=== PATIENT | male | born 1960 | race Caucasian/White ===

== ENCOUNTER 2016-09-22 17:18 | Inpatient (IN) | payer MEDICARE, OTHER ==
[2016-09-22] MEDS ORDERED: cloZAPine 100 MG TAB PO SCH (21:45)
[2016-09-22] MEDS: SODIUM CHLORIDE 0.9% 1,000 ML IV SCH (22:36)
[2016-09-22] MEDS: METOPROLOL TARTRATE 25 MG TAB PO SCH (22:37)
[2016-09-22] MEDS: LITHIUM CARBONATE 300 MG CAP PO SCH (22:37)
[2016-09-22 23:11] LABS: Basophils # (A) 0.1 k/uL (0-0.2); Basophils % (A) 0 %; CH 28.8; CHCM 33.4; Eosinophils % (A) 0 %; HCT 37.5 % (39.0-53.0); HDW 2.98; HGB 12.3 gm/dL (13.0-17.5); Luc # (Auto) 0.11; Luc % (Auto) 1; Lymphocytes # (A) 1.8 k/uL (1.0-4.8); Lymphocytes % (A) 15 %; MCH 28.6 pg (25.0-35.0); MCHC 32.9 g/dL (31.0-37.0); MCV 86.8 fL (80.0-100.0); Monocytes # (A) 0.5 k/uL (0-1.0); Monocytes % (A) 4 %; Neutrophils # (A) 9.5 k/uL (1.3-7.7); Neutrophils % (A) 80 %; RBC 4.32 m/uL (4.30-5.90); RDW 14.1 % (11.5-15.5); WBC 11.9 k/uL (3.8-10.6); WBC (Perox) 11.42
[2016-09-22 23:25] LABS: ALT 25 U/L (21-72); AST 15 U/L (17-59); Alkaline Phosphatase 54 U/L (38-126); Anion Gap 7 mmol/L; Blood Urea Nitrogen 15 mg/dL (9-20); Calcium 9.1 mg/dL (8.4-10.2); Carbon Dioxide 26 mmol/L (22-30); Chloride 108 mmol/L (98-107); Glucose 104 mg/dL (74-99); Magnesium 1.9 mg/dL (1.6-2.3); Non-African American GFR(MDRD) >60 (>60 ml/min/1.73 sqM); Sodium 141 mmol/L (137-145); Total Bilirubin 0.9 mg/dL (0.2-1.3); Total Protein 5.6 g/dL (6.3-8.2)
[2016-09-22] MEDS ORDERED: ACETAMINOPHEN TAB 500 MG TAB PO PRN (23:25)
[2016-09-22] MEDS ORDERED: ALPRAZolam 0.25 MG TAB PO PRN (23:25)
[2016-09-23] MEDS: HEPARIN SODIUM,PORCINE 5,000 UNIT/ML 1 ML VIAL SQ SCH ×3 (01:16→20:06)
[2016-09-23 02:26] LABS: Appearance,Urine Clear (Clear); Bilirubin,Urine Negative (Negative); Glucose,Urine (UA) Negative (Negative); Ketones,Urine Trace (Negative); Leukocyte Esterase,Urine Negative (Negative); Mucus,Urine Rare /hpf; Nitrite,Urine Negative (Negative); PH, Urine 6.5 (5.0-8.0); Particle Count 3129; Protein,Urine 1+ (Negative); RBC,Urine 5 /hpf (0-5); Specific Gravity,Urine 1.019 (1.001-1.035); Sperm,Urine Moderate /hpf; Squamous Epithelial Cell,Urine 1 /hpf (0-4); UA Billing (MACRO vs. MICRO) MICRO; WBC,Urine 3 /hpf (0-5)
[2016-09-23 05:17] VITALS: BMI 22.8
[2016-09-23] MEDS: CHOLECALCIFEROL 1,000 UNIT TAB PO SCH (08:13)
[2016-09-23] MEDS: PANTOPRAZOLE 40 MG TABLET PO SCH (08:13)
[2016-09-23] MEDS: METOPROLOL TARTRATE 25 MG TAB PO SCH ×2 (08:13→20:06)
[2016-09-23] MEDS: DOCUSATE 100 MG CAP PO SCH ×2 (08:13→20:06)
[2016-09-23] MEDS: FERROUS SULFATE 325 MG TAB PO SCH (08:14)
[2016-09-23 08:51] LABS: Basophils % (A) 0 %; CH 29.1; CHCM 33.2; Eosinophils % (A) 0 %; HCT 37.1 % (39.0-53.0); HDW 2.93; HGB 12.3 gm/dL (13.0-17.5); Luc # (Auto) 0.09; Luc % (Auto) 1; Lymphocytes # (A) 1.3 k/uL (1.0-4.8); Lymphocytes % (A) 11 %; MCH 29.1 pg (25.0-35.0); MCHC 33.1 g/dL (31.0-37.0); Mean Platelet Volume 6.7; Monocytes # (A) 0.5 k/uL (0-1.0); Monocytes % (A) 4 %; Neutrophils # (A) 9.9 k/uL (1.3-7.7); Neutrophils % (A) 84 %; RBC 4.21 m/uL (4.30-5.90); RDW 14.2 % (11.5-15.5); WBC 11.8 k/uL (3.8-10.6); WBC (Perox) 11.67
[2016-09-23 09:50] LABS: Anion Gap 10 mmol/L; Blood Urea Nitrogen 16 mg/dL (9-20); Carbon Dioxide 24 mmol/L (22-30); Chloride 108 mmol/L (98-107); Glucose 107 mg/dL (74-99); Lithium <0.2 mmol/L; Non-African American GFR(MDRD) >60 (>60 ml/min/1.73 sqM); Potassium 4.1 mmol/L (3.5-5.1); Sodium 142 mmol/L (137-145)
--- NOTE | 2016-09-23 10:23 | XR ---
EXAMINATION TYPE: XR chest 1V portable DATE OF EXAM: 09/23/2016 8:31 AM Comparison: 01/02/2016 Clinical History: 56 year-old male shortness of breath, CHF Findings: The cardiomediastinal silhouette, aorta, and pulmonary vasculature are within normal limits. Mild i nterstitial prominence is unchanged. Lungs and pleural spaces otherwise are clear. Impression: No acute cardiopulmonary process.
[2016-09-23] MEDS: SODIUM CHLORIDE 0.9% 1,000 ML IV SCH (12:44)
--- NOTE | 2016-09-23 14:16 | P.CN ---
Psychiatric Consult - . Consult date: 09/23/16 Consult:: IDENTIFYING DATA: Mr. Tadeo is a 56-year-old single male who has a history of a schizophrenia. HISTORY OF PRESENT ILLNESS: [facility] transferred him with diagnoses of a small bowel obstruction. Psychiatry was consulted because he has a history of mental illness, history of clozapine treatment and multiple past psychiatric hospitalizations. I reviewed the medical record and attempted to interview Mr. Pagan. He was unable to provide a coherent past or present history. According to the information from the medical record the [place] police called EMS to his home. EMS personnel met with him and his guardian. The guardian stated he had surgery for a abdominal hernia on , 09/19/2016. His guardian and his father told the ED provider that over the past 3-4 days he' s had a decline in mental status. His father noted that his dose of clozapine was reduced from 500 300 mg due to a low blood platelets cell count. He has not been drinking adequately or eating normally. He appears less aware of her surroundings and interacting less with others. According to record his clozapine was decreased from 500 mg to 300 mg due to a low white blood cell count. His WBC on admission to medicine unit was 11.9 and absolute neutrophil count was 9.5 He is currently NPO for evaluation of a suspected small bowel obstruction. According to his unit nurse he has been pleasant and has posed no management problem. PAST PSYCHIATRIC HISTORY: According to medical record he has a history of schizophrenia and multiple psychiatric hospitalizations including admissions to the [facility] and the [facility]. He has been prescribed clozapine for the last 19 years. His last admission to [facility] was in December 2015. SUBSTANCE USE HISTORY: According to the record, he has no history of substance use problems. SOCIAL HISTORY: He is single and has no children. He has not employed and receives Social Security disability he graduated from high school. MENTAL STATUS EXAM: He presented as a thin casually groomed 56-year-old male who is laying comfortably in bed. He made eye contact but continued difficulty attending to the interview. He had no distinguishing features or prominent physical abnormalities. He had a distressed facial expression. He was oriented to person and place. He recognized that he was in [facility]. He thought the year was 2017. He showed psychomotor retardation no abnormal involuntary movements. Her speech was not spontaneous. He had difficulty articulating his thoughts and had long delays in response to questions. His affect was blunted but stable and appropriate. He did not express suicidal ideation or wishes. He did not expressed depressive cognitions. He perseverated about his medical illness and repeatedly requested to have the valorie removed. He did not express ideas reference or paranoid ideation. His thinking was concrete and associations were not coherent or logical. He denied hallucinations and did not appear to be responding to internal stimuli. IMPRESSIONS: He has a chronic schizophrenia and is severely mentally ill. According to the information in the medical record his mental status change prior to admission. The change followed surgery for abdominal hernia repair and apparent decrease in the dose of clozapine. His current WBC and absolute neutrophil count are elevated. PLAN: Increase clozapine to 400 mg at bedtime and titrate gradually to 500 mg at bedtime. Continue WBC and absolute neutrophil count weekly. Continue current dose of lithium but discontinue alprazolam 0.25 mg 3 times a day when necessary. Obtain medical records from [facility]. Will follow. 09/23/16 13:54
--- NOTE | 2016-09-23 14:41 | HP ---
DATE OF ADMISSION: CHIEF COMPLAINT: Change in mental status. HISTORY OF PRESENT ILLNESS: This is a 56-year-old gentleman with a past medical history of multiple medical problems including CHF, diabetes mellitus, hypertension, small bowel obstruction, history of chronic kidney disease stage IIIB, being followed in the outpatient setting presented [facility] ER and was admitted for further evaluation and treatment. The patient apparently had in change in mental status and also had dilated small bowel obstruction. The patient was on Clozaril. The dose was decreased recently. The exact details are not available at this time. Patient is unable to give a coherent history. Patient is confused. Most of the history is taken from my discussion with staff and review of the chart at this time. Apparently, the legal guardian is also not available and could not be contacted per staff. The EMS took the patient to [facility] ER and subsequently because of lack of psychiatric consultation availability, the patient was transferred to [facility] as a direct admission. PAST MEDICAL HISTORY: History of schizophrenia, history of diabetes, hypertension, history of generalized abdominal pain, chronic kidney disease stage III, history of renal failure, history of dyslipidemia, history of hypertension. Medications prior to admission include: 1. Tylenol 325 mg p.o. daily. 2. Lipitor 10 mg p.o. daily. 3. Vitamin D 1,000 units daily. 4. Clozaril 100 mg p.o. daily. 5. ( ) 300 mg p.o. q.h.s. 6. Colace 100 mg p.o. daily. 7. Iron sulfate p.o. daily. 8. [place] 300 mg CR. 9. Metoprolol Lopressor 25 mg p.o. daily. 10. Protonix 40 mg daily. 11. Vitamin B12 1000 mg p.o. b.i.d. ALLERGIES: CODEINE AND PENICILLIN. Family history, social history and review of systems could not be taken at length. Per chart there is no history of any smoking. PHYSICAL EXAMINATION: Patient is conscious, confused. Pulse is 68, blood pressure 116/71, respirations 16, temperature 96.8, pulse ox 98% on room air. HEENT: Conjunctivae normal. Oral mucosa moist. NECK: No jugular venous distention. No carotid bruit. No lymph node enlargement. CARDIOVASCULAR: S1 and S2, muffled. RESPIRATORY: Breath sounds diminished at the bases. A few scattered rhonchi. No crackles. ABDOMEN: Soft, mild diffuse distention. Nontender. No mass palpable. LEGS: No edema, no swelling. NERVOUS SYSTEM: Higher function as mentioned earlier. Moves all four limbs. Full neurological exam could not be carried out. Otherwise no focal deficits. Labs are pending at this time. X-ray abdomen shows dilated small bowels done in [facility]. Other labs are sodium 141, potassium 4.3, creatinine is 1.23, WBC 13.7. UA is not available. ASSESSMENT: 1. Change in mental status, metabolic encephalopathy, multifactorial, exact etiology unknown. 2. Possible partial small bowel obstruction. 3. History of schizophrenia. 4. Diabetes, type 2. 5. Hypertension, essential. 6. Abdominal pain. 7. Thrombocytopenia. 8. History of chronic kidney disease. 9. History of dyslipidemia. 10. History of appendectomy. 11. History of right colectomy. 12. History of right inguinal hernia repair. RECOMMENDATIONS AND DISCUSSION: In this 56-year-old gentleman who presented with multiple complex medical issues, we will monitor the patient closely. Continue the current medications, symptomatic treatment. Otherwise at this time, I would recommend basic labs, IV fluids. I would also recommend psychiatry as well as resume the home medications and psychiatry and as well as surgical evaluation. Guarded prognosis because of multiple complex medical issues. I would also recommend social service worker to sort out the home situation as well, which is not very clear at this time. DVT prophylaxis. See orders for further details. Prognosis guarded.
--- NOTE | 2016-09-23 16:31 | XR ---
EXAMINATION TYPE: XR abdomen complete w decub DATE OF EXAM: 09/23/2016 4:01 PM CLINICAL HISTORY: Small bowel obstruction per order. TECHNIQUE: Supine, upright, and left side down lateral decubitus views of the abdomen are obtained. COMPARISON: CT abdomen and pelvis January 06, 2016 FINDINGS: There is some paucity of small bowel gas. Gas is seen in slightly prominent small bowel loo ps with air-fluid levels. Gas is seen in prominent colonic loops. Overlying coils from ventral wall h ernia repair surgery are identified. Scattered air-fluid levels are seen. No pneumoperitoneum is present. Lung bases are clear. Visualized osseous structures are intact. IMPRESSION: Overall nonspecific bowel gas pattern.
[2016-09-23] MEDS: ATORVASTATIN 10 MG TAB PO SCH (20:06)
[2016-09-23] MEDS: LITHIUM CARBONATE 300 MG CAP PO SCH (20:06)
[2016-09-23] MEDS: cloZAPine 100 MG TAB PO SCH (20:06)
[2016-09-23 21:50] VITALS: RESP 16
--- NOTE | 2016-09-23 22:56 | CONS ---
DATE OF CONSULTATION: Patient is seen on rounds. He had undergone a right inguinal herniorrhaphy by me on 09/11 for a right inguinal herniorrhaphy that was causing partial small bowel obstruction. He was discharged to rehab. He evidently came in because he was not doing well. Some of his medications have been adjusted. The patient denies any pain, nausea or vomiting. PAST MEDICAL HISTORY: Includes some psychiatric issues, renal insufficiency, hyperlipidemia, hypertension, thrombocytopenia. PAST SURGICAL HISTORY: Includes some sort of laparotomy and right inguinal herniorrhaphy. Medications are reviewed. ALLERGIES: Reviewed. Social, family were reviewed. PHYSICAL EXAM: Pleasant 56-year-old man. He is alert and oriented x3 in no acute distress. HEART: Regular rate and rhythm. LUNGS: Clear to auscultation. ABDOMEN: Soft. Positive bowel sounds. Mild tympany to percussion and abdominal distention is actually significantly better than when he was discharged from the hospital. Incision in the right groin is healing without cellulitis or infection. No significant swelling in the cord. ASSESSMENT: Status post right inguinal herniorrhaphy which resulted in partial small bowel obstruction. PLAN: Will discontinue valorie. Start him on a diet. No surgical intervention is planned at this point.
[2016-09-24] MEDS: SODIUM CHLORIDE 0.9% 1,000 ML IV SCH ×2 (02:20→15:17)
--- NOTE | 2016-09-24 06:55 | PN ---
DATE OF SERVICE: 09/23/2016 This 56-year-old gentleman admitted with change in mental status also had abdominal distention and possible ileus also. Psychiatry seen the patient recommending increase the Clozaril to 400 mg q.h.s. and titrate gradually to 500 mg q.h.s. WBC and absolute neutrophil count should be monitored weekly. The current dose of lithium may be continued, but Xanax dose will be monitored. Chest x-ray showed no cardiopulmonary issues. Surgery is following the patient closely. The patient is still confused. PAST MEDICAL HISTORY: Reviewed. REVIEW OF SYSTEMS: Could not be taken because of the patient's confusion. Current medications are reviewed and include: 1. Tylenol 500 mg q.6 p.r.n. 2. Xanax 0.25 t.i.d. 3. Lipitor 10 mg. 4. Vitamin D3, 5000 units daily. 5. Clozaril 400 mg q.h.s. 6. Colace 100 mg p.o. b.i.d. 7. Iron sulfate 325 mg daily. 8. Heparin 5000 units subcu b.i.d. 9. [place] carbonate 600 mg q.h.s. 10. Lopressor. 11. Protonix 40 mg p.o. daily. 12. IV fluids. PHYSICAL EXAMINATION: The patient is alert and oriented x2. Pulse 821, blood pressure 106/71, respirations 20, temperature 97.1, pulse ox 96% on room air. HEENT: Conjunctivae normal. Oral mucosa moist. NECK: No jugular venous distention. No carotid bruit. No lymph node enlargement. No thyroid enlargement. CARDIOVASCULAR: S1 and S2, muffled. RESPIRATORY: Breath sounds diminished at the bases. A few scattered rhonchi and crackles. ABDOMEN: Soft, nontender. No mass palpable. LEGS: No edema, no swelling. NERVOUS SYSTEM: No focal deficits. Diffusely weak. LABS: WBC 11.8, hemoglobin is 12.3. UA noted. ASSESSMENT: 1. Change in mental status, metabolic encephalopathy, multifactorial, exact etiology unknown, possibly medication induced. 2. Possible partial small bowel obstruction. 3. History of schizophrenia. 4. Diabetes mellitus type 2. 5. Hypertension, essential. 6. Abdominal pain, improving. 7. Thrombocytopenia. 8. History of chronic kidney disease. 9. History of dyslipidemia. 10. History of appendectomy. 11. History of right colectomy. 12. History of right inguinal hernia repair. 13. FULL CODE. RECOMMENDATIONS AND DISCUSSION: In this 56-year-old gentleman who presented with multiple complex medical issues, we will monitor the patient closely, continue the current medications. Continue symptomatic treatment. Otherwise, at this time I would recommend continue the current medications, psych medications as mentioned earlier. DVT prophylaxis. Otherwise PT, OT evaluation. Increase ambulation. Continue the beta blockers. [place] level noted. Repeat labs are recommended. Otherwise, await surgical evaluation. Guarded prognosis. Further recommendations to follow. Would also order abdominal flat plate also. Further recommendations to follow.
[2016-09-24] MEDS: HEPARIN SODIUM,PORCINE 5,000 UNIT/ML 1 ML VIAL SQ SCH ×2 (08:15→21:58)
[2016-09-24] MEDS: METOPROLOL TARTRATE 25 MG TAB PO SCH ×2 (08:15→21:59)
[2016-09-24] MEDS: FERROUS SULFATE 325 MG TAB PO SCH (08:16)
[2016-09-24] MEDS: PANTOPRAZOLE 40 MG TABLET PO SCH (08:16)
[2016-09-24] MEDS: CHOLECALCIFEROL 1,000 UNIT TAB PO SCH (08:16)
[2016-09-24] MEDS: DOCUSATE 100 MG CAP PO SCH ×2 (08:16→21:58)
[2016-09-24 09:27] LABS: Basophils % (A) 0 %; CH 29.1; Eosinophils % (A) 0 %; HCT 41.3 % (39.0-53.0); HDW 2.92; HGB 13.2 gm/dL (13.0-17.5); Luc # (Auto) 0.09; Luc % (Auto) 1; Lymphocytes # (A) 1.5 k/uL (1.0-4.8); Lymphocytes % (A) 17 %; MCH 28.3 pg (25.0-35.0); MCV 88.4 fL (80.0-100.0); Mean Platelet Volume 6.6; Monocytes # (A) 0.5 k/uL (0-1.0); Monocytes % (A) 5 %; Neutrophils % (A) 77 %; RBC 4.67 m/uL (4.30-5.90); RDW 14.4 % (11.5-15.5); WBC 9.1 k/uL (3.8-10.6); WBC (Perox) 8.96
[2016-09-24 09:35] LABS: Anion Gap 9 mmol/L; Blood Urea Nitrogen 11 mg/dL (9-20); Calcium 8.9 mg/dL (8.4-10.2); Carbon Dioxide 24 mmol/L (22-30); Chloride 108 mmol/L (98-107); Glucose 135 mg/dL (74-99); Non-African American GFR(MDRD) >60 (>60 ml/min/1.73 sqM); Potassium 3.9 mmol/L (3.5-5.1); Sodium 141 mmol/L (137-145)
--- NOTE | 2016-09-24 14:59 | P.PN ---
Progress Note - Text The patient is tolerating his diet well. His acute abdominal series is unremarkable. Assessment: Status post inguinal herniorrhaphy Recommendation: Low Residue diet for 2 weeks. See me in the office in a month. Notify me if anything changes and you have like him reevaluated.
--- NOTE | 2016-09-24 20:27 | PN ---
DATE OF SERVICE: 09/24/2016 This 56-year-old gentleman who was admitted with change in mental status and metabolic encephalopathy is improving significantly. The partial small-bowel obstruction also seems to be improving. The patient is taking a regular diet. Dr. Encinas is following the patient closely. Plain x-ray of the abdomen is however, the patient patient is living in an apartment by himself. color worker and case monitor are working on discharge planning. No chest. No palpitation. On examination, alert and oriented x2. Pulse 89, blood pressure 125/69, respiratory rate 16, temperature 96.9, pulse ox 100% on room air. HEENT: Conjunctivae normal. NECK: No jugular venous distention. CARDIOVASCULAR SYSTEM: S1, S2 muffled. RESPIRATORY SYSTEM: Breath sounds diminished at the bases. No rhonchi. No crackles. ABDOMEN: Soft, nontender. No mass palpable. LEGS: No edema. No swelling. NERVOUS SYSTEM: No focal deficit. LABS: WBC 9.1, hemoglobin 13.2. UA noted. [place] level less than 0.2. ASSESSMENT: 1. Change in mental status, metabolic encephalopathy, possibly medication-induced. 2. Possible partial small bowel obstruction. 3. History of schizophrenia. 4. Gait dysfunction. 5. Diabetes mellitus, type 2. 6. Hypertension, essential. 7. Abdominal pain, improving. 8. Thrombocytopenia. 9. History of chronic kidney disease, stage unknown. 10. History of dyslipidemia. 11. History of appendectomy. 12. History of right colectomy. 13. History of right inguinal hernia repair. 14. FULL CODE. RECOMMENDATIONS AND DISCUSSION: I recommend to continue current medications, continue with the monitoring, symptomatic treatment. I would also recommend PT and OT evaluation and social work consultation. Guarded prognosis. Further recommendations to follow. A snf is also being recommended. MTDD
[2016-09-24] MEDS: cloZAPine 100 MG TAB PO SCH (21:59)
[2016-09-24] MEDS: LITHIUM CARBONATE 300 MG CAP PO SCH (21:59)
[2016-09-24] MEDS: ATORVASTATIN 10 MG TAB PO SCH (21:59)
[2016-09-25] MEDS: SODIUM CHLORIDE 0.9% 1,000 ML IV SCH ×2 (04:21→05:31)
[2016-09-25 08:12] VITALS: BP 169/64; PULSE 84; TEMP 96.9
[2016-09-25 09:34] LABS: Basophils % (A) 0 %; CH 28.8; CHCM 32.1; Eosinophils % (A) 0 %; HCT 37.7 % (39.0-53.0); HDW 2.72; HGB 11.9 gm/dL (13.0-17.5); Luc # (Auto) 0.06; Luc % (Auto) 1; Lymphocytes # (A) 1.3 k/uL (1.0-4.8); Lymphocytes % (A) 19 %; MCH 28.5 pg (25.0-35.0); MCHC 31.5 g/dL (31.0-37.0); MCV 90.3 fL (80.0-100.0); Mean Platelet Volume 7.1; Monocytes # (A) 0.3 k/uL (0-1.0); Monocytes % (A) 4 %; Neutrophils # (A) 5.2 k/uL (1.3-7.7); Neutrophils % (A) 76 %; RBC 4.17 m/uL (4.30-5.90); RDW 14.7 % (11.5-15.5); WBC 6.8 k/uL (3.8-10.6); WBC (Perox) 7.43
[2016-09-25] MEDS: PANTOPRAZOLE 40 MG TABLET PO SCH (09:42)
[2016-09-25] MEDS: METOPROLOL TARTRATE 25 MG TAB PO SCH (09:42)
[2016-09-25] MEDS: HEPARIN SODIUM,PORCINE 5,000 UNIT/ML 1 ML VIAL SQ SCH (09:42)
[2016-09-25] MEDS: DOCUSATE 100 MG CAP PO SCH (09:42)
[2016-09-25] MEDS: CHOLECALCIFEROL 1,000 UNIT TAB PO SCH (09:42)
[2016-09-25] MEDS: FERROUS SULFATE 325 MG TAB PO SCH (09:42)
[2016-09-25 10:04] LABS: Anion Gap 8 mmol/L; Blood Urea Nitrogen 11 mg/dL (9-20); Calcium 8.5 mg/dL (8.4-10.2); Carbon Dioxide 24 mmol/L (22-30); Chloride 110 mmol/L (98-107); Glucose 91 mg/dL (74-99); Non-African American GFR(MDRD) >60 (>60 ml/min/1.73 sqM); Potassium 4.1 mmol/L (3.5-5.1); Sodium 142 mmol/L (137-145)
--- NOTE | 2016-09-25 13:49 | P.PN ---
Progress Note - Text SUBJECTIVE: I reviewed the medical record and interviewed Mr. Pagan. Today , he was without complaint of concern. He denied abdominal pain or problems with appetite. He denied feeling frightened or scared. He denied experiencing auditory or visual hallucinations, ideas reference, thought insertion, thought broadcasting or thought control. OBJECTIVE: He presented as a thin casually groomed adult male who is laying comfortably in bed. He recognized me from our initial encounter but he did not remember my name. He made eye contact and attended to the interview. He had no distinguishing features or prominent physical abnormalities. He had a blunted but bright facial expression. He was alert and able to concentrate and attend on the examination. Unlike our initial encounter, he was able to complete the [facility] Orientation Memory and Concentration test. His total weighted error score was 0 indicating no major impairments in attention, concentration or short-term memory. He knew the month and year. He is able to estimate the time correctly within 1 hour actual time. He is able to retain the memory phrase "[place], [address] [place] [id number]." He was able to count backwards from 20 and name the months of the year in reverse order beginning with April. He was able to remember the memory phrase after the distraction exercises. He denied suicidal ideation or wishes. He did not express depressive cognitions such as hopelessness, helplessness or worthlessness. He did not express phobias, ideas reference, paranoid ideation or delusional thoughts. His thinking was concrete but his associations were coherent and logical. He did not demonstrate perseveration, neologisms or blocking. He denied hallucinations and did not appear to be responding to internal stimuli. ASSESSMENT: There is no evidence of acute psychosis or major mood disorder. I suspect his mental status changes were related to a medical illness. PLAN: There is no indication for inpatient psychiatric hospitalization at the time. Continue outpatient mental health treatment after discharge.
--- NOTE | 2016-09-26 05:16 | DS ---
DATE OF ADMISSION: 09/22/2016 DATE OF DISCHARGE: 09/25/2016 The patient is a 66-year-old admitted for metabolic encephalopathy, probably related to his psychiatric disorder and not taking Clozaril and that improved. Patient is being discharged today. Patient had a recent hernia repair. Patient is otherwise clinically doing well and patient is being discharged home with 24/7 monitoring. Patient is being restarted back on Clozaril. Patient was seen and examined on the day of discharge. Vitals are stable. PHYSICAL EXAMINATION: GENERAL: The patient is alert and oriented x3, not in any acute distress. Well developed, well nourished. HEENT: Pupils are round and equally reacting to light. EOMI. No scleral icterus. No conjunctival pallor. Normocephalic, atraumatic. No pharyngeal erythema. No thyromegaly. CARDIOVASCULAR: S1 and S2 present. No murmurs, rubs, or gallops. PULMONARY: Chest is clear to auscultation, no wheezing or crackles. ABDOMEN: Soft, nontender, nondistended, normoactive bowel sounds. No palpable organomegaly. MUSCULOSKELETAL: No joint swelling or deformity. EXTREMITIES: No cyanosis, clubbing, or pedal edema. NEUROLOGICAL: No new focal neurological ( ). SKIN: No rashes. FINAL DIAGNOSES: 1. Altered mental status, possibility of toxic metabolic encephalopathy, possibly medication induced. 2. Partial small bowel obstruction, which resolved. 3. Schizophrenia. 4. Gait dysfunction. 5. Type 2 diabetes mellitus. 6. Hypertension. 7. 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 8. Dyslipidemia. 9. Recent right inguinal hernia repair. Patient is tolerating diet very well, low residual diet very well. The patient is being discharged home with 24/7 care. Patient's Clozaril was restarted back and patient's CBC needs to be monitored as an outpatient. Patient will follow with [facility] and patient will also following in [facility] in one week. [facility] will follow the patient. Patient will follow with Dr. Charo Encinas on the october at 9:15. Activity as tolerated. Low residual diet. Spent greater than 35 minutes in total discharge process. Please refer to my depart summary for further details of discharge medications.
== END 2016-09-25 15:00 | disposition home or self-care (01) | DRG 388 ==
LOC: 5ONC 19:38 → 5MS5E 22:55
PROVIDERS: ADMIT Internal Medicine; ATTEND Internal Medicine
DX: K56.60 Unspecified intestinal obstruction (principal); G92 Toxic encephalopathy; I13.0 Hypertensive heart and chronic kidney disease with heart failure and stage 1 through stage 4 chronic kidney disease, or unspecified chronic kidney disease; E11.22 Type 2 diabetes mellitus with diabetic chronic kidney disease; D69.6 Thrombocytopenia, unspecified; F20.9 Schizophrenia, unspecified; I50.9 Heart failure, unspecified; T50.905A Adverse effect of unspecified drugs, medicaments and biological substances, initial encounter; E78.5 Hyperlipidemia, unspecified; R26.9 Unspecified abnormalities of gait and mobility; N18.2 Chronic kidney disease, stage 2 (mild); R10.9 Unspecified abdominal pain; Z79.899 Other long term (current) drug therapy; Z88.5 Allergy status to narcotic agent; Z88.0 Allergy status to penicillin; Y92.009 Unspecified place in unspecified non-institutional (private) residence as the place of occurrence of the external cause
CPT/HCPCS: 71010; 74020; 80048; 80053; 80178; 80306; 81001; 83735; 85025; 87040; 87086

== ENCOUNTER 2020-08-09 10:45 | Inpatient (IN) | payer MEDICARE, OTHER ==
[2020-08-09 11:29] LABS: Appearance,Urine Clear (Clear); Bilirubin,Urine Negative (Negative); Blood,Urine Negative (Negative); Color,Urine Yellow; Glucose,Urine (UA) Negative (Negative); Ketones,Urine Negative (Negative); Leukocyte Esterase,Urine Negative (Negative); Mucus,Urine Occasional /hpf; Nitrite,Urine Negative (Negative); Protein,Urine 1+ (Negative); RBC,Urine 1 /hpf (0-5); Squamous Epithelial Cell,Urine <1 /hpf (0-4); WBC,Urine 1 /hpf (0-5)
--- NOTE | 2020-08-09 11:57 | ED ---
General Adult HPI - General Chief complaint: Urogenital Stated complaint: Poss UTI/Mental health Time Seen by Provider: 08/09/20 10:55 Source: patient, RN notes reviewed, old records reviewed Mode of arrival: ambulatory Limitations: no limitations - History of Present Illness Initial comments: This is a 59-year-old male who presents to the emergency department with the procurement representative from [facility]. Patient has a history of schizophrenia and lately he's been distancing himself from others more than normal and also has been more fatigued acting. Patient has no complaints. Patient denies any fever chills. Patient denies any nausea vomiting diarrhea. Patient has had no recent injury or trauma. [facility] nurse thought maybe he had a ur inary tract infection want him to come in and be checked out for medical reasons he is not suicidal or homicidal and they do not want the patient evaluated by EPS - Related Data Home Medications Medication Instructions Recorded Confirmed [place] Carbonate 600 mg PO HS 02/06/16 08/09/20 Cholecalciferol (Vitamin D3) 125 mcg PO MOWEFR 08/09/20 08/09/20 [Vitamin D3 (5000 Iu)] Docusate [Colace] 100 mg PO BID PRN 08/09/20 08/09/20 Levothyroxine Sodium [Synthroid] 50 mcg PO DAILY 08/09/20 08/09/20 Triamcinolone 0.1% Ointment 1 applic TOPICAL DAILY 08/09/20 08/09/20 [Kenalog] calcitrioL [Rocaltrol] 0.25 mcg PO Q7D 08/09/20 08/09/20 Previous Rx's Medication Instructions Recorded Atorvastatin [Lipitor] 10 mg PO HS #30 tab 12/14/15 Pantoprazole [Protonix] 40 mg PO [id number] tablet. 01/08/16 cloZAPine [Clozaril] 400 mg PO HS #20 09/25/16 Allergies Allergy/AdvReac Type Severity Reaction Status Date / Time codeine Allergy Rash/Hives Verified 08/09/20 13:07 Penicillins Allergy Rash/Hives Verified 08/09/20 13:07 Review of Systems ROS Statement: Those systems with pertinent positive or pertinent negative responses have been documented in the HPI. ROS Other: All systems not noted in ROS Statement are negative. Past Medical History Past Medical History: Diabetes Mellitus Additional Past Medical History / Comment(s): ITP, bowel obstructions, ulcerative colitis History of Any Multi-Drug Resistant Organisms: None Reported Past Surgical History: Appendectomy Additional Past Surgical History / Comment(s): abd surgery r/t adhesions, bowel obstruction, hemicolectomy Past Anesthesia/Blood Transfusion Reactions: No Reported Reaction Past Psychological History: Anxiety, Bipolar, Depression, Schizophrenia Smoking Status: Never smoker Past Alcohol Use History: None Reported Past Drug Use History: None Reported - Past Family History Mother History Unknown: Yes Father Family Medical History: Hypertension General Exam - General Exam Comments Initial Comments: GENERAL: Patient is well-developed and well-nourished. Patient is nontoxic and well- hydrated and is in no acute distress. ENT: Neck is soft and supple. No significant lymphadenopathy is noted. Oropharynx is clear. Moist mucous membranes. Neck has full range of motion without eliciting any pain. EYES: The sclera were anicteric and conjunctiva were pink and moist. Extraocular movements were intact and pupils were equal round and reactive to light. Eyelids were unremarkable. PULMONARY: Unlabored respirations. Good breath sounds bilaterally. No audible rales rhonchi or wheezing was noted. CARDIOVASCULAR: There is a regular rate and rhythm without any murmurs gallops or rubs. ABDOMEN: Soft and nontender with normal bowel sounds. SKIN: Skin is clear with no lesions or rashes and otherwise unremarkable. NEUROLOGIC: Patient is alert and oriented x3. Cranial nerves II through XII are grossly in tact. Motor and sensory are also intact. Normal speech, volume and content. Symmetrical smile. MUSCULOSKELETAL: Normal extremities with adequate strength and full range of motion. LYMPHATICS: No significant lymphadenopathy is noted PSYCHIATRIC: Patient answers all questions appropriately heard patient denies suicidal or homicidal ideations. Patient is not tearful doesn't talk about depression and doesn't appear anxious Limitations: no limitations Course Vital Signs 08/09/20 08/09/20 08/09/20 10:55 11:43 13:37 Temperature 98.0 F 98.4 F 100.1 F H Pulse Rate 116 H 100 Respiratory 16 18 Rate Blood Pressure 106/68 123/73 O2 Sat by Pulse 100 98 Oximetry Medical Decision Making - Medical Decision Making Chest x-ray shows a right upper lobe empyema versus TB. I spoke with because he agreed to admit the patient admitted the patient I wrote admitting orders. I consult the pulmonary as well as ID. - Lab Data Result diagrams: 08/09/20 12:04 08/09/20 12:04 Lab Results 08/09/20 08/09/20 08/09/20 Range/Units 11:15 12:04 12:04 WBC 18.1 H (3.8-10.6) k/uL RBC 4.54 (4.30-5.90) m/uL Hgb 12.7 L (13.0-17.5) gm/dL Hct 39.8 (39.0-53.0) % MCV 87.6 (80.0-100.0) fL MCH 28.0 (25.0-35.0) pg MCHC 31.9 (31.0-37.0) g/dL RDW 13.1 (11.5-15.5) % Plt Count 343 (150-450) k/uL MPV 7.1 Neutrophils % 91 % Lymphocytes % 6 % Monocytes % 3 % Eosinophils % 0 % Basophils % 0 % Neutrophils # 16.4 H (1.3-7.7) k/uL Lymphocytes # 1.0 (1.0-4.8) k/uL Monocytes # 0.5 (0-1.0) k/uL Eosinophils # 0.0 (0-0.7) k/uL Basophils # 0.0 (0-0.2) k/uL Manual Slide Review Performed Toxic Granulation Present Toxic Vacuolation Present Hypochromasia Slight Poikilocytosis (manual Present Anisocytosis (manual) Present Sodium 139 (137-145) mmol/L Potassium 4.0 (3.5-5.1) mmol/L Chloride 101 (98-107) mmol/L Carbon Dioxide 30 (22-30) mmol/L Anion Gap 8 mmol/L BUN 16 (9-20) mg/dL Creatinine 1.25 (0.66-1.25) mg/dL Est GFR (CKD-EPI)AfAm 72 (>60 ml/min/1.73 sqM) Est GFR (CKD-EPI)NonAf 63 (>60 ml/min/1.73 sqM) Glucose 185 H (74-99) mg/dL Calcium 9.4 (8.4-10.2) mg/dL Total Bilirubin 0.6 (0.2-1.3) mg/dL AST 59 (17-59) U/L ALT 67 H (4-49) U/L Alkaline Phosphatase 129 H (38-126) U/L Total Protein 5.9 L (6.3-8.2) g/dL Albumin 3.5 (3.5-5.0) g/dL Urine Color Yellow Urine Appearance Clear (Clear) Urine pH 6.0 (5.0-8.0) Ur Specific [place] 1.020 (1.001-1.035) Urine Protein 1+ H (Negative) Urine Glucose (UA) Negative (Negative) Urine Ketones Negative (Negative) Urine Blood Negative (Negative) Urine Nitrite Negative (Negative) Urine Bilirubin Negative (Negative) Urine Urobilinogen 3.0 (<2.0) mg/dL Ur Leukocyte Esterase Negative (Negative) Urine RBC 1 (0-5) /hpf Urine WBC 1 (0-5) /hpf Ur Squamous Epith Cells <1 (0-4) /hpf Urine Mucus Occasional H (None) /hpf Esto 0.5 mmol/L Coronavirus (PCR) (Not Detectd) 08/09/20 Range/Units 12:04 WBC (3.8-10.6) k/uL RBC (4.30-5.90) m/uL Hgb (13.0-17.5) gm/dL Hct (39.0-53.0) % MCV (80.0-100.0) fL MCH (25.0-35.0) pg MCHC (31.0-37.0) g/dL RDW (11.5-15.5) % Plt Count (150-450) k/uL MPV Neutrophils % % Lymphocytes % % Monocytes % % Eosinophils % % Basophils % % Neutrophils # (1.3-7.7) k/uL Lymphocytes # (1.0-4.8) k/uL Monocytes # (0-1.0) k/uL Eosinophils # (0-0.7) k/uL Basophils # (0-0.2) k/uL Manual Slide Review Toxic Granulation Toxic Vacuolation Hypochromasia Poikilocytosis (manual Anisocytosis (manual) Sodium (137-145) mmol/L Potassium (3.5-5.1) mmol/L Chloride (98-107) mmol/L Carbon Dioxide (22-30) mmol/L Anion Gap mmol/L BUN (9-20) mg/dL Creatinine (0.66-1.25) mg/dL Est GFR (CKD-EPI)AfAm (>60 ml/min/1.73 sqM) Est GFR (CKD-EPI)NonAf (>60 ml/min/1.73 sqM) Glucose (74-99) mg/dL Calcium (8.4-10.2) mg/dL Total Bilirubin (0.2-1.3) mg/dL AST (17-59) U/L ALT (4-49) U/L Alkaline Phosphatase (38-126) U/L Total Protein (6.3-8.2) g/dL Albumin (3.5-5.0) g/dL Urine Color Urine Appearance (Clear) Urine pH (5.0-8.0) Ur Specific [place] (1.001-1.035) Urine Protein (Negative) Urine Glucose (UA) (Negative) Urine Ketones (Negative) Urine Blood (Negative) Urine Nitrite (Negative) Urine Bilirubin (Negative) Urine Urobilinogen (<2.0) mg/dL Ur Leukocyte Esterase (Negative) Urine RBC (0-5) /hpf Urine WBC (0-5) /hpf Ur Squamous Epith Cells (0-4) /hpf Urine Mucus (None) /hpf Esto mmol/L Coronavirus (PCR) Not Detected (Not Detectd) Disposition Clinical Impression: Empyema lung Disposition: ADMITTED IP TO THIS [facility] Referrals: [facility] [Primary Care Provider] - 1-2 days Time of Disposition: 13:55
[2020-08-09 12:22] LABS: Basophils % (A) 0 %; Eosinophils % (A) 0 %; HCT 39.8 % (39.0-53.0); HGB 12.7 gm/dL (13.0-17.5); Hypochromasia Slight; Lymphocytes % (A) 6 %; MCHC 31.9 g/dL (31.0-37.0); MCV 87.6 fL (80.0-100.0); Mean Platelet Volume 7.1; Monocytes # (A) 0.5 k/uL (0-1.0); Monocytes % (A) 3 %; Neutrophils # (A) 16.4 k/uL (1.3-7.7); Neutrophils % (A) 91 %; Platelet Count 343 k/uL (150-450); RBC 4.54 m/uL (4.30-5.90); RDW 13.1 % (11.5-15.5); WBC 18.1 k/uL (3.8-10.6)
[2020-08-09 12:28] LABS: Albumin 3.5 g/dL (3.5-5.0); Calcium 9.4 mg/dL (8.4-10.2); Lithium 0.5 mmol/L; Total Bilirubin 0.6 mg/dL (0.2-1.3); Total Protein 5.9 g/dL (6.3-8.2)
[2020-08-09] MEDS ORDERED: PIPERACILLIN-TAZOBACTAM 3.375 GM in SODIUM CHLORIDE 0.9% 100 ML IVPB STA (12:44)
[2020-08-09 12:45] LABS: Anisocytosis (M) Present; Poikilocytosis (M) Present; Toxic Granulation Present; Toxic Vacuolation Present
--- NOTE | 2020-08-09 13:01 | XR ---
EXAMINATION TYPE: XR chest 2V DATE OF EXAM: 08/09/2020 COMPARISON: 09/23/2016 INDICATION: Difficulty breathing and shortness of breath weakness TECHNIQUE: Frontal and lateral views of the chest are obtained. FINDINGS: The heart size is normal. The pulmonary vasculature is normal. There is a larger mass or consolidation in the right upper lobe measuring 11.9 x 8.7 cm. There is an air-fluid level present. Empyema and cavitary lesion should be considered.. IMPRESSION: 1. 12.9 x 8.7 cm empyema or cavitary lesion right upper lobe.
[2020-08-09] MEDS ORDERED: PNEUMONIA PROTOCOL UTILIZED 1 EACH MISC PO PRN (13:56)
[2020-08-09] MEDS ORDERED: RX INFO: IV CONTRAST WAS GIVEN 1 EACH MISC MISCELLANE PRN (14:04)
[2020-08-09] MEDS ORDERED: DOCUSATE 100 MG CAP PO PRN (14:21)
[2020-08-09] MEDS ORDERED: VANCOMYCIN IV PER PHARMACY 1 EACH MISC MISCELLANE PRN (14:34)
--- NOTE | 2020-08-09 14:34 | P.HPIM ---
History of Present Illness Patient was brought in by [facility] as the patient is not behaving like usually appear to have been bit fatigued and may be confused. Patient is presently alert oriented 2-3 which is his baseline. Patient denied any c omplaints at this time although he is coughing he doesn't know the exact duration of cough denied any nausea vomiting diarrhea dysuria. Patient underwent workup urine analysis is within normal limits patient did chest x-ray which showed an abscess in the right upper chest with a cavitary lesion. CT of the chest is being obtained. Patient will be started on IV Unasyn and vancomycin empirically. His tachycardic as well. Review of Systems REVIEW OF SYSTEMS: CONSTITUTIONAL: No fever, no malaise, no fatigue. HEENT: No recent visual problems or hearing problems. Denied any sore throat. CARDIOVASCULAR: No chest pain, orthopnea, PND, no palpitations, no syncope. PULMONARY: As mentioned in HPI GASTROINTESTINAL: No diarrhea, no nausea, no vomiting, no abdominal pain. NEUROLOGICAL: No headaches, no weakness, no numbness. HEMATOLOGICAL: Denies any bleeding or petechiae. GENITOURINARY: Denies any burning micturition, frequency, or urgency. MUSCULOSKELETAL/RHEUMATOLOGICAL: Denies any joint pain, swelling, or any muscle pain. ENDOCRINE: Denies any polyuria or polydipsia. The rest of the 14-point review of systems is negative. Past Medical History Past Medical History: Diabetes Mellitus Additional Past Medical History / Comment(s): ITP, bowel obstructions, ulcerative colitis History of Any Multi-Drug Resistant Organisms: None Reported Past Surgical History: Appendectomy Additional Past Surgical History / Comment(s): abd surgery r/t adhesions, bowel obstruction, hemicolectomy Past Anesthesia/Blood Transfusion Reactions: No Reported Reaction Past Psychological History: Anxiety, Bipolar, Depression, Schizophrenia Smoking Status: Never smoker Past Alcohol Use History: None Reported Past Drug Use History: None Reported - Past Family History Mother History Unknown: Yes Father Family Medical History: Hypertension Medications and Allergies Home Medications Medication Instructions Recorded Confirmed Type Atorvastatin [Lipitor] 10 mg PO HS #30 tab 12/14/15 08/09/20 Rx [place] Carbonate 600 mg PO HS 02/06/16 08/09/20 History cloZAPine [Clozaril] 400 mg PO HS #20 09/25/16 08/09/20 Rx Cholecalciferol (Vitamin D3) 125 mcg PO MOWEFR 08/09/20 08/09/20 History [Vitamin D3 (5000 Iu)] Docusate [Colace] 100 mg PO BID PRN 08/09/20 08/09/20 History Levothyroxine Sodium [Synthroid] 50 mcg PO DAILY 08/09/20 08/09/20 History Pantoprazole [Protonix] 40 mg PO Q48H 08/09/20 08/09/20 History Triamcinolone 0.1% Ointment 1 applic TOPICAL DAILY 08/09/20 08/09/20 History [Kenalog] calcitrioL [Rocaltrol] 0.25 mcg PO Q7D 08/09/20 08/09/20 History Allergies Allergy/AdvReac Type Severity Reaction Status Date / Time codeine Allergy Rash/Hives Verified 08/09/20 13:07 Penicillins Allergy Rash/Hives Verified 08/09/20 13:07 Physical Exam Vitals: Vital Signs Temp Pulse Resp BP Pulse Ox 08/09/20 13:55 18 08/09/20 13:37 100.1 F H 100 18 123/73 98 08/09/20 11:43 98.4 F 08/09/20 10:55 98.0 F 116 H 16 106/68 100 Intake and Output 08/08/20 08/09/20 08/09/20 22:59 06:59 14:59 Other: Weight 97.522 kg PHYSICAL EXAMINATION: GENERAL: The patient is alert and oriented x3, not in any acute distress. Well developed, well nourished. HEENT: Pupils are round and equally reacting to light. EOMI. No scleral icterus. No conjunctival pallor. Normocephalic, atraumatic. No pharyngeal erythema. No thyromegaly. CARDIOVASCULAR: S1 and S2 present. No murmurs, rubs, or gallops. PULMONARY: Chest is clear to auscultation, no wheezing or crackles. ABDOMEN: Soft, nontender, nondistended, normoactive bowel sounds. No palpable organomegaly. MUSCULOSKELETAL: No joint swelling or deformity. EXTREMITIES: No cyanosis, clubbing, or pedal edema. NEUROLOGICAL: Gross neurological examination did not reveal any focal deficits. SKIN: No rashes. Results CBC & Chem 7: 08/09/20 12:04 08/09/20 12:04 Labs: Abnormal Lab Results - Last 24 Hours (Table) 08/09/20 08/09/20 08/09/20 Range/Units 11:15 12:04 12:04 WBC 18.1 H (3.8-10.6) k/uL Hgb 12.7 L (13.0-17.5) gm/dL Neutrophils # 16.4 H (1.3-7.7) k/uL Glucose 185 H (74-99) mg/dL ALT 67 H (4-49) U/L Alkaline Phosphatase 129 H (38-126) U/L Total Protein 5.9 L (6.3-8.2) g/dL Urine Protein 1+ H (Negative) Urine Mucus Occasional H (None) /hpf Assessment and Plan Plan: -Lung abscesses right upper lobe with a cavitary lesion: CT of the chest is being obtained patient will be started on Unasyn and vancomycin as mentioned above IV fluids. denied any history of exposure to tuberculosis -Leukocytosis due to assessment #1 -Mild acute renal failure: Possibly prerenal azotemia from infection and dehydration Patient was started on IV fluids for this -Type 2 diabetes mellitus -Schizophrenia and bipolar disorder -DVT prophylaxis: Subcutaneous heparin
[2020-08-09] MEDS ORDERED: VANCOMYCIN 1,500 MG in SODIUM CHLORIDE 0.9% 250 ML IVPB ONE (15:00)
--- NOTE | 2020-08-09 15:14 | CT ---
EXAMINATION TYPE: CT chest w con DATE OF EXAM: 08/09/2020 COMPARISON: Chest x-ray same date HISTORY: Cavitating lesion CT DLP: 359.8 mGycm Automated exposure control for dose reduction was used. CONTRAST: CT scan of the chest is performed with IV Contrast, patient injected with 100 ml mL of Isovue 300. FINDINGS: LUNGS: The cavitary mass in the right upper lobe is noted, there is internal septation, air-fluid lev el present, associated local inflammatory change, atelectasis. The mass measures approximately 9.4 cm in AP dimension by 6.9 cm in transverse dimension by 9.8 cm in cephalad to caudal dimension, there a re additional areas in the right upper lobe of probable airspace disease or possibly nodularity. Ther e is no pleural or pericardial effusion. MEDIASTINUM: There are no greater than 1 cm hilar or mediastinal lymph nodes. No pericardial effusi on is seen. AORTA: No additional significant abnormality is seen. OTHER: There is splenomegaly. Some cystic foci are associated with the kidneys. IMPRESSION: Findings may represent necrotic right upper lobe bronchogenic carcinoma, infection and l maximino abscess not excluded. Splenomegaly.
[2020-08-09] MEDS ORDERED: SODIUM CHLORIDE 0.9% 1,000 ML IV ONE (15:18)
[2020-08-09] MEDS: ATORVASTATIN 10 MG TAB PO SCH ×2 (15:45→21:44)
[2020-08-09] MEDS: SODIUM CHLORIDE 0.9% 1,000 ML IV SCH (15:45)
--- NOTE | 2020-08-09 15:50 | P.CNPUL ---
History of Present Illness Consult date: 08/09/20 Requesting physician: Modesto Blum Reason for consult: other (Lung mass) Chief complaint: Fatigued and confused History of present illness: This is a 59-year-old white male with history of diabetes, schizophrenia, hypothyroidism, patient is a nonsmoker, brought into the emergency room with a payable representative from [facility], and the concern was that he was noted to be more fatigued and confused, and they were mostly concerned about the possibility of urinary tract infection. The patient himself had no symptoms whatsoever however the patient is a poor historian. His [facility] nurse felt that he may have urinary tract infection and she brought him to the ER. Workup in the ER included a chest x-ray which showed a large cavitary mass lesion in the right upper lobe. The lesion measures more than 9.5 cm in size. It had an air-fluid level and the differential diagnoses includes lung abscess, cavitary malignancy, fungal pneumonia, or bacterial pneumonia/abscess. Considering the abnormal CT of the chest and chest x-ray, I was asked to see him on consultation. Again the patient had no pulmonary symptoms whatsoever. Review of Systems Patient is not a great historian, and he was basically asymptomatic. He felt he was fine. His [facility] nurses felt he may have UTI because of his weakness fatigue and confusion. Past Medical History Past Medical History: Diabetes Mellitus Additional Past Medical History / Comment(s): ITP, bowel obstructions, ulcerative colitis History of Any Multi-Drug Resistant Organisms: None Reported Past Surgical History: Appendectomy Additional Past Surgical History / Comment(s): abd surgery r/t adhesions, bowel obstruction, hemicolectomy Past Anesthesia/Blood Transfusion Reactions: No Reported Reaction Past Psychological History: Anxiety, Bipolar, Depression, Schizophrenia Smoking Status: Never smoker Past Alcohol Use History: None Reported Past Drug Use History: None Reported - Past Family History Mother History Unknown: Yes Father Family Medical History: Hypertension Medications and Allergies Home Medications Medication Instructions Recorded Confirmed Type Atorvastatin [Lipitor] 10 mg PO HS #30 tab 12/14/15 08/09/20 Rx [place] Carbonate 600 mg PO HS 02/06/16 08/09/20 History cloZAPine [Clozaril] 400 mg PO HS #20 09/25/16 08/09/20 Rx Cholecalciferol (Vitamin D3) 125 mcg PO MOWEFR 08/09/20 08/09/20 History [Vitamin D3 (5000 Iu)] Docusate [Colace] 100 mg PO BID PRN 08/09/20 08/09/20 History Levothyroxine Sodium [Synthroid] 50 mcg PO DAILY 08/09/20 08/09/20 History Pantoprazole [Protonix] 40 mg PO Q48H 08/09/20 08/09/20 History Triamcinolone 0.1% Ointment 1 applic TOPICAL DAILY 08/09/20 08/09/20 History [Kenalog] calcitrioL [Rocaltrol] 0.25 mcg PO Q7D 08/09/20 08/09/20 History Allergies Allergy/AdvReac Type Severity Reaction Status Date / Time codeine Allergy Rash/Hives Verified 08/09/20 13:07 Penicillins Allergy Rash/Hives Verified 08/09/20 13:07 Physical Exam Vitals: Vital Signs Temp Pulse Resp BP Pulse Ox 08/09/20 13:55 18 08/09/20 13:37 100.1 F H 100 18 123/73 98 08/09/20 11:43 98.4 F 08/09/20 10:55 98.0 F 116 H 16 106/68 100 Intake and Output 08/09/20 08/09/20 08/09/20 06:59 14:59 22:59 Other: Weight 97.522 kg Physical Exam: Revealed 59-year-old white male in no distress, a bit confused, not a great historian. Head: Atraumatic, normocephalic. HEENT:[Neck is supple.] [No neck masses.] [No thyromegaly.] [No JVD.] Chest: [Clear throughout, no crackles, no rhonchi, no wheezes.] Cardiac Exam: [Normal S1 and S2, no S3 gallop, no murmur.] Abdomen: [Soft, nontender, no megaly, no rebound, no guarding, normal bowel sounds.] Extremities: [No clubbing, no edema, no cyanosis.] Neurological Exam: [No focal neurologic deficit.] However the patient is confused and could not give adequate history Psychiatric: Anxious mood, blunt affect, confused. Skin: No rashes. Results - Laboratory Findings CBC and BMP: 08/09/20 12:04 08/09/20 12:04 Abnormal lab findings: Abnormal Labs 08/09/20 08/09/20 08/09/20 11:15 12:04 12:04 WBC 18.1 H Hgb 12.7 L Neutrophils # 16.4 H Glucose 185 H Plasma Lactic Acid Renato ALT 67 H Alkaline Phosphatase 129 H Total Protein 5.9 L Urine Protein 1+ H Urine Mucus Occasional H 08/09/20 13:53 WBC Hgb Neutrophils # Glucose Plasma Lactic Acid Renato 3.7 H* ALT Alkaline Phosphatase Total Protein Urine Protein Urine Mucus - Diagnostic Findings Chest x-ray: image reviewed CT scan - chest: image reviewed (As noted in HPI.) Assessment and Plan Assessment: Impression: Large right upper lobe cavitary mass lesion, differential diagnoses includes lung abscess, bacterial or fungal pneumonia, or most likely bronchogenic carcinoma history of schizophrenia. leukocytosis secondary to his cavitary lung lesion. Recommendation: Patient will be placed on broad-spectrum antibiotics, discussed the antibiotics with the admitting physician, and suggested vancomycin and Unasyn for now. We will arrange for CT-guided needle biopsy since the lesion seems to be peripheral, and we'll consult interventional radiology. If CT-guided needle biopsy is not diagnostic, would consider bronchoscopy and transbronchial biopsy of the right upper lobe. In the meantime continue antibiotics. Time with Patient: Greater than 30
[2020-08-09] MEDS: ACETAMINOPHEN TAB 500 MG TAB PO PRN (18:41)
[2020-08-09] MEDS ORDERED: AMPICILLIN-SULBACTAM 3 GM in SODIUM CHLORIDE 0.9% 100 ML IVPB SCH (20:00)
[2020-08-09] MEDS ORDERED: PIPERACILLIN-TAZOBACTAM 3.375 GM in SODIUM CHLORIDE 0.9% 100 ML IVPB SCH (21:00)
[2020-08-09] MEDS: LITHIUM CARBONATE 300 MG CAP PO SCH (21:44)
[2020-08-09] MEDS: cloZAPine 100 MG TAB PO SCH (21:45)
[2020-08-10] MEDS: AMPICILLIN-SULBACTAM 3 GM in SODIUM CHLORIDE 0.9% 100 ML IVPB SCH ×4 (01:22→20:14)
[2020-08-10] MEDS: ACETAMINOPHEN TAB 500 MG TAB PO PRN (03:35)
[2020-08-10] MEDS: SODIUM CHLORIDE 0.9% 1,000 ML IV SCH ×3 (03:37→22:44)
[2020-08-10] MEDS ORDERED: VANCOMYCIN 1,500 MG in SODIUM CHLORIDE 0.9% 250 ML IVPB SCH (04:00)
[2020-08-10] MEDS: LEVOTHYROXINE 50 MCG TAB PO SCH (06:42)
--- NOTE | 2020-08-10 08:25 | XR ---
EXAMINATION TYPE: XR chest 2V DATE OF EXAM: 08/10/2020 COMPARISON: 08/09/2020 INDICATION: Pneumonia TECHNIQUE: Frontal and lateral views of the chest are obtained. FINDINGS: The heart size is normal. The pulmonary vasculature is normal. Large consolidation has increased peripheral infiltrate in the right upper lobe. Air-fluid level is f aintly visualized. Findings could be compatible with cavitation. IMPRESSION: 1. Right upper lobe consolidation. Infectious etiology and neoplasm are within the differential. Cavi tation is present. Some increasing peripheral infiltrate in the upper right lobe may be adjacent.
[2020-08-10 08:35] LABS: African American GFR (CKD) >90 (>60 ml/min/1.73 sqM); Anion Gap 3 mmol/L; Blood Urea Nitrogen 11 mg/dL (9-20); Calcium 8.2 mg/dL (8.4-10.2); Carbon Dioxide 26 mmol/L (22-30); Chloride 110 mmol/L (98-107); Glucose 156 mg/dL (74-99); Magnesium 2.1 mg/dL (1.6-2.3); Non-African American GFR(CKD) 81 (>60 ml/min/1.73 sqM); Potassium 3.8 mmol/L (3.5-5.1); Sodium 139 mmol/L (137-145)
[2020-08-10 08:41] LABS: INR 1.1 (<1.2)
[2020-08-10 08:42] LABS: Prothrombin Time 11.6 sec (9.0-12.0)
--- NOTE | 2020-08-10 08:46 | CONS ---
CONSULTATION DATE OF SERVICE: 08/09/2020 REASON FOR CONSULTATION: Cavitating pneumonia. HISTORY OF PRESENT ILLNESS: The patient is a 59-year-old male with past medical history significant for schizophrenia, diabetes mellitus. Patient has been brought into the ER with therapist who treated him from [facility] with concern for possible urinary tract infection as the patient noticed to have more fatigue and confused over the last few days. The patient denies having any headache. No chest pain. No shortness of breath. He did have some cough, not bringing up any sputum. Denies any nausea, no vomiting, no abdominal pain or any diarrhea. With these symptoms, the patient has been evaluated by the ER physician. On arrival to the ER, the patient initially was afebrile. Subsequently, this evening he did spike a fever of 102.9 degrees Fahrenheit. The patient is saturating at 98% on room air. He did have elevated white count of 18.1 with left shift. Creatinine was 1.25. Lactic acid 3.7 and repeat is 1.1. Liver enzymes mildly elevated. Shrestha test came back negative. The patient did have a chest x-ray which did show cavitary lesion right upper lobe. This has been confirmed on the CT of the chest. Patient has received 2 doses of Zosyn. Subsequently admitted to hospital on vancomycin and Unasyn. Infectious Disease was consulted for further management of antibiotic therapy. REVIEW OF SYSTEMS: Positive points have been mentioned in HPI. Rest of systems are negative. PAST MEDICAL HISTORY: Diabetes mellitus, ulcerative colitis, ITP, bowel obstruction, anxiety, bipolar, depression and schizophrenia. PAST SURGICAL HISTORY: Abdominal secondary to adhesions and hemicolectomy. SOCIAL HISTORY: No history of smoking, drinking or drug use. FAMILY HISTORY: No pertinent findings noticed. ALLERGIES: Allergies to CODEINE and PENICILLIN. MEDICATIONS: Medications currently include the patient is on Tylenol, Unasyn 3 grams q.8 hours. He is on Lipitor, Rocaltrol, clozapine, Colace, Synthroid, lithium, Protonix, Kenalog and vancomycin pharmacy to dose. PHYSICAL EXAMINATION: Blood pressure is 113/67, pulse of 85, temperature 99, T-max 102.9. He is 98% on room air. General description is a middle-aged male lying in bed in no distress. No tachypnea or accessory muscles of respiration use. HEENT: Examination shows no pallor or scleral icterus. Oral mucous membrane is dry. NECK: Trachea central. No thyromegaly. LUNGS: Unlabored breathing. Coarse breath sounds bilaterally. No wheeze. HEART: S1, S2. Regular rate and rhythm. ABDOMEN: Soft, no tenderness. No guarding or rigidity. EXTREMITIES: No edema of feet. SKIN EXAMINATION: No rash or mass palpable. NEUROLOGICAL: The patient is awake, alert, oriented x3. Mood and affect normal. LABS: Hemoglobin is 12.7, white count 18.1. BUN of 16, creatinine 1.25. Lactic acid was elevated. Chest x-ray report mentioned above. DIAGNOSTIC IMPRESSION AND PLAN: Patient admitted to the hospital with weakness, mental status changes, concern for possible urinary tract infection in this patient who did have evidence of right upper lobe cavitary pneumonia, question of possible aspiration etiology and concern for possible underlying malignancy. PLAN: 1. We will try to obtain sputum for Gram stain and culture. 2. Patient to continue vancomycin pharmacy to dose, Unasyn dose grams every 6 hours. 3. We will follow on clinical condition and culture to further adjust medication if needed. Thank you for this consultation. Will follow this patient along with you. MMODL / IJN: [id number] /
[2020-08-10] MEDS: PANTOPRAZOLE 40 MG TABLET PO SCH (08:49)
[2020-08-10 11:12] LABS: HCT 32.5 % (39.6-50.0); HGB 9.8 g/dL (13.0-17.0); MCH 27.6 pg (27.0-32.0); MCHC 30.2 g/dL (32.0-37.0); MCV 91.5 fL (80.0-97.0); Mean Platelet Volume 10.2 fL (9.5-12.2); Platelet Count 300 X 10*3/uL (140-440); RBC 3.55 X 10*6/uL (4.40-5.60); RDW 12.9 % (11.5-14.5); WBC 17.87 X 10*3/uL (4.50-10.00)
--- NOTE | 2020-08-10 12:01 | P.PN ---
Subjective Progress Note Date: 08/10/20 Principal diagnosis: Shortness of breath. This is a 59-year-old white male with history of diabetes, schizophrenia, hypothyroidism, patient is a nonsmoker, brought into the emergency room with a mill representative from [facility], and the concern was that he was noted to be more fatigued and confused, and they were mostly concerned about the possibility of urinary tract infection. The patient himself had no symptoms whatsoever however the patient is a poor historian. His [facility] nurse felt that he may have urinary tract infection and she brought him to the ER. Workup in the ER included a chest x-ray which showed a large cavitary mass lesion in the right upper lobe. The lesion measures more than 9.5 cm in size. It had an air-fluid level and the differential diagnoses includes lung abscess, cavitary malignancy, fungal pneumonia, or bacterial pneumonia/abscess. Considering the abnormal CT of the chest and chest x-ray, I was asked to see him on consultation. Again the patient had no pulmonary symptoms whatsoever. Progress note dated 08/10/2020. 59-year-old male, with history of diabetes, schizophrenia, hypothyroidism, who was evaluated in the emergency room for confusion, fatigue, and possible urinary tract infection. The workup in the emergency room included a chest x-ray which revealed a large cavitary mass lesion in the right upper lobe currently, the patient does admit to some mild cough, but denies fever, chills, and shortness of breath. Computed tomography scan was done yesterday and revealed a cavitary mass in the right upper lobe. There are internal septations and an air-fluid level. This lesion could be malignant, or inflammatory/infectious. There was no significant adenopathy noted. White count was 17.87, hemoglobin 9.8, he matocrit 32.5, and platelet count 300,000. Sodium 139, potassium 3.8, chlorides 110, CO2 26, anion gap 3, E1 11, creatinine 1.01. Initial lactic acid was 3.7, repeat was 1.1. The patient tested negative for coronavirus. Objective - Vital Signs Vital signs: Vital Signs Temp 98.5 F 08/10/20 06:46 Pulse 81 08/10/20 06:46 Resp 18 08/10/20 06:46 BP 112/70 08/10/20 06:46 Pulse Ox 95 08/10/20 06:46 Intake & Output 08/09/20 08/10/20 08/10/20 18:59 06:59 18:59 Weight 97.522 kg - Exam No acute distress, oriented 3. Not on any supplemental oxygen. The patient appears chronically ill and quite cachectic. HEENT examination is grossly unremarkable. Mucous membranes are moist. No oral lesions. Neck supple. Full range of motion. No adenopathy thyromegaly or neck vein distention. Cardiovascular examination reveals regular rhythm rate. S1-S2 normal. No S3 or S4. No discernible murmur noted. Heart rate 81 bpm. Lungs reveal clear breath sounds. Her sounds are equal bilaterally. No adventitious lung sounds including wheezes rhonchi or crackles. Abdomen soft bowel sounds are heard. No masses or tenderness. Extremities are intact. No cyanosis clubbing or edema. Skin is without rash or lesion. Neurologic examination is brief but nonfocal. - Labs CBC & Chem 7: 08/10/20 08:02 08/10/20 08:02 Labs: Abnormal Lab Results - Last 24 Hours (Table) 08/09/20 08/09/20 08/09/20 Range/Units 12:04 12:04 13:53 WBC 18.1 H (3.8-10.6) k/uL RBC (4.40-5.60) X 10*6/uL Hgb 12.7 L (13.0-17.5) gm/dL Hct (39.6-50.0) % MCHC (32.0-37.0) g/dL Neutrophils # 16.4 H (1.3-7.7) k/uL Chloride (98-107) mmol/L Glucose 185 H (74-99) mg/dL Plasma Lactic Acid Renato 3.7 H* (0.7-2.0) mmol/L Calcium (8.4-10.2) mg/dL ALT 67 H (4-49) U/L Alkaline Phosphatase 129 H (38-126) U/L Total Protein 5.9 L (6.3-8.2) g/dL 08/10/20 08/10/20 Range/Units 08:02 08:02 WBC 17.87 H (3.8-10.6) k/uL RBC 3.55 L (4.40-5.60) X 10*6/uL Hgb 9.8 L (13.0-17.5) gm/dL Hct 32.5 L (39.6-50.0) % MCHC 30.2 L (32.0-37.0) g/dL Neutrophils # (1.3-7.7) k/uL Chloride 110 H (98-107) mmol/L Glucose 156 H (74-99) mg/dL Plasma Lactic Acid Renato (0.7-2.0) mmol/L Calcium 8.2 L (8.4-10.2) mg/dL ALT (4-49) U/L Alkaline Phosphatase (38-126) U/L Total Protein (6.3-8.2) g/dL Assessment and Plan Assessment: Cavitary lesion, right upper lobe, which may be inflammatory/infectious, or malignant. History of schizophrenia. History of hypothyroidism. History of ulcerative colitis. History of bowel obstruction. History of ITP. History of diabetes mellitus. History of hyperlipidemia. Plan: Plan dated 08/10/2020. The patient was placed on broad-spectrum antibiotics. Interventional radiology was consulted for fine-needle aspiration. If that is nondiagnostic, bronchoscopy would be considered. Additional recommendations and suggestions are forthcoming. He is currently on Unasyn and vancomycin. The patient really denies any major respiratory complaints other than for mild cough. Patient denies being short of breath. He is currently not on any supplemental oxygen. Time with Patient: Less than 30
[2020-08-10] MEDS: TRIAMCINOLONE ACET 0.1% OINTMENT 80 GM TUBE TOPICAL SCH (12:55)
--- NOTE | 2020-08-10 13:08 | P.PCN ---
Date of Procedure: 08/10/20 Preoperative Diagnosis: lung mass Procedure(s) Performed: ct guide fna and core biopsy, 18 ga x 3 through 17 ga guide Anesthesia: local Estimated Blood Loss (ml): 0 Condition: stable Operative Findings: cores in formalin, specimen for culture and cytology
--- NOTE | 2020-08-10 13:41 | CT ---
EXAMINATION TYPE: CT biopsy lung RT DATE OF EXAM: 08/10/2020 HISTORY: Lung mass COMPARISON: CT 08/09/2020 Maximal barrier technique was utilized, hand hygiene obtained with soap and water. The skin overlyin g a suitable path to the lesion was localized using CT and the overlying skin was prepped and draped. Lidocaine used for local anesthesia. A skin roberto made with a scalpel. Using CT guidance, access w as gained to the lesion with a 18-gauge core needle through a 17-gauge guide. Core specimen submitte d to cytology. 3 pass(es) performed in all. Aspirate was also performed with turbid brown fluid obta ined. Following the procedure no immediate complications. The patient is discharged in stable condi tion to observation. Hemostasis achieved. IMPRESSION: SUCCESSFUL CT GUIDED CORE AND ASPIRATION BIOPSY. PATHOLOGY PENDING. THIS PROCEDURE WAS PERFORMED BY THE UNDERSIGNED.
--- NOTE | 2020-08-10 13:56 | XR ---
EXAMINATION TYPE: XR chest 1V portable DATE OF EXAM: 08/10/2020 COMPARISON: Chest x-ray 08/10/2020 at earlier time HISTORY: Status post right lung biopsy TECHNIQUE: Single frontal view of the chest is obtained. FINDINGS: There is no interval change. IMPRESSION: No evident complication status post right lung biopsy
[2020-08-10] MEDS: VANCOMYCIN 1,750 MG in SODIUM CHLORIDE 0.9% 500 ML 500 ML IVPB SCH (16:47)
--- NOTE | 2020-08-10 17:19 | P.PN ---
Subjective Patient was brought in by [facility] as the patient is not behaving like usually appear to have been bit fatigued and may be confused. Patient is presently alert oriented 2-3 which is his baseline. Patient denied any complaints at this time although he is coughing he doesn't know the exact duration of cough denied any nausea vomiting diarrhea dysuria. Patient underwent workup urine analysis is within normal limits patient did chest x-ray which showed an abscess in the right upper chest with a cavitary lesion. CT of the chest is being obtained. Patient will be started on IV Unasyn and vancomycin empirically. His tachycardic as well. 08/10/[address]-guided biopsy of the cavitary mass and patient is being continued on antibiotics it can be infectious inflammatory or malignant. Patient is feeling better. Constitutional: Denied any fatigue denied any fever. Cardio vascular: denied any chest pain, palpitations Gastrointestinal denied any nausea vomiting Pulmonary: Denied any shortness of breath cough Neurologic denied any new focal deficits All inpatient medications were reviewed and appropriate changes in these medications as dictated in the interval history and assessment and plan. Objective - Vital Signs Vital signs: Vital Signs Temp 98.5 F 08/10/20 13:25 Pulse 99 08/10/20 15:51 Resp 18 08/10/20 13:25 BP 128/72 08/10/20 15:51 Pulse Ox 100 08/10/20 13:25 Intake & Output 08/09/20 08/10/20 08/10/20 18:59 06:59 18:59 Output Total 400 Balance -400 Weight 97.522 kg 97.522 kg Output: Urine 400 Other: # Voids 1 - Exam PHYSICAL EXAMINATION: GENERAL: The patient is alert and oriented x3, not in any acute distress. Well developed, well nourished. HEENT: Pupils are round and equally reacting to light. EOMI. No scleral icterus. No conjunctival pallor. Normocephalic, atraumatic. No pharyngeal erythema. No thyromegaly. CARDIOVASCULAR: S1 and S2 present. No murmurs, rubs, or gallops. PULMONARY: Chest is clear to auscultation, no wheezing or crackles. ABDOMEN: Soft, nontender, nondistended, normoactive bowel sounds. No palpable organomegaly. MUSCULOSKELETAL: No joint swelling or deformity. EXTREMITIES: No cyanosis, clubbing, or pedal edema. NEUROLOGICAL: Gross neurological examination did not reveal any focal deficits. SKIN: No rashes. - Labs CBC & Chem 7: 08/10/20 08:02 08/10/20 08:02 Labs: Abnormal Lab Results - Last 24 Hours (Table) 08/10/20 08/10/20 Range/Units 08:02 08:02 WBC 17.87 H (4.50-10.00) X 10*3/uL RBC 3.55 L (4.40-5.60) X 10*6/uL Hgb 9.8 L (13.0-17.0) g/dL Hct 32.5 L (39.6-50.0) % MCHC 30.2 L (32.0-37.0) g/dL Chloride 110 H (98-107) mmol/L Glucose 156 H (74-99) mg/dL Calcium 8.2 L (8.4-10.2) mg/dL Microbiology - Last 24 Hours (Table) 08/09/20 13:56 Blood Culture - Preliminary Blood No Growth after 24 hours Assessment and Plan Plan: -Lung abscesses right upper lobe with a cavitary lesion: Patient had biopsy of this cavitary lesion and patient is being continued on antibiotics that is vancomycin and Unasyn to cover Staphylococcus and anaerobic bacteria -Leukocytosis due to assessment #1 -Mild acute renal failure: Possibly prerenal azotemia from infection and dehydration Patient was started on IV fluids for this -Type 2 diabetes mellitus -Schizophrenia and bipolar disorder -DVT prophylaxis: Subcutaneous heparin
[2020-08-10] MEDS: ATORVASTATIN 10 MG TAB PO SCH (20:14)
[2020-08-10] MEDS: LITHIUM CARBONATE 300 MG CAP PO SCH (20:14)
[2020-08-10] MEDS: cloZAPine 100 MG TAB PO SCH (20:30)
--- NOTE | 2020-08-10 23:21 | PN ---
PROGRESS NOTE DATE OF SERVICE: 08/10/2020. REASON FOR FOLLOWUP: Pneumonia. INTERVAL HISTORY: The patient has been running a fever 99.7. Patient is slightly more awake and alert. He is breathing comfortably. He continues to complain of cough. Occasional sputum. No hemoptysis. No nausea, no vomiting. No abdominal pain. No diarrhea. PHYSICAL EXAMINATION: Blood pressure 132/69 with pulse of 104, temperature 99.3. He is 93% on room air. General description is a middle-aged male lying in bed in no distress. Respiratory system: Unlabored breathing, decreased intensity of breath sounds. No wheeze. HEART: S1, S2. Regular rate and rhythm. ABDOMEN: Soft. No tenderness. LABS: Hemoglobin is 9.1, white count 17.7, BUN of 11, creatinine 1.01. DIAGNOSTIC IMPRESSION AND PLAN: Patient with cavitary pneumonia in this patient who is status post CT-guided biopsy. Cultures currently pending. Patient is currently on Unasyn and vancomycin to continue and monitor clinical course closely. Continue supportive care. MMODL / IJN: [id number] /
[2020-08-11] MEDS: AMPICILLIN-SULBACTAM 3 GM in SODIUM CHLORIDE 0.9% 100 ML IVPB SCH ×4 (04:00→20:59)
[2020-08-11] MEDS: VANCOMYCIN 1,750 MG in SODIUM CHLORIDE 0.9% 500 ML 500 ML IVPB SCH ×2 (04:44→15:53)
[2020-08-11] MEDS: LEVOTHYROXINE 50 MCG TAB PO SCH (04:46)
[2020-08-11] MEDS: SODIUM CHLORIDE 0.9% 1,000 ML IV SCH ×2 (08:36→15:54)
[2020-08-11 08:39] LABS: African American GFR (CKD) >90 (>60 ml/min/1.73 sqM); Non-African American GFR(CKD) 85 (>60 ml/min/1.73 sqM)
[2020-08-11] MEDS: TRIAMCINOLONE ACET 0.1% OINTMENT 80 GM TUBE TOPICAL SCH (10:04)
[2020-08-11 13:56] VITALS: BMI 26.2
--- NOTE | 2020-08-11 13:57 | P.PN ---
Subjective Patient was brought in by [facility] as the patient is not behaving like usually appear to have been bit fatigued and may be confused. Patient is presently alert oriented 2-3 which is his baseline. Patient denied any complaints at this time although he is coughing he doesn't know the exact duration of cough denied any nausea vomiting diarrhea dysuria. Patient underwent workup urine analysis is within normal limits patient did chest x-ray which showed an abscess in the right upper chest with a cavitary lesion. CT of the chest is being obtained. Patient will be started on IV Unasyn and vancomycin empirically. His tachycardic as well. 08/10/[address]-guided biopsy of the cavitary mass and patient is being continued on antibiotics it can be infectious inflammatory or malignant. Patient is feeling better. 08/11/2020 Cultures from abscess site is still pending. Patient is presently in negative pressure isolation and sputum maybe is being obtained and culture for TB was be done as well. Constitutional: Denied any fatigue denied any fever. Cardio vascular: denied any chest pain, palpitations Gastrointestinal denied any nausea vomiting Pulmonary: Denied any shortness of breath cough Neurologic denied any new focal deficits All inpatient medications were reviewed and appropriate changes in these medica tions as dictated in the interval history and assessment and plan. Objective - Vital Signs Vital signs: Vital Signs Temp 98.8 F 08/11/20 07:00 Pulse 103 H 08/11/20 07:00 Resp 18 08/11/20 07:00 BP 117/65 08/11/20 07:00 Pulse Ox 95 08/11/20 08:36 Intake & Output 08/10/20 08/11/20 08/11/20 18:59 06:59 18:59 Output Total 1250 Balance -1250 Weight 97.522 kg Output: Urine 1250 Other: Voiding Method Toilet Incontinent # Voids 3 3 - Exam PHYSICAL EXAMINATION: GENERAL: The patient is alert and oriented x3, not in any acute distress. Well developed, well nourished. HEENT: Pupils are round and equally reacting to light. EOMI. No scleral icterus. No conjunctival pallor. Normocephalic, atraumatic. No pharyngeal erythema. No thyromegaly. CARDIOVASCULAR: S1 and S2 present. No murmurs, rubs, or gallops. PULMONARY: Chest is clear to auscultation, no wheezing or crackles. ABDOMEN: Soft, nontender, nondistended, normoactive bowel sounds. No palpable organomegaly. MUSCULOSKELETAL: No joint swelling or deformity. EXTREMITIES: No cyanosis, clubbing, or pedal edema. NEUROLOGICAL: Gross neurological examination did not reveal any focal deficits. SKIN: No rashes. - Labs CBC & Chem 7: 08/10/20 08:02 08/11/20 07:57 Labs: Microbiology - Last 24 Hours (Table) 08/10/20 13:00 Gram Stain - Preliminary Lung - Right Wound Culture - Preliminary 08/10/20 13:00 Anaerobic Culture - Preliminary Lung - Right 08/10/20 13:00 Fungal Culture - Preliminary Lung - Right 08/09/20 13:56 Blood Culture - Preliminary Blood No Growth after 24 hours Assessment and Plan Plan: -Lung abscesses right upper lobe with a cavitary lesion: Patient had biopsy of this cavitary lesion and patient is being continued on antibiotics that is vancomycin and Unasyn to cover Staphylococcus and anaerobic bacteria, being tested for tuberculosis as well with acid-fast bacilli smear and culture. Patient is presently negative pressure isolation room biopsy and cultures and studies from the lesion is still pending -Leukocytosis due to assessment #1 -Mild acute renal failure: Possibly prerenal azotemia from infection and dehydration Patient was started on IV fluids for this -Type 2 diabetes mellitus -Schizophrenia and bipolar disorder -DVT prophylaxis: Subcutaneous heparin
[2020-08-11] MEDS: ACETAMINOPHEN TAB 500 MG TAB PO PRN (14:21)
--- NOTE | 2020-08-11 15:58 | P.PN ---
Subjective Progress Note Date: 08/11/20 This is a 59-year-old white male with history of diabetes, schizophrenia, hypothyroidism, patient is a nonsmoker, brought into the emergency room with a premium representative from [facility], and the concern was that he was noted to be more fatigued and confused, and they were mostly concerned about the possibility of urinary tract infection. The patient himself had no symptoms whatsoever however the patient is a poor historian. His [facility] nurse felt that he may have urinary tract infection and she brought him to the ER. Workup in the ER included a chest x-ray which showed a large cavitary mass lesion in the right upper lobe. The lesion measures more than 9.5 cm in size. It had an air-fluid level and the differential diagnoses includes lung abscess, cavitary malignancy, fungal pneumonia, or bacterial pneumonia/abscess. Considering the abnormal CT of the chest and chest x-ray, I was asked to see him on consultation. Again the patient had no pulmonary symptoms whatsoever. Progress note dated 08/10/2020. 59-year-old male, with history of diabetes, schizophrenia, hypothyroidism, who was evaluated in the emergency room for confusion, fatigue, and possible urinary tract infection. The workup in the emergency room included a chest x-ray which revealed a large cavitary mass lesion in the right upper lobe currently, the patient does admit to some mild cough, but denies fever, chills, and shortness of breath. Computed tomography scan was done yesterday and revealed a cavitary mass in the right upper lobe. There are internal septations and an air-fluid level. This lesion could be malignant, or inflammatory/infectious. There was no significant adenopathy noted. White count was 17.87, hemoglobin 9.8, hematocrit 32.5, and platelet count 300,000. Sodium 139, potassium 3.8, chlorides 110, CO2 26, anion gap 3, E1 11, creatinine 1.01. Initial lactic acid was 3.7, repeat was 1.1. The patient tested negative for coronavirus. The patient is seen today 08/11/2020 in follow-up on the regular medical floor. He is currently sitting up in bed. Awake and alert in no acute distress. Maintaining good O2 saturations in the mid 90s on room air. He's been afebrile. Hemodynamically stable. He did undergo a CT-guided biopsy of the right upper lobe mass yesterday. Pathology pending. Cultures pending. Follow-up chest x- ray did not reveal any evidence of pneumothorax. Creatinine 0.97. He is continued on Unasyn, vancomycin Objective - Vital Signs Vital signs: Vital Signs Temp 99.7 F H 08/11/20 14:00 Pulse 105 H 08/11/20 14:00 Resp 23 08/11/20 14:00 BP 124/65 08/11/20 14:00 Pulse Ox 98 08/11/20 14:00 Intake & Output 08/10/20 08/11/20 08/11/20 18:59 06:59 18:59 Output Total 1250 Balance -1250 Weight 97.522 kg 97.522 kg Output: Urine 1250 Other: Voiding Method Toilet Incontinent # Voids 3 3 - Exam GENERAL EXAM: Alert, pleasant 59-year-old gentleman, on room air, comfortable in no apparent distress. HEAD: Normocephalic. EYES: Normal reaction of pupils, equal size. NOSE: Clear with pink turbinates. THROAT: No erythema or exudates. NECK: No masses, no JVD. CHEST: No chest wall deformity. LUNGS: Equal air entry with scattered rhonchi of the right lung. CVS: S1 and S2 normal with no audible murmur, regular rhythm. ABDOMEN: No hepatosplenomegaly, normal bowel sounds, no guarding or rigidity. SPINE: No scoliosis or deformity SKIN: No rashes CENTRAL NERVOUS SYSTEM: No focal deficits, tone is normal in all 4 extremities. EXTREMITIES: There is no peripheral edema. No clubbing, no cyanosis. Peripheral pulses are intact. - Labs CBC & Chem 7: 08/10/20 08:02 08/11/20 07:57 Labs: Microbiology - Last 24 Hours (Table) 08/10/20 13:00 Gram Stain - Preliminary Lung - Right Wound Culture - Preliminary 08/10/20 13:00 Anaerobic Culture - Preliminary Lung - Right 08/10/20 13:00 Fungal Culture - Preliminary Lung - Right 08/09/20 13:56 Blood Culture - Preliminary Blood No Growth after 24 hours Assessment and Plan Assessment: 1 Right upper lobe cavitary lesion, status post biopsy, pathology and cultures pending 2 History of schizophrenia 3 Hypothyroidism 4 Ulcerative colitis 5 History of ITP 6 Diabetes mellitus 7 Hyperlipidemia Plan: The patient was seen and evaluated by Dr. Fontanez. He is currently stable from the pulmonary standpoint. On room air. Awaiting biopsy and culture results. Continued on vancomycin and Unasyn. We will continue to follow I, the cosigning physician, performed a history & physical examination of the patient. Lungs sounds with few scattered rhonchi of the right lung. Maintaining good O2 saturations in the 90s on room air. I discussed the assessment and plan of care with my nurse practitioner, Wendy Napoles. I attest to the above note as dictated by her.
--- NOTE | 2020-08-11 18:12 | PN ---
PROGRESS NOTE DATE OF SERVICE: 08/11/2020 REASON FOR FOLLOWUP: Cavitating pneumonia. INTERVAL HISTORY: The patient is currently afebrile. The patient is more awake and alert. He is currently breathing comfortably on room air. Denies having any chest pain or shortness of breath. Occasional cough. No abdominal pain or diarrhea. PHYSICAL EXAMINATION: Blood pressure 124/65, pulse of 105, temperature 99.7. He is 98% on room air. General description is a middle-aged male lying in bed in no distress. RESPIRATORY SYSTEM: Unlabored breathing with decreased intensity of breath sounds. No wheeze. HEART: S1, S2. Regular rate and rhythm. ABDOMEN: Soft. No tenderness. LABS: Creatinine 0.97. Blood culture negative. DIAGNOSTIC IMPRESSION AND PLAN: Patient with cavitating pneumonia, status post CT-guided biopsies. Cultures are currently pending. The patient is covered with Unasyn and vancomycin; to continue and monitor clinical course closely. Continue with supportive care. MMODL / IJN: [id number] /
[2020-08-11] MEDS: cloZAPine 100 MG TAB PO SCH (21:00)
[2020-08-11] MEDS: ATORVASTATIN 10 MG TAB PO SCH (21:00)
[2020-08-11] MEDS: LITHIUM CARBONATE 300 MG CAP PO SCH (21:00)
[2020-08-12] MEDS: AMPICILLIN-SULBACTAM 3 GM in SODIUM CHLORIDE 0.9% 100 ML IVPB SCH ×4 (01:25→20:25)
[2020-08-12] MEDS ORDERED: VANCOMYCIN TROUGH DUE 1 EACH MISC MISCELLANE ONE (03:00)
[2020-08-12] MEDS: VANCOMYCIN 1,750 MG in SODIUM CHLORIDE 0.9% 500 ML 500 ML IVPB SCH ×2 (04:38→17:41)
[2020-08-12] MEDS: SODIUM CHLORIDE 0.9% 1,000 ML IV SCH (04:39)
[2020-08-12 05:08] LABS: African American GFR (CKD) >90 (>60 ml/min/1.73 sqM); Non-African American GFR(CKD) 89 (>60 ml/min/1.73 sqM)
[2020-08-12] MEDS: LEVOTHYROXINE 50 MCG TAB PO SCH (05:36)
[2020-08-12] MEDS: TRIAMCINOLONE ACET 0.1% OINTMENT 80 GM TUBE TOPICAL SCH (10:22)
[2020-08-12] MEDS: PANTOPRAZOLE 40 MG TABLET PO SCH (10:22)
--- NOTE | 2020-08-12 15:22 | P.PN ---
Subjective Patient was brought in by [facility] as the patient is not behaving like usually appear to have been bit fatigued and may be confused. Patient is presently alert oriented 2-3 which is his baseline. Patient denied any complaints at this time although he is coughing he doesn't know the exact duration of cough denied any nausea vomiting diarrhea dysuria. Patient underwent workup urine analysis is within normal limits patient did chest x-ray which showed an abscess in the right upper chest with a cavitary lesion. CT of the chest is being obtained. Patient will be started on IV Unasyn and vancomycin empirically. His tachycardic as well. 08/10/[address]-guided biopsy of the cavitary mass and patient is being continued on antibiotics it can be infectious inflammatory or malignant. Patient is feeling better. 08/11/2020 Cultures from abscess site is still pending. Patient is presently in negative pressure isolation and sputum maybe is being obtained and culture for TB was be done as well. 08/12/[address]-guided biopsy is positive for gram-positive cocci in chains. Patient will be continued on antibodies of Unasyn on Vanco mycin for now and will await the finalization of the cultures. Discussed with infectious disease patient probably will not need TB isolation. clinically looks very well. Constitutional: Denied any fatigue denied any fever. Cardio vascular: denied any chest pain, palpitations Gastrointestinal denied any nausea vomiting Pulmonary: Denied any shortness of breath cough Neurologic denied any new focal deficits All inpatient medications were reviewed and appropriate changes in these medications as dictated in the interval history and assessment and plan. Objective - Vital Signs Vital signs: Vital Signs Temp 99.7 F H 08/12/20 14:14 Pulse 97 08/12/20 14:14 Resp 15 08/12/20 14:14 BP 150/82 08/12/20 14:14 Pulse Ox 97 08/12/20 14:14 Intake & Output 08/11/20 08/12/20 08/12/20 18:59 06:59 18:59 Output Total 1000 Balance -1000 Weight 97.522 kg Output: Urine 1000 Other: Voiding Method Toilet Toilet Toilet Incontinent # Voids 3 2 2 - Exam PHYSICAL EXAMINATION: GENERAL: The patient is alert and oriented x3, not in any acute distress. Well developed, well nourished. HEENT: Pupils are round and equally reacting to light. EOMI. No scleral icterus. No conjunctival pallor. Normocephalic, atraumatic. No pharyngeal erythema. No thyromegaly. CARDIOVASCULAR: S1 and S2 present. No murmurs, rubs, or gallops. PULMONARY: Chest is clear to auscultation, no wheezing or crackles. ABDOMEN: Soft, nontender, nondistended, normoactive bowel sounds. No palpable organomegaly. MUSCULOSKELETAL: No joint swelling or deformity. EXTREMITIES: No cyanosis, clubbing, or pedal edema. NEUROLOGICAL: Gross neurological examination did not reveal any focal deficits. SKIN: No rashes. - Labs CBC & Chem 7: 08/10/20 08:02 08/12/20 03:44 Labs: Microbiology - Last 24 Hours (Table) 08/10/20 13:00 Gram Stain - Preliminary Lung - Right Wound Culture - Preliminary 08/09/20 13:56 Blood Culture - Preliminary Blood No Growth after 48 hours Assessment and Plan Plan: -Lung abscesses right upper lobe with a cavitary lesion: Patient had biopsy of this cavitary lesion and patient is being continued on antibiotics that is vancomycin and Unasyn to cover Staphylococcus and anaerobic bacteria, being tested for tuberculosis as well with acid-fast bacilli smear and culture, possibility of for tuberculosis extremely low possibly will not need isolation Patient is presently negative pressure isolation room biopsy and cultures and studies from the lesion is still pending -Leukocytosis due to assessment #1 -Mild acute renal failure: Possibly prerenal azotemia from infection and de hydration Patient was started on IV fluids for this -Type 2 diabetes mellitus -Schizophrenia and bipolar disorder -DVT prophylaxis: Subcutaneous heparin
--- NOTE | 2020-08-12 16:40 | P.PN ---
Subjective Progress Note Date: 08/12/20 This is a 59-year-old white male with history of diabetes, schizophrenia, hypothyroidism, patient is a nonsmoker, brought into the emergency room with a sales representative womens health from [facility], and the concern was that he was noted to be more fatigued and confused, and they were mostly concerned about the possibility of urinary tract infection. The patient himself had no symptoms whatsoever however the patient is a poor historian. His [facility] nurse felt that he may have urinary tract infection and she brought him to the ER. Workup in the ER included a chest x-ray which showed a large cavitary mass lesion in the right upper lobe. The lesion measures more than 9.5 cm in size. It had an air-fluid level and the differential diagnoses includes lung abscess, cavitary malignancy, fungal pneumonia, or bacterial pneumonia/abscess. Considering the abnormal CT of the chest and chest x-ray, I was asked to see him on consultation. Again the patient had no pulmonary symptoms whatsoever. Progress note dated 08/10/2020. 59-year-old male, with history of diabetes, schizophrenia, hypothyroidism, who was evaluated in the emergency room for confusion, fatigue, and possible urinary tract infection. The workup in the emergency room included a chest x-ray which revealed a large cavitary mass lesion in the right upper lobe currently, the patient does admit to some mild cough, but denies fever, chills, and shortness of breath. Computed tomography scan was done yesterday and revealed a cavitary mass in the right upper lobe. There are internal septations and an air-fluid level. This lesion could be malignant, or inflammatory/infectious. There was no significant adenopathy noted. White count was 17.87, hemoglobin 9.8, hematocrit 32.5, and platelet count 300,000. Sodium 139, potassium 3.8, chlorides 110, CO2 26, anion gap 3, E1 11, creatinine 1.01. Initial lactic acid was 3.7, repeat was 1.1. The patient tested negative for coronavirus. The patient is seen today 08/11/2020 in follow-up on the regular medical floor. He is currently sitting up in bed. Awake and alert in no acute distress. Maintaining good O2 saturations in the mid 90s on room air. He's been afebrile. Hemodynamically stable. He did undergo a CT-guided biopsy of the right upper lobe mass yesterday. Pathology pending. Cultures pending. Follow-up chest x- ray did not reveal any evidence of pneumothorax. Creatinine 0.97. He is continued on Unasyn, vancomycin The patient is seen today 08/12/2020 in follow-up on the regular medical floor. He is currently sitting up in bed. Awake and alert in no acute distress. Currently maintaining O2 saturation in the 90s on room air. He is continued on vancomycin and Unasyn. Temperature 99.7. Blood cultures revealing no growth. Right lung fluid cultures pending. Creatinine 0.93. Vancomycin trough 16.4. Objective - Vital Signs Vital signs: Vital Signs Temp 99.7 F H 08/12/20 14:14 Pulse 97 08/12/20 14:14 Resp 15 08/12/20 14:14 BP 150/82 08/12/20 14:14 Pulse Ox 97 08/12/20 14:14 Intake & Output 08/11/20 08/12/20 08/12/20 18:59 06:59 18:59 Output Total 1000 Balance -1000 Weight 97.522 kg Output: Urine 1000 Other: Voiding Method Toilet Toilet Toilet Incontinent # Voids 3 2 2 - Exam GENERAL EXAM: Alert, pleasant 59-year-old gentleman, on room air, comfortable in no apparent distress. HEAD: Normocephalic. EYES: Normal reaction of pupils, equal size. NOSE: Clear with pink turbinates. THROAT: No erythema or exudates. NECK: No masses, no JVD. CHEST: No chest wall deformity. LUNGS: Equal air entry with scattered rhonchi of the right lung. CVS: S1 and S2 normal with no audible murmur, regular rhythm. ABDOMEN: No hepatosplenomegaly, normal bowel sounds, no guarding or rigidity. SPINE: No scoliosis or deformity SKIN: No rashes CENTRAL NERVOUS SYSTEM: No focal deficits, tone is normal in all 4 extremities. EXTREMITIES: There is no peripheral edema. No clubbing, no cyanosis. Peripheral pulses are intact. - Labs CBC & Chem 7: 08/10/20 08:02 08/12/20 03:44 Labs: Microbiology - Last 24 Hours (Table) 08/09/20 13:56 Blood Culture - Preliminary Blood No Growth after 72 hours 08/10/20 13:00 Gram Stain - Preliminary Lung - Right Wound Culture - Preliminary Assessment and Plan Assessment: 1 Right upper lobe cavitary lesion, status post biopsy, pathology and cultures pending 2 History of schizophrenia 3 Hypothyroidism 4 Ulcerative colitis 5 History of ITP 6 Diabetes mellitus 7 Hyperlipidemia Plan: The patient was seen and evaluated by Dr. Fontanez. On room air. Awaiting biopsy and culture results. Continued on vancomycin and Unasyn. We will continue to follow I, the cosigning physician, performed a history & physical examination of the patient. Lungs sounds with few scattered rhonchi of the right lung. Maintaining good O2 saturations in the 90s on room air. I discussed the assessment and plan of care with my nurse practitioner, Wendy Napoles. I attest to the above note as dictated by her.
--- NOTE | 2020-08-12 20:23 | PN ---
PROGRESS NOTE DATE OF SERVICE: 08/12/2020 REASON FOR FOLLOWUP: COVID-19 pneumonia. INTERVAL HISTORY: Patient is currently running a low-grade fever of 99.7. The patient is more awake and alert. He is breathing comfortably on room air. Denies having any chest pain or shortness of breath. Did have a cough, not bringing up any sputum. No abdominal pain, no diarrhea. PHYSICAL EXAMINATION: Blood pressure 150/82 with a pulse of 97, temperature 99.7. He is 97% on room air. General description is a middle-aged male lying in bed in no distress. Respiratory system: Unlabored breathing, decreased breath sounds in the base, with no wheeze. HEART: S1, S2. Regular rate and rhythm. ABDOMEN: Soft, no tenderness. LABS: Creatinine 0.90. Vanco level is 16.4. Cultures currently pending. DIAGNOSTIC IMPRESSION AND PLAN: Patient with cavitary pneumonia in this patient status post CT-guided aspirate. Cultures are currently pending. Patient is covered with Unasyn and vancomycin to continue while waiting for the culture to finalize. Will repeat labs tomorrow. Continue supportive care. MMODL / IJN: [id number] /
[2020-08-12] MEDS: ATORVASTATIN 10 MG TAB PO SCH (20:25)
[2020-08-12] MEDS: cloZAPine 100 MG TAB PO SCH (20:25)
[2020-08-12] MEDS: LITHIUM CARBONATE 300 MG CAP PO SCH (20:25)
[2020-08-13] MEDS: ACETAMINOPHEN TAB 500 MG TAB PO PRN (01:02)
[2020-08-13] MEDS: AMPICILLIN-SULBACTAM 3 GM in SODIUM CHLORIDE 0.9% 100 ML IVPB SCH ×4 (01:02→20:13)
[2020-08-13] MEDS: VANCOMYCIN 1,750 MG in SODIUM CHLORIDE 0.9% 500 ML 500 ML IVPB SCH ×2 (03:07→17:18)
[2020-08-13] MEDS: LEVOTHYROXINE 50 MCG TAB PO SCH (05:30)
[2020-08-13] MEDS: TRIAMCINOLONE ACET 0.1% OINTMENT 80 GM TUBE TOPICAL SCH (08:47)
[2020-08-13 09:10] LABS: Basophils # (A) 0.04 X 10*3/uL (0.00-0.10); Basophils % (A) 0.3 %; Eosinophils # (A) 0 X 10*3/uL (0.04-0.35); Eosinophils % (A) 0 %; HCT 33.7 % (39.6-50.0); HGB 9.9 g/dL (13.0-17.0); Lymphocytes % (A) 9.7 %; MCH 27.6 pg (27.0-32.0); MCHC 29.4 g/dL (32.0-37.0); MCV 93.9 fL (80.0-97.0); Mean Platelet Volume 10.4 fL (9.5-12.2); Monocytes # (A) 0.66 X 10*3/uL (0.20-1.00); Monocytes % (A) 4.6 %; Neutrophils # (A) 12.12 X 10*3/uL (1.80-7.70); Neutrophils % (A) 84.1 %; Platelet Count 278 X 10*3/uL (140-440); RBC 3.59 X 10*6/uL (4.40-5.60); RDW 13.2 % (11.5-14.5)
[2020-08-13 10:24] LABS: African American GFR (CKD) 94.4 (60.0-200.0); Calcium 8.3 mg/dL (8.7-10.3); Non-African American GFR(CKD) 81.4 (60.0-200.0); Potassium 3.9 mmol/L (3.5-5.5)
[2020-08-13 12:16] LABS: Anion Gap 9.1 mmol/L (4.00-12.00); C Reactive Protein 8.4 mg/dL (0.0-0.8); Carbon Dioxide 23.9 mmol/L (21.6-31.8)
--- NOTE | 2020-08-13 16:30 | P.PN ---
Subjective Progress Note Date: 08/13/20 This is a 59-year-old white male with history of diabetes, schizophrenia, hypothyroidism, patient is a nonsmoker, brought into the emergency room with a field representative from [facility], and the concern was that he was noted to be more fatigued and confused, and they were mostly concerned about the possibility of urinary tract infection. The patient himself had no symptoms whatsoever however the patient is a poor historian. His [facility] nurse felt that he may have urinary tract infection and she brought him to the ER. Workup in the ER included a chest x-ray which showed a large cavitary mass lesion in the right upper lobe. The lesion measures more than 9.5 cm in size. It had an air-fluid level and the differential diagnoses includes lung abscess, cavitary malignancy, fungal pneumonia, or bacterial pneumonia/abscess. Considering the abnormal CT of the chest and chest x-ray, I was asked to see him on consultation. Again the patient had no pulmonary symptoms whatsoever. Progress note dated 08/10/2020. 59-year-old male, with history of diabetes, schizophrenia, hypothyroidism, who was evaluated in the emergency room for confusion, fatigue, and possible urinary tract infection. The workup in the emergency room included a chest x-ray which revealed a large cavitary mass lesion in the right upper lobe currently, the patient does admit to some mild cough, but denies fever, chills, and shortness of breath. Computed tomography scan was done yesterday and revealed a cavitary mass in the right upper lobe. There are internal septations and an air-fluid level. This lesion could be malignant, or inflammatory/infectious. There was no significant adenopathy noted. White count was 17.87, hemoglobin 9.8, hematocrit 32.5, and platelet count 300,000. Sodium 139, potassium 3.8, chlorides 110, CO2 26, anion gap 3, E1 11, creatinine 1.01. Initial lactic acid was 3.7, repeat was 1.1. The patient tested negative for coronavirus. The patient is seen today 08/11/2020 in follow-up on the regular medical floor. He is currently sitting up in bed. Awake and alert in no acute distress. Maintaining good O2 saturations in the mid 90s on room air. He's been afebrile. Hemodynamically stable. He did undergo a CT-guided biopsy of the right upper lobe mass yesterday. Pathology pending. Cultures pending. Follow-up chest x- ray did not reveal any evidence of pneumothorax. Creatinine 0.97. He is continued on Unasyn, vancomycin The patient is seen today 08/12/2020 in follow-up on the regular medical floor. He is currently sitting up in bed. Awake and alert in no acute distress. Currently maintaining O2 saturation in the 90s on room air. He is continued on vancomycin and Unasyn. Temperature 99.7. Blood cultures revealing no growth. Right lung fluid cultures pending. Creatinine 0.93. Vancomycin trough 16.4. The patient is seen today 08/13/2020 in follow-up on the regular medical floor. He is resting quite comfortably in bed. Awake and alert in no acute distress. Maintaining O2 saturations in the 90s on room air. White count 14.4. Hemoglobin 9.9. Sodium 147. Potassium 3.9. Creatinine 1.0. Calcitonin 0.15. Remains on vancomycin and Unasyn. Cultures and biopsy results pending Objective - Vital Signs Vital signs: Vital Signs Temp 98.4 F 08/13/20 13:52 Pulse 95 08/13/20 13:52 Resp 14 08/13/20 13:52 BP 121/63 08/13/20 13:52 Pulse Ox 95 08/13/20 13:52 Intake & Output 08/12/20 08/13/20 08/13/20 18:59 06:59 18:59 Output Total 700 1250 1150 Balance -700 -1250 -1150 Output: Urine 700 1250 1150 Other: Voiding Method Toilet Toilet Toilet Urinal Urinal # Voids 2 2 - Exam GENERAL EXAM: Alert, pleasant 59-year-old gentleman, on room air, comfortable in no apparent distress. HEAD: Normocephalic. EYES: Normal reaction of pupils, equal size. NOSE: Clear with pink turbinates. THROAT: No erythema or exudates. NECK: No masses, no JVD. CHEST: No chest wall deformity. LUNGS: Equal air entry with scattered rhonchi of the right lung. CVS: S1 and S2 normal with no audible murmur, regular rhythm. ABDOMEN: No hepatosplenomegaly, normal bowel sounds, no guarding or rigidity. SPINE: No scoliosis or deformity SKIN: No rashes CENTRAL NERVOUS SYSTEM: No focal deficits, tone is normal in all 4 extremities. EXTREMITIES: There is no peripheral edema. No clubbing, no cyanosis. Peripheral pulses are intact. - Labs CBC & Chem 7: 08/13/20 06:47 08/13/20 06:47 Labs: Abnormal Lab Results - Last 24 Hours (Table) 08/13/20 08/13/20 08/13/20 Range/Units 06:47 06:47 06:47 WBC 14.40 H (4.50-10.00) X 10*3/uL RBC 3.59 L (4.40-5.60) X 10*6/uL Hgb 9.9 L (13.0-17.0) g/dL Hct 33.7 L (39.6-50.0) % MCHC 29.4 L (32.0-37.0) g/dL Immature Gran # 0.18 H (0.00-0.04) X 10*3/uL Neutrophils # 12.12 H (1.80-7.70) X 10*3/uL Eosinophils # 0 L (0.04-0.35) X 10*3/uL Sodium 147 H (135-145) mmol/L Chloride 114 H (96-109) mmol/L BUN/Creatinine Ratio 11.00 L (12.00-20.00) Ratio Glucose 125 H (70-110) mg/dL Calcium 8.3 L (8.7-10.3) mg/dL C-Reactive Protein 8.4 H (0.0-0.8) mg/dL Procalcitonin 0.15 H (0.02-0.09) ng/mL Microbiology - Last 24 Hours (Table) 08/09/20 13:56 Blood Culture - Preliminary Blood No Growth after 96 hours Assessment and Plan Assessment: 1 Right upper lobe cavitary lesion, status post biopsy, pathology and cultures pending 2 History of schizophrenia 3 Hypothyroidism 4 Ulcerative colitis 5 History of ITP 6 Diabetes mellitus 7 Hyperlipidemia Plan: The patient was seen and evaluated by Dr. Fontanez. Stable from the pulmonary standpoint Awaiting biopsy and culture results. Continued on vancomycin and Unasyn. We will continue to follow I, the cosigning physician, performed a history & physical examination of the patient. Lungs sounds with few scattered rhonchi of the right lung. Maintaining good O2 saturations in the 90s on room air. I discussed the assessment and plan of care with my nurse practitioner, Wendy Napoles. I attest to the above note as dictated by her.
--- NOTE | 2020-08-13 16:38 | P.PN ---
Subjective Patient was brought in by [facility] as the patient is not behaving like usually appear to have been bit fatigued and may be confused. Patient is presently alert oriented 2-3 which is his baseline. Patient denied any complaints at this time although he is coughing he doesn't know the exact duration of cough denied any nausea vomiting diarrhea dysuria. Patient underwent workup urine analysis is within normal limits patient did chest x-ray which showed an abscess in the right upper chest with a cavitary lesion. CT of the chest is being obtained. Patient will be started on IV Unasyn and vancomycin empirically. His tachycardic as well. 08/10/[address]-guided biopsy of the cavitary mass and patient is being continued on antibiotics it can be infectious inflammatory or malignant. Patient is feeling better. 08/11/2020 Cultures from abscess site is still pending. Patient is presently in negative pressure isolation and sputum maybe is being obtained and culture for TB was be done as well. 08/12/[address]-guided biopsy is positive for gram-positive cocci in chains. Patient will be continued on antibodies of Unasyn on Vanco mycin for now and will await the finalization of the cultures. Discussed with infectious disease patient probably will not need TB isolation. clinically looks very well. 08/13/2020 Cultures from biopsy is still pending patient continues to be on vancomycin and Unasyn Constitutional: Denied any fatigue denied any fever. Cardio vascular: denied any chest pain, palpitations Gastrointestinal denied any nausea vomiting Pulmonary: Denied any shortness of breath cough Neurologic denied any new focal deficits All inpatient medications were reviewed and appropriate changes in these medications as dictated in the interval history and assessment and plan. Objective - Vital Signs Vital signs: Vital Signs Temp 98.4 F 08/13/20 13:52 Pulse 95 08/13/20 13:52 Resp 14 08/13/20 13:52 BP 121/63 08/13/20 13:52 Pulse Ox 95 08/13/20 13:52 Intake & Output 08/12/20 08/13/20 08/13/20 18:59 06:59 18:59 Output Total 700 1250 1150 Balance -700 -1250 -1150 Output: Urine 700 1250 1150 Other: Voiding Method Toilet Toilet Toilet Urinal Urinal # Voids 2 2 - Exam PHYSICAL EXAMINATION: GENERAL: The patient is alert and oriented x3, not in any acute distress. Well developed, well nourished. HEENT: Pupils are round and equally reacting to light. EOMI. No scleral icterus. No conjunctival pallor. Normocephalic, atraumatic. No pharyngeal erythema. No thyromegaly. CARDIOVASCULAR: S1 and S2 present. No murmurs, rubs, or gallops. PULMONARY: Chest is clear to auscultation, no wheezing or crackles. ABDOMEN: Soft, nontender, nondistended, normoactive bowel sounds. No palpable organomegaly. MUSCULOSKELETAL: No joint swelling or deformity. EXTREMITIES: No cyanosis, clubbing, or pedal edema. NEUROLOGICAL: Gross neurological examination did not reveal any focal deficits. SKIN: No rashes. - Labs CBC & Chem 7: 08/13/20 06:47 08/13/20 06:47 Labs: Abnormal Lab Results - Last 24 Hours (Table) 08/13/20 08/13/20 08/13/20 Range/Units 06:47 06:47 06:47 WBC 14.40 H (4.50-10.00) X 10*3/uL RBC 3.59 L (4.40-5.60) X 10*6/uL Hgb 9.9 L (13.0-17.0) g/dL Hct 33.7 L (39.6-50.0) % MCHC 29.4 L (32.0-37.0) g/dL Immature Gran # 0.18 H (0.00-0.04) X 10*3/uL Neutrophils # 12.12 H (1.80-7.70) X 10*3/uL Eosinophils # 0 L (0.04-0.35) X 10*3/uL Sodium 147 H (135-145) mmol/L Chloride 114 H (96-109) mmol/L BUN/Creatinine Ratio 11.00 L (12.00-20.00) Ratio Glucose 125 H (70-110) mg/dL Calcium 8.3 L (8.7-10.3) mg/dL C-Reactive Protein 8.4 H (0.0-0.8) mg/dL Procalcitonin 0.15 H (0.02-0.09) ng/mL Microbiology - Last 24 Hours (Table) 08/09/20 13:56 Blood Culture - Preliminary Blood No Growth after 96 hours Assessment and Plan Plan: -Lung abscesses right upper lobe with a cavitary lesion: Patient had biopsy of this cavitary lesion and patient is being continued on antibiotics that is vancomycin and Unasyn to cover Staphylococcus and anaerobic bacteria, being tested for tuberculosis as well with acid-fast bacilli smear and culture, possibility of for tuberculosis extremely low possibly will not need isolation Patient is presently negative pressure isolation room biopsy and cultures and studies from the lesion is still pending -Leukocytosis due to assessment #1 -Mild acute renal failure: Possibly prerenal azotemia from infection and dehydration Patient was started on IV fluids for this -Type 2 diabetes mellitus -Schizophrenia and bipolar disorder -DVT prophylaxis: Subcutaneous heparin
--- NOTE | 2020-08-13 19:30 | PN ---
PROGRESS NOTE DATE OF SERVICE: 08/13/2020 REASON FOR FOLLOWUP: Pneumonia. INTERVAL HISTORY: The patient was noted to have a fever of ( ). The patient has been afebrile since then. The patient is currently feeling better. He is breathing comfortably. The patient denies having any chest pain or shortness of breath. Occasional cough. No abdominal pain, no diarrhea. PHYSICAL EXAMINATION: Blood pressure 121/63, pulse 95, temperature 98.4. He is 95% ( ). General description is a middle-aged male lying in bed in no distress. Respiratory system: Unlabored breathing, coarse breath sounds bilaterally, no wheeze. Heart S1, S2. Regular rate and rhythm. Abdomen soft, no tenderness. LABS: Hemoglobin 9.9, white count ( ), BUN of 11, creatinine 1.0. Culture showing alpha hemolytic Streptococcus. DIAGNOSTIC IMPRESSION AND PLAN: Patient with cavitary pneumonia, culture showing alpha hemolytic Streptococcus. Patient is covered with Unasyn, has tolerated so far. ( ) allergy. Will wait for the final culture. He will likely need a PICC line and outpatient IV antibiotics. Continue supportive care. MMODL / IJN: [id number] /
[2020-08-13] MEDS: cloZAPine 100 MG TAB PO SCH (20:14)
[2020-08-13] MEDS: LITHIUM CARBONATE 300 MG CAP PO SCH (20:14)
[2020-08-13] MEDS: ATORVASTATIN 10 MG TAB PO SCH (20:14)
[2020-08-14] MEDS: AMPICILLIN-SULBACTAM 3 GM in SODIUM CHLORIDE 0.9% 100 ML IVPB SCH ×4 (01:35→20:25)
[2020-08-14] MEDS: VANCOMYCIN 1,750 MG in SODIUM CHLORIDE 0.9% 500 ML 500 ML IVPB SCH ×2 (03:00→15:58)
[2020-08-14] MEDS: LEVOTHYROXINE 50 MCG TAB PO SCH (05:35)
[2020-08-14 06:41] LABS: African American GFR (CKD) >90 (>60 ml/min/1.73 sqM); Non-African American GFR(CKD) 84 (>60 ml/min/1.73 sqM)
[2020-08-14] MEDS: PANTOPRAZOLE 40 MG TABLET PO SCH (08:11)
[2020-08-14] MEDS: TRIAMCINOLONE ACET 0.1% OINTMENT 80 GM TUBE TOPICAL SCH (08:13)
--- NOTE | 2020-08-14 08:27 | XR ---
EXAMINATION TYPE: XR chest 1V portable DATE OF EXAM: 08/14/2020 Comparison: 08/10/2020 Clinical History: 59-year-old male Right lung mass Findings: Heart upper limits of normal in size. As compared to prior exam, there is new patchy peripheral right lower lung opacity located along the inferior margin of the patient's known right upper lobe mass. N odularity at the left base suspected nipple shadow. Pulmonary vasculature within normal limits. Promi nent left first rib end. No pleural effusion. Impression: 1. Known right upper lobe masslike opacity. 2. New patchy opacity along the inferior margin of the mass that could represent a developing pneumon ia.
--- NOTE | 2020-08-14 17:14 | P.PN ---
Subjective Progress Note Date: 08/14/20 Principal diagnosis: Right upper lobe cavitary lesion, status post biopsy This is a 59-year-old white male with history of diabetes, schizophrenia, hypothyroidism, patient is a nonsmoker, brought into the emergency room with a pharmaceutical sales representative from [facility], and the concern was that he was noted to be more fatigued and confused, and they were mostly concerned about the possibility of urinary tract infection. The patient himself had no symptoms whatsoever however the patient is a poor historian. His [facility] nurse felt that he may have urinary tract infection and she brought him to the ER. Workup in the ER included a chest x-ray which showed a large cavitary mass lesion in the right upper lobe. The lesion measures more than 9.5 cm in size. It had an air-fluid level and the differential diagnoses includes lung abscess, cavitary malignancy, fungal pneumonia, or bacterial pneumonia/abscess. Considering the abnormal CT of the chest and chest x-ray, I was asked to see him on consultation. Again the patient had no pulmonary symptoms whatsoever. Progress note dated 08/10/2020. 59-year-old male, with history of diabetes, schizophrenia, hypothyroidism, who was evaluated in the emergency room for confusion, fatigue, and possible urinary tract infection. The workup in the emergency room included a chest x-ray which revealed a large cavitary mass lesion in the right upper lobe currently, the patient does admit to some mild cough, but denies fever, chills, and shortness of breath. Computed tomography scan was done yesterday and revealed a cavitary mass in the right upper lobe. There are internal septations and an air-fluid level. This lesion could be malignant, or inflammatory/infectious. There was no significant adenopathy noted. White count was 17.87, hemoglobin 9.8, hematocrit 32.5, and platelet count 300,000. Sodium 139, potassium 3.8, chlorides 110, CO2 26, anion gap 3, E1 11, creatinine 1.01. Initial lactic acid was 3.7, repeat was 1.1. The patient tested negative for coronavirus. The patient is seen today 08/11/2020 in follow-up on the regular medical floor. He is currently sitting up in bed. Awake and alert in no acute distress. Maintaining good O2 saturations in the mid 90s on room air. He's been afebrile. Hemodynamically stable. He did undergo a CT-guided biopsy of the right upper lobe mass yesterday. Pathology pending. Cultures pending. Follow-up chest x- ray did not reveal any evidence of pneumothorax. Creatinine 0.97. He is continued on Unasyn, vancomycin The patient is seen today 08/12/2020 in follow-up on the regular medical floor. He is currently sitting up in bed. Awake and alert in no acute distress. Currently maintaining O2 saturation in the 90s on room air. He is continued on vancomycin and Unasyn. Temperature 99.7. Blood cultures revealing no growth. Right lung fluid cultures pending. Creatinine 0.93. Vancomycin trough 16.4. The patient is seen today 08/13/2020 in follow-up on the regular medical floor. He is resting quite comfortably in bed. Awake and alert in no acute distress. Maintaining O2 saturations in the 90s on room air. White count 14.4. Hemoglobin 9.9. Sodium 147. Potassium 3.9. Creatinine 1.0. Calcitonin 0.15. Remains on vancomycin and Unasyn. Cultures and biopsy results pending On 08/14/2020 patient seen in follow-up on medical surgical floor, he is resting comfortably in bed, appears to be in no acute distress, denies any chest pain, no hemoptysis, no fever or chills, he is on Unasyn and vancomycin. His right upper lobe needle aspirate culture was positive for alpha hemolytic streptococcus. Patient is covered with antibiotics. Clinically stable, no worsening dyspnea. Yesterday pro-calcitonin is 0.15, leukocytosis is improving, serum sodium was up to 147 on yesterday's labs. Today's chest x-ray shows right upper lobe masslike opacity. In the new patchy opacity of the inferior margin of the mass that could represent a developing pneumonia. Cytology of the right upper lobe core biopsy showed acute on chronic inflammatory cells with necrosis, GMS stain was appropriate controls was negative for fungal organisms, AFB stain was negative for acid-fast bacilli. Objective - Vital Signs Vital signs: Vital Signs Temp 98.2 F 08/14/20 15:48 Pulse 102 H 08/14/20 15:48 Resp 16 08/14/20 15:48 BP 126/72 08/14/20 15:48 Pulse Ox 98 08/14/20 15:48 Intake & Output 08/13/20 08/14/20 08/14/20 18:59 06:59 18:59 Output Total 1650 700 Balance -1650 -700 Output: Urine 1650 700 Other: Voiding Method Toilet Toilet Toilet Urinal Urinal Urinal # Voids 1 - Exam GENERAL EXAM: Alert, pleasant, 59-year-old white male, on room air, with a pulse ox of 98% comfortable in no apparent distress. HEAD: Normocephalic/atraumatic. EYES: Normal reaction of pupils, equal size. Conjunctiva pink, sclera white. NOSE: Clear with pink turbinates. THROAT: No erythema or exudates. NECK: No masses, no JVD, no thyroid enlargement, no adenopathy. CHEST: No chest wall deformity. Symmetrical expansion. LUNGS: Equal air entry with diminished breath sounds and crackles in the right upper lobe CVS: Regular rate and rhythm, normal S1 and S2, no gallops, no murmurs, no rubs ABDOMEN: Soft, nontender. No hepatosplenomegaly, normal bowel sounds, no guarding or rigidity. EXTREMITIES: No clubbing, no edema, no cyanosis, 2+ pulses and upper and lower extremities. MUSCULOSKELETAL: Muscle strength and tone normal. SPINE: No scoliosis or deformity SKIN: No rashes CENTRAL NERVOUS SYSTEM: Alert and oriented -3. No focal deficits, tone is normal in all 4 extremities. PSYCHIATRIC: Alert and oriented -3. Appropriate affect. Intact judgment and insight. - Labs CBC & Chem 7: 08/13/20 06:47 08/14/20 05:44 Labs: Microbiology - Last 24 Hours (Table) 08/09/20 13:56 Blood Culture - Preliminary Blood No Growth after 120 hours 08/10/20 13:00 Anaerobic Culture - Preliminary Lung - Right 08/10/20 13:00 Gram Stain - Preliminary Lung - Right Wound Culture - Preliminary Alpha Hemolytic Streptococcus Assessment and Plan Plan: Assessment: #1. Right upper lobe cavitary lesion, status post CT-guided core needle biopsy, cytology showing inflammatory cells of acute and chronic inflammation with necrosis, negative for fungal organisms or acid-fast bacilli, nondiagnostic for malignancy. Cultures was positive for alpha hemolytic streptococcus. Currently on Unasyn and vancomycin #2. History of schizophrenia #3. Hypothyroidism #4. Ulcerative colitis #5. History of ITP #6. Diabetes mellitus type 2 #7. Hyperlipidemia Plan: Continue current antibiotics, clinically patient remains stable, culture data is positive for alphahemolytic streptococcus the possibility of lung abscess, we'll proceed with the bronchoscopy and biopsies and BAL of the right upper lobe mass/empyema/consolidation on 08/16/2020 with fluoroscopy. Follow-up labs tomorrow, we'll continue to follow I performed a history & physical examination of the patient and discussed their management with my nurse practitioner, Milagro Kaye. I reviewed the nurse practitioner's note and agree with the documented findings and plan of care. Lung sounds are positive for diminished with crackles The findings and the impression was discussed with the patient. I attest to the documentation by the nurse practitioner. Time with Patient: Less than 30
[2020-08-14] MEDS: ATORVASTATIN 10 MG TAB PO SCH (20:25)
[2020-08-14] MEDS: LITHIUM CARBONATE 300 MG CAP PO SCH (20:25)
[2020-08-14] MEDS: cloZAPine 100 MG TAB PO SCH (20:25)
--- NOTE | 2020-08-15 00:12 | PN ---
PROGRESS NOTE DATE OF SERVICE: 08/14/2020 REASON FOR FOLLOWUP: Pneumonia. INTERVAL HISTORY: The patient is currently afebrile. The patient is feeling better. Breathing comfortably. The patient denies having any chest pain or shortness of breath. Occasional cough. No abdominal pain or diarrhea. PHYSICAL EXAMINATION: Blood pressure 120/70 with a pulse of 109. Temperature 98.2. He is 96% on room air. General description is a middle-aged male lying in bed in no distress. Respiratory system: Unlabored breathing with decreased intensity of breath sounds. No wheeze. HEART: S1, S2. Regular rate and rhythm. ABDOMEN: Soft, no tenderness. LABS: Cultures currently showing alpha hemolytic Streptococcus. The pathology pathology came back negative for malignancy. DIAGNOSTIC IMPRESSION AND PLAN: Patient with cavitary pneumonia with positive alpha Streptococcus. The patient will need a PICC line for outpatient IV antibiotic in the form of Unasyn at least 3 weeks. He will discontinue vancomycin and close outpatient followup. May benefit from CT surgery evaluation as per discussion with the admitting team. Continue supportive care. MMODL / IJN: [id number] /
[2020-08-15] MEDS: AMPICILLIN-SULBACTAM 3 GM in SODIUM CHLORIDE 0.9% 100 ML IVPB SCH ×4 (01:00→21:38)
[2020-08-15] MEDS: LEVOTHYROXINE 50 MCG TAB PO SCH (05:33)
[2020-08-15 10:00] LABS: Basophils # (A) 0.04 X 10*3/uL (0.00-0.10); Basophils % (A) 0.3 %; Eosinophils # (A) 0 X 10*3/uL (0.04-0.35); Eosinophils % (A) 0 %; HCT 35.6 % (39.6-50.0); HGB 10.8 g/dL (13.0-17.0); Lymphocytes # (A) 1.36 X 10*3/uL (0.90-5.00); Lymphocytes % (A) 10.9 %; MCH 27.9 pg (27.0-32.0); MCHC 30.3 g/dL (32.0-37.0); Mean Platelet Volume 10.4 fL (9.5-12.2); Monocytes # (A) 0.64 X 10*3/uL (0.20-1.00); Monocytes % (A) 5.1 %; Neutrophils # (A) 10.25 X 10*3/uL (1.80-7.70); Neutrophils % (A) 82.2 %; Platelet Count 274 X 10*3/uL (140-440); RBC 3.87 X 10*6/uL (4.40-5.60); RDW 13.4 % (11.5-14.5); WBC 12.48 X 10*3/uL (4.50-10.00)
[2020-08-15] MEDS ORDERED: LIDOCAINE 1% INJ 10MG/ML (20 ML MDV) SQ ONE (10:04)
--- NOTE | 2020-08-15 10:29 | IR ---
PICC LINE PLACEMENT: HISTORY: Infection requiring long-term antibiotic therapy PROCEDURE: Ultrasound and fluoroscopic guidance of PICC line placement. COMPLICATIONS: None ANESTHESIA: 1. 1% Lidocaine locally. FINDINGS/TECHNIQUE: The procedure was explained to the patient. The risks, complications, benefits and alternatives were discussed and any questions were answered. Informed consent was obtained. The patient was placed supine on the fluoroscopic table and prepped and draped in the usual sterile fash ion. Utilizing a 21 gauge needle and sonographic and fluoroscopic guidance, access in the left basi lic vein was achieved and there is placement of a 0.018 guidewire. The vein is patent. A 4-F sheath was placed over the guidewire. The guidewire and dilator were removed and a 4-F. PICC line was plac ed through the sheath with the tip at the level of the SVC. The sheath was removed, the catheter was flushed and sutured into position. The patient was stable throughout the procedure and remained sta ble upon discharge from the Department of Radiology. The vein puncture was patent under ultrasound. A ring scale image was obtained to document patency of the vein punctured. All elements of the maximal barrier technique were utilized. FLUOROSCOPY TIME: 0.1 minutes and one images submitted IMPRESSION: Successful PICC line placement under ultrasound and fluoroscopic guidance.
[2020-08-15 10:42] LABS: African American GFR (CKD) 84.1 (60.0-200.0); Albumin 3.1 g/dL (3.80-4.90); Albumin/Globulin Ratio 2.38 (1.60-3.17); Anion Gap 6.5 mmol/L (4.00-12.00); BUN/Creat Ratio 10.91 Ratio (12.00-20.00); Calcium 8.6 mg/dL (8.7-10.3); Carbon Dioxide 28.5 mmol/L (21.6-31.8); Globulin 1.3 g/dL (1.6-3.3); Non-African American GFR(CKD) 72.6 (60.0-200.0); Total Bilirubin 0.3 mg/dL (0.2-1.2); Total Protein 4.4 g/dL (6.2-8.2)
[2020-08-15] MEDS: TRIAMCINOLONE ACET 0.1% OINTMENT 80 GM TUBE TOPICAL SCH (11:11)
--- NOTE | 2020-08-15 13:41 | CDI ---
Documentation Clarification Form Date: 08/15/2020 01:27:46 PM From: Zoila Hudson CCS, CCDS Admit Date: 08/09/2020 01:57:00 PM Patient Name: Carlos A Tadeo Visit Number: [id number] Discharge Date: ATTENTION: The Clinical Documentation Specialists (CDI) and [facility] Coding Staff appreciate your assistance in clarifying documentation. Please respond to the clarification below the line at the bottom and electronically sign. The CDI & [facility] Coding staff will review the response and follow-up if needed. Please note: Queries are made part of the Legal Health Record. If you have any questions, please contact the author of this message via ITS. Dr. Modesto Blum: The patient presented with the following clinical indicators. Additional clarification regarding the etiology/cause of the clinical indicators is requested. History/Risk Factors per the 08/09 ED Note Past Medical History: DM, TIP, Bowel Obstructions, Ulcerative Colitis. Anxiety, Bipolar, Depression, Schizophrenia. Clinical Indicators: Presented to the ED 08/09 from [facility]. Has been more fatigued & distancing himself. [facility] nurse thought the patient might have a UTI, sent to the ED. Admit with Empyema Lung. 08/09 VS: T 98.0-100.1, P 116, R 16, BP 106/68, PO 100 RA 08/09 LAB: WBC 18.1, Hgb 12.7, Neut 16.4, glucose 185, Lactic Acid 3.7, ALT 67, Alk Phos 129, total protein 5.9 08/09 UA: 1+ protein. 08/09 COVID: negative 08/09 Blood Cx: Preliminary: neg @ 120 hrs. 08/10 Fluid aspirate from Right lung: Alpha hemolytic Streptococcus. 08/10 Anaerobic Cx final (negative), 08/10 Fungal culture preliminary (negative) 08/09 RAD: 12.9x8.7 cm empyema or cavitary lesion RUL. 08/09 CT Chest: May represent necrotic RUL bronchogenic carcinoma, infection and lung abscess not excluded. Splenomegaly. Procedure 08/10: CT guided core & aspiration biopsy. Pathology pending. Treatment: IV Zosyn 100 mls @ 200 mls/hr x1, IV Vancomycin 250 mls @ 125 mls/hr x1, IV fluid 1,000 mls @ 999 mls/hr q1H x1, IV fluid 1,000 mls @ 100 mls/hr q10hr, IV Ampicillin 100 mls @ 200 mls/hr q8hr. Pulmonary Consult 08/09: Large right upper lobe cavitary mass lesion, differential diagnoses includes lung abscess, bacterial or fungal pneumonia, or most likely bronchogenic carcinoma. Leukocytosis secondary to his cavitary lung lesion. Infectious Disease Consult 08/09: Patient admitted to the hospital with weakness, mental status changes, concern for possible urinary tract infection in this patient who did have evidence of right upper lobe cavitary pneumonia, question of possible aspiration etiology and concern for possible underlying malignancy. In your professional opinion, please clarify if these findings signify one of the following conditions: [ ] Sepsis POA [ ] Sepsis, Not POA [ ] Other, please specify [ ] Unable to determine (Template Last Reviewed: June 2020) Sepsis POA MTDD
--- NOTE | 2020-08-15 14:03 | PN ---
PROGRESS NOTE DATE OF SERVICE: 08/15/2020. REASON FOR FOLLOWUP: Cavitating pneumonia. INTERVAL HISTORY: The patient is currently afebrile. The patient is feeling better, breathing comfortably. The patient did get a PICC line. Denies having any chest pain. Occasional cough. No abdominal pain. No diarrhea. PHYSICAL EXAMINATION: Blood pressure 124/76 with pulse of 96, temperature 97.9. He is 100% on room air. General description is a middle-aged male up in the chair in no distress. RESPIRATORY SYSTEM: Unlabored breathing, decreased intensity of breath sounds. No wheeze. HEART: S1, S2. Regular rate and rhythm. ABDOMEN: Soft, no tenderness. LABS: Hemoglobin is 10.8, white count 12.48. Creatinine is 1.1. DIAGNOSTIC IMPRESSION AND PLAN: Patient with cavitary pneumonia, status post CT-guided aspirate did not show malignancy. Culture showing a . Patient is covered with Unasyn, to continue for at least 3 weeks with close outpatient followup. Continue supportive care. MMODL / IJN: [id number] /
--- NOTE | 2020-08-15 15:08 | P.PN ---
Subjective Progress Note Date: 08/14/20 Patient was brought in by [facility] as the patient is not behaving like usually appear to have been bit fatigued and may be confused. Patient is presently alert oriented 2-3 which is his baseline. Patient denied any complaints at this time although he is coughing he doesn't know the exact duration of cough denied any nausea vomiting diarrhea dysuria. Patient underwent workup urine analysis is within normal limits patient did chest x-ray which showed an abscess in the right upper chest with a cavitary lesion. CT of the chest is being obtained. Patient will be started on IV Unasyn and vancomycin empirically. His tachycardic as well. 08/10/[address]-guided biopsy of the cavitary mass and patient is being continued on antibiotics it can be infectious inflammatory or malignant. Patient is feeling better. 08/11/2020 Cultures from abscess site is still pending. Patient is presently in negative pressure isolation and sputum maybe is being obtained and culture for TB was be done as well. 08/12/[address]-guided biopsy is positive for gram-positive cocci in chains. Patient will be continued on antibodies of Unasyn on Vanco mycin for now and will await the finalization of the cultures. Discussed with infectious disease patient probably will not need TB isolation. clinically looks very well. 08/13/2020 Cultures from biopsy is still pending patient continues to be on vancomycin and Unasyn. 08/14/2020 Patient has a alpha hemolytic streptococci from the cultures, Unasyn is being continued vancomycin was discontinued.. Patient will undergo bronchoscopy tomorrow Constitutional: Denied any fatigue denied any fever. Cardio vascular: denied any chest pain, palpitations Gastrointestinal denied any nausea vomiting Pulmonary: Denied any shortness of breath cough Neurologic denied any new focal deficits All inpatient medications were reviewed and appropriate changes in these medications as dictated in the interval history and assessment and plan. Objective - Vital Signs Vital signs: Vital Signs Temp 97.9 F 08/15/20 08:00 Pulse 96 08/15/20 08:00 Resp 18 08/15/20 08:00 BP 124/76 08/15/20 08:00 Pulse Ox 100 08/15/20 08:00 Intake & Output 08/14/20 08/15/20 08/15/20 18:59 06:59 18:59 Output Total 1750 Balance -1750 Output: Urine 1750 Other: Voiding Method Toilet Toilet Urinal Urinal - Exam PHYSICAL EXAMINATION: GENERAL: The patient is alert and oriented x3, not in any acute distress. Well developed, well nourished. HEENT: Pupils are round and equally reacting to light. EOMI. No scleral icterus. No conjunctival pallor. Normocephalic, atraumatic. No pharyngeal erythema. No thyromegaly. CARDIOVASCULAR: S1 and S2 present. No murmurs, rubs, or gallops. PULMONARY: Chest is clear to auscultation, no wheezing or crackles. ABDOMEN: Soft, nontender, nondistended, normoactive bowel sounds. No palpable organomegaly. MUSCULOSKELETAL: No joint swelling or deformity. EXTREMITIES: No cyanosis, clubbing, or pedal edema. NEUROLOGICAL: Gross neurological examination did not reveal any focal deficits. SKIN: No rashes. - Labs CBC & Chem 7: 08/15/20 05:43 08/15/20 05:43 Labs: Abnormal Lab Results - Last 24 Hours (Table) 08/15/20 08/15/20 08/15/20 Range/Units 05:43 05:43 05:43 WBC 12.48 H (4.50-10.00) X 10*3/uL RBC 3.87 L (4.40-5.60) X 10*6/uL Hgb 10.8 L (13.0-17.0) g/dL Hct 35.6 L (39.6-50.0) % MCHC 30.3 L (32.0-37.0) g/dL Immature Gran # 0.19 H (0.00-0.04) X 10*3/uL Neutrophils # 10.25 H (1.80-7.70) X 10*3/uL Eosinophils # 0 L (0.04-0.35) X 10*3/uL Sodium 147 H (135-145) mmol/L Chloride 112 H (96-109) mmol/L BUN/Creatinine Ratio 10.91 L (12.00-20.00) Ratio Glucose 124 H (70-110) mg/dL Calcium 8.6 L (8.7-10.3) mg/dL Total Protein 4.4 L (6.2-8.2) g/dL Albumin 3.10 L (3.80-4.90) g/dL Globulin 1.3 L (1.6-3.3) g/dL Procalcitonin 0.13 H (0.02-0.09) ng/mL Microbiology - Last 24 Hours (Table) 08/10/20 13:00 Anaerobic Culture - Final Lung - Right 08/10/20 13:00 Gram Stain - Final Lung - Right Wound Culture - Final Alpha Hemolytic Streptococcus 08/09/20 13:56 Blood Culture - Preliminary Blood No Growth after 120 hours Assessment and Plan Plan: -Lung abscesses right upper lobe with a cavitary lesion: Patient had biopsy of this cavitary lesion , patient has alpha hemolytic streptococci. Patient is presently on Unasyn patient will undergo bronchoscopy tomorrow -Leukocytosis due to assessment #1 -Mild acute renal failure: Possibly prerenal azotemia from infection and dehydration Patient was started on IV fluids for this -Type 2 diabetes mellitus -Schizophrenia and bipolar disorder -DVT prophylaxis: Subcutaneous heparin
--- NOTE | 2020-08-15 15:09 | P.PN ---
Subjective Patient was brought in by [facility] as the patient is not behaving like usually appear to have been bit fatigued and may be confused. Patient is presently alert oriented 2-3 which is his baseline. Patient denied any complaints at this time although he is coughing he doesn't know the exact duration of cough denied any nausea vomiting diarrhea dysuria. Patient underwent workup urine analysis is within normal limits patient did chest x-ray which showed an abscess in the right upper chest with a cavitary lesion. CT of the chest is being obtained. Patient will be started on IV Unasyn and vancomycin empirically. His tachycardic as well. 08/10/[address]-guided biopsy of the cavitary mass and patient is being continued on antibiotics it can be infectious inflammatory or malignant. Patient is feeling better. 08/11/2020 Cultures from abscess site is still pending. Patient is presently in negative pressure isolation and sputum maybe is being obtained and culture for TB was be done as well. 08/12/[address]-guided biopsy is positive for gram-positive cocci in chains. Patient will be continued on antibodies of Unasyn on Vanco mycin for now and will await the finalization of the cultures. Discussed with infectious disease patient probably will not need TB isolation. clinically looks very well. 08/13/2020 Cultures from biopsy is still pending patient continues to be on vancomycin and Unasyn. 08/14/2020 Patient has a alpha hemolytic streptococci from the cultures, Unasyn is being co ntinued vancomycin was discontinued.. Patient will undergo bronchoscopy tomorrow 08/15/2020 Patient is a PICC line patient will undergo bronchoscopy today. Constitutional: Denied any fatigue denied any fever. Cardio vascular: denied any chest pain, palpitations Gastrointestinal denied any nausea vomiting Pulmonary: Denied any shortness of breath cough Neurologic denied any new focal deficits All inpatient medications were reviewed and appropriate changes in these medications as dictated in the interval history and assessment and plan. Objective - Vital Signs Vital signs: Vital Signs Temp 98.5 F 08/15/20 14:00 Pulse 101 H 08/15/20 14:00 Resp 18 08/15/20 08:00 BP 116/70 08/15/20 14:00 Pulse Ox 95 08/15/20 14:00 Intake & Output 08/14/20 08/15/20 08/15/20 18:59 06:59 18:59 Output Total 1750 Balance -1750 Output: Urine 1750 Other: Voiding Method Toilet Toilet Urinal Urinal - Exam PHYSICAL EXAMINATION: GENERAL: The patient is alert and oriented x3, not in any acute distress. Well developed, well nourished. HEENT: Pupils are round and equally reacting to light. EOMI. No scleral icterus. No conjunctival pallor. Normocephalic, atraumatic. No pharyngeal erythema. No thyromegaly. CARDIOVASCULAR: S1 and S2 present. No murmurs, rubs, or gallops. PULMONARY: Chest is clear to auscultation, no wheezing or crackles. ABDOMEN: Soft, nontender, nondistended, normoactive bowel sounds. No palpable organomegaly. MUSCULOSKELETAL: No joint swelling or deformity. EXTREMITIES: No cyanosis, clubbing, or pedal edema. NEUROLOGICAL: Gross neurological examination did not reveal any focal deficits. SKIN: No rashes. - Labs CBC & Chem 7: 08/15/20 05:43 08/15/20 05:43 Labs: Abnormal Lab Results - Last 24 Hours (Table) 08/15/20 08/15/20 08/15/20 Range/Units 05:43 05:43 05:43 WBC 12.48 H (4.50-10.00) X 10*3/uL RBC 3.87 L (4.40-5.60) X 10*6/uL Hgb 10.8 L (13.0-17.0) g/dL Hct 35.6 L (39.6-50.0) % MCHC 30.3 L (32.0-37.0) g/dL Immature Gran # 0.19 H (0.00-0.04) X 10*3/uL Neutrophils # 10.25 H (1.80-7.70) X 10*3/uL Eosinophils # 0 L (0.04-0.35) X 10*3/uL Sodium 147 H (135-145) mmol/L Chloride 112 H (96-109) mmol/L BUN/Creatinine Ratio 10.91 L (12.00-20.00) Ratio Glucose 124 H (70-110) mg/dL Calcium 8.6 L (8.7-10.3) mg/dL Total Protein 4.4 L (6.2-8.2) g/dL Albumin 3.10 L (3.80-4.90) g/dL Globulin 1.3 L (1.6-3.3) g/dL Procalcitonin 0.13 H (0.02-0.09) ng/mL Microbiology - Last 24 Hours (Table) 08/10/20 13:00 Anaerobic Culture - Final Lung - Right 08/10/20 13:00 Gram Stain - Final Lung - Right Wound Culture - Final Alpha Hemolytic Streptococcus 08/09/20 13:56 Blood Culture - Preliminary Blood No Growth after 120 hours Assessment and Plan Plan: -Lung abscesses right upper lobe with a cavitary lesion: Patient had biopsy of this cavitary lesion , patient has alpha hemolytic streptococci. Patient is presently on Unasyn patient will undergo bronchoscopy today -Leukocytosis due to assessment #1 -Mild acute renal failure: Possibly prerenal azotemia from infection and dehydration Patient was started on IV fluids for this -Type 2 diabetes mellitus -Schizophrenia and bipolar disorder -DVT prophylaxis: Subcutaneous heparin
--- NOTE | 2020-08-15 17:37 | P.PN ---
Subjective Progress Note Date: 08/15/20 Principal diagnosis: Right upper lobe cavitary lesion, status post biopsy This is a 59-year-old white male with history of diabetes, schizophrenia, hypothyroidism, patient is a nonsmoker, brought into the emergency room with a premium service representative from [facility], and the concern was that he was noted to be more fatigued and confused, and they were mostly concerned about the possibility of urinary tract infection. The patient himself had no symptoms whatsoever however the patient is a poor historian. His [facility] nurse felt that he may have urinary tract infection and she brought him to the ER. Workup in the ER included a chest x-ray which showed a large cavitary mass lesion in the right upper lobe. The lesion measures more than 9.5 cm in size. It had an air-fluid level and the differential diagnoses includes lung abscess, cavitary malignancy, fungal pneumonia, or bacterial pneumonia/abscess. Considering the abnormal CT of the chest and chest x-ray, I was asked to see him on consultation. Again the patient had no pulmonary symptoms whatsoever. Progress note dated 08/10/2020. 59-year-old male, with history of diabetes, schizophrenia, hypothyroidism, who was evaluated in the emergency room for confusion, fatigue, and possible urinary tract infection. The workup in the emergency room included a chest x-ray which revealed a large cavitary mass lesion in the right upper lobe currently, the patient does admit to some mild cough, but denies fever, chills, and shortness of breath. Computed tomography scan was done yesterday and revealed a cavitary mass in the right upper lobe. There are internal septations and an air-fluid level. This lesion could be malignant, or inflammatory/infectious. There was no significant adenopathy noted. White count was 17.87, hemoglobin 9.8, hematocrit 32.5, and platelet count 300,000. Sodium 139, potassium 3.8, chlorides 110, CO2 26, anion gap 3, E1 11, creatinine 1.01. Initial lactic acid was 3.7, repeat was 1.1. The patient tested negative for coronavirus. The patient is seen today 08/11/2020 in follow-up on the regular medical floor. He is currently sitting up in bed. Awake and alert in no acute distress. Maintaining good O2 saturations in the mid 90s on room air. He's been afebrile. Hemodynamically stable. He did undergo a CT-guided biopsy of the right upper lobe mass yesterday. Pathology pending. Cultures pending. Follow-up chest x- ray did not reveal any evidence of pneumothorax. Creatinine 0.97. He is continued on Unasyn, vancomycin The patient is seen today 08/12/2020 in follow-up on the regular medical floor. He is currently sitting up in bed. Awake and alert in no acute distress. Currently maintaining O2 saturation in the 90s on room air. He is continued on vancomycin and Unasyn. Temperature 99.7. Blood cultures revealing no growth. Right lung fluid cultures pending. Creatinine 0.93. Vancomycin trough 16.4. The patient is seen today 08/13/2020 in follow-up on the regular medical floor. He is resting quite comfortably in bed. Awake and alert in no acute distress. Maintaining O2 saturations in the 90s on room air. White count 14.4. Hemoglobin 9.9. Sodium 147. Potassium 3.9. Creatinine 1.0. Calcitonin 0.15. Remains on vancomycin and Unasyn. Cultures and biopsy results pending On 08/14/2020 patient seen in follow-up on medical surgical floor, he is resting comfortably in bed, appears to be in no acute distress, denies any chest pain, no hemoptysis, no fever or chills, he is on Unasyn and vancomycin. His right upper lobe needle aspirate culture was positive for alpha hemolytic streptococcus. Patient is covered with antibiotics. Clinically stable, no worsening dyspnea. Yesterday pro-calcitonin is 0.15, leukocytosis is improving, serum sodium was up to 147 on yesterday's labs. Today's chest x-ray shows right upper lobe masslike opacity. In the new patchy opacity of the inferior margin of the mass that could represent a developing pneumonia. Cytology of the right upper lobe core biopsy showed acute on chronic inflammatory cells with necrosis, GMS stain was appropriate controls was negative for fungal organisms, AFB stain was negative for acid-fast bacilli. On 08/15/2020 patient seen in follow-up on medical surgical floor, he is resting comfortably in bed, he states his breathing is comfortable, only occasional cough, no congestion, no chest pain, no hemoptysis, his cytology of the right upper lobe core needle aspirate showed inflammatory cells likely related to underlying lung abscess. The culture of the corneal aspirate was positive for alpha hemolytic streptococcus, fungal culture is still pending, AFB was negative, anaerobic culture showed no growth, blood cultures have been negative, patient remains on antibiotics, ID service is following, clinically has been stable. Today's labs have been reviewed, white blood cell count is 12.4, hemoglobin is 10.8, sodium is 147, potassium is 4.0, BUN is 12, creatinine is 1.1. Pro-calcitonin level slightly improved, and remains low at 0.13, current antibiotic coverage is with Unasyn. Patient was able to get up and take a shower today and ambulate in the room, without significant distress, he remains on room air, pulse ox is 95-100%. His nonlabored, lung sounds reveal inspiratory crackles in the right upper lobe. Objective - Vital Signs Vital signs: Vital Signs Temp 98.5 F 08/15/20 14:00 Pulse 101 H 08/15/20 14:00 Resp 20 08/15/20 16:58 BP 116/70 08/15/20 14:00 Pulse Ox 95 08/15/20 14:00 Intake & Output 08/14/20 08/15/20 08/15/20 18:59 06:59 18:59 Output Total 1750 500 Balance -1750 -500 Output: Urine 1750 500 Other: Voiding Method Toilet Toilet Toilet Urinal Urinal Urinal # Voids 1 - Exam GENERAL EXAM: Alert, pleasant, 59-year-old white male, on room air, with a pulse ox of 98% comfortable in no apparent distress. HEAD: Normocephalic/atraumatic. EYES: Normal reaction of pupils, equal size. Conjunctiva pink, sclera white. NOSE: Clear with pink turbinates. THROAT: No erythema or exudates. NECK: No masses, no JVD, no thyroid enlargement, no adenopathy. CHEST: No chest wall deformity. Symmetrical expansion. LUNGS: Equal air entry with diminished breath sounds and crackles in the right upper lobe CVS: Regular rate and rhythm, normal S1 and S2, no gallops, no murmurs, no rubs ABDOMEN: Soft, nontender. No hepatosplenomegaly, normal bowel sounds, no guarding or rigidity. EXTREMITIES: No clubbing, no edema, no cyanosis, 2+ pulses and upper and lower extremities. MUSCULOSKELETAL: Muscle strength and tone normal. SPINE: No scoliosis or deformity SKIN: No rashes CENTRAL NERVOUS SYSTEM: Alert and oriented -3. No focal deficits, tone is normal in all 4 extremities. PSYCHIATRIC: Alert and oriented -3. Appropriate affect. Intact judgment and insight. - Labs CBC & Chem 7: 08/15/20 05:43 08/15/20 05:43 Labs: Abnormal Lab Results - Last 24 Hours (Table) 08/15/20 08/15/20 08/15/20 Range/Units 05:43 05:43 05:43 WBC 12.48 H (4.50-10.00) X 10*3/uL RBC 3.87 L (4.40-5.60) X 10*6/uL Hgb 10.8 L (13.0-17.0) g/dL Hct 35.6 L (39.6-50.0) % MCHC 30.3 L (32.0-37.0) g/dL Immature Gran # 0.19 H (0.00-0.04) X 10*3/uL Neutrophils # 10.25 H (1.80-7.70) X 10*3/uL Eosinophils # 0 L (0.04-0.35) X 10*3/uL Sodium 147 H (135-145) mmol/L Chloride 112 H (96-109) mmol/L BUN/Creatinine Ratio 10.91 L (12.00-20.00) Ratio Glucose 124 H (70-110) mg/dL Calcium 8.6 L (8.7-10.3) mg/dL Total Protein 4.4 L (6.2-8.2) g/dL Albumin 3.10 L (3.80-4.90) g/dL Globulin 1.3 L (1.6-3.3) g/dL Procalcitonin 0.13 H (0.02-0.09) ng/mL Microbiology - Last 24 Hours (Table) 08/09/20 13:56 Blood Culture - Final Blood No Growth after 144 hours 08/10/20 13:00 Anaerobic Culture - Final Lung - Right 08/10/20 13:00 Gram Stain - Final Lung - Right Wound Culture - Final Alpha Hemolytic Streptococcus Assessment and Plan Plan: Assessment: #1. Right upper lobe cavitary lesion, status post CT-guided core needle biopsy, cytology showing inflammatory cells of acute and chronic inflammation with necrosis, negative for fungal organisms or acid-fast bacilli, nondiagnostic for malignancy. Cultures was positive for alpha hemolytic streptococcus. Currently on Unasyn and vancomycin #2. History of schizophrenia #3. Hypothyroidism #4. Ulcerative colitis #5. History of ITP #6. Diabetes mellitus type 2 #7. Hyperlipidemia Plan: Clinically remains stable, continue with antibiotics, discussed bronchoscopy with biopsies and BAL of the right upper lobe, the patient is agreeable to proceed. Nothing by mouth after midnight, obtain consent for the procedure with Dr. Mckay or possibly Dr. Mac for tomorrow, 08/16/2020. We'll continue to follow I performed a history & physical examination of the patient and discussed their management with my nurse practitioner, Milagro Kaye. I reviewed the nurse practitioner's note and agree with the documented findings and plan of care. Lung sounds are positive for diminished with crackles The findings and the impression was discussed with the patient. I attest to the documentation by the nurse practitioner. Time with Patient: Less than 30
[2020-08-15] MEDS: ATORVASTATIN 10 MG TAB PO SCH (21:38)
[2020-08-15] MEDS: LITHIUM CARBONATE 300 MG CAP PO SCH (21:50)
[2020-08-16] MEDS: AMPICILLIN-SULBACTAM 3 GM in SODIUM CHLORIDE 0.9% 100 ML IVPB SCH ×4 (02:16→19:25)
[2020-08-16] MEDS: LEVOTHYROXINE 50 MCG TAB PO SCH (05:04)
[2020-08-16] MEDS: TRIAMCINOLONE ACET 0.1% OINTMENT 80 GM TUBE TOPICAL SCH (09:17)
[2020-08-16] MEDS: PANTOPRAZOLE 40 MG TABLET PO SCH (09:17)
[2020-08-16] MEDS ORDERED: SUCCINYLCHOLINE CHLORIDE 100 MG/5 ML SYR IV ONE (12:00)
[2020-08-16] MEDS ORDERED: GLYCOPYRROLATE 0.2 MG/ML 2 ML VIAL ONE (12:00)
[2020-08-16] MEDS ORDERED: LIDOCAINE 1% INJ 10MG/ML (20 ML MDV) ONE (12:00)
[2020-08-16] MEDS ORDERED: fentaNYL (PF) 50 MCG/ML 2 ML AMP ONE (12:00)
[2020-08-16] MEDS ORDERED: PROPOFOL 10 MG/ML 20 ML VIAL IV ONE (12:00)
[2020-08-16] MEDS ORDERED: NEOSTIGMINE 1 MG/ML 10 ML VIAL ONE (12:00)
[2020-08-16] MEDS ORDERED: MIDAZOLAM 2 MG/2 ML VIAL ONE (12:00)
[2020-08-16] MEDS ORDERED: ROCURONIUM 10 MG/ML (5 ML VIAL) IV ONE (12:00)
[2020-08-16] MEDS ORDERED: IV FLUID CONTINUATION 1,000 ML IV ONE (12:09)
--- NOTE | 2020-08-16 13:25 | FL ---
EXAMINATION TYPE: FL bronchoscopy DATE OF EXAM: 08/16/2020 CLINICAL HISTORY: Bronchoscopy TECHNIQUE: Fluoroscopy. COMPARISON: None. FINDINGS: Bronchoscopy with Dr. Mckay. 1 min 40 sec fluoro time. 1 image scanned. IMPRESSION: As Above.
--- NOTE | 2020-08-16 13:48 | XR ---
EXAMINATION TYPE: XR chest 1V portable DATE OF EXAM: 08/16/2020 HISTORY: Status post bronchoscopy. COMPARISON: 08/14/2020 TECHNIQUE: Single view of the chest is submitted. FINDINGS: Demonstrated are scattered senescent parenchymal change. Right upper lobe mass is again noted. No definite pneumothorax identified at this time. Left lung genia ears clear. The heart is stable. Hilar and mediastinal structures are within normal limits. Degenerative changes are seen of the dorsal spine. IMPRESSION: 1. Right upper lobe mass is again noted. No definite pneumothorax identified at this time. Left lung appears clear.
--- NOTE | 2020-08-16 14:12 | P.CN ---
Psychiatric Consult - . Consult date: 08/16/20 Consult:: IDENTIFYING DATA: This patient is a single, unemployed, 59-year-old male with a significant history of schizophrenia was admitted for possible UTI. HISTORY OF PRESENT ILLNESS: The patient presented to the hospital on 08/09/20 w ith a chief complaint of fatigue and concerns for UTI. The patient has been evaluated and is undergoing treatment for an empyema. Psychiatry has been consulted for management of the patient's Clozaril as per request of the patient's outpatient psychiatrist Dr. Olson of [facility]. The patient is currently on home dose of Clozaril 400 mg at bedtime. He last received this medication on 08/14/20. As per discussion with Dr. Olson, the patient recently had a Clozaril level of >3200 indicating a dangerously high dose of the medication. Because of this, the clozaril has been held. The patient has a significant history of schizophrenia and when symptomatic is very psychotic and difficult to manage. 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 Currently, the patient is presenting well. He is currently not reporting any auditory or visual hallucinations. He is not reporting any paranoia or other delusions. He denies any thought insertion, thought projection, thought deletion, ideas of reference, persecutory, or delusions of surveillance. He has been adherent with his medications and is not reporting any significant side effects at this time. He denies any chest pain, palpitations, but reports some shortness of breath likely secondary to his infection. Review of the patient's labs reveal an elevated white count as well as absolute neutrophil count but is also elevated. Platelet count is within normal limits. Dr Olson is requesting Psychiatry monitor the reintroduction of clozaril for this patient. He recommended restarting clozaril at 100 mg after 3 days of being off clozaril and gradually titrating the medication. Clozapine level drawn on 08/16/2020 is pending. PAST PSYCHIATRIC HISTORY: Patient has a a history of schizophrenia. He has been on multiple psychiatric medications in the past including Prolixin, Prolixin decanoate, Cogentin, lithium and clozairl. He was last admitted on to this psychiatric unit in November 2015. He has had multiple inpatient psychiatric admissions including previous state hospitalization in [place]. He currently follows with Dr. Olson at [facility]. PAST MEDICAL HISTORY: Past Medical History: Diabetes Mellitus Additional Past Medical History / Comment(s): ITP, bowel obstructions, ulcerative colitis History of Any Multi-Drug Resistant Organisms: None Reported Past Surgical History: Appendectomy Additional Past Surgical History / Comment(s): abd surgery r/t adhesions, bowel obstruction, hemicolectomy Past Anesthesia/Blood Transfusion Reactions: No Reported Reaction Past Psychological History: Anxiety, Bipolar, Depression, Schizophrenia Smoking Status: Never smoker Past Alcohol Use History: None Reported Past Drug Use History: None Reported ALLERGIES: Codeine, penicillin CHEMICAL DEPENDENCY HISTORY: Denies FAMILY PSYCHIATRIC/SUBSTANCE USE HISTORY: Unable to obtain SOCIAL HISTORY: Patient has a guardian. MENTAL STATUS EXAM: General Appearance: Patient appears to be stated age is alert, pleasant, and cooperative. Patient appears to be slightly disheveled wearing a hospital gown with fair eye contact. Behavior: Patient is calmly lying in bed without any agitated behavior. Speech: Patient's speech is fluent and nonpressured. Mood/Affect: Patient reports their mood is "doing okay", affect is congruent and blunted. Suicidality/Homicidality: Patient denies having any suicidal or homicidal ideation intent or plan. Perceptions: Patient denies any visual hallucinations and denies any auditory hallucinations Though content/process: There is no evidence of any delusional thought content and thought process is linear and goal-directed. Memory and concentration: AOX3, grossly intact for the purposes of this session. Can spell "WORLD" backwards Judgment and insight: Poor at baseline IMPRESSIONS: Schizophrenia Right upper lobe cavitary lesion Hypothyroidism Ulcerative Colitis PLAN: -At this time patient DOES NOT meet criteria for inpatient psychiatric admission. -Delirium precautions recommended with patient including - avoiding use of narcotics and [employer] sedatives, limit anticholinergic medications when possible, frequent re-orientation, minimize use of restraints, open window shades during the day and close them at night -Would recommend the following medication changes/additions: Continue Ebro 600 mg at bedtime for mood stabilization As per discussion with Dr Olson, will restart Clozaril 100 mg at bedtime tomorrow night. EKG ordered. ANC elevated and Plt count is WNL. Patient is also not reporting any constipation, palpitations, excessive sedation or drooling. -Your medical management for empyema. -Psychiatry will continue to follow along 08/16/20 13:58
--- NOTE | 2020-08-16 15:11 | P.PN ---
Subjective Progress Note Date: 08/16/20 Principal diagnosis: Right upper lobe cavitary lesion, status post biopsy This is a 59-year-old white male with history of diabetes, schizophrenia, hypothyroidism, patient is a nonsmoker, brought into the emergency room with a new accounts banking representative from [facility], and the concern was that he was noted to be more fatigued and confused, and they were mostly concerned about the possibility of urinary tract infection. The patient himself had no symptoms whatsoever however the patient is a poor historian. His [facility] nurse felt that he may have urinary tract infection and she brought him to the ER. Workup in the ER included a chest x-ray which showed a large cavitary mass lesion in the right upper lobe. The lesion measures more than 9.5 cm in size. It had an air-fluid level and the differential diagnoses includes lung abscess, cavitary malignancy, fungal pneumonia, or bacterial pneumonia/abscess. Considering the abnormal CT of the chest and chest x-ray, I was asked to see him on consultation. Again the patient had no pulmonary symptoms whatsoever. Progress note dated 08/10/2020. 59-year-old male, with history of diabetes, schizophrenia, hypothyroidism, who was evaluated in the emergency room for confusion, fatigue, and possible urinary tract infection. The workup in the emergency room included a chest x-ray which revealed a large cavitary mass lesion in the right upper lobe currently, the patient does admit to some mild cough, but denies fever, chills, and shortness of breath. Computed tomography scan was done yesterday and revealed a cavitary mass in the right upper lobe. There are internal septations and an air-fluid level. This lesion could be malignant, or inflammatory/infectious. There was no significant adenopathy noted. White count was 17.87, hemoglobin 9.8, hematocrit 32.5, and platelet count 300,000. Sodium 139, potassium 3.8, chlorides 110, CO2 26, anion gap 3, E1 11, creatinine 1.01. Initial lactic acid was 3.7, repeat was 1.1. The patient tested negative for coronavirus. The patient is seen today 08/11/2020 in follow-up on the regular medical floor. He is currently sitting up in bed. Awake and alert in no acute distress. Maintaining good O2 saturations in the mid 90s on room air. He's been afebrile. Hemodynamically stable. He did undergo a CT-guided biopsy of the right upper lobe mass yesterday. Pathology pending. Cultures pending. Follow-up chest x- ray did not reveal any evidence of pneumothorax. Creatinine 0.97. He is continued on Unasyn, vancomycin The patient is seen today 08/12/2020 in follow-up on the regular medical floor. He is currently sitting up in bed. Awake and alert in no acute distress. Currently maintaining O2 saturation in the 90s on room air. He is continued on vancomycin and Unasyn. Temperature 99.7. Blood cultures revealing no growth. Right lung fluid cultures pending. Creatinine 0.93. Vancomycin trough 16.4. The patient is seen today 08/13/2020 in follow-up on the regular medical floor. He is resting quite comfortably in bed. Awake and alert in no acute distress. Maintaining O2 saturations in the 90s on room air. White count 14.4. Hemoglobin 9.9. Sodium 147. Potassium 3.9. Creatinine 1.0. Calcitonin 0.15. Remains on vancomycin and Unasyn. Cultures and biopsy results pending On 08/14/2020 patient seen in follow-up on medical surgical floor, he is resting comfortably in bed, appears to be in no acute distress, denies any chest pain, no hemoptysis, no fever or chills, he is on Unasyn and vancomycin. His right upper lobe needle aspirate culture was positive for alpha hemolytic streptococcus. Patient is covered with antibiotics. Clinically stable, no worsening dyspnea. Yesterday pro-calcitonin is 0.15, leukocytosis is improving, serum sodium was up to 147 on yesterday's labs. Today's chest x-ray shows right upper lobe masslike opacity. In the new patchy opacity of the inferior margin of the mass that could represent a developing pneumonia. Cytology of the right upper lobe core biopsy showed acute on chronic inflammatory cells with necrosis, GMS stain was appropriate controls was negative for fungal organisms, AFB stain was negative for acid-fast bacilli. On 08/15/2020 patient seen in follow-up on medical surgical floor, he is resting comfortably in bed, he states his breathing is comfortable, only occasional cough, no congestion, no chest pain, no hemoptysis, his cytology of the right upper lobe core needle aspirate showed inflammatory cells likely related to underlying lung abscess. The culture of the corneal aspirate was positive for alpha hemolytic streptococcus, fungal culture is still pending, AFB was negative, anaerobic culture showed no growth, blood cultures have been negative, patient remains on antibiotics, ID service is following, clinically has been stable. Today's labs have been reviewed, white blood cell count is 12.4, hemoglobin is 10.8, sodium is 147, potassium is 4.0, BUN is 12, creatinine is 1.1. Pro-calcitonin level slightly improved, and remains low at 0.13, current antibiotic coverage is with Unasyn. Patient was able to get up and take a shower today and ambulate in the room, without significant distress, he remains on room air, pulse ox is 95-100%. His nonlabored, lung sounds reveal inspiratory crackles in the right upper lobe. 08/16/2020 patient seen in follow-up on medical surgical floor, today he underwent bronchoscopy with fluoroscopy and biopsies of the right upper lobe mass/lung abscess. He tolerated procedure well, procedure chest x-ray showed no definite pneumothorax, and right upper lobe mass, and clear left lung, patient is seen in follow-up in his room, remains on room air, breathing comfortably, still a bit drowsy, no acute distress, he wakes up and answers questions appropriate, lung sounds reveal diminished breath sounds with no rhonchi no cr ackles, no complaints of chest pain or hemoptysis. Patient remains on Unasyn for what appears to be streptococcal pneumonia with a right upper lobe lung abscess. Today's labs reviewed, showing white blood cell count trending down, down to 12.48, hemoglobin is 10.8, sodium 147, potassium is 4.0, chloride is 112, BUN 12, creatinine is 1.1, acetone level is 0.13, ID service is following, clinically patient has remained stable, No specific complaints, he has been tolerating ambulation in the room Objective - Vital Signs Vital signs: Vital Signs Temp 97.2 F L 08/16/20 13:05 Pulse 102 H 08/16/20 13:30 Resp 16 08/16/20 13:30 BP 119/72 08/16/20 13:30 Pulse Ox 95 08/16/20 13:30 Intake & Output 08/15/20 08/16/20 08/16/20 18:59 06:59 18:59 Intake Total 450 Output Total 500 1050 1650 Balance -500 -1050 -1200 Intake: IV 450 Output: Urine 500 1050 1650 Other: Voiding Method Toilet Toilet Toilet Urinal Urinal Urinal # Voids 1 1 - Exam GENERAL EXAM: Alert, pleasant, 59-year-old white male, on room air, with a pulse ox of 98% comfortable in no apparent distress. HEAD: Normocephalic/atraumatic. EYES: Normal reaction of pupils, equal size. Conjunctiva pink, sclera white. NOSE: Clear with pink turbinates. THROAT: No erythema or exudates. NECK: No masses, no JVD, no thyroid enlargement, no adenopathy. CHEST: No chest wall deformity. Symmetrical expansion. LUNGS: Equal air entry with diminished breath sounds and crackles in the right upper lobe CVS: Regular rate and rhythm, normal S1 and S2, no gallops, no murmurs, no rubs ABDOMEN: Soft, nontender. No hepatosplenomegaly, normal bowel sounds, no guarding or rigidity. EXTREMITIES: No clubbing, no edema, no cyanosis, 2+ pulses and upper and lower extremities. MUSCULOSKELETAL: Muscle strength and tone normal. SPINE: No scoliosis or deformity SKIN: No rashes CENTRAL NERVOUS SYSTEM: Alert and oriented -3. No focal deficits, tone is normal in all 4 extremities. PSYCHIATRIC: Alert and oriented -3. Appropriate affect. Intact judgment and insight. - Labs CBC & Chem 7: 08/15/20 05:43 08/15/20 05:43 Labs: Microbiology - Last 24 Hours (Table) 08/09/20 13:56 Blood Culture - Final Blood No Growth after 144 hours Assessment and Plan Plan: Assessment: #1. Right upper lobe cavitary lesion, status post CT-guided core needle biopsy, cytology showing inflammatory cells of acute and chronic inflammation with necrosis, negative for fungal organisms or acid-fast bacilli, nondiagnostic for malignancy. Cultures was positive for alpha hemolytic streptococcus. Currently on Unasyn and vancomycin, bronchoscopy with biopsies and BAL of the right upper lobe mass/lung abscess on 08/16/2020 #2. History of schizophrenia #3. Hypothyroidism #4. Ulcerative colitis #5. History of ITP #6. Diabetes mellitus type 2 #7. Hyperlipidemia Plan: Continue antibiotics per ID service recommendations, clinically patient has remained stable, underwent bronchoscopy with biopsies of the right upper lobe mass/abscess, tolerated procedure well, will await results of the biopsies and cultures, remains on room air, no chest pain or hemoptysis, no fever or chills, follow-up chest x-ray in the morning, increase activity as tolerated, we'll con tinue to follow I performed a history & physical examination of the patient and discussed their management with my nurse practitioner, Milagro Kaye. I reviewed the nurse practitioner's note and agree with the documented findings and plan of care. Lung sounds are positive for diminished with crackles The findings and the impression was discussed with the patient. I attest to the documentation by the nurse practitioner. Time with Patient: Less than 30
--- NOTE | 2020-08-16 15:28 | P.PN ---
Subjective Patient was brought in by [facility] as the patient is not behaving like usually appear to have been bit fatigued and may be confused. Patient is presently alert oriented 2-3 which is his baseline. Patient denied any complaints at this time although he is coughing he doesn't know the exact duration of cough denied any nausea vomiting diarrhea dysuria. Patient underwent workup urine analysis is within normal limits patient did chest x-ray which showed an abscess in the right upper chest with a cavitary lesion. CT of the chest is being obtained. Patient will be started on IV Unasyn and vancomycin empirically. His tachycardic as well. 08/10/[address]-guided biopsy of the cavitary mass and patient is being continued on antibiotics it can be infectious inflammatory or malignant. Patient is feeling better. 08/11/2020 Cultures from abscess site is still pending. Patient is presently in negative pressure isolation and sputum maybe is being obtained and culture for TB was be done as well. 08/12/[address]-guided biopsy is positive for gram-positive cocci in chains. Patient will be continued on antibodies of Unasyn on Vanco mycin for now and will await the finalization of the cultures. Discussed with infectious disease patient probably will not need TB isolation. clinically looks very well. 08/13/2020 Cultures from biopsy is still pending patient continues to be on vancomycin and Unasyn. 08/14/2020 Patient has a alpha hemolytic streptococci from the cultures, Unasyn is being co ntinued vancomycin was discontinued.. Patient will undergo bronchoscopy tomorrow 08/15/2020 Patient is a PICC line patient will undergo bronchoscopy today. 08/16/2020 Patient had bronchoscopy yesterday and tolerated the procedure very well and patient had biopsy of the right upper lobe mass. Patient has streptococcal abscess for which patient is on Unasyn. Patient Mo a low level is toxic, Mo the dose was cut down to half psychiatry was consulted psychiatrist evaluated the patient here. Patient probably will be discharged to subacute rehabilitation tomorrow. Repeat chest x-ray still showing Constitutional: Denied any fatigue denied any fever. Cardio vascular: denied any chest pain, palpitations Gastrointestinal denied any nausea vomiting Pulmonary: Denied any shortness of breath cough Neurologic denied any new focal deficits All inpatient medications were reviewed and appropriate changes in these medications as dictated in the interval history and assessment and plan. Objective - Vital Signs Vital signs: Vital Signs Temp 97.2 F L 08/16/20 13:05 Pulse 102 H 08/16/20 13:30 Resp 16 08/16/20 13:30 BP 119/72 08/16/20 13:30 Pulse Ox 95 08/16/20 13:30 Intake & Output 08/15/20 08/16/20 08/16/20 18:59 06:59 18:59 Intake Total 450 Output Total 500 1050 1650 Balance -500 -1050 -1200 Intake: IV 450 Output: Urine 500 1050 1650 Other: Voiding Method Toilet Toilet Toilet Urinal Urinal Urinal # Voids 1 1 - Exam PHYSICAL EXAMINATION: GENERAL: The patient is alert and oriented x3, not in any acute distress. Well developed, well nourished. HEENT: Pupils are round and equally reacting to light. EOMI. No scleral icterus. No conjunctival pallor. Normocephalic, atraumatic. No pharyngeal erythema. No t hyromegaly. CARDIOVASCULAR: S1 and S2 present. No murmurs, rubs, or gallops. PULMONARY: Chest is clear to auscultation, no wheezing or crackles. ABDOMEN: Soft, nontender, nondistended, normoactive bowel sounds. No palpable organomegaly. MUSCULOSKELETAL: No joint swelling or deformity. EXTREMITIES: No cyanosis, clubbing, or pedal edema. NEUROLOGICAL: Gross neurological examination did not reveal any focal deficits. SKIN: No rashes. - Labs CBC & Chem 7: 08/15/20 05:43 08/15/20 05:43 Labs: Microbiology - Last 24 Hours (Table) 08/09/20 13:56 Blood Culture - Final Blood No Growth after 144 hours Assessment and Plan Plan: -Lung abscesses right upper lobe with a cavitary lesion: Patient had biopsy of this cavitary lesion , patient has alpha hemolytic streptococci. Patient is presently on Unasyn patient will biopsy of the mass. -Leukocytosis due to assessment #1 -Mild acute renal failure: Possibly prerenal azotemia from infection and dehydration Patient was started on IV fluids for this -Type 2 diabetes mellitus -Schizophrenia and bipolar disorder patient's clozoril is toxic dose of which was cut down repeat Clazoril level today which is pending -DVT prophylaxis: Subcutaneous heparin
[2020-08-16] MEDS: LITHIUM CARBONATE 300 MG CAP PO SCH (20:11)
[2020-08-16] MEDS: ATORVASTATIN 10 MG TAB PO SCH (20:11)
[2020-08-16 20:25] LABS: Color,BF Red
[2020-08-16 20:26] LABS: Appearance,BF Cloudy; Nucleated Cells, Body Fluid 500 /uL; RBC, Body Fluid 26050 /uL
[2020-08-16 20:28] LABS: Mononuclear WBC,Body Fluid 15 %; Polynuclear WBC,Body Fluid 85 %; Total Cells Counted,Body Fluid 100
[2020-08-16 20:49] LABS: Glucose,Whole Blood 187 mg/dL (75-99)
--- NOTE | 2020-08-16 22:07 | PCN ---
PROCEDURE NOTE PROCEDURE PERFORMED: Bronchoscopy, airway examination, therapeutic lavage, BAL right upper lobe, transbronchial biopsies, right upper lobe and brushes right upper lobe. PREOPERATIVE DIAGNOSIS: Lung cancer versus lung infection. POSTOP DIAGNOSIS: Lung cancer versus lung infection. OPERATORS: Dr. Mckay and Dr. Napoles. There was informed consent and universal timeout. ANESTHESIA: Anesthesia provided general anesthesia. DESCRIPTION OF PROCEDURE: After the patient was intubated and mechanically ventilated, the bronchoscope was inserted through the bronchoscope adapter and connected to the endotracheal tube. We went down into the lung. There were thick secretions noted throughout the trachea, right and left mainstem, and even into to the various lobes. The secretions were suctioned. The right upper lobe and its 3 segments, right middle lobe and its 2 segments right lower lobe and its 5 segments, left upper lobe proper and its 2 segments lingula and its 2 segments and left lower lobe and its 4 segments all had similar findings of diffuse mild erythema and hyperemia and mild bronchitis. There was some narrowing in some of the segments in the right upper lobe. The bronchoscope was positioned in the right upper lobe. We did brushes in the right upper lobe. Subsequent to that, under fluoroscopic guidance, we did multiple transbronchial biopsies in the anterior apical and posterior segments of the right upper lobe. The patient tolerated the procedure well. Minimal bleeding. Finally, we did a BAL in the right upper lobe, collected about 30 mL of fluid. The patient tolerated the procedure well. Any additional secretions were suctioned. We looked to see if there was any bleeding, there was not. We checked to see if there is a pneumothorax on fluoro. There was not. The bronchoscope was withdrawn and the patient will be recovered. There was no immediate complication. A chest x-ray will be ordered. MMODL / IJN: [id number] /
--- NOTE | 2020-08-16 22:47 | PN ---
PROGRESS NOTE DATE OF SERVICE: 08/16/2020 REASON FOR FOLLOWUP: Pneumonia. INTERVAL HISTORY: The patient is currently afebrile, has been breathing comfortably. Denies having any chest pain or shortness of breath. Occasional cough. No abdominal pain or diarrhea. PHYSICAL EXAMINATION: Blood pressure 126/74, pulse 98, temperature 98.7. He is 96% on room air. General description is a middle-aged male lying in bed in no distress. RESPIRATORY SYSTEM: Unlabored breathing with decreased intensity of breath sounds. No wheeze. HEART: S1, S2. Regular rate and rhythm. ABDOMEN: Soft. No tenderness. LABS: Hemoglobin is 10, white count 12.48. BUN of 12, creatinine 1.11. DIAGNOSTIC IMPRESSION AND PLAN: Patient with cavitating pneumonia. Sputum has been alpha hemolytic Streptococcus. Blood culture has been negative. The patient is status post bronchoscopy, lavage and transbronchial biopsies. Those will be followed. Patient to continue with Unasyn. Monitor his clinical course closely. MMODL / IJN: [id number] /
[2020-08-17] MEDS: AMPICILLIN-SULBACTAM 3 GM in SODIUM CHLORIDE 0.9% 100 ML IVPB SCH ×3 (01:10→13:30)
[2020-08-17] MEDS: LEVOTHYROXINE 50 MCG TAB PO SCH (05:44)
--- NOTE | 2020-08-17 07:10 | XR ---
EXAMINATION TYPE: XR chest 1V portable DATE OF EXAM: 08/17/2020 HISTORY: Shortness of breath. COMPARISON: 08/16/2020 TECHNIQUE: Single view of the chest is submitted. FINDINGS: Demonstrated are scattered senescent parenchymal change. Right upper lobe mass persists and is essentially unchanged. The heart is stable. Hilar and mediastinal structures are within normal limits. Degenerative changes are seen of the dorsal spine. IMPRESSION: 1. Right upper lobe mass persists and is essentially unchanged.
[2020-08-17 07:31] LABS: Glucose,Whole Blood 114 mg/dL (75-99)
[2020-08-17 07:47] VITALS: RESP 16
[2020-08-17] MEDS: TRIAMCINOLONE ACET 0.1% OINTMENT 80 GM TUBE TOPICAL SCH (08:18)
[2020-08-17 08:37] LABS: Clozapine (Clozaril) 405 ng/mL (200-700); Norclozapine 262 ng/mL (200-700)
[2020-08-17 11:34] LABS: Glucose,Whole Blood 120 mg/dL (75-99)
--- NOTE | 2020-08-17 12:07 | P.CON ---
Consult Note - . Consult date: 08/17/20 Assessment/Plan:: Clinical Problems: Schizophrenia, chronic in partial remission with delusions, disorganized speech, negative symptoms and impaired cognition. Rule out major neurocognitive disorder Interim history: I reviewed the medical record and interviewed the patient. He has a 59-year-old male who has a well-established diagnosis of chronic schizophrenia. He was admitted to medicine service for evaluation and treatment of a large cavitated mass in the right upper lobe but has since diagnosed as a streptococcal abscess. Medicine consulted psychiatry for assistance in the management of her chronic mental illness in particular his prescription of clozapine. Dr. Harmon completed the initial psychiatric consult and discussed the patient's outpatient treatment with his psychiatrist Dr. Olson. Dr. Harmon started clozapine 100 mg at bedtime. The patient had no specific concerns. He denied that he feels frightened or scared. He denies that he feels that staff at the hospital are trying to hurt or harm him. He made unusual statements during the interview. For example, he claimed that he had in 1960 and is somehow come back to life. He had of his difficulty organizing his thoughts and expressing his thoughts or concerns. Mental status exam: He presented as a thin casually groomed 5-year-old male who is laying In bed. He made eye contact and appeared to attend to interview. He had involuntary movements of the arms. His speech was spontaneous, dysarthric with long pauses in answering questions. He repeated himself frequently. His affect was blunted. He did not express suicidal idea tion, wishes or homicidal ideation. He did not express ideas reference or paranoid ideation but expresses a well formed delusional belief. His thinking was concrete and not fully coherent and organized. He denied auditory or visual hallucinations did not appear to be responding to internal stimuli. He had no understanding of the reason for his hospitalization. He appeared not to be aware that he was in hospital. He did not know the month, season or the year. Assessment: He is chronically and severely mentally ill with prominent cognitive impairment. He should continue with the current psychotropic medications including clozapine 100 mg daily. He is not competent to provide formed consent. Plan: Continue clozapine 100 mg at bedtime and lithium carbonate 600 mg at bedtime. Explained medical procedures and examinations in several terms with frequent repetition. Medical decision should be referred to his legal guardian. Psychiatry will follow.
[2020-08-17 13:40] VITALS: BP 112/66; PULSE 90; TEMP 98.7
--- NOTE | 2020-08-17 14:35 | P.DS ---
Providers Date of admission: 08/09/20 13:57 Attending physician: Modesto Blum Consults: 08/09/20 13:56 Consult Physician Routine Consulting Provider: Logan Fontanez Consult Reason/Comments: Empyema versus cavitary lesion Do you want consulting provider notified?: Yes 08/09/20 14:01 Consult Physician Routine Consulting Provider: Mic Olosn Consult Reason/Comments: Empyema Do you want consulting provider notified?: Yes 08/16/20 09:59 Consult Physician Routine Consulting Provider: Jay Jay Pitts Consult Reason/Comments: [facility] patient, please help with Clozaril levels/dosing per Dr. Hodgson at [facility] Do you want consulting provider notified?: Already Contacted Primary care physician: [facility] Course: Patient was brought in by [facility] as the patient is not behaving like usually appear to have been bit fatigued and may be confused. Patient is presently alert oriented 2-3 which is his baseline. Patient denied any complaints at this time although he is coughing he doesn't know the exact duration of cough denied any nausea vomiting diarrhea dysuria. Patient underwent workup urine analysis is within normal limits patient did chest x-ray which showed an abscess in the right upper chest with a cavitary lesion. CT of the chest is being obtained. Patient will be started on IV Unasyn and vancom ycin empirically. His tachycardic as well. 08/10/[address]-guided biopsy of the cavitary mass and patient is being continued on antibiotics it can be infectious inflammatory or malignant. Patient is feeling better. 08/11/2020 Cultures from abscess site is still pending. Patient is presently in negative pressure isolation and sputum maybe is being obtained and culture for TB was be done as well. 08/12/[address]-guided biopsy is positive for gram-positive cocci in chains. Patient will be continued on antibodies of Unasyn on Vanco mycin for now and will await the finalization of the cultures. Discussed with infectious disease patient probably will not need TB isolation. clinically looks very well. 08/13/2020 Cultures from biopsy is still pending patient continues to be on vancomycin and Unasyn. 08/14/2020 Patient has a alpha hemolytic streptococci from the cultures, Unasyn is being continued vancomycin was discontinued.. Patient will undergo bronchoscopy tomorrow 08/15/2020 Patient is a PICC line patient will undergo bronchoscopy today. 08/16/2020 Patient had bronchoscopy yesterday and tolerated the procedure very well and patient had biopsy of the right upper lobe mass. Patient has streptococcal abscess for which patient is on Unasyn. Patient Mo a low level is toxic, Mo the dose was cut down to half psychiatry was consulted psychiatrist evaluated the patient here. Patient probably will be discharged to subacute rehabilitation tomorrow. Repeat chest x-ray still showing 08/17/2020 Patient will be discharged today to group home for IV antibiotics patient will need 3 weeks of Unasyn. Patient related to follow with pulmonary as an outpatient to discuss results of biopsy. Patient will need to follow with the [facility] patient had toxic levels of clozipine, the dose of which was cut down to 100 mg. PHYSICAL EXAMINATION: GENERAL: The patient is alert and oriented x3, not in any acute distress. Well developed, well nourished. HEENT: Pupils are round and equally reacting to light. EOMI. No scleral icterus. No conjunctival pallor. Normocephalic, atraumatic. No pharyngeal erythema. No thyromegaly. CARDIOVASCULAR: S1 and S2 present. No murmurs, rubs, or gallops. PULMONARY: Chest is clear to auscultation, no wheezing or crackles. ABDOMEN: Soft, nontender, nondistended, normoactive bowel sounds. No palpable organomegaly. MUSCULOSKELETAL: No joint swelling or deformity. EXTREMITIES: No cyanosis, clubbing, or pedal edema. NEUROLOGICAL: Gross neurological examination did not reveal any focal deficits. SKIN: No rashes. Assessment and Plan Plan: -Lung abscesses right upper lobe with a cavitary lesion: Patient had biopsy of this cavitary lesion , patient has alpha hemolytic streptococci. Patient is presently on Unasyn patient will biopsy of the mass. Results of the biopsy will be discussed when he follows up with pulmonology -Leukocytosis due to assessment #1 -Mild acute renal failure: Possibly prerenal azotemia from infection and dehydration Patient was started on IV fluids for this -Type 2 diabetes mellitus -Schizophrenia and bipolar disorder Plan - Discharge Summary Discharge Rx Participant: No New Discharge Prescriptions: New cloZAPine [Clozaril] 100 mg PO HS tab Ampicillin-Sulbactam [Unasyn] 3 gm IVPB Q6H #84 vial Continue Atorvastatin [Lipitor] 10 mg PO HS #30 tab Deweese Carbonate 600 mg PO HS Cholecalciferol (Vitamin D3) [Vitamin D3 (5000 Iu)] 125 mcg PO MOWEFR Triamcinolone 0.1% Ointment [Kenalog] 1 applic TOPICAL DAILY calcitrioL [Rocaltrol] 0.25 mcg PO Q7D Levothyroxine Sodium [Synthroid] 50 mcg PO DAILY Docusate [Colace] 100 mg PO BID PRN PRN Reason: Constipation Pantoprazole [Protonix] 40 mg PO Q48H Discontinued cloZAPine [Clozaril] 400 mg PO HS #20 Discharge Medication List Atorvastatin [Lipitor] 10 mg PO HS #30 tab 12/14/15 [Rx] Deweese Carbonate 600 mg PO HS 02/06/16 [History] Cholecalciferol (Vitamin D3) [Vitamin D3 (5000 Iu)] 125 mcg PO MOWEFR 08/09/20 [History] Docusate [Colace] 100 mg PO BID PRN 08/09/20 [History] Levothyroxine Sodium [Synthroid] 50 mcg PO DAILY 08/09/20 [History] Pantoprazole [Protonix] 40 mg PO Q48H 08/09/20 [History] Triamcinolone 0.1% Ointment [Kenalog] 1 applic TOPICAL DAILY 08/09/20 [History] calcitrioL [Rocaltrol] 0.25 mcg PO Q7D 08/09/20 [History] Ampicillin-Sulbactam [Unasyn] 3 gm IVPB Q6H #84 vial 08/17/20 [Rx] cloZAPine [Clozaril] 100 mg PO HS tab 08/17/20 [Rx] Follow up Appointment(s)/Referral(s): Villa Castaneda MD [STAFF PHYSICIAN] - 1 Week
[2020-08-17 14:52] LABS: Basophils % (A) 0 %; Eosinophils % (A) 0 %; HCT 36.8 % (39.0-53.0); HGB 11.7 gm/dL (13.0-17.5); Hypochromasia Slight; Lymphocytes # (A) 1.3 k/uL (1.0-4.8); Lymphocytes % (A) 11 %; MCH 27.9 pg (25.0-35.0); MCHC 31.8 g/dL (31.0-37.0); MCV 87.7 fL (80.0-100.0); Mean Platelet Volume 7.4; Monocytes # (A) 0.3 k/uL (0-1.0); Monocytes % (A) 3 %; Neutrophils # (A) 9.9 k/uL (1.3-7.7); Neutrophils % (A) 85 %; Platelet Count 246 k/uL (150-450); WBC 11.6 k/uL (3.8-10.6)
[2020-08-17 14:59] LABS: ALT 17 U/L (4-49); AST 21 U/L (17-59); African American GFR (CKD) 81 (>60 ml/min/1.73 sqM); Albumin 2.8 g/dL (3.5-5.0); Albumin/Globulin Ratio 1.5; Alkaline Phosphatase 98 U/L (38-126); Anion Gap 6 mmol/L; Blood Urea Nitrogen 15 mg/dL (9-20); Calcium 8.6 mg/dL (8.4-10.2); Carbon Dioxide 30 mmol/L (22-30); Chloride 106 mmol/L (98-107); Globulin 1.9 g/dL; Glucose 143 mg/dL (74-99); Non-African American GFR(CKD) 70 (>60 ml/min/1.73 sqM); Potassium 4.4 mmol/L (3.5-5.1); Sodium 142 mmol/L (137-145); Total Bilirubin 0.3 mg/dL (0.2-1.3); Total Protein 4.7 g/dL (6.3-8.2)
--- NOTE | 2020-08-17 14:59 | XR ---
EXAMINATION TYPE: XR chest 1V portable DATE OF EXAM: 08/17/2020 HISTORY: Shortness of breath. COMPARISON: 08/17/2020 TECHNIQUE: Single view of the chest is submitted. FINDINGS: Demonstrated are scattered senescent parenchymal change. Persistent right upper lobe masslike opacity may reflect neoplasm versus pneumonia. Left-sided PICC l ine is appropriately placed. The heart is stable. Hilar and mediastinal structures are within normal limits. Degenerative changes are seen of the dorsal spine. IMPRESSION: 1. Stable chest.
--- NOTE | 2020-08-17 16:31 | P.PN ---
Subjective Progress Note Date: 08/17/20 Principal diagnosis: Right upper lobe cavitary lesion, status post biopsy This is a 59-year-old white male with history of diabetes, schizophrenia, hypothyroidism, patient is a nonsmoker, brought into the emergency room with a roofing sales representative from [facility], and the concern was that he was noted to be more fatigued and confused, and they were mostly concerned about the possibility of urinary tract infection. The patient himself had no symptoms whatsoever however the patient is a poor historian. His [facility] nurse felt that he may have urinary tract infection and she brought him to the ER. Workup in the ER included a chest x-ray which showed a large cavitary mass lesion in the right upper lobe. The lesion measures more than 9.5 cm in size. It had an air-fluid level and the differential diagnoses includes lung abscess, cavitary malignancy, fungal pneumonia, or bacterial pneumonia/abscess. Considering the abnormal CT of the chest and chest x-ray, I was asked to see him on consultation. Again the patient had no pulmonary symptoms whatsoever. Progress note dated 08/10/2020. 59-year-old male, with history of diabetes, schizophrenia, hypothyroidism, who was evaluated in the emergency room for confusion, fatigue, and possible urinary tract infection. The workup in the emergency room included a chest x-ray which revealed a large cavitary mass lesion in the right upper lobe currently, the patient does admit to some mild cough, but denies fever, chills, and shortness of breath. Computed tomography scan was done yesterday and revealed a cavitary mass in the right upper lobe. There are internal septations and an air-fluid level. This lesion could be malignant, or inflammatory/infectious. There was no significant adenopathy noted. White count was 17.87, hemoglobin 9.8, hematocrit 32.5, and platelet count 300,000. Sodium 139, potassium 3.8, chlorides 110, CO2 26, anion gap 3, E1 11, creatinine 1.01. Initial lactic acid was 3.7, repeat was 1.1. The patient tested negative for coronavirus. The patient is seen today 08/11/2020 in follow-up on the regular medical floor. He is currently sitting up in bed. Awake and alert in no acute distress. Maintaining good O2 saturations in the mid 90s on room air. He's been afebrile. Hemodynamically stable. He did undergo a CT-guided biopsy of the right upper lobe mass yesterday. Pathology pending. Cultures pending. Follow-up chest x- ray did not reveal any evidence of pneumothorax. Creatinine 0.97. He is continued on Unasyn, vancomycin The patient is seen today 08/12/2020 in follow-up on the regular medical floor. He is currently sitting up in bed. Awake and alert in no acute distress. Currently maintaining O2 saturation in the 90s on room air. He is continued on vancomycin and Unasyn. Temperature 99.7. Blood cultures revealing no growth. Right lung fluid cultures pending. Creatinine 0.93. Vancomycin trough 16.4. The patient is seen today 08/13/2020 in follow-up on the regular medical floor. He is resting quite comfortably in bed. Awake and alert in no acute distress. Maintaining O2 saturations in the 90s on room air. White count 14.4. Hemoglobin 9.9. Sodium 147. Potassium 3.9. Creatinine 1.0. Calcitonin 0.15. Remains on vancomycin and Unasyn. Cultures and biopsy results pending On 08/14/2020 patient seen in follow-up on medical surgical floor, he is resting comfortably in bed, appears to be in no acute distress, denies any chest pain, no hemoptysis, no fever or chills, he is on Unasyn and vancomycin. His right upper lobe needle aspirate culture was positive for alpha hemolytic streptococcus. Patient is covered with antibiotics. Clinically stable, no worsening dyspnea. Yesterday pro-calcitonin is 0.15, leukocytosis is improving, serum sodium was up to 147 on yesterday's labs. Today's chest x-ray shows right upper lobe masslike opacity. In the new patchy opacity of the inferior margin of the mass that could represent a developing pneumonia. Cytology of the right upper lobe core biopsy showed acute on chronic inflammatory cells with necrosis, GMS stain was appropriate controls was negative for fungal organisms, AFB stain was negative for acid-fast bacilli. On 08/15/2020 patient seen in follow-up on medical surgical floor, he is resting comfortably in bed, he states his breathing is comfortable, only occasional cough, no congestion, no chest pain, no hemoptysis, his cytology of the right upper lobe core needle aspirate showed inflammatory cells likely related to underlying lung abscess. The culture of the corneal aspirate was positive for alpha hemolytic streptococcus, fungal culture is still pending, AFB was negative, anaerobic culture showed no growth, blood cultures have been negative, patient remains on antibiotics, ID service is following, clinically has been stable. Today's labs have been reviewed, white blood cell count is 12.4, hemoglobin is 10.8, sodium is 147, potassium is 4.0, BUN is 12, creatinine is 1.1. Pro-calcitonin level slightly improved, and remains low at 0.13, current antibiotic coverage is with Unasyn. Patient was able to get up and take a shower today and ambulate in the room, without significant distress, he remains on room air, pulse ox is 95-100%. His nonlabored, lung sounds reveal inspiratory crackles in the right upper lobe. 08/16/2020 patient seen in follow-up on medical surgical floor, today he underwent bronchoscopy with fluoroscopy and biopsies of the right upper lobe mass/lung abscess. He tolerated procedure well, procedure chest x-ray showed no definite pneumothorax, and right upper lobe mass, and clear left lung, patient is seen in follow-up in his room, remains on room air, breathing comfortably, still a bit drowsy, no acute distress, he wakes up and answers questions appropriate, lung sounds reveal diminished breath sounds with no rhonchi no cr ackles, no complaints of chest pain or hemoptysis. Patient remains on Unasyn for what appears to be streptococcal pneumonia with a right upper lobe lung abscess. Today's labs reviewed, showing white blood cell count trending down, down to 12.48, hemoglobin is 10.8, sodium 147, potassium is 4.0, chloride is 112, BUN 12, creatinine is 1.1, acetone level is 0.13, ID service is following, clinically patient has remained stable, No specific complaints, he has been tolerating ambulation in the room On 08/17/2020 patient seen in follow-up on medical surgical floor, clinically he continues to do well, remained stable, room air pulse ox is 97%, hemodynamically stable, no fever or chills, awaiting results of his upper lobe biopsies from yesterday, cultures have been sent, and Gram stain shows rare PMNs, few gram- positive cocci in pairs. Patient remains on Unasyn. Lung sounds reveal coarse crackles over right upper lobe anteriorly and posteriorly, she had a PICC line placed for IV antibiotics. The plan is for the patient to go to the long term on 3 weeks of Unasyn. His follow-up pro-calcitonin was negative at 0.13. Patient has been tolerating ambulation in the room, he has remained on room air, no hemoptysis no chest pain, today's chest x-ray shows persistent right upper lobe masslike opacity. Objective - Vital Signs Vital signs: Vital Signs Temp 98.7 F 08/17/20 13:39 Pulse 90 08/17/20 13:39 Resp 16 08/17/20 13:39 BP 112/66 08/17/20 13:39 Pulse Ox 97 08/17/20 13:39 Intake & Output 08/16/20 08/17/20 08/17/20 18:59 06:59 18:59 Intake Total 450 Output Total 1650 940 800 Balance -1200 -940 -800 Intake: IV 450 Output: Urine 1650 940 800 Other: Voiding Method Toilet Toilet Toilet Urinal Urinal Urinal # Voids 6 1 - Exam GENERAL EXAM: Alert, pleasant, 59-year-old white male, on room air, with a pu lse ox of 98% comfortable in no apparent distress. HEAD: Normocephalic/atraumatic. EYES: Normal reaction of pupils, equal size. Conjunctiva pink, sclera white. NOSE: Clear with pink turbinates. THROAT: No erythema or exudates. NECK: No masses, no JVD, no thyroid enlargement, no adenopathy. CHEST: No chest wall deformity. Symmetrical expansion. LUNGS: Equal air entry with diminished breath sounds and crackles in the right upper lobe CVS: Regular rate and rhythm, normal S1 and S2, no gallops, no murmurs, no rubs ABDOMEN: Soft, nontender. No hepatosplenomegaly, normal bowel sounds, no guarding or rigidity. EXTREMITIES: No clubbing, no edema, no cyanosis, 2+ pulses and upper and lower extremities. MUSCULOSKELETAL: Muscle strength and tone normal. SPINE: No scoliosis or deformity SKIN: No rashes CENTRAL NERVOUS SYSTEM: Alert and oriented -3. No focal deficits, tone is normal in all 4 extremities. PSYCHIATRIC: Alert and oriented -3. Appropriate affect. Intact judgment and insight. - Labs CBC & Chem 7: 08/17/20 14:26 08/17/20 14:26 Labs: Abnormal Lab Results - Last 24 Hours (Table) 08/16/20 08/17/20 08/17/20 Range/Units 20:48 07:11 11:33 WBC (3.8-10.6) k/uL RBC (4.30-5.90) m/uL Hgb (13.0-17.5) gm/dL Hct (39.0-53.0) % Neutrophils # (1.3-7.7) k/uL Glucose (74-99) mg/dL POC Glucose (mg/dL) 187 H 114 H 120 H (75-99) mg/dL Total Protein (6.3-8.2) g/dL Albumin (3.5-5.0) g/dL 08/17/20 08/17/20 Range/Units 14:26 14:26 WBC 11.6 H (3.8-10.6) k/uL RBC 4.20 L (4.30-5.90) m/uL Hgb 11.7 L (13.0-17.5) gm/dL Hct 36.8 L (39.0-53.0) % Neutrophils # 9.9 H (1.3-7.7) k/uL Glucose 143 H (74-99) mg/dL POC Glucose (mg/dL) (75-99) mg/dL Total Protein 4.7 L (6.3-8.2) g/dL Albumin 2.8 L (3.5-5.0) g/dL Microbiology - Last 24 Hours (Table) 08/16/20 09:24 Gram Stain - Preliminary Sputum Sputum Culture - Preliminary Gram Neg Bacilli 08/16/20 12:45 Gram Stain - Preliminary Pleural Fluid Body Fluid Culture - Preliminary 08/16/20 12:45 Fungal Culture - Preliminary Pleural Fluid 08/16/20 12:45 Acid Fast Bacilli Culture - Preliminary Pleural Fluid Assessment and Plan Plan: Assessment: #1. Right upper lobe cavitary lesion, status post CT-guided core needle biopsy, cytology showing inflammatory cells of acute and chronic inflammation with necrosis, negative for fungal organisms or acid-fast bacilli, nondiagnostic for malignancy. Cultures was positive for alpha hemolytic streptococcus. Currently on Unasyn and vancomycin, bronchoscopy with biopsies and BAL of the right upper lobe mass/lung abscess on 08/16/2020 #2. History of schizophrenia #3. Hypothyroidism #4. Ulcerative colitis #5. History of ITP #6. Diabetes mellitus type 2 #7. Hyperlipidemia Plan: Patient is doing well, remained stable, no acute issues overnight, his chest x- ray shows stable findings with right upper lobe mass/consolidation, cytology and cultures are pending, no fever or chills, patient is being discharged to the long term on 3 weeks' worth of IV Unasyn, he will need outpatient follow-up in the office Dr. Mckay in one week. I performed a history & physical examination of the patient and discussed their management with my nurse practitioner, Milagro Kaye. I reviewed the nurse practitioner's note and agree with the documented findings and plan of care. Lung sounds are positive for diminished with crackles The findings and the impression was discussed with the patient. I attest to the documentation by the nurse practitioner. Time with Patient: Less than 30
[2020-08-17] MEDS ORDERED: cloZAPine 100 MG TAB PO SCH (21:00)
== END 2020-08-17 16:40 | DRG 871 ==
LOC: EC 10:45 → 4SSUR 13:57
PROVIDERS: ADMIT Internal Medicine; ATTEND Internal Medicine
PROC: 0BBK3ZX Excision of Right Lung, Percutaneous Approach, Diagnostic (ICD-10-PCS; 2020-08-10)
PROC: 02HV33Z Insertion of Infusion Device into Superior Vena Cava, Percutaneous Approach (ICD-10-PCS; 2020-08-15)
PROC: 0B9C8ZX Drainage of Right Upper Lung Lobe, Via Natural or Artificial Opening Endoscopic, Diagnostic (ICD-10-PCS; principal; 2020-08-16 12:00)
DX: A40.8 Other streptococcal sepsis (principal); J85.1 Abscess of lung with pneumonia; J15.4 Pneumonia due to other streptococci; N17.9 Acute kidney failure, unspecified; K51.90 Ulcerative colitis, unspecified, without complications; F20.9 Schizophrenia, unspecified; Z79.890 Hormone replacement therapy; F31.9 Bipolar disorder, unspecified; F41.9 Anxiety disorder, unspecified; Z20.822 Contact with and (suspected) exposure to COVID-19; Z82.49 Family history of ischemic heart disease and other diseases of the circulatory system; E11.9 Type 2 diabetes mellitus without complications; E03.9 Hypothyroidism, unspecified; E78.5 Hyperlipidemia, unspecified; Z79.2 Long term (current) use of antibiotics; Z86.2 Personal history of diseases of the blood and blood-forming organs and certain disorders involving the immune mechanism
CPT/HCPCS: 31623; 31624; 31625; 32408; 36573; 71045; 71046; 71260; 80048; 80053; 80159; 80178; 80202; 81001; 82565; 83605; 83735; 84145; 85025; 85027; 85610; 86140; 87040; 87070; 87075; 87077; 87102; 87116; 87186; 87205; 87206; 87252; 87635; 88108; 88305; 88312; 89050; 93005; 94760; 99285

== ENCOUNTER 2020-10-17 12:37 | Inpatient (IN) | payer MEDICARE, MEDICAID ==
--- NOTE | 2020-10-17 13:21 | ED ---
Psych HPI - General Chief Complaint: Psychiatric Symptoms Stated Complaint: EPS eval Time Seen by Provider: 10/17/20 12:53 Source: patient, RN notes reviewed, Caregiver Mode of arrival: ambulatory - History of Present Illness Initial Comments: Patient is a 60-year-old male that presents to the emergency department for EPS evaluation per his psychiatrist request. Psychiatrist works at [facility]. Patient had light bulb assembler that noted after his evaluation medication today at [place] stated that he wanted him to come the emergency room to get evaluated. Patient was a well-appearing 60-year-old male while standing up in the room during the exam and interview. Patient was expressing that he felt fine but did have tangential thought. He would go in and out of periods making sense and then flipping quickly to saying random things that did not pertain to the visit. Bioinformatics Software Engineer/light bulb assembler noted that this is been going on since she has been with him. She noted that recently these have some health complications such as pneumonia which she noted caused him to be have more psychosis type symptoms recently. He denied any chest pain shortness of breath headache nausea vomiting diarrhea constipation fever fatigue chills suicidal ideations homicidal ideations. - Related Data Home Medications Medication Instructions Recorded Confirmed [place] Carbonate 300 mg PO HS 02/06/16 10/17/20 Cholecalciferol (Vitamin D3) 125 mcg PO MOWEFR 08/09/20 10/17/20 [Vitamin D3 (5000 Iu)] Levothyroxine Sodium [Synthroid] 50 mcg PO DAILY 08/09/20 10/17/20 Pantoprazole [Protonix] 40 mg PO Q48H 08/09/20 10/17/20 Triamcinolone 0.1% Ointment 1 applic TOPICAL BID PRN 08/09/20 10/17/20 [Kenalog] calcitrioL [Rocaltrol] 0.25 mcg PO Q7D 08/09/20 10/17/20 Ammonium Lactate Lotion 1 applic TOPICAL BID 10/17/20 10/17/20 [Lac-Hydrin 12% Lotion] Benztropine Mesylate [Cogentin] 1 mg PO TID 10/17/20 10/17/20 Cetirizine HCl 10 mg PO DAILY PRN 10/17/20 10/17/20 Col-Rite 250mg 1 cap PO BID PRN 10/17/20 10/17/20 Hydrochlorothiazide 12.5 mg PO DAILY 10/17/20 10/17/20 [hydroCHLOROthiazide] cloZAPine [Clozaril] 200 mg PO HS 10/17/20 10/17/20 fluPHENAZine decanoate [Prolixin 50 mg IM TU 10/17/20 10/17/20 Decanoate] Previous Rx's Medication Instructions Recorded Atorvastatin [Lipitor] 10 mg PO HS #30 tab 12/14/15 Allergies Allergy/AdvReac Type Severity Reaction Status Date / Time codeine Allergy Rash/Hives/ Verified 10/17/20 14:03 Cough Penicillins Allergy Rash/Hives Verified 10/17/20 14:03 Review of Systems ROS Statement: Those systems with pertinent positive or pertinent negative responses have been documented in the HPI. ROS Other: All systems not noted in ROS Statement are negative. Past Medical History Past Medical History: Blood Disorder, Heart Failure, Diabetes Mellitus, Hyperlipidemia, Hypertension, Renal Disease, Thyroid Disorder Additional Past Medical History / Comment(s): "Borderline diabetes", ITP, constipation, small bowel obstructions, ulcerative colitis, CKD stage III, hypothyroid History of Any Multi-Drug Resistant Organisms: None Reported Past Surgical History: Appendectomy, Bowel Resection Additional Past Surgical History / Comment(s): 08/10/20 R lung bx, abd surgery r/t adhesions, R hemicolectomy, colonoscopies Past Anesthesia/Blood Transfusion Reactions: No Reported Reaction Past Psychological History: Anxiety, Bipolar, Depression, Schizophrenia Smoking Status: Former smoker Past Alcohol Use History: None Reported Past Drug Use History: None Reported - Past Family History Mother History Unknown: Yes Family Medical History: No Reported History Additional Family Medical History / Comment(s): Mother was healthy. Father Family Medical History: Hypertension General Exam Limitations: no limitations General appearance: alert, in no apparent distress Head exam: Present: atraumatic, normocephalic, normal inspection Eye exam: Present: normal appearance, PERRL, EOMI. Absent: scleral icterus, conjunctival injection, periorbital swelling Neck exam: Present: normal inspection Respiratory exam: Present: normal lung sounds bilaterally. Absent: respiratory distress, wheezes, rales, rhonchi, stridor Cardiovascular Exam: Present: regular rate, normal rhythm, normal heart sounds. Absent: systolic murmur, diastolic murmur, rubs, gallop, clicks GI/Abdominal exam: Present: soft, normal bowel sounds. Absent: distended, tenderness, guarding, rebound, rigid Extremities exam: Present: normal inspection, full ROM, normal capillary refill. Absent: tenderness, pedal edema, joint swelling, calf tenderness Neurological exam: Present: alert, oriented X3 Psychiatric exam: Present: normal mood, flat affect. Absent: homicidal ideation , suicidal ideation Expanded Focused psych exam: Present: flight of ideas, loose associations Skin exam: Present: warm, dry, intact, normal color. Absent: rash Course Vital Signs 10/17/20 12:39 Temperature 98.3 F Pulse Rate 85 Respiratory 16 Rate Blood Pressure 138/86 O2 Sat by Pulse 100 Oximetry Medical Decision Making - Medical Decision Making 60-year-old male presenting for EPS evaluation per his psychiatrist recommen dation. Labs and breath alcohol test ordered. Labs unremarkable. EPS notified the patient cannot be evaluated is medically cleared. Case discussed with Dr. Ronquillo, patient is being admitted to psych. - Lab Data Result diagrams: 10/17/20 13:25 10/17/20 13:25 Lab Results 10/17/20 10/17/20 10/17/20 Range/Units 13:25 13:25 13:25 WBC 10.1 (3.8-10.6) k/uL RBC 4.25 L (4.30-5.90) m/uL Hgb 12.5 L (13.0-17.5) gm/dL Hct 37.8 L (39.0-53.0) % MCV 88.8 (80.0-100.0) fL MCH 29.3 (25.0-35.0) pg MCHC 33.0 (31.0-37.0) g/dL RDW 14.8 (11.5-15.5) % Plt Count 208 (150-450) k/uL MPV 7.6 Neutrophils % 82 % Lymphocytes % 13 % Monocytes % 4 % Eosinophils % 0 % Basophils % 0 % Neutrophils # 8.2 H (1.3-7.7) k/uL Lymphocytes # 1.3 (1.0-4.8) k/uL Monocytes # 0.4 (0-1.0) k/uL Eosinophils # 0.0 (0-0.7) k/uL Basophils # 0.0 (0-0.2) k/uL Sodium 142 (137-145) mmol/L Potassium 4.6 (3.5-5.1) mmol/L Chloride 106 (98-107) mmol/L Carbon Dioxide 28 (22-30) mmol/L Anion Gap 8 mmol/L BUN 16 (9-20) mg/dL Creatinine 1.26 H (0.66-1.25) mg/dL Est GFR (CKD-EPI)AfAm 71 (>60 ml/min/1.73 sqM) Est GFR (CKD-EPI)NonAf 61 (>60 ml/min/1.73 sqM) Glucose 98 (74-99) mg/dL Calcium 9.5 (8.4-10.2) mg/dL Urine Color Yellow Urine Appearance Clear (Clear) Urine pH 6.0 (5.0-8.0) Ur Specific [place] 1.016 (1.001-1.035) Urine Protein Negative (Negative) Urine Glucose (UA) Negative (Negative) Urine Ketones Negative (Negative) Urine Blood Negative (Negative) Urine Nitrite Negative (Negative) Urine Bilirubin Negative (Negative) Urine Urobilinogen <2.0 (<2.0) mg/dL Ur Leukocyte Esterase Negative (Negative) Urine Opiates Screen Not Detected (NotDetected) Ur Oxycodone Screen Not Detected (NotDetected) Urine Methadone Screen Not Detected (NotDetected) Ur Propoxyphene Screen Not Detected (NotDetected) Ur Barbiturates Screen Not Detected (NotDetected) U Tricyclic Antidepress Not Detected (NotDetected) Ur Phencyclidine Scrn Not Detected (NotDetected) Ur Amphetamines Screen Not Detected (NotDetected) U Methamphetamines Scrn Not Detected (NotDetected) U Benzodiazepines Scrn Not Detected (NotDetected) Urine Cocaine Screen Not Detected (NotDetected) U Marijuana (THC) Screen Not Detected (NotDetected) Disposition Clinical Impression: Psychosis Disposition: ADMITTED IP TO THIS [facility] Condition: Stable Is patient prescribed a controlled substance at d/c from ED?: No Referrals: [facility] [Primary Care Provider] - 1-2 days Time of Disposition: 16:35
[2020-10-17 13:51] LABS: Basophils % (A) 0 %; Eosinophils % (A) 0 %; HCT 37.8 % (39.0-53.0); HGB 12.5 gm/dL (13.0-17.5); Lymphocytes # (A) 1.3 k/uL (1.0-4.8); Lymphocytes % (A) 13 %; MCH 29.3 pg (25.0-35.0); MCV 88.8 fL (80.0-100.0); Mean Platelet Volume 7.6; Monocytes # (A) 0.4 k/uL (0-1.0); Monocytes % (A) 4 %; Neutrophils # (A) 8.2 k/uL (1.3-7.7); Neutrophils % (A) 82 %; Platelet Count 208 k/uL (150-450); RBC 4.25 m/uL (4.30-5.90); RDW 14.8 % (11.5-15.5); WBC 10.1 k/uL (3.8-10.6)
[2020-10-17 13:54] LABS: Appearance,Urine Clear (Clear); Bilirubin,Urine Negative (Negative); Blood,Urine Negative (Negative); Color,Urine Yellow; Glucose,Urine (UA) Negative (Negative); Ketones,Urine Negative (Negative); Leukocyte Esterase,Urine Negative (Negative); Nitrite,Urine Negative (Negative); Protein,Urine Negative (Negative); Specific Gravity,Urine 1.016 (1.001-1.035); Urobilinogen,Urine <2.0 mg/dL (<2.0)
[2020-10-17 14:04] LABS: Amphetamine Screen,Urine Not Detected (NotDetected); Barbiturate Screen,Urine Not Detected (NotDetected); Benzodiazepines Screen,Urine Not Detected (NotDetected); Cocaine Screen,Urine Not Detected (NotDetected); Methadone Screen, Urine Not Detected (NotDetected); Opiate Screen,Urine Not Detected (NotDetected); Oxycodone Screen, Urine Not Detected (NotDetected); Phencyclidine Screen,Urine Not Detected (NotDetected); Tricyclic Antidepressant,Urine Not Detected (NotDetected); Urn Cannabinoid Scrn Not Detected (NotDetected)
[2020-10-17 14:11] LABS: Calcium 9.5 mg/dL (8.4-10.2); Potassium 4.6 mmol/L (3.5-5.1)
[2020-10-17] MEDS ORDERED: DOCUSATE 100 MG CAP PO PRN (20:53)
[2020-10-17] MEDS ORDERED: LORATADINE 10 MG TAB PO PRN (20:53)
[2020-10-17] MEDS ORDERED: TRIAMCINOLONE ACET 0.1% OINTMENT 80 GM TUBE TOPICAL PRN (20:53)
[2020-10-17] MEDS ORDERED: MAGNESIUM HYDROXIDE 2,400 MG/10 ML CUP PO PRN (20:54)
[2020-10-17] MEDS ORDERED: MAG HYDROX/AL HYDROX/SIMETH 30 ML CUP PO PRN (20:54)
[2020-10-17] MEDS ORDERED: ACETAMINOPHEN TAB 325 MG TAB PO PRN (20:54)
[2020-10-17] MEDS ORDERED: LORazepam 2 MG/ML INJ IM PRN (20:56)
[2020-10-17] MEDS ORDERED: HALOPERIDOL LACTATE 5 MG/ML 1 ML VIAL IM PRN (20:56)
[2020-10-17] MEDS ORDERED: BENZTROPINE MESYLATE 1 MG TAB PO PRN (20:56)
[2020-10-17] MEDS ORDERED: LITHIUM CARBONATE 300 MG CAP PO SCH (21:00)
[2020-10-17] MEDS: cloZAPine 100 MG TAB PO SCH (22:11)
[2020-10-17] MEDS: ATORVASTATIN 10 MG TAB PO SCH (22:11)
[2020-10-17] MEDS: AMMONIUM LACTATE 12% LOTION 225 GM BTL TOPICAL SCH (22:12)
[2020-10-18] MEDS: LEVOTHYROXINE 50 MCG TAB PO SCH (06:38)
[2020-10-18] MEDS: hydroCHLOROthiazide 12.5 MG CAP PO SCH (09:00)
[2020-10-18] MEDS: CHOLECALCIFEROL 25 MCG (1000 IU) TABLET PO SCH (09:00)
[2020-10-18] MEDS: AMMONIUM LACTATE 12% LOTION 225 GM BTL TOPICAL SCH ×2 (09:02→21:08)
[2020-10-18 10:31] LABS: Chol/HDL Ratio 2.48; LDL Cholesterol,Calculated 49.2 mg/dL (0.0-131.0); VLDL Calculation 12.8 mg/dL (5.00-40.00)
--- NOTE | 2020-10-18 12:10 | P.HP ---
Psychiatric H&P - . H&P Date: 10/18/20 History & Physical: Allergies Allergy/AdvReac Type Severity Reaction Status Date / Time codeine Allergy Rash/Hives/ Verified 10/17/20 14:03 Cough Penicillins Allergy Rash/Hives Verified 10/17/20 14:03 Vital Signs Temp 97.3 F L 10/18/20 06:38 Pulse 101 H 10/18/20 06:38 Resp 16 10/18/20 06:38 BP 123/77 10/18/20 06:38 Pulse Ox 92 L 10/17/20 22:29 Intake & Output 10/17/20 10/18/20 10/18/20 18:59 06:59 18:59 Weight 88.451 kg 85 kg Laboratory Last Values WBC 10.1 k/uL (3.8-10.6) 10/17/20 13:25 RBC 4.25 m/uL (4.30-5.90) L 10/17/20 13:25 Hgb 12.5 gm/dL (13.0-17.5) L 10/17/20 13:25 Hct 37.8 % (39.0-53.0) L 10/17/20 13:25 MCV 88.8 fL (80.0-100.0) 10/17/20 13:25 MCH 29.3 pg (25.0-35.0) 10/17/20 13:25 MCHC 33.0 g/dL (31.0-37.0) 10/17/20 13:25 RDW 14.8 % (11.5-15.5) 10/17/20 13:25 Plt Count 208 k/uL (150-450) 10/17/20 13:25 MPV 7.6 10/17/20 13:25 Neutrophils % 82 % 10/17/20 13:25 Lymphocytes % 13 % 10/17/20 13:25 Monocytes % 4 % 10/17/20 13:25 Eosinophils % 0 % 10/17/20 13:25 Basophils % 0 % 10/17/20 13:25 Neutrophils # 8.2 k/uL (1.3-7.7) H 10/17/20 13:25 Lymphocytes # 1.3 k/uL (1.0-4.8) 10/17/20 13:25 Monocytes # 0.4 k/uL (0-1.0) 10/17/20 13:25 Eosinophils # 0.0 k/uL (0-0.7) 10/17/20 13:25 Basophils # 0.0 k/uL (0-0.2) 10/17/20 13:25 Sodium 142 mmol/L (137-145) 10/17/20 13:25 Potassium 4.6 mmol/L (3.5-5.1) 10/17/20 13:25 Chloride 106 mmol/L (98-107) 10/17/20 13:25 Carbon Dioxide 28 mmol/L (22-30) 10/17/20 13:25 Anion Gap 8 mmol/L 10/17/20 13:25 BUN 16 mg/dL (9-20) 10/17/20 13:25 Creatinine 1.26 mg/dL (0.66-1.25) H 10/17/20 13:25 Est GFR (CKD-EPI)AfAm 71 (>60 ml/min/1.73 sqM) 10/17/20 13:25 Est GFR (CKD-EPI)NonAf 61 (>60 ml/min/1.73 sqM) 10/17/20 13:25 Glucose 98 mg/dL (74-99) 10/17/20 13:25 Calcium 9.5 mg/dL (8.4-10.2) 10/17/20 13:25 Triglycerides 64.0 mg/dL (0.0-149.0) 10/17/20 13:25 Cholesterol 104 mg/dL (0-200) 10/17/20 13:25 LDL Cholesterol, Calc 49.2 mg/dL (0.0-131.0) 10/17/20 13:25 VLDL Cholesterol, Calc 12.80 mg/dL (5.00-40.00) 10/17/20 13:25 HDL Cholesterol 42.0 mg/dL (40.0-60.0) 10/17/20 13:25 Cholesterol/HDL Ratio 2.48 10/17/20 13:25 TSH 1.350 mIU/L (0.465-4.680) 10/17/20 13:25 Urine Color Yellow 10/17/20 13:25 Urine Appearance Clear (Clear) 10/17/20 13:25 Urine pH 6.0 (5.0-8.0) 10/17/20 13:25 Ur Specific [place] 1.016 (1.001-1.035) 10/17/20 13:25 Urine Protein Negative (Negative) 10/17/20 13:25 Urine Glucose (UA) Negative (Negative) 10/17/20 13:25 Urine Ketones Negative (Negative) 10/17/20 13:25 Urine Blood Negative (Negative) 10/17/20 13:25 Urine Nitrite Negative (Negative) 10/17/20 13:25 Urine Bilirubin Negative (Negative) 10/17/20 13:25 Urine Urobilinogen <2.0 mg/dL (<2.0) 10/17/20 13:25 Ur Leukocyte Esterase Negative (Negative) 10/17/20 13:25 Urine Opiates Screen Not Detected (NotDetected) 10/17/20 13:25 Ur Oxycodone Screen Not Detected (NotDetected) 10/17/20 13:25 Urine Methadone Screen Not Detected (NotDetected) 10/17/20 13:25 Ur Propoxyphene Screen Not Detected (NotDetected) 10/17/20 13:25 Ur Barbiturates Screen Not Detected (NotDetected) 10/17/20 13:25 U Tricyclic Antidepress Not Detected (NotDetected) 10/17/20 13:25 Ur Phencyclidine Scrn Not Detected (NotDetected) 10/17/20 13:25 Ur Amphetamines Screen Not Detected (NotDetected) 10/17/20 13:25 U Methamphetamines Scrn Not Detected (NotDetected) 10/17/20 13:25 U Benzodiazepines Scrn Not Detected (NotDetected) 10/17/20 13:25 [place] 0.3 mmol/L 10/17/20 21:20 Urine Cocaine Screen Not Detected (NotDetected) 10/17/20 13:25 U Marijuana (THC) Screen Not Detected (NotDetected) 10/17/20 13:25 Coronavirus (PCR) Not Detected (Not Detectd) 10/17/20 16:37 10/18/20 12:09 IDENTIFYING DATA: Patient is a single, unemployed, 60-year-old male with a significant history of treatment-resistant schizophrenia who is admitted for psychosis HPI: Patient presented to the hospital on 10/17/2020 presenting with significant symptoms of psychosis that have been gradually worsening over the past 6 weeks. The patient wa sick 6 weeks ago with a pleural effusion and and was found to have significant issues regarding his medications including a clozaril level being in the 3000s prompting his clozaril to be decreased. Furthermore, the patient more recently has had his lithium decreased due to worsening kidney function. The patient has also had a recent bowel obstruction. The patient also received prolixin decanoate 50 mg IM prior to admission onto this mental health unit. The patient is currently very disorganized and is a poor historian. He is nonsensical in his speach and tells this provider, "I am glad to meet you! How do you like this time zone? You should try the rhubarb here." PAST PSYCHIATRIC HISTORY: Patient has a very significant history of treatment- resistant schizophrenia. He has been on multiple psychiatric medications in the past including Prolixin, Prolixin decanoate, Cogentin, lithium and clozairl. He was last admitted on to this psychiatric unit in November 2015. He has had multiple inpatient psychiatric admissions including previous state hospitalization in [place]. He currently follows with Dr. Olson at [facility]. PMH: Past Medical History: Blood Disorder, Heart Failure, Diabetes Mellitus, Hyperlipidemia, Hypertension, Renal Disease, Thyroid Disorder Additional Past Medical History / Comment(s): "Borderline diabetes", ITP, constipation, small bowel obstructions, ulcerative colitis, CKD stage III, hypothyroid History of Any Multi-Drug Resistant Organisms: None Reported Past Surgical History: Appendectomy, Bowel Resection Additional Past Surgical History / Comment(s): 08/10/20 R lung bx, abd surgery r/t adhesions, R hemicolectomy, colonoscopies Past Anesthesia/Blood Transfusion Reactions: No Reported Reaction Past Psychological History: Anxiety, Bipolar, Depression, Schizophrenia Smoking Status: Former smoker Past Alcohol Use History: None Reported Past Drug Use History: None Reported ALLERGIES: codeine, penicillins CHEMICAL DEPENDENCY HISTORY: Unable to obtain FAMILY PSYCHIATRIC/SUBSTANCE USE HISTORY: Unable to obtain SOCIAL HISTORY: Patient has a guardian and has his own home. MENTAL STATUS EXAM: General Appearance: Patient appears to be stated age is alert, directable, and attempts to cooperate. Patient appears to have fair hygiene and grooming. Slightly disheveled. Tall and thin build. Behavior: Patient is seated without any agitated behavior. Psychomotor activity is elevated. Friendly and polite on approach. Speech: Patient's speech is fluent and nonpressured. Spontaneous, nonsensical, random. Mood/Affect: Patient reports their mood is "feeling pretty good!" Affect is bright. Suicidality/Homicidality: Unable to assess Perceptions: Unable to assess Though content/process: Bizarre delusional thought content. Disorganized, flight of ideas. Memory and concentration: Unable to assess. Poor. Judgment and insight: Poor STRENGTHS/WEAKNESSES: Strength is that the patient is enrolled in comprehensive services. Weakness is that the patient has treatment-resistant schizophrenia and has multiple medical issues. INTELLECT: average to below average. IMPRESSIONS: Schizophrenia PLAN: -Patient is admitted under voluntary status to MHU for stabilization of psychiatric symptoms and safety. Patient's guardian signed adult voluntary form . -Medications : Patient received prolixin dec 50 mg IM yesterday. Continue Clozapine 200 mg at bedtime for schizophrenia Discontinue lithium due to worsening kidney function. [place] was 0.3 on admission. Start Depakote ER 500 mg at bedtime for mood stabilization Continue cogentin 1 mg tid prn for EPS side effects. -Ativan and Haldol PRN for agitation/aggression -Patient was informed of the risks, benefits and side effects of the medication. -Internal Medicine consult to perform medical evaluation and physical. -NRT - nicotine patch -SW on board for discharge planning. Encourage patient to participate in groups to work on coping skills.
[2020-10-18 16:25] LABS: Hemoglobin A1C 4.9 % (4.0-6.0)
--- NOTE | 2020-10-18 17:33 | P.CONS ---
History of Present Illness - Reason for Consult Consult date: 10/18/20 Medical management - History of Present Illness This is a 59-year-old white male who was admitted to the inpatient psychiatry unit for worsening schizophrenia. The time of examination patient is up and standing. He has been recently admitted at an outside facility for bowel obstruction but did not need any surgical intervention. He reports no abdominal distention. He is not a very good historian. He denies nausea or vomiting. There was no reported fever. No chest pain no shortness of breath. Review of Systems 10 systems reviewed, pertinent positive and negative findings as in HPI. No chest pain. Positive for abdominal distention Past Medical History Past Medical History: Blood Disorder, Heart Failure, Diabetes Mellitus, Hyperlipidemia, Hypertension, Renal Disease, Thyroid Disorder Additional Past Medical History / Comment(s): "Borderline diabetes", ITP, constipation, small bowel obstructions, ulcerative colitis, CKD stage III, hypothyroid History of Any Multi-Drug Resistant Organisms: None Reported Past Surgical History: Appendectomy, Bowel Resection Additional Past Surgical History / Comment(s): 08/10/20 R lung bx, abd surgery r/t adhesions, R hemicolectomy, colonoscopies Past Anesthesia/Blood Transfusion Reactions: No Reported Reaction Past Psychological History: Anxiety, Bipolar, Depression, Schizophrenia Additional Psychological History / Comment(s): Pt resides in an apartment. He goes to [facility] and has a employment evaluator/case manager, a nurse and an aide who takes him shopping once a week. Normally, pt takes his own meds, cooks and performs his own ADLs. Pt uses public transportation Smoking Status: Never smoker Past Alcohol Use History: None Reported Past Drug Use History: None Reported - Past Family History Mother History Unknown: Yes Family Medical History: No Reported History Additional Family Medical History / Comment(s): Mother was healthy. Father Family Medical History: Hypertension Medications and Allergies Home Medications Medication Instructions Recorded Confirmed Type Atorvastatin [Lipitor] 10 mg PO HS #30 tab 12/14/15 10/17/20 Rx [place] Carbonate 300 mg PO HS 02/06/16 10/17/20 History Cholecalciferol (Vitamin D3) 125 mcg PO MOWEFR 08/09/20 10/17/20 History [Vitamin D3 (5000 Iu)] Levothyroxine Sodium [Synthroid] 50 mcg PO DAILY 08/09/20 10/17/20 History Pantoprazole [Protonix] 40 mg PO Q48H 08/09/20 10/17/20 History Triamcinolone 0.1% Ointment 1 applic TOPICAL BID PRN 08/09/20 10/17/20 History [Kenalog] calcitrioL [Rocaltrol] 0.25 mcg PO Q7D 08/09/20 10/17/20 History Ammonium Lactate Lotion 1 applic TOPICAL BID 10/17/20 10/17/20 History [Lac-Hydrin 12% Lotion] Benztropine Mesylate [Cogentin] 1 mg PO TID 10/17/20 10/17/20 History Cetirizine HCl 10 mg PO DAILY PRN 10/17/20 10/17/20 History Col-Rite 250mg 1 cap PO BID PRN 10/17/20 10/17/20 History Hydrochlorothiazide 12.5 mg PO DAILY 10/17/20 10/17/20 History [hydroCHLOROthiazide] cloZAPine [Clozaril] 200 mg PO HS 10/17/20 10/17/20 History fluPHENAZine decanoate [Prolixin 50 mg IM TU 10/17/20 10/17/20 History Decanoate] Allergies Allergy/AdvReac Type Severity Reaction Status Date / Time codeine Allergy Rash/Hives/ Verified 10/17/20 14:03 Cough Penicillins Allergy Rash/Hives Verified 10/17/20 14:03 Physical Exam Vitals: Vital Signs Temp Pulse Resp BP Pulse Ox 10/18/20 06:38 97.3 F L 101 H 16 123/77 10/17/20 22:29 98.4 F 73 18 132/87 92 L Constitutional: No acute distress, conversant, pleasant Eyes: Anicteric sclerae, moist conjunctiva, no lid-lag, PERRLA ENMT: NC/AT,Oropharynx clear, no erythema, exudates Neck:Supple, FROM, no masses, or JVD, No carotid bruits; No thyromegaly Lungs: Clear to auscultation, Clear to percussion, Normal respiratory effort, no accessory muscle use Cardiovascular: Heart regular in rate and rhythm, No murmurs, gallops, or rubs no peripheral edema Abdominal: Soft Nontender, slightly distended Skin: Normal temperature, tone, texture, turgor, No induration No subcutaneous nodules, No rash, lesions, No ulcers Extremities:No digital cyanosis No clubbing, Pedal pulses intact and symmetrical Radial pulses intact and symmetrical Normal gait and station, No calf tenderness Neuro: Muscles Strength 5/5 in all 4 extremities, Sensation to light touch grossly present throughout, Cranial nerves II-XII grossly intact. No focal sensory deficits Results CBC & Chem 7: 10/17/20 13:25 10/17/20 13:25 Assessment and Plan Plan: 1. Abdominal distention with history of small bowel obstruction: Obtain KUB and monitor, if needed we will consult surgery. 2. Bilateral lower extremity cellulitis likely associated with diabetes: Start oral Bactrim and monitor. 3. Diabetes type 2 with chronic kidney disease stage III area: Monitor resume outpatient medications 4. Hyperlipidemia: Continue statin 5. Anxiety: Management per psychiatry 6. Depression: Management per psychiatry 7. Schizophrenia: Worsening symptoms, management per psychiatry 8. History of congestive heart failure chronic unspecified if systolic or diastolic midline 9. GERD without esophagitis: Continue PPI
--- NOTE | 2020-10-18 18:31 | XR ---
EXAMINATION TYPE: XR KUB DATE OF EXAM: 10/18/2020 COMPARISON: 09/23/2016 HISTORY: Small bowel obstruction TECHNIQUE: 2 views supine FINDINGS: There is no sign of intestinal obstruction or pneumoperitoneum. Fecal pattern is normal. Th ere is previous abdominal surgery. There is no evidence of a mass. There are no pathologic calcificat ions over the kidneys. Lung bases are clear. IMPRESSION: Nonacute abdomen. No evidence of a small bowel obstruction.
[2020-10-18] MEDS ORDERED: DIVALPROEX ER 500 MG TAB.ER.24H PO SCH (21:00)
[2020-10-18] MEDS: ATORVASTATIN 10 MG TAB PO SCH (21:07)
[2020-10-18] MEDS: SULFAMETHOX-TMP 800-160MG 1 EACH TAB PO SCH (21:07)
[2020-10-18] MEDS: cloZAPine 100 MG TAB PO SCH (21:07)
[2020-10-19] MEDS: LEVOTHYROXINE 50 MCG TAB PO SCH (06:27)
[2020-10-19] MEDS: AMMONIUM LACTATE 12% LOTION 225 GM BTL TOPICAL SCH ×2 (08:27→20:04)
[2020-10-19] MEDS: PANTOPRAZOLE 40 MG TABLET PO SCH (08:28)
[2020-10-19] MEDS: hydroCHLOROthiazide 12.5 MG CAP PO SCH (08:28)
[2020-10-19] MEDS: SULFAMETHOX-TMP 800-160MG 1 EACH TAB PO SCH ×2 (08:29→20:00)
--- NOTE | 2020-10-19 10:20 | P.PN ---
Progress Note - Text Progress Note Date: 10/19/20 Interval History: Patient was seen in his room and was directable and agreeable to speak with automobile service writer in his room. The patient continues to be a poor historian. He is difficult to follow, nonlinear, and quite tangential. Today though he is able to answer direct questioning. He is not reporting any suicidal or homicidal ideation, intention, and/or plan. He is not reporting any auditory or visual hallucinations. He is denying any paranoia or other delusions. He has been adherent with his medications side effects at this time. He continues to speak nonsensically about random subjects, and this time is talked about feet and walking. He is denying any issues with sleep or appetite. The patient is being evaluated for a possible bowel obstruction due to his previous medical history and seemingly distended abdomen. X-ray of the abdomen revealed no signs of bowel obstruction. The patient reports that he is able to pass gas but cannot recall when he last passed stool. Mental Status Exam: General Appearance: Patient appears to be stated age is alert, directable, and cooperative. Patient is wearing glasses and is a tall and thin male Behavior: Patient is calmly seated without any agitated behavior. Eye contact is appropriate. Speech: Patient's speech is fluent and nonpressured. Mood/Affect: Mood is "doing great!" Affect is bright and expansive. Suicidality/Homicidality: Patient denies having any suicidal or homicidal ideation intent or plan. Perceptions: Patient denies any visual hallucinations and denies any auditory hallucinations Though content/process: Although not endorsing any overt delusional thought content, the patient does appear to be quite disorganized. Memory and concentration: Patient is alert and oriented to self only. Concentration is grossly poor. Judgment and insight: Very poor Vital Signs Temp 97.7 F 10/19/20 06:00 Pulse 118 H 10/19/20 08:30 Resp 16 10/19/20 08:30 BP 108/66 10/19/20 08:30 Pulse Ox 92 L 10/17/20 22:29 Laboratory Results - Last 24 Hours 10/17/20 10/17/20 13:25 13:[address] Glu mg/dL 94 Hemoglobin A1c 4.9 Triglycerides 64.0 Cholesterol 104 LDL Cholesterol, Calc 49.2 VLDL Cholesterol, Calc 12.80 HDL Cholesterol 42.0 Cholesterol/HDL Ratio 2.48 Assessment Schizophrenia Plan: -Patient continues to meet criteria for inpatient psychiatric admission for symptom stabilization and safety. Patient has signed adult voluntary form and medication consent and was placed in patient's chart. Patient has a guardian. -Medications: Patient received prolixin dec 50 mg IM on 10/17/2020. Continue Clozapine 200 mg at bedtime for schizophrenia Increase Depakote to 700 mg by mouth at bedtime for mood stabilization -When necessary Ativan and Haldol for agitation/aggression. -SW on board for discharge planning. Encouraged the patient to participate in milieu.
[2020-10-19 13:04] LABS: Clozapine (Clozaril) 159 ng/mL (200-700); Norclozapine 149 ng/mL (200-700)
[2020-10-19] MEDS: DIVALPROEX ER 250 MG TAB.ER.24H PO SCH (20:00)
[2020-10-19] MEDS: ATORVASTATIN 10 MG TAB PO SCH (20:00)
[2020-10-19] MEDS: cloZAPine 100 MG TAB PO SCH (20:00)
[2020-10-20] MEDS: LEVOTHYROXINE 50 MCG TAB PO SCH (05:48)
[2020-10-20] MEDS: CHOLECALCIFEROL 25 MCG (1000 IU) TABLET PO SCH (08:15)
[2020-10-20] MEDS: hydroCHLOROthiazide 12.5 MG CAP PO SCH (08:15)
[2020-10-20] MEDS: SULFAMETHOX-TMP 800-160MG 1 EACH TAB PO SCH ×2 (08:15→21:04)
[2020-10-20] MEDS: AMMONIUM LACTATE 12% LOTION 225 GM BTL TOPICAL SCH ×2 (10:07→21:05)
[2020-10-20] MEDS: LORazepam 1 MG TAB PO PRN (17:27)
[2020-10-20] MEDS: haloperidoL 5 MG TAB PO PRN (17:27)
--- NOTE | 2020-10-20 17:55 | PN ---
PROGRESS NOTE DATE OF SERVICE: 10/20/2020 CHIEF COMPLAINT: The patient had significant symptoms of psychosis that had been worsening over the past 6 weeks. INTERVAL HISTORY: The patient has been doing fair. He had a quiet day yesterday. He comes out on the unit. He typically wonders about. He will make random comments though it is not always clear what things he may be referring to. He did attend some groups yesterday. He generally needs staff support to stay on track and engage in a little more appropriate manner. He maintains an even mood. He slept well last night. He slept about 6 hours. Today he has been up. He continues to do about the same. He attended some groups today. When I talked to him he made a plethora of random comments which typically were phrases rather than complete sentences. It was hard to follow his train of thought. In the midst of this kind of discussion he could answer a few questions appropriately. His affect was a little rigid. His mood reserved though not clearly down or depressed. He did not appear to be significantly distressed. It was difficult to assess for thought disorder. He was oriented to circumstances and surroundings. ASSESSMENT: I will continue the current diagnosis and treatment plan. I will continue psychotropic medications the same including Clozaril 200 mg at bedtime and Depakote 750 mg at bedtime. He is also on Cogentin 1 mg 3 times a day p.r.n. It is note noted that his Clozaril dose is high enough that he likely gets adequate anticholinergic benefits from that. He will be due for Prolixin Decanoate 50 mg IM on Friday. I asked the patient specific questions about basic medication compliance issues. He did not seem to have any complaints or concerns. We will focus on stabilization and discharge planning. MMODL / IJN: [id number] /
[2020-10-20] MEDS: ATORVASTATIN 10 MG TAB PO SCH (21:03)
[2020-10-20] MEDS: cloZAPine 100 MG TAB PO SCH (21:04)
[2020-10-20] MEDS: DIVALPROEX ER 250 MG TAB.ER.24H PO SCH (21:04)
[2020-10-21] MEDS: LEVOTHYROXINE 50 MCG TAB PO SCH (06:40)
[2020-10-21] MEDS: PANTOPRAZOLE 40 MG TABLET PO SCH (07:46)
[2020-10-21] MEDS: hydroCHLOROthiazide 12.5 MG CAP PO SCH (07:47)
[2020-10-21] MEDS: SULFAMETHOX-TMP 800-160MG 1 EACH TAB PO SCH ×2 (07:47→19:58)
[2020-10-21] MEDS: AMMONIUM LACTATE 12% LOTION 225 GM BTL TOPICAL SCH ×3 (07:50→21:46)
--- NOTE | 2020-10-21 15:52 | P.PN ---
Progress Note - Text Progress Note Date: 10/21/20 Subjective: Patient was seen today as a cross coverage for Dr. Pitts. The patient was evaluated, chart reviewed, case discussed with the treatment team. Patient reports interrupted sleep last night, and appetite was reported as " good". Patient has been going to groups and other unit activities. The patient is compliant with his medications and denies any adverse reactions. Patient reports feeling better and he denies active symptoms of depression, anxiety, agitation, hallucinations, or paranoid ideation. He presented guarded and to some degree paranoid with disorganized speech and some degree loose association. He was telling me about his laundry and how he folds his clothes. Objective: Vitals has been reviewed. Mental status examination; Appearance: The patient appears stated age, adequately groomed and dressed, no specific features. Gait/posture: Normal gait, Normal arm swinging: No abnormal movements. Attitude and behavior: engaged, not fully cooperative, guarded, intermittent eye contact. Motor activity: Normal psychomotor activity Speech: Normal rate, tone. Mood: "Anxious" Affect: Constricted Thought form: Poverty of thoughts, loose association Thought content: Non-delusional, denies suicidal thoughts, denies homicidal thoughts, denies intentions or plans. Perception: Denies any auditory or visual hallucinations Attention: No impairment. Orientation: Patient patient was fully oriented to time place person and situation. Insight: Patient has fair insight about his psychiatric disorder. Judgment: Patient has fair judgment about his psychiatric treatment. Assessment: Schizophrenia Rule out schizoaffective disorder. Plan: Continue inpatient level of care due to need for further monitoring and stabilization Precautions: Continue 15 minutes check for safety. Consider medical consultation if any acute medical issues arise. Provide the patient individual, group therapy, substance use disorder counseling to give better insight and learn coping skills. Medications: Continue clozapine 200 mg at bedtime for mood stabilization and psychotic symptoms, and Depakote 750 mg at bedtime for mood stabilization. Continue as needed medications for psychiatric emergencies including psychosis, agitation and anxiety. Continue non-psychiatric medications for medical conditions as recommended by the medical team. Discharge patient to OUTPATIENT services upon a stabilization
[2020-10-21] MEDS: DIVALPROEX ER 250 MG TAB.ER.24H PO SCH (19:58)
[2020-10-21] MEDS: cloZAPine 100 MG TAB PO SCH (19:58)
[2020-10-21] MEDS: ATORVASTATIN 10 MG TAB PO SCH (19:58)
[2020-10-22] MEDS: LEVOTHYROXINE 50 MCG TAB PO SCH (05:39)
[2020-10-22] MEDS: SULFAMETHOX-TMP 800-160MG 1 EACH TAB PO SCH ×2 (08:03→20:55)
[2020-10-22] MEDS: hydroCHLOROthiazide 12.5 MG CAP PO SCH (08:03)
[2020-10-22] MEDS: AMMONIUM LACTATE 12% LOTION 225 GM BTL TOPICAL SCH ×2 (08:03→21:39)
[2020-10-22] MEDS ORDERED: hydroCHLOROthiazide 12.5 MG CAP PO ONE (16:30)
--- NOTE | 2020-10-22 19:01 | P.PN ---
Progress Note - Text Progress Note Date: 10/22/20 Patient is 60 yo M with a hx of diabetes, CHF, and CKD III. Called to evaluate the patient for lower extremity edema. Patient seen and examned at bedside. He has a flight of idea and story is inconsistent. He is unable to tell me how long his legs have been like this, when it happendeding. He thins that his legs are red due to sun poisioning. General: non toxic, no distress, appears at stated age Cardiovascular: S1S2 reg, no murmur, positive posterior tibial pulse bilateral, no JVD Lungs: CTA bilateral, no rhonchi, no rales , no accessory muscle use Abdominal: soft, nontender to palpation, no guarding, no appreciable organomegaly Ext:3+ edema bilateral lower extremities, Lower extremities with bilateral hemosiderin deposits, morales appearance, thick scaling, both have bright redness as well as purple discoloration. Dopplerable pulses dorsalis pedis and posterior tibial on the right, palpable pulses dorsalis pedis and posterior tibial on the left. Skin thickening with scale and crust right medial malleolus Neuro: CN II-XI grossly intact, no focal neuro deficits Psych: Alert, flight of ideas, pressured speech 1. Venous insufficiency the venous statsis- recommend outpatient evaluation by vascular surgery, add Riki wraps, discontinue Bactrim and this does not appear consistent with cellulitis at this point in time, continue Lac-Hydrin cream, elevate legs as able. Hydrochlorothiazide one extra dose today. This does not appear consistent with CHF as there is no JVD and lungs sounds are clear. Thank you for allowing us to participate in the care of this pleasant patient. Do not hesitate to contact us with questions. Someone can be reached from the [facility] hospitalist group all hours of the day at [phone] or via perfect serve.
[2020-10-22] MEDS: cloZAPine 100 MG TAB PO SCH (20:55)
[2020-10-22] MEDS: DIVALPROEX ER 250 MG TAB.ER.24H PO SCH (20:55)
[2020-10-22] MEDS: ATORVASTATIN 10 MG TAB PO SCH (20:55)
--- NOTE | 2020-10-23 00:37 | P.PN ---
Progress Note - Text Progress Note Date: 10/22/20 Subjective: Patient was seen today as a cross coverage for Dr. Pitts. The patient was evaluated, chart reviewed, case discussed with the treatment team. Patient continued to present hyperverbal and tangential. He denies depression, hopelessness, suicidal or homicidal ideation. He denies any agitation or severe mood swings. Denies any hallucinations. Objective: Vitals has been reviewed. Mental status examination; Appearance: The patient appears stated age, adequately groomed and dressed, no specific features. Gait/posture: Normal gait, Normal arm swinging: No abnormal movements. Attitude and behavior: engaged, not fully cooperative, guarded, intermittent eye contact. Motor activity: Normal psychomotor activity Speech: Normal rate, tone. Mood: "Anxious" Affect: Constricted Thought form: Poverty of thoughts, loose association Thought content: Non-delusional, denies suicidal thoughts, denies homicidal thoughts, denies intentions or plans. Perception: Denies any auditory or visual hallucinations Attention: No impairment. Orientation: Patient patient was fully oriented to time place person and situation. Insight: Patient has fair insight about his psychiatric disorder. Judgment: Patient has fair judgment about his psychiatric treatment. Assessment: Schizophrenia Rule out schizoaffective disorder. Plan: Continue inpatient level of care due to need for further monitoring and stabilization Precautions: Continue 15 minutes check for safety. Consider medical consultation if any acute medical issues arise. Provide the patient individual, group therapy, substance use disorder counseling to give better insight and learn coping skills. Medications: Continue clozapine 200 mg at bedtime for mood stabilization and psychotic symptoms, and Depakote 750 mg at bedtime for mood stabilization. Continue as needed medications for psychiatric emergencies including psychosis, agitation and anxiety. Continue non-psychiatric medications for medical conditions as recommended by the medical team. Discharge patient to OUTPATIENT services upon a stabilization
[2020-10-23] MEDS: CHOLECALCIFEROL 25 MCG (1000 IU) TABLET PO SCH (08:41)
[2020-10-23] MEDS: SULFAMETHOX-TMP 800-160MG 1 EACH TAB PO SCH ×2 (08:41→21:17)
[2020-10-23] MEDS: AMMONIUM LACTATE 12% LOTION 225 GM BTL TOPICAL SCH ×2 (08:42→21:22)
[2020-10-23] MEDS: hydroCHLOROthiazide 12.5 MG CAP PO SCH (08:42)
[2020-10-23] MEDS: PANTOPRAZOLE 40 MG TABLET PO SCH (08:43)
[2020-10-23] MEDS: LEVOTHYROXINE 50 MCG TAB PO SCH (08:44)
--- NOTE | 2020-10-23 11:58 | P.PN ---
Progress Note - Text Progress Note Date: 10/23/20 Interval History: Patient was seen Wandering the hallways and was agreeable to speak with continuity writer in the office. Patient is speaking much nonsense and is nonsensical and disorganized in his speech. The patient reports that he is speaking "Scientologist mixed with Senegalese."The patient continues to make other disorganized statements such as he "went to [facility] and that the toilet is flowing in there." He does deny any suicidal or homicidal ideation, intention, and/or plan. He is o therwise unable to answer many other questions appropriately.He has been noted to attend groups. He has been noted to sleep. He continues to be noted by staff to be presenting as bright but otherwise nonsensical. He has been adherent with his medications and is currently not reporting any significant side effects at this time. Mental Status Exam: General Appearance: Patient appears to be stated age is alert, Difficult to direct, and cooperative. Patient is wearing glasses and is a tall and thin male Behavior: Patient is calmly seated without any agitated behavior. Eye contact is appropriate. Speech: Patient's speech is fluent and nonpressured. Mood/Affect: Mood is "Okay!" Affect is bright and expansive. Suicidality/Homicidality: Patient denies having any suicidal or homicidal idea tion intent or plan. Perceptions: Patient denies any visual hallucinations and denies any auditory hallucinations Though content/process: Although not endorsing any overt delusional thought content, the patient does continue to appear to be quite disorganized. Memory and concentration: Patient is alert and oriented to self only. Concentration is grossly poor. Judgment and insight: Very poor Vital Signs Temp 98.0 F 10/23/20 06:57 Pulse 95 10/23/20 06:57 Resp 18 10/23/20 06:57 BP 106/57 10/23/20 06:57 Pulse Ox 92 L 10/17/20 22:29 Intake & Output 10/22/20 10/23/20 10/23/20 18:59 06:59 18:59 Weight 84.5 kg Laboratory Results WBC 10.1 k/uL (3.8-10.6) 10/17/20 13:25 RBC 4.25 m/uL (4.30-5.90) L 10/17/20 13:25 Hgb 12.5 gm/dL (13.0-17.5) L 10/17/20 13:25 Hct 37.8 % (39.0-53.0) L 10/17/20 13:25 MCV 88.8 fL (80.0-100.0) 10/17/20 13:25 MCH 29.3 pg (25.0-35.0) 10/17/20 13:25 MCHC 33.0 g/dL (31.0-37.0) 10/17/20 13:25 RDW 14.8 % (11.5-15.5) 10/17/20 13:25 Plt Count 208 k/uL (150-450) 10/17/20 13:25 MPV 7.6 10/17/20 13:25 Neutrophils % 82 % 10/17/20 13:25 Lymphocytes % 13 % 10/17/20 13:25 Monocytes % 4 % 10/17/20 13:25 Eosinophils % 0 % 10/17/20 13:25 Basophils % 0 % 10/17/20 13:25 Neutrophils # 8.2 k/uL (1.3-7.7) H 10/17/20 13:25 Lymphocytes # 1.3 k/uL (1.0-4.8) 10/17/20 13:25 Monocytes # 0.4 k/uL (0-1.0) 10/17/20 13:25 Eosinophils # 0.0 k/uL (0-0.7) 10/17/20 13:25 Basophils # 0.0 k/uL (0-0.2) 10/17/20 13:25 Sodium 142 mmol/L (137-145) 10/17/20 13:25 Potassium 4.6 mmol/L (3.5-5.1) 10/17/20 13:25 Chloride 106 mmol/L (98-107) 10/17/20 13:25 Carbon Dioxide 28 mmol/L (22-30) 10/17/20 13:25 Anion Gap 8 mmol/L 10/17/20 13:25 BUN 16 mg/dL (9-20) 10/17/20 13:25 Creatinine 1.26 mg/dL (0.66-1.25) H 10/17/20 13:25 Est GFR (CKD-EPI)AfAm 71 (>60 ml/min/1.73 sqM) 10/17/20 13:25 Est GFR (CKD-EPI)NonAf 61 (>60 ml/min/1.73 sqM) 10/17/20 13:25 Glucose 98 mg/dL (74-99) 10/17/20 13:[address] Glu mg/dL 94 10/17/20 13:25 Hemoglobin A1c 4.9 % (4.0-6.0) 10/17/20 13:25 Calcium 9.5 mg/dL (8.4-10.2) 10/17/20 13:25 Triglycerides 64.0 mg/dL (0.0-149.0) 10/17/20 13:25 Cholesterol 104 mg/dL (0-200) 10/17/20 13:25 LDL Cholesterol, Calc 49.2 mg/dL (0.0-131.0) 10/17/20 13:25 VLDL Cholesterol, Calc 12.80 mg/dL (5.00-40.00) 10/17/20 13:25 HDL Cholesterol 42.0 mg/dL (40.0-60.0) 10/17/20 13:25 Cholesterol/HDL Ratio 2.48 10/17/20 13:25 TSH 1.350 mIU/L (0.465-4.680) 10/17/20 13:25 Urine Color Yellow 10/17/20 13:25 Urine Appearance Clear (Clear) 10/17/20 13:25 Urine pH 6.0 (5.0-8.0) 10/17/20 13:25 Ur Specific [place] 1.016 (1.001-1.035) 10/17/20 13:25 Urine Protein Negative (Negative) 10/17/20 13:25 Urine Glucose (UA) Negative (Negative) 10/17/20 13:25 Urine Ketones Negative (Negative) 10/17/20 13:25 Urine Blood Negative (Negative) 10/17/20 13:25 Urine Nitrite Negative (Negative) 10/17/20 13:25 Urine Bilirubin Negative (Negative) 10/17/20 13:25 Urine Urobilinogen <2.0 mg/dL (<2.0) 10/17/20 13:25 Ur Leukocyte Esterase Negative (Negative) 10/17/20 13:25 Urine Opiates Screen Not Detected (NotDetected) 10/17/20 13:25 Ur Oxycodone Screen Not Detected (NotDetected) 10/17/20 13:25 Urine Methadone Screen Not Detected (NotDetected) 10/17/20 13:25 Ur Propoxyphene Screen Not Detected (NotDetected) 10/17/20 13:25 Ur Barbiturates Screen Not Detected (NotDetected) 10/17/20 13:25 U Tricyclic Antidepress Not Detected (NotDetected) 10/17/20 13:25 Ur Phencyclidine Scrn Not Detected (NotDetected) 10/17/20 13:25 Clozapine 159 ng/mL (200-700) L 10/17/20 21:20 Norclozapine 149 ng/mL (200-700) L 10/17/20 21:20 Ur Amphetamines Screen Not Detected (NotDetected) 10/17/20 13:25 U Methamphetamines Scrn Not Detected (NotDetected) 10/17/20 13:25 U Benzodiazepines Scrn Not Detected (NotDetected) 10/17/20 13:25 [place] 0.3 mmol/L 10/17/20 21:20 Urine Cocaine Screen Not Detected (NotDetected) 10/17/20 13:25 U Marijuana (THC) Screen Not Detected (NotDetected) 10/17/20 13:25 Coronavirus (PCR) Not Detected (Not Detectd) 10/17/20 16:37 Assessment Schizophrenia Plan: -Patient continues to meet criteria for inpatient psychiatric admission for symptom stabilization and safety. Patient has signed adult voluntary form and medication consent and was placed in patient's chart. Patient has a guardian. -Medications: Patient received prolixin dec 50 mg IM on 10/17/2020. Clozapine and Norclozapine levels are low. We will Increase Clozapine to 225 mg at bedtime for schizophrenia Continue Depakote 750 mg by mouth at bedtime for mood stabilization -When necessary Ativan and Haldol for agitation/aggression. -SW on board for discharge planning. Encouraged the patient to participate in milieu.
[2020-10-23] MEDS: DIVALPROEX ER 250 MG TAB.ER.24H PO SCH (21:17)
[2020-10-23] MEDS: ATORVASTATIN 10 MG TAB PO SCH (21:17)
[2020-10-23] MEDS: cloZAPine 100 MG TAB PO SCH (21:18)
[2020-10-23] MEDS: cloZAPine 25 MG TAB PO SCH (21:22)
[2020-10-24] MEDS: LEVOTHYROXINE 50 MCG TAB PO SCH (06:30)
[2020-10-24] MEDS: SULFAMETHOX-TMP 800-160MG 1 EACH TAB PO SCH ×2 (08:27→21:13)
[2020-10-24] MEDS: hydroCHLOROthiazide 12.5 MG CAP PO SCH (08:27)
[2020-10-24] MEDS: AMMONIUM LACTATE 12% LOTION 225 GM BTL TOPICAL SCH ×2 (08:29→21:15)
--- NOTE | 2020-10-24 09:43 | P.PN ---
Progress Note - Text Progress Note Date: 10/24/20 Interval History: Patient was seen Wandering the hallways and was agreeable to speak with telegraphic typewriter installer in the office. The patient continues to be disorganized, nonsensical, and at times pressured. The patient reports "I barely kissed a" which he says in relation to no particular context. He later goes on a long rant about eggs and breakfast accompaniments. He does express that he has homicidal thoughts towards someone but is unable to identify who. He states this person has been making fun of him. He does not elaborate if this is a peer, staff member, or anyone in the unit. He reports no issues with sleep. He is unable to answer other questions directly. Mental Status Exam: General Appearance: Patient appears to be stated age is alert, Difficult to direct, and cooperative. Patient is wearing glasses and is a tall and thin male. Wearing compression socks. Behavior: Patient is calmly seated without any agitated behavior. Eye contact is appropriate. Speech: Patient's speech is pressured today and difficult to interrupt. Mood/Affect: Mood is "Yes sir." Affect is labile from irritable to bright. Suicidality/Homicidality: Endorses homicidal ideation. Does not answer when inquired about suicidal ideation. Perceptions: Possible auditory hallucinations. Though content/process: Disorganized. Memory and concentration: Patient is alert and oriented to self only. Concentration is grossly poor. Judgment and insight: Very poor Vital Signs Temp 97.7 F 10/24/20 08:28 Pulse 116 H 10/24/20 08:28 Resp 16 10/24/20 08:28 BP 107/62 10/24/20 08:28 Pulse Ox 100 10/24/20 08:28 Assessment Schizophrenia Plan: -Patient continues to meet criteria for inpatient psychiatric admission for symptom stabilization and safety. Patient has signed adult voluntary form and medication consent and was placed in patient's chart. Patient has a guardian. -Medications: Patient received prolixin dec 50 mg IM on 10/17/2020. Clozapine and Norclozapine levels are low. We will Increase Clozapine to 225 mg at bedtime for schizophrenia Increase Depakote to 1000 mg by mouth at bedtime for mood stabilization -When necessary Ativan and Haldol for agitation/aggression. -SW on board for discharge planning. Encouraged the patient to participate in milieu.
[2020-10-24] MEDS: cloZAPine 100 MG TAB PO SCH (21:13)
[2020-10-24] MEDS: cloZAPine 25 MG TAB PO SCH (21:13)
[2020-10-24] MEDS: ATORVASTATIN 10 MG TAB PO SCH (21:13)
[2020-10-24] MEDS: DIVALPROEX ER 500 MG TAB.ER.24H PO SCH (21:13)
[2020-10-25] MEDS: LEVOTHYROXINE 50 MCG TAB PO SCH (06:25)
[2020-10-25 07:29] LABS: Basophils % (A) 0 %; Eosinophils % (A) 0 %; HCT 34.7 % (39.0-53.0); HGB 11.1 gm/dL (13.0-17.5); Lymphocytes # (A) 0.6 k/uL (1.0-4.8); Lymphocytes % (A) 30 %; MCH 28.8 pg (25.0-35.0); MCV 89.8 fL (80.0-100.0); Mean Platelet Volume 7.7; Monocytes # (A) 0.2 k/uL (0-1.0); Monocytes % (A) 10 %; Neutrophils # (A) 1.2 k/uL (1.3-7.7); Neutrophils % (A) 58 %; RBC 3.86 m/uL (4.30-5.90); RDW 14.8 % (11.5-15.5)
[2020-10-25 08:41] LABS: Platelet Count 96 k/uL (150-450)
[2020-10-25] MEDS: CHOLECALCIFEROL 25 MCG (1000 IU) TABLET PO SCH (09:07)
[2020-10-25] MEDS: SULFAMETHOX-TMP 800-160MG 1 EACH TAB PO SCH (09:07)
[2020-10-25] MEDS: PANTOPRAZOLE 40 MG TABLET PO SCH (09:07)
[2020-10-25] MEDS: hydroCHLOROthiazide 12.5 MG CAP PO SCH (09:07)
[2020-10-25] MEDS: AMMONIUM LACTATE 12% LOTION 225 GM BTL TOPICAL SCH ×2 (09:08→21:13)
--- NOTE | 2020-10-25 11:30 | P.PN ---
Progress Note - Text Progress Note Date: 10/25/20 Interval History: Patient was seen wandering the hallways and was directable and agreeable to speak with engineering technical writer in the office. The patient continues to be disorganized, nonsensical, and random in his speech. He does express some direction but is often very tangential in his conversation. He is currently not reporting any suicidal or homicidal ideation, intention, and/or plan. He is not reporting any auditory or visual hallucinations. He denies any paranoia or other delusions. When not directly answering questions, the patient continues to ramble. He is currently denying any chest pain, shortness of breath, or side effects of his medications. Mental Status Exam: General Appearance: Patient appears to be stated age is alert, Difficult to direct, and cooperative. Patient is wearing glasses and is a tall and thin male. Wearing compression socks. Behavior: Patient is calmly seated without any agitated behavior. Eye contact is appropriate. Speech: Patient's speech is hyperverbal and rapid but interruptible today. Tangential. Mood/Affect: Mood is "fine." Affect is expansive and bright. Suicidality/Homicidality: Patient is denying any suicidal or homicidal ideation, intention, and/or plan. Perceptions: The patient is not endorsing any auditory or visual hallucinations. Though content/process: Disorganized. Memory and concentration: Patient is alert and oriented to self only. Concentration is grossly poor. Judgment and insight: Very poor Vital Signs Temp 98.3 F 10/25/20 06:57 Pulse 111 H 10/25/20 09:17 Resp 16 10/25/20 06:57 BP 98/63 10/25/20 09:17 Pulse Ox 100 10/24/20 08:28 Laboratory Results - Last 24 Hours 10/25/20 06:17 WBC 2.0 L RBC 3.86 L Hgb 11.1 L Hct 34.7 L MCV 89.8 MCH 28.8 MCHC 32.0 RDW 14.8 Plt Count 96 L D MPV 7.7 Neutrophils % 58 Lymphocytes % 30 Monocytes % 10 Eosinophils % 0 Basophils % 0 Neutrophils # 1.2 L Lymphocytes # 0.6 L Monocytes # 0.2 Eosinophils # 0.0 Basophils # 0.0 Assessment Schizophrenia Plan: -Patient continues to meet criteria for inpatient psychiatric admission for symptom stabilization and safety. Patient has signed adult voluntary form. Patient has a guardian. -Medications: Patient received prolixin dec 50 mg IM on 10/17/2020. Decrease Clozaril to 200 mg at bedtime. ANC noted to be 1.2 k/uL. We will increase monitoring of the CBC w/diff to 3 times per week. Continue Depakote 1000 mg by mouth at bedtime for mood stabilization -When necessary Ativan and Haldol for agitation/aggression. -SW on board for discharge planning. Encouraged the patient to participate in milieu.
[2020-10-25] MEDS ORDERED: cloZAPine 25 MG TAB PO SCH ×2 (21:00)
[2020-10-25] MEDS: ATORVASTATIN 10 MG TAB PO SCH (21:11)
[2020-10-25] MEDS: cloZAPine 100 MG TAB PO SCH (21:11)
[2020-10-25] MEDS: DIVALPROEX ER 500 MG TAB.ER.24H PO SCH (21:11)
[2020-10-26] MEDS: LEVOTHYROXINE 50 MCG TAB PO SCH (05:51)
[2020-10-26] MEDS: AMMONIUM LACTATE 12% LOTION 225 GM BTL TOPICAL SCH ×2 (08:31→20:40)
[2020-10-26] MEDS: hydroCHLOROthiazide 12.5 MG CAP PO SCH (08:31)
--- NOTE | 2020-10-26 11:03 | P.PN ---
Progress Note - Text Progress Note Date: 10/26/20 Interval History: Patient was seen wandering the hallways and was directable and agreeable to s peak with scenario writer in his room. Patient reports that he was able to address his hygiene yesterday and success he is feeling overall better. He does express that it is very tu outside and that he has been able to appreciate the weather and see the sunrise. He is currently not reporting any suicidal ideation, intention, or plan. He denies any auditory or visual hallucinations. Patient is much more straightforward today in answering questions but continues to be tangential at times. When asked about any medical conditions or problems that he may be expressing, the patient was on a tangent talking about various doctors that he has seen in the past. He is otherwise not reporting any other significant issues at this time. Mental Status Exam: General Appearance: Patient appears to be stated age is alert, more directable and cooperative today. Patient is wearing glasses and is a tall and thin male. Fresh laundered clothes. Behavior: Patient is calmly lying in bed without any agitated behavior. Eye contact is appropriate. Speech: Patient's speech is hyperverbal and rapid but interruptible today. Tangential. Mood/Affect: Mood is "feeling great." Affect is expansive and bright. Suicidality/Homicidality: Patient is denying any suicidal or homicidal ideation, intention, and/or plan. Perceptions: The patient is not endorsing any auditory or visual hallucinations. Though content/process: No bizarre or delusional thought content is endorse today. Flight of ideas present. Memory and concentration: Grossly intact for the purposes of this session. Judgment and insight: Very poor Vital Signs Temp 99.1 F 10/26/20 06:24 Pulse 86 10/26/20 06:24 Resp 16 10/26/20 06:24 BP 113/59 10/26/20 06:24 Pulse Ox 100 10/24/20 08:28 Assessment Schizophrenia Plan: -Patient continues to meet criteria for inpatient psychiatric admission for symptom stabilization and safety. Patient has signed adult voluntary form. Patient has a guardian. -Discharge planning ongoing. Consider Long-Term placement due to severity of mental illness. -Medications: Patient received prolixin dec 50 mg IM on 10/17/2020. Continue Clozaril 200 mg at bedtime. ANC noted to be 1.2 k/uL. We will increase monitoring of the CBC w/diff to 3 times per week. Continue Depakote 1000 mg by mouth at bedtime for mood stabilization -When necessary Ativan and Haldol for agitation/aggression. -SW on board for discharge planning. Encouraged the patient to participate in milieu.
[2020-10-26] MEDS: cloZAPine 100 MG TAB PO SCH (20:39)
[2020-10-26] MEDS: DIVALPROEX ER 500 MG TAB.ER.24H PO SCH (20:39)
[2020-10-26] MEDS: ATORVASTATIN 10 MG TAB PO SCH (20:39)
[2020-10-27] MEDS: LEVOTHYROXINE 50 MCG TAB PO SCH (06:49)
[2020-10-27] MEDS: PANTOPRAZOLE 40 MG TABLET PO SCH (08:26)
[2020-10-27] MEDS: hydroCHLOROthiazide 12.5 MG CAP PO SCH (08:26)
[2020-10-27] MEDS: CHOLECALCIFEROL 25 MCG (1000 IU) TABLET PO SCH (08:26)
[2020-10-27] MEDS: AMMONIUM LACTATE 12% LOTION 225 GM BTL TOPICAL SCH ×2 (08:27→20:24)
--- NOTE | 2020-10-27 09:55 | P.PN ---
Progress Note - Text Progress Note Date: 10/27/20 Interval History: Patient was seen resting in bed and was agreeable to speak with the advertising copy writer in his room. The patient is reporting he is feeling "good." He is currently not endorsing any suicidal or homicidal ideation, intention, and/or plan. He is not reporting any auditory or visual hallucinations. He is denying any paranoia or other delusions. He is able to maintain a linear conversation today and comments about how the nurses helped him with his legs and skin care. He re ports that he is sleeping well and denies any issues with his appetite. He is currently reporting any significant side effects of his medications and also inquires about his Depakote level. Mental Status Exam: General Appearance: Patient appears to be stated age is alert, directable and cooperative today. Patient is wearing glasses and is a tall and thin male. Fresh laundered clothes. Behavior: Patient is calmly lying in bed without any agitated behavior. His feet are elevated. Eye contact is appropriate. Speech: Patient's speech is spontaneous, hyperverbal at times but more interrup tible, with normal rate, tone, and volume. Mood/Affect: Mood is "doing good." Affect is euthymic with appropriate range. Suicidality/Homicidality: Patient is denying any suicidal or homicidal ideatio n, intention, and/or plan. Perceptions: The patient is not endorsing any auditory or visual hallucinations. Though content/process: No bizarre or delusional thought content is endorse today. Thought process appears to be linear and logical in short conversation. Memory and concentration: Grossly intact for the purposes of this session. Judgment and insight: Mildly improving Vital Signs Temp 97.4 F L 10/27/20 06:43 Pulse 92 10/27/20 08:32 Resp 16 10/27/20 06:43 BP 109/64 10/27/20 08:32 Pulse Ox 100 10/24/20 08:28 Assessment Schizophrenia Plan: -Patient continues to meet criteria for inpatient psychiatric admission for symptom stabilization and safety. Patient has signed adult voluntary form. Patient has a guardian. -Discharge planning ongoing. Consider Long-Term placement due to severity of mental illness. -Medications: Patient received prolixin dec 50 mg IM on 10/17/2020. Continue Clozaril 200 mg at bedtime. Will hold at current dose. ANC noted to be 1.2 k/uL. CBC will be monitored 3 days per week. Continue Depakote 1000 mg by mouth at bedtime for mood stabilization. A level will be drawn today.Consider titration of this medication Depakote level. -When necessary Ativan and Haldol for agitation/aggression. -SW on board for discharge planning. Encouraged the patient to participate in milieu.
[2020-10-27 10:20] LABS: Basophils % (A) 0 %; Eosinophils % (A) 0 %; HCT 33.9 % (39.0-53.0); HGB 11.2 gm/dL (13.0-17.5); Lymphocytes # (A) 0.7 k/uL (1.0-4.8); Lymphocytes % (A) 40 %; MCH 29.6 pg (25.0-35.0); MCV 89.8 fL (80.0-100.0); Mean Platelet Volume 8.3; Monocytes # (A) 0.1 k/uL (0-1.0); Monocytes % (A) 6 %; Neutrophils # (A) 0.9 k/uL (1.3-7.7); Neutrophils % (A) 50 %; Platelet Count 85 k/uL (150-450); RBC 3.78 m/uL (4.30-5.90); RDW 14.5 % (11.5-15.5); WBC 1.7 k/uL (3.8-10.6)
[2020-10-27 12:26] VITALS: BMI 22.6
[2020-10-27] MEDS: DIVALPROEX ER 500 MG TAB.ER.24H PO SCH (20:21)
[2020-10-27] MEDS: ATORVASTATIN 10 MG TAB PO SCH (20:22)
[2020-10-27] MEDS: LORazepam 1 MG TAB PO PRN (21:07)
[2020-10-28] MEDS: LEVOTHYROXINE 50 MCG TAB PO SCH (06:02)
[2020-10-28 07:10] LABS: Basophils % (A) 0 %; Eosinophils % (A) 0 %; HCT 36.8 % (39.0-53.0); HGB 12.4 gm/dL (13.0-17.5); Lymphocytes # (A) 1.3 k/uL (1.0-4.8); Lymphocytes % (A) 42 %; MCH 30.1 pg (25.0-35.0); MCHC 33.7 g/dL (31.0-37.0); MCV 89.5 fL (80.0-100.0); Mean Platelet Volume 7.7; Monocytes # (A) 0.2 k/uL (0-1.0); Monocytes % (A) 7 %; Neutrophils # (A) 1.5 k/uL (1.3-7.7); Neutrophils % (A) 48 %; Platelet Count 113 k/uL (150-450); RBC 4.11 m/uL (4.30-5.90); RDW 14.4 % (11.5-15.5); WBC 3.2 k/uL (3.8-10.6)
[2020-10-28] MEDS: hydroCHLOROthiazide 12.5 MG CAP PO SCH (08:40)
[2020-10-28] MEDS: AMMONIUM LACTATE 12% LOTION 225 GM BTL TOPICAL SCH ×2 (08:55→20:53)
--- NOTE | 2020-10-28 12:53 | PN ---
PROGRESS NOTE DATE OF SERVICE: 10/28/2020 CHIEF COMPLAINT: The patient had significant symptoms of psychosis that had been worsening over the past 6 weeks. INTERVAL HISTORY: The patient had a quiet day yesterday, comes out on the unit. He attended 2 groups yesterday and in one group the following was documented, "the patient asked questions appropriately about activity and completed complex task with minimal assistance." The patient has been appropriate in his interactions. He slept well last night by his report. Today he has been up. He continues to be out on the unit. Often he will start making various comments though not necessarily talking to anyone in particular. Sometimes it is hard to follow his train of thought. When I talked to him today, he had no specific complaints or concerns. He tolerates his psychotropic medications. MENTAL STATUS: Patient gave fairly good eye contact. He was restless. He would respond to some questions though often his answers were tangential and at times it was hard to follow his train of thought. His affect was in a reasonable range. He had a friendly manner. His mood was reserved. He did not appear to be significantly distressed. He continues to have disorganized thoughts. He voiced no thoughts of harm. He was oriented to his circumstances and surroundings. ASSESSMENT: I will continue the current diagnosis and treatment plan. We will continue to engage the patient in individual and group therapeutic activities. I will continue psychotropic medications the same namely Depakote 1000 mg at bedtime and Clozaril 200 mg at bedtime. It is noted that his WBC this morning is up from 1.7 yesterday to 3.2 today. His Depakote level on the was 86. He received Prolixin Decanoate IM 50 mg on 10/17/2020 and will be due for a followup dose on Friday. I reviewed medication issues with the patient briefly, though he did not engage too well in that conversation. I will repeat a WBC tomorrow. We will focus on stabilization and discharge planning. MMMORENOL / RATNAN: [id number] /
[2020-10-28] MEDS: ATORVASTATIN 10 MG TAB PO SCH (20:52)
[2020-10-28] MEDS: DIVALPROEX ER 500 MG TAB.ER.24H PO SCH (20:52)
[2020-10-28] MEDS: cloZAPine 100 MG TAB PO SCH (21:28)
[2020-10-29] MEDS: LEVOTHYROXINE 50 MCG TAB PO SCH (06:22)
[2020-10-29] MEDS: PANTOPRAZOLE 40 MG TABLET PO SCH (08:43)
[2020-10-29] MEDS: hydroCHLOROthiazide 12.5 MG CAP PO SCH (08:43)
[2020-10-29] MEDS: AMMONIUM LACTATE 12% LOTION 225 GM BTL TOPICAL SCH ×2 (08:43→20:40)
--- NOTE | 2020-10-29 12:00 | PN ---
PROGRESS NOTE DATE OF SERVICE: 10/29/2020 CHIEF COMPLAINT: The patient has significant symptoms of psychosis that had been worsening over the past 6 weeks. INTERVAL HISTORY: Patient has been doing fairly well. He had a mostly quiet today yesterday. He comes out in the day area. He wanders about. He will interact some with others. He seems to tend towards talking with staff more than peers. He attended 2 groups yesterday and seemed to be comfortable in the groups. He has not had any difficult behaviors or periods of distress. He has maintained a fairly even mood. He said that he slept well last night. Today he has been doing pretty much the same. He tolerates his psychotropic medications. MENTAL STATUS: Patient gave good eye contact. He would respond to some questions, though often when he would say would be somewhat tangential. He would make comments where it was difficult to follow exactly what he was talking about. At other times he could not make his concerns be known. He had a calm manner. His affect was in a reasonable range. He smiled a little. His mood was even. He did not appear to be distressed. He continues to show some response to internal stimuli. He indicates no thoughts of harm. He is oriented to his circumstances and surroundings. ASSESSMENT: I will continue the current diagnosis and treatment plan. I will continue psychotropic medications the same. The patient has been doing fairly well. He will have followup CBCs drawn including one tomorrow morning. I will also get a valproic acid level tomorrow. We discussed medication issues and discharge planning. We will focus on stabilization and discharge planning. STANLEY / RATNAN: [id number] /
[2020-10-29] MEDS: LORazepam 1 MG TAB PO PRN (16:15)
[2020-10-29] MEDS: haloperidoL 5 MG TAB PO PRN (16:15)
[2020-10-29] MEDS: ATORVASTATIN 10 MG TAB PO SCH (20:39)
[2020-10-29] MEDS: cloZAPine 100 MG TAB PO SCH (20:39)
[2020-10-29] MEDS: DIVALPROEX ER 500 MG TAB.ER.24H PO SCH (20:39)
[2020-10-30] MEDS: LEVOTHYROXINE 50 MCG TAB PO SCH (05:59)
[2020-10-30] MEDS: CHOLECALCIFEROL 25 MCG (1000 IU) TABLET PO SCH (07:57)
[2020-10-30] MEDS: hydroCHLOROthiazide 12.5 MG CAP PO SCH (07:58)
[2020-10-30] MEDS: AMMONIUM LACTATE 12% LOTION 225 GM BTL TOPICAL SCH ×2 (08:02→21:30)
[2020-10-30 10:44] LABS: Basophils % (A) 0 %; Eosinophils % (A) 0 %; HCT 34.7 % (39.0-53.0); HGB 11.7 gm/dL (13.0-17.5); Lymphocytes % (A) 34 %; MCH 29.9 pg (25.0-35.0); MCHC 33.8 g/dL (31.0-37.0); MCV 88.5 fL (80.0-100.0); Mean Platelet Volume 7.6; Monocytes # (A) 0.2 k/uL (0-1.0); Monocytes % (A) 6 %; Neutrophils # (A) 1.7 k/uL (1.3-7.7); Neutrophils % (A) 58 %; Platelet Count 126 k/uL (150-450); RBC 3.92 m/uL (4.30-5.90); RDW 14.3 % (11.5-15.5); WBC 2.8 k/uL (3.8-10.6)
--- NOTE | 2020-10-30 13:05 | PN ---
PROGRESS NOTE DATE OF SERVICE: 10/30/2020. CHIEF COMPLAINT: The patient has significant symptoms of psychosis that had been worsening over the past 6 weeks. INTERVAL HISTORY: Patient has been doing fairly well overall in general. He had a quiet weekend. Yesterday he was out in the day area. He wanders about. He will make various random comments. He will interact some with others. He did have some difficulties yesterday where he intruded on others a few different times that made things somewhat difficult. He does respond to redirection. Other than some inappropriate behavior and statements, he has not had any significant disruptions in mood or behavior. He slept well last night. Today he has been up he again is out in the day area. He wanders about. His thoughts tended to be disorganized. He responds fairly well to staff support. He has not had any significant behavior problems. He tolerates his psychotropic medications. MENTAL STATUS: Patient gave fair eye contact. He made a few different statements, though was not really clear what he was referring to. He was a little restless for the most part. He was calm and appropriate. He continues to have some response to internal stimuli. He had does not indicate any thoughts of harm to self or others. He is oriented to circumstances and surroundings. ASSESSMENT: I will continue the current diagnosis and treatment plan. I will continue psychotropic medications the same. At this point, the primary issue is working on placement. I met with the treatment team and [facility] liaison. We will coordinate with [facility] in regard to placement and discharge planning. STANLEY / LEWIS: [id number] /
[2020-10-30] MEDS: DIVALPROEX ER 500 MG TAB.ER.24H PO SCH (21:30)
[2020-10-30] MEDS: cloZAPine 100 MG TAB PO SCH (21:30)
[2020-10-30] MEDS: ATORVASTATIN 10 MG TAB PO SCH (21:30)
[2020-10-31] MEDS: LEVOTHYROXINE 50 MCG TAB PO SCH (06:21)
[2020-10-31] MEDS: PANTOPRAZOLE 40 MG TABLET PO SCH (08:39)
[2020-10-31] MEDS: hydroCHLOROthiazide 12.5 MG CAP PO SCH (08:39)
[2020-10-31] MEDS: AMMONIUM LACTATE 12% LOTION 225 GM BTL TOPICAL SCH ×2 (08:40→20:39)
--- NOTE | 2020-10-31 12:33 | PN ---
PROGRESS NOTE DATE OF SERVICE: 10/31/2020. CHIEF COMPLAINT: The patient has significant symptoms of psychosis that had been worsening over the past 6 weeks. INTERVAL HISTORY: The patient has been doing fairly well. He continues in the same vein as far as mood behavior and function. He comes out on the unit. He will interact with others. He can tend to be somewhat intrusive, though generally responds well to staff support and redirection. He attends groups. In group, staff will note that he can be disorganized in his thoughts. He does not always stay on track with the conversation. Sometimes he will have flight of ideas. He has not had any significant behavioral issues. He sleeps well at night. He is in the process of getting set up for some an appropriate [facility] living situations. [facility] is working on detail. He continues to run low WBCs. On October 28, his total WBC was 3.2. Yesterday it was 2.8. Valproic acid level yesterday was 78.9 and on October 27, it was 86. He does not clearly report any side effects relating to his psychotropic medications. MENTAL STATUS: Patient was restless. He gave fairly good eye contact. He responded to questions though much of what he said was a little disconnected. At times, it was difficult to follow his train of thought. His affect was in a reasonable range. He smiled in a friendly manner. His mood was even. He continues to respond some to internal stimuli. He did not voice any thoughts of harm. He was oriented to his circumstances and surroundings. ASSESSMENT: I will continue the current diagnosis and treatment plan. We will continue psychotropic medications the same. We will continue to monitor WBC issues as it relates to his clozapine. He is in the process of getting set up for placement. We will focus on stabilization and discharge planning. MMODL / IJN: [id number] /
[2020-10-31] MEDS: cloZAPine 100 MG TAB PO SCH (20:20)
[2020-10-31] MEDS: ATORVASTATIN 10 MG TAB PO SCH (20:20)
[2020-10-31] MEDS: DIVALPROEX ER 500 MG TAB.ER.24H PO SCH (20:20)
[2020-11-01] MEDS: LEVOTHYROXINE 50 MCG TAB PO SCH (06:06)
[2020-11-01 06:19] LABS: Basophils % (A) 0 %; Eosinophils % (A) 0 %; HCT 34.9 % (39.0-53.0); HGB 11.2 gm/dL (13.0-17.5); Lymphocytes # (A) 1.5 k/uL (1.0-4.8); Lymphocytes % (A) 36 %; MCH 28.6 pg (25.0-35.0); MCV 89.4 fL (80.0-100.0); Mean Platelet Volume 7.9; Monocytes # (A) 0.3 k/uL (0-1.0); Monocytes % (A) 6 %; Neutrophils # (A) 2.3 k/uL (1.3-7.7); Neutrophils % (A) 56 %; Platelet Count 189 k/uL (150-450); RDW 14.7 % (11.5-15.5); WBC 4.1 k/uL (3.8-10.6)
[2020-11-01] MEDS: hydroCHLOROthiazide 12.5 MG CAP PO SCH (09:49)
[2020-11-01] MEDS: AMMONIUM LACTATE 12% LOTION 225 GM BTL TOPICAL SCH ×2 (09:49→20:57)
[2020-11-01] MEDS: CHOLECALCIFEROL 25 MCG (1000 IU) TABLET PO SCH (09:49)
--- NOTE | 2020-11-01 10:01 | P.PN ---
Progress Note - Text Progress Note Date: 11/01/20 Interval History: Patient was seen resting in bed and was agreeable to speak with the engineering writer in the office. The patient continues to be nonsensical and rapid speech. He is currently not reporting any suicidal or homicidal ideation, intention, and/or plan. The patient goes off on multiple tangents, and it appears to be focused on 2 x 4 lumbar, electronics, and home repair today. He does admit to auditory hallucinations. He denies any visual hallucinations at this time. The patient has been injected with his medications is not endorsing any significant side effects at this time. He is not reporting any significant issues with his sleep or appetite. He is denying any chest pain, shortness of breath, fevers, or chills. He continues to be hyperverbal and pressured while he paces the unit. Mental Status Exam: General Appearance: Patient appears to be stated age is alert, directable and cooperative today. Patient is wearing glasses and is a tall and thin male. Behavior: Patient is calmly Seated in the office without any agitated behavior. Eye contact is appropriate. Psychomotor activity is elevated. Speech: Patient's speech is Pressured, hyperverbal, rapid, and Nonsensical. Mood/Affect: Mood is feeling good!" Affect is expansive and intense. Suicidality/Homicidality: Patient is denying any suicidal or homicidal ideation, intention, and/or plan. Perceptions: The patient is endorsing auditory hallucinations but no visual hallucinations. Though content/process: The patient displays significant delusional thought content and is grossly disorganized. Memory and concentration: Grossly intact for the purposes of this session. Judgment and insight: Very poor Vital Signs Temp 97.4 F L 10/31/20 06:51 Pulse 107 H 10/31/20 08:40 Resp 16 10/31/20 06:51 BP 124/75 10/31/20 08:40 Pulse Ox 100 10/24/20 08:28 Laboratory Results - Last 24 Hours 11/01/20 06:00 WBC 4.1 RBC 3.90 L Hgb 11.2 L Hct 34.9 L MCV 89.4 MCH 28.6 MCHC 32.0 RDW 14.7 Plt Count 189 MPV 7.9 Neutrophils % 56 Lymphocytes % 36 Monocytes % 6 Eosinophils % 0 Basophils % 0 Neutrophils # 2.3 Lymphocytes # 1.5 Monocytes # 0.3 Eosinophils # 0.0 Basophils # 0.0 Assessment Schizophrenia Plan: -Patient continues to meet criteria for inpatient psychiatric admission for symptom stabilization and safety. Patient has signed adult voluntary form. Patient has a guardian. -Discharge planning ongoing. Consider Skilled Nursing placement due to severity of mental illness. -Medications: Patient received prolixin dec 50 mg IM on 10/17/2020. Continue Clozaril 200 mg at bedtime. ANC noted to be 2.3. Patient displays gradual improvement in neutrophil count. Continue Depakote 1000 mg by mouth at bedtime for mood stabilization. -When necessary Ativan and Haldol for agitation/aggression. -SW on board for discharge planning. Encouraged the patient to participate in milieu.
[2020-11-01] MEDS: DIVALPROEX ER 500 MG TAB.ER.24H PO SCH (20:26)
[2020-11-01] MEDS: cloZAPine 100 MG TAB PO SCH (20:26)
[2020-11-01] MEDS: ATORVASTATIN 10 MG TAB PO SCH (20:26)
[2020-11-02] MEDS: LEVOTHYROXINE 50 MCG TAB PO SCH (05:36)
[2020-11-02] MEDS: hydroCHLOROthiazide 12.5 MG CAP PO SCH (08:22)
[2020-11-02] MEDS: PANTOPRAZOLE 40 MG TABLET PO SCH (08:22)
[2020-11-02] MEDS: AMMONIUM LACTATE 12% LOTION 225 GM BTL TOPICAL SCH ×2 (08:24→21:00)
--- NOTE | 2020-11-02 11:44 | P.PN ---
Progress Note - Text Progress Note Date: 11/02/20 Interval History: Patient was seen standing in his room and is agreeable to speak with the advertising copywriter in his room. Currently, the patient is not reporting any suicidal ideation, intention, and/or plan. When inquiring the homicidal ideation, the patient admits that he has thoughts of hurting others but could not elaborate clearly. He denies any intention or plan at this time. He denies any auditory or visual hallucinations. He reports no paranoia or other delusions. He continues to be somewhat tangential and nonsensical in his speech often speaking about random objects in the room or events during his stay. He denies any issues with his sleep or appetite. He does report no issues with urination but states that he believes he last passed stool this past Friday. Mental Status Exam: General Appearance: Patient appears to be stated age is alert, directable and cooperative today. Patient is wearing glasses and is a tall and thin male. Behavior: Patient is calmly standing in his room. Eye contact is appropriate. Psychomotor activity is normal today. Speech: Patient's speech is hyperverbal, rapid, tangential, but interruptible. Mood/Affect: Mood is "doing okay" Affect is euthymic to bright. Suicidality/Homicidality: Patient admits to homicidal ideation. He denies any suicidal or homicidal ideation, intention, and/or plan. Perceptions: The patient is not endorsing any auditory or visual hallucinations today. Though content/process: The patient displays significant delusional thought content and is grossly disorganized. Memory and concentration: Grossly intact for the purposes of this session. Judgment and insight: Very poor Vital Signs Temp 97.4 F L 10/31/20 06:51 Pulse 97 11/02/20 08:30 Resp 16 10/31/20 06:51 BP 124/68 11/02/20 08:30 Pulse Ox 100 10/24/20 08:28 Assessment Schizophrenia Plan: -Patient continues to meet criteria for inpatient psychiatric admission for symptom stabilization and safety. Patient has signed adult voluntary form. Patient has a guardian. -Discharge planning ongoing. Consider Shelter placement due to severity of mental illness. -Medications: Patient received prolixin dec 50 mg IM on 10/17/2020. Continue Clozaril 200 mg at bedtime. ANC noted to be 2.3 (11/01/2020). Patient displays gradual improvement in neutrophil count. We'll consider increasing Clozaril tomorrow. Continue Depakote 1000 mg by mouth at bedtime for mood stabilization. -When necessary Ativan and Haldol for agitation/aggression. -SW on board for discharge planning. Encouraged the patient to participate in milieu.
[2020-11-02] MEDS ORDERED: cloZAPine 100 MG TAB PO SCH (21:00)
[2020-11-02] MEDS: DIVALPROEX ER 500 MG TAB.ER.24H PO SCH (21:02)
[2020-11-02] MEDS: ATORVASTATIN 10 MG TAB PO SCH (21:02)
[2020-11-03] MEDS: LEVOTHYROXINE 50 MCG TAB PO SCH (06:22)
[2020-11-03] MEDS: hydroCHLOROthiazide 12.5 MG CAP PO SCH (08:37)
[2020-11-03] MEDS: CHOLECALCIFEROL 25 MCG (1000 IU) TABLET PO SCH (08:37)
[2020-11-03] MEDS: AMMONIUM LACTATE 12% LOTION 225 GM BTL TOPICAL SCH ×2 (08:37→20:25)
[2020-11-03 12:03] LABS: Basophils % (A) 0 %; Eosinophils % (A) 0 %; HCT 36.6 % (39.0-53.0); HGB 12.1 gm/dL (13.0-17.5); Lymphocytes # (A) 1.2 k/uL (1.0-4.8); Lymphocytes % (A) 17 %; MCH 29.3 pg (25.0-35.0); MCV 88.7 fL (80.0-100.0); Mean Platelet Volume 7.2; Monocytes # (A) 0.4 k/uL (0-1.0); Monocytes % (A) 6 %; Neutrophils # (A) 5.4 k/uL (1.3-7.7); Neutrophils % (A) 76 %; Platelet Count 215 k/uL (150-450); RBC 4.12 m/uL (4.30-5.90); RDW 14.3 % (11.5-15.5); WBC 7.1 k/uL (3.8-10.6)
--- NOTE | 2020-11-03 12:37 | P.PN ---
Progress Note - Text Progress Note Date: 11/03/20 Interval History: Patient was seen standing in his room and is agreeable to speak with the mortgage underwriter but preferred to speak in the hallway. The patient was informed that we would like to protect his privacy, but the patient preferred to walk and talk with this provider. Patient continues to be nonsensical and speech often talking rapidly and with many tangents. He does answer questions directly when asked. He is denying any suicidal or homicidal ideation, intention, and/or plan. He denies any auditory or visual hallucinations. He reports no issues with his sleep or appetite. He reports that he was able to pass stool last night. He is denying any side effects of his medications. The patient has been attending groups and has been involved in milieu and individual therapies. Mental Status Exam: General Appearance: Patient appears to be stated age is alert, directable and cooperative today. Patient is wearing glasses and is a tall and thin male. Behavior: Patient is wandering the hallways. Eye contact is appropriate. Psychomotor activity is normal today. Speech: Patient's speech is hyperverbal, rapid, tangential, but interruptible. Mood/Affect: Mood is "feeling good" Affect is euthymic to bright. Suicidality/Homicidality: Patient denies any suicidal or homicidal ideation, intention, and/or plan. Perceptions: The patient is not endorsing any auditory or visual hallucinations today. Though content/process: The patient displays significant delusional thought content and is grossly disorganized. Memory and concentration: Grossly intact for the purposes of this session. Judgment and insight: Very poor Vital Signs Temp 97.3 F L 11/03/20 06:39 Pulse 92 11/03/20 08:53 Resp 18 11/03/20 06:39 BP 110/84 11/03/20 08:53 Pulse Ox 100 10/24/20 08:28 Assessment Schizophrenia Plan: -Patient continues to meet criteria for inpatient psychiatric admission for symptom stabilization and safety. Patient has signed adult voluntary form. Patient has a guardian. -Discharge planning ongoing. Consider Half-Way placement due to severity of me ntal illness. -Medications: Patient received prolixin dec 50 mg IM on 10/17/2020. We will hold on administering another dose of Prolixin Decanoate due to the patient's recent drop in absolute neutrophil count. Increase Clozaril to 212.5 mg at bedtime. ANC noted to be 2.3 (11/01/2020). Patient displays gradual improvement in neutrophil count. Continue Depakote 1000 mg by mouth at bedtime for mood stabilization. -When necessary Ativan and Haldol for agitation/aggression. -SW on board for discharge planning. Encouraged the patient to participate in milieu.
[2020-11-03] MEDS: ATORVASTATIN 10 MG TAB PO SCH (20:21)
[2020-11-03] MEDS: DIVALPROEX ER 500 MG TAB.ER.24H PO SCH (20:21)
[2020-11-03] MEDS: cloZAPine 100 MG TAB PO SCH (20:21)
[2020-11-03] MEDS: cloZAPine 25 MG TAB PO SCH (20:22)
[2020-11-04] MEDS: LEVOTHYROXINE 50 MCG TAB PO SCH (06:13)
[2020-11-04] MEDS: CHOLECALCIFEROL 25 MCG (1000 IU) TABLET PO SCH (07:37)
[2020-11-04] MEDS: PANTOPRAZOLE 40 MG TABLET PO SCH (07:37)
[2020-11-04] MEDS: hydroCHLOROthiazide 12.5 MG CAP PO SCH (07:37)
[2020-11-04] MEDS: AMMONIUM LACTATE 12% LOTION 225 GM BTL TOPICAL SCH ×2 (07:41→23:32)
[2020-11-04] MEDS: haloperidoL 5 MG TAB PO PRN (12:04)
[2020-11-04] MEDS: LORazepam 1 MG TAB PO PRN (12:04)
--- NOTE | 2020-11-04 12:28 | P.PN ---
Progress Note - Text Progress Note Date: 11/04/20 Clinical Problems: Schizophrenia Interim history: I reviewed the medical record review the patient. He is a 60-year-old male who has a chronic and persistent mental illness. He presented to unit with increasing paranoia and psychosis. He has history of a chronic and refractory schizophrenia that partially responded to clozapine. However, during a recent hospitalization he experienced a neutropenia and the dose of quetiapine was decreased. After the clozapine was decreased he experience worsening of psychotic symptoms. Since admission to the unit he experienced neutropenia during the titration of clozapine. The white blood cell count improved when we stopped the titration. His current dose of clozapine is 212.5 mg at night is sat WBC from 11/03/2020 was 7.1 with an absolute neutrophil count of 5.4. His speech is disorganized and difficult to follow. He appears to be somatically preoccupied and talked about recent hospitalizations. He is restless but is posed no management problem. He is attending therapeutic groups and activities. The therapist described him as intrusive, disorganized and poorly focused. Mental status exam: He presented as a tall casually groomed male who was pleasant on approach. He made eye contact and appeared to attend to interview. She had pedal edema bilaterally with darkening of the skin. He was restless and occasionally pacing the unit. His speech was spontaneous with increase rhythm and rate. His affect was stable and appropriate. He did not express suicidal ideation, wishes or homicidal ideation. He is not hopeless, helpless or worthless. He ruminated about physical problems. He did not express clear paranoid ideation or delusions. His thinking was grossly disorganized, incoherent and illogical. He did not appear to be responding to internal stimuli. Assessment: He is severely and persistently mentally ill and moderately improve from admission. Plan: They do inpatient treatment. Safety precautions. Can you current psychotropic medications including Cogentin 1 mg by mouth 3 times a day, clozapine 212.5 mg at bedtime and Depakote ER 1000 mg at bedtime. Gradual titration of clozapine. Repeat CBC with differential on 11/08/2020. Continue other medications including Lipitor, Rocaltrol, vitamin D3, Colace, HydroDIURIL, Synthroid, Claritin, Protonix and Kenalog. Encourage patient to use his compression stockings. Encouraged continued participation in therapeutic groups and activities. Evaluate clinical status response to treatment daily basis.
[2020-11-04] MEDS: cloZAPine 25 MG TAB PO SCH (21:04)
[2020-11-04] MEDS: cloZAPine 100 MG TAB PO SCH (21:04)
[2020-11-04] MEDS: ATORVASTATIN 10 MG TAB PO SCH (21:04)
[2020-11-04] MEDS: DIVALPROEX ER 500 MG TAB.ER.24H PO SCH (21:05)
[2020-11-05] MEDS: hydroCHLOROthiazide 12.5 MG CAP PO SCH (08:06)
[2020-11-05] MEDS: AMMONIUM LACTATE 12% LOTION 225 GM BTL TOPICAL SCH ×2 (08:06→21:23)
[2020-11-05] MEDS: LEVOTHYROXINE 50 MCG TAB PO SCH (08:07)
[2020-11-05] MEDS: LORazepam 1 MG TAB PO PRN ×2 (08:07→16:54)
--- NOTE | 2020-11-05 14:27 | P.PN ---
Progress Note - Text Progress Note Date: 11/05/20 Interim history: I reviewed the medical record review the patient. He was pleasant on approach and denied current problems. His speech is disorganized and difficult to follow. He is restless but is posed no management problem. He is attending therapeutic groups and activities. The therapist described him as intrusive, disorganized and poorly focused. Mental status exam: He presented as a tall casually groomed male who was pleasant on approach. He made eye contact and appeared to attend to interview. He was wearing his compression stockings today. He was restless and occasionally pacing the unit. His speech was spontaneous with increase rhythm and rate. His affect was stable and appropriate. He did not express suicidal ideation, wishes or homicidal ideation. He is not hopeless, helpless or worthless. He ruminated about physical problems. He did not express clear paranoid ideation or delusions. His thinking was grossly disorganized, incoherent and illogical. He did not appear to be responding to internal stimuli. Assessment: He is severely and persistently mentally ill and moderately improve from admission. Plan: Continue inpatient treatment. Safety precautions. Continue psychotropic medications including Cogentin 1 mg by mouth 3 times a day, clozapine 212.5 mg at bedtime and Depakote ER 1000 mg at bedtime. Gradual titration of clozapine. Repeat CBC with differential on 11/08/2020. Continue other medications including Lipitor, Rocaltrol, vitamin D3, Colace, HydroDIURIL, Synthroid, Claritin, Protonix and Kenalog. Encourage patient to use his compression stockings. Encouraged continued participation in therapeutic groups and activities. Evaluate clinical status response to treatment daily basis.
[2020-11-05] MEDS: haloperidoL 5 MG TAB PO PRN (16:54)
[2020-11-05] MEDS: ATORVASTATIN 10 MG TAB PO SCH (20:27)
[2020-11-05] MEDS: cloZAPine 25 MG TAB PO SCH (20:27)
[2020-11-05] MEDS: cloZAPine 100 MG TAB PO SCH (20:27)
[2020-11-05] MEDS: DIVALPROEX ER 500 MG TAB.ER.24H PO SCH (20:28)
[2020-11-06] MEDS: LEVOTHYROXINE 50 MCG TAB PO SCH (06:49)
[2020-11-06] MEDS: PANTOPRAZOLE 40 MG TABLET PO SCH (09:02)
[2020-11-06] MEDS: hydroCHLOROthiazide 12.5 MG CAP PO SCH (09:02)
[2020-11-06] MEDS: CHOLECALCIFEROL 25 MCG (1000 IU) TABLET PO SCH (09:02)
[2020-11-06] MEDS: AMMONIUM LACTATE 12% LOTION 225 GM BTL TOPICAL SCH ×2 (09:03→20:16)
--- NOTE | 2020-11-06 09:51 | P.PN ---
Progress Note - Text Progress Note Date: 11/06/20 Interval History: Patient was seen standing in his room and is agreeable to speak with the loan underwriter in the office. The patient reports that he is feeling "pretty good." He is able to answer questions linearly but if allowed, the patient would go down multiple tangents. Today, the patient is not reporting any suicidal ideation, intention, and/or plan. He does report homicidal ideation towards a peer on the unit but admits that he would never hurt anyone. The patient also reports that he has been expressing some auditory hallucinations which he describes as his "own voice that is singing to me." He also endorses visual hallucinations, which he reports feels like a dreamlike state where he is able to see figures from childhood books that he used to read. He is not reporting any significant issues regarding his sleep or appetite. He is not reporting any side effects of his medications and has been adherent. The patient displays more insight today stating that "I know my Clozaril is being adjusted." He reports that he has been taking care of his hygiene and received new mouthwash and toothpaste. Mental Status Exam: General Appearance: Patient appears to be stated age is alert, directable and cooperative today. Patient is wearing glasses and is a tall and thin male. Behavior: Patient is wandering the hallways. Eye contact is appropriate. Psychomotor activity is normal today. Speech: Patient's speech is hyperverbal, tangential, but interruptible. Mood/Affect: Mood is "pretty good." Affect is euthymic to bright. Suicidality/Homicidality: Patient reports homicidal ideation but no intention or plan. He denies any suicidal ideation, intention, and/or plan. Perceptions: The patient admits to both auditory and visual hallucinations. Though content/process: No significant delusional thought content is endorse today. He continues to be disorganized at times. Memory and concentration: Grossly intact for the purposes of this session. Judgment and insight: Mildly improving Vital Signs Temp 97.4 F L 11/06/20 06:22 Pulse 100 11/06/20 06:22 Resp 18 11/06/20 06:22 BP 136/67 11/06/20 06:22 Pulse Ox 100 10/24/20 08:28 Assessment Schizophrenia Plan: -Patient continues to meet criteria for inpatient psychiatric admission for symptom stabilization and safety. Patient has signed adult voluntary form. Patient has a guardian. -Discharge planning ongoing. Consider Retirement placement due to severity of mental illness. -Medications: Patient received prolixin dec 50 mg IM on 10/17/2020. We will hold on administering another dose of Prolixin Decanoate due to the patient's recent drop in absolute neutrophil count. Increase Clozaril to 225 mg at bedtime. ANC noted to be 2.3 (11/01/2020). Will continue to monitor. Continue Depakote 1000 mg by mouth at bedtime for mood stabilization. -Continue to encourage compression stockings and recommended medical management. -When necessary Ativan and Haldol for agitation/aggression. -SW on board for discharge planning. Encouraged the patient to participate in milieu.
[2020-11-06] MEDS: cloZAPine 100 MG TAB PO SCH (20:15)
[2020-11-06] MEDS: cloZAPine 25 MG TAB PO SCH (20:16)
[2020-11-06] MEDS: ATORVASTATIN 10 MG TAB PO SCH (20:16)
[2020-11-06] MEDS: DIVALPROEX ER 500 MG TAB.ER.24H PO SCH (20:16)
[2020-11-07] MEDS: LEVOTHYROXINE 50 MCG TAB PO SCH (06:30)
[2020-11-07] MEDS: AMMONIUM LACTATE 12% LOTION 225 GM BTL TOPICAL SCH ×2 (08:41→20:45)
[2020-11-07] MEDS: hydroCHLOROthiazide 12.5 MG CAP PO SCH (08:42)
--- NOTE | 2020-11-07 10:28 | P.PN ---
Progress Note - Text Progress Note Date: 11/07/20 Interval History: Patient was seen wandering the hallways and was agreeable to speak with business writer in the office. Currently, the patient is not reporting any suicidal or homicidal ideation, intention, and/or plan. The patient then goes on a tangent discussing the medications that he is taking and begins to speak at great length on the manufacturing of medications, but the pills look like, how to take the pills, and even concern if the pills may have been tampered with. He becomes difficult to interrupt during this time. Despite this, the patient has been adherent with his medications and is not reporting any significant side effects at this time. He does not endorse any overt auditory or visual hallucinations today. He does express strong desire to take care of his hygiene as he is currently doing laundry and states that he plans places cream on his swollen legs after this injury. Mental Status Exam: General Appearance: Patient appears to be stated age is alert, directable and cooperative today. Patient is wearing glasses and is a tall and thin male. Behavior: Patient is wandering the hallways. Eye contact is appropriate. Elevated psychomotor activity. Speech: Patient's speech is hyperverbal, tangential. Difficult to interrupt today. Mood/Affect: Mood is "I'm doing well." Affect is euthymic to bright. Suicidality/Homicidality: Patient is not endorsing any suicidal or homicidal ideation, intention, and/or plan. Perceptions: Patient is not endorsing any auditory or visual hallucinations. Though content/process: No delusional thought content is endorsed. Thought process is tangential but linear and logical. Memory and concentration: Grossly intact for the purposes of this session. Judgment and insight: Mildly improving Vital Signs Temp 96.7 F L 11/07/20 06:00 Pulse 105 H 11/07/20 08:40 Resp 18 11/07/20 06:00 BP 139/72 11/07/20 08:40 Pulse Ox 100 10/24/20 08:28 Assessment Schizophrenia Plan: -Patient continues to meet criteria for inpatient psychiatric admission for symptom stabilization and safety. Patient has signed adult voluntary form. Patient has a guardian. -Discharge planning ongoing. Consider Detention placement due to severity of mental illness. -Medications: Patient received prolixin dec 50 mg IM on 10/17/2020. Hold new prolixin dec. Continue Clozaril 225 mg at bedtime. ANC noted to be 5.4 (11/03/2020). Will continue to monitor. Continue Depakote 1000 mg by mouth at bedtime for mood stabilization. -Continue to encourage compression stockings and recommended medical management. -When necessary Ativan and Haldol for agitation/aggression. -SW on board for discharge planning. Encouraged the patient to participate in milieu.
[2020-11-07] MEDS: ATORVASTATIN 10 MG TAB PO SCH (20:43)
[2020-11-07] MEDS: DIVALPROEX ER 500 MG TAB.ER.24H PO SCH (20:43)
[2020-11-07] MEDS: cloZAPine 25 MG TAB PO SCH (20:43)
[2020-11-07] MEDS: cloZAPine 100 MG TAB PO SCH (20:43)
[2020-11-08] MEDS: LEVOTHYROXINE 50 MCG TAB PO SCH (06:15)
[2020-11-08] MEDS: hydroCHLOROthiazide 12.5 MG CAP PO SCH (07:42)
[2020-11-08] MEDS: AMMONIUM LACTATE 12% LOTION 225 GM BTL TOPICAL SCH ×2 (07:42→21:05)
[2020-11-08] MEDS: CHOLECALCIFEROL 25 MCG (1000 IU) TABLET PO SCH (07:42)
[2020-11-08] MEDS: PANTOPRAZOLE 40 MG TABLET PO SCH (07:42)
[2020-11-08 10:17] LABS: Basophils % (A) 0 %; Eosinophils % (A) 0 %; HCT 36.3 % (39.0-53.0); HGB 11.6 gm/dL (13.0-17.5); Lymphocytes # (A) 0.9 k/uL (1.0-4.8); Lymphocytes % (A) 18 %; MCH 28.5 pg (25.0-35.0); MCHC 31.9 g/dL (31.0-37.0); MCV 89.3 fL (80.0-100.0); Mean Platelet Volume 8.1; Monocytes # (A) 0.4 k/uL (0-1.0); Monocytes % (A) 7 %; Neutrophils # (A) 3.7 k/uL (1.3-7.7); Neutrophils % (A) 72 %; Platelet Count 182 k/uL (150-450); RBC 4.06 m/uL (4.30-5.90); RDW 14.2 % (11.5-15.5); WBC 5.2 k/uL (3.8-10.6)
--- NOTE | 2020-11-08 10:30 | P.PN ---
Progress Note - Text Progress Note Date: 11/08/20 Interval History: Patient was seen wandering the hallways and was agreeable to speak with copywriter in the office. Currently, the patient is very disorganized today. He appears to be attempting to speak another language, and appears to be nonsensical. He states he is speaking English, and then Romanian. He was difficult to redirect as this provider informed him that this provider only understands Welsh. The patient then begins winking at this provider after discussing a female on the unit. He is unable to identify who he is speaking of. He is unable to answer any questions directly. The patient was not directable and unable to answer questions, the interview was terminated. Mental Status Exam: General Appearance: Patient appears to be stated age is alert, and undirectable today. Patient is a tall and thin male, wearing shorts, compression stockings. Behavior: Patient is wandering the hallways. Eye contact is appropriate. Elevated psychomotor activity. Speech: Patient's speech is hyperverbal, tangential, pressured. Mood/Affect: Could not assess mood. Affect is euphoric and expansive. Suicidality/Homicidality: Could not assess Perceptions: Could not assess Though content/process: Could not assess. Thought process is tangential and disorganized. Memory and concentration: Could not assess Judgment and insight: Poor Vital Signs Temp 96.7 F L 11/07/20 06:00 Pulse 101 H 11/08/20 07:42 Resp 18 11/07/20 06:00 BP 129/72 11/08/20 07:42 Pulse Ox 100 10/24/20 08:28 Laboratory Results - Last 24 Hours 11/08/20 09:37 WBC 5.2 RBC 4.06 L Hgb 11.6 L Hct 36.3 L MCV 89.3 MCH 28.5 MCHC 31.9 RDW 14.2 Plt Count 182 MPV 8.1 Neutrophils % 72 Lymphocytes % 18 Monocytes % 7 Eosinophils % 0 Basophils % 0 Neutrophils # 3.7 Lymphocytes # 0.9 L Monocytes # 0.4 Eosinophils # 0.0 Basophils # 0.0 Assessment Schizophrenia Plan: -Patient continues to meet criteria for inpatient psychiatric admission for symptom stabilization and safety. Patient has signed adult voluntary form. Patient has a guardian. -Discharge planning ongoing. Consider Custodial placement due to severity of mental illness. -Medications: Patient received prolixin dec 50 mg IM on 10/17/2020. Hold new prolixin dec. ANC noted to be 3.7 (11/08/2020). Continue Clozaril 237.5 mg at bedtime. Continue Depakote 1000 mg by mouth at bedtime for mood stabilization. -Continue to encourage compression stockings and recommended medical management. -When necessary Ativan and Haldol for agitation/aggression. -SW on board for discharge planning. Encouraged the patient to participate in milieu.
[2020-11-08] MEDS: LORazepam 1 MG TAB PO PRN (17:15)
[2020-11-08] MEDS: haloperidoL 5 MG TAB PO PRN (17:15)
[2020-11-08] MEDS: DIVALPROEX ER 500 MG TAB.ER.24H PO SCH (21:03)
[2020-11-08] MEDS: cloZAPine 25 MG TAB PO SCH (21:03)
[2020-11-08] MEDS: ATORVASTATIN 10 MG TAB PO SCH (21:03)
[2020-11-08] MEDS: cloZAPine 100 MG TAB PO SCH (21:04)
[2020-11-09] MEDS: LEVOTHYROXINE 50 MCG TAB PO SCH (05:47)
[2020-11-09] MEDS: AMMONIUM LACTATE 12% LOTION 225 GM BTL TOPICAL SCH ×2 (08:36→20:50)
[2020-11-09] MEDS: hydroCHLOROthiazide 12.5 MG CAP PO SCH (08:37)
--- NOTE | 2020-11-09 10:23 | P.PN ---
Progress Note - Text Progress Note Date: 11/09/20 Interval History: Patient was seen wandering the hallways and was agreeable to speak with caption writer in his room. Currently the patient is expressing that he is feeling better today. He is currently not reporting any suicidal or homicidal ideation, intention, and/or plan. He continues to speak in attention but is less bizarre today. The patient appears to be focused on his hygiene and grooming and discusses his regimen to this provider. He is not reporting any auditory or visual hallucinations. He is denying any issues with his medications and has been in adherent. He reports no issues with his sleep or appetite. Mental Status Exam: General Appearance: Patient appears to be stated age, with good hygiene and grooming, dressed in shorts and a shirt. Behavior: Patient is wandering the hallways. Eye contact is appropriate. Psychomotor activity appears normal today. Speech: Patient's speech is hyperverbal, but interruptible today. Mood/Affect: Mood is described as "good." Affect is euthymic to bright. Suicidality/Homicidality: Patient is not endorsing any suicidal or homicidal ideation, intention, and/or plan. Perceptions: The patient is not reporting any auditory or visual hallucinations. Though content/process: The patient appears to be focused on his hygiene and grooming today. Thought process appears to be linear and logical in short conversation. Memory and concentration: Grossly intact for the purposes of this session. Judgment and insight: Poor Vital Signs Temp 97.8 F 11/09/20 08:38 Pulse 95 11/09/20 08:38 Resp 16 11/09/20 08:38 BP 115/61 11/09/20 08:38 Pulse Ox 97 11/09/20 06:22 Intake & Output 11/08/20 11/09/20 11/09/20 18:59 06:59 18:59 Weight 84.2 kg Laboratory Results - Last 24 Hours 11/08/20 09:37 WBC 5.2 RBC 4.06 L Hgb 11.6 L Hct 36.3 L MCV 89.3 MCH 28.5 MCHC 31.9 RDW 14.2 Plt Count 182 MPV 8.1 Neutrophils % 72 Lymphocytes % 18 Monocytes % 7 Eosinophils % 0 Basophils % 0 Neutrophils # 3.7 Lymphocytes # 0.9 L Monocytes # 0.4 Eosinophils # 0.0 Basophils # 0.0 Assessment Schizophrenia Plan: -Patient continues to meet criteria for inpatient psychiatric admission for symptom stabilization and safety. Patient has signed adult voluntary form. Patient has a guardian. -Discharge planning ongoing. Consider Prison placement due to severity of mental illness. -Medications: Patient received prolixin dec 50 mg IM on 10/17/2020. Hold new prolixin dec. ANC noted to be 3.7 (11/08/2020). Continue Clozaril 237.5 mg at bedtime. Consider increase to 250 mg at bedtime tomorrow. Continue Depakote 1000 mg by mouth at bedtime for mood stabilization. -Continue to encourage compression stockings and recommended medical management. -When necessary Ativan and Haldol for agitation/aggression. -SW on board for discharge planning. Encouraged the patient to participate in milieu.
[2020-11-09] MEDS: ATORVASTATIN 10 MG TAB PO SCH (20:48)
[2020-11-09] MEDS: cloZAPine 25 MG TAB PO SCH (20:48)
[2020-11-09] MEDS: DIVALPROEX ER 500 MG TAB.ER.24H PO SCH (20:48)
[2020-11-09] MEDS: cloZAPine 100 MG TAB PO SCH (20:49)
[2020-11-10] MEDS: LEVOTHYROXINE 50 MCG TAB PO SCH (06:28)
[2020-11-10] MEDS: hydroCHLOROthiazide 12.5 MG CAP PO SCH (08:03)
[2020-11-10] MEDS: PANTOPRAZOLE 40 MG TABLET PO SCH (08:03)
[2020-11-10] MEDS: AMMONIUM LACTATE 12% LOTION 225 GM BTL TOPICAL SCH ×2 (08:04→20:13)
[2020-11-10] MEDS: CHOLECALCIFEROL 25 MCG (1000 IU) TABLET PO SCH (08:04)
--- NOTE | 2020-11-10 10:31 | P.PN ---
Progress Note - Text Progress Note Date: 11/10/20 Interval History: Patient was seen wandering the hallways and was agreeable to speak with video games storywriter in the office. The patient is not wearing any suicidal or homicidal ideation, intention or plan. He is denying any auditory or visual hallucinations today. He is not reporting any paranoia or other delusions today. The patient does express significant symptoms of hopelessness and helplessness. He appears to be lucid today regarding his situation and the severity of his mental health. He does express frustration that he is stuck with [facility] and is relegated to activities such as the [employer] due to the severity of his mental illness. He reports that he finds the [facility] to be "juvenile." Furthermore, he does express feelings of isolation and loneliness. When asked what would make him happy, the patient reports that he would like to have a family. He reports that he is not close to anyone in his immediate family as they live in [place]. He is otherwise adherent with his medications and is not endorsing any significant side effects at this time. He reports no issues with his sleep or appetite. He reports no issues using the restroom. Mental Status Exam: General Appearance: Patient appears to be stated age, with good hygiene and grooming, dressed in shorts and a shirt. Behavior: Patient is wandering the hallways. Eye contact is appropriate. Psychomotor activity appears normal today. Speech: Patient's speech is spontaneous, normal rate, tone, volume, and fluency. Mood/Affect: Mood is described as "pretty sad." Affect is constricted and sad. Suicidality/Homicidality: Patient is not endorsing any suicidal or homicidal ideation, intention, and/or plan. Perceptions: The patient is not reporting any auditory or visual hallucinations. Though content/process: No delusional thought content and endorsed today. Thought process appears to be linear and logical in short conversation. Memory and concentration: Grossly intact for the purposes of this session. Judgment and insight: Improving Vital Signs Temp 97.5 F L 11/10/20 06:05 Pulse 90 11/10/20 06:05 Resp 18 11/10/20 06:05 BP 137/73 11/10/20 06:05 Pulse Ox 100 11/10/20 06:05 Assessment Schizophrenia Plan: -Patient continues to meet criteria for inpatient psychiatric admission for symptom stabilization and safety. Patient has signed adult voluntary form. Patient has a guardian. -Discharge planning ongoing. Consider [facility] placement due to severity of mental illness. -Medications: Patient received prolixin dec 50 mg IM on 10/17/2020. Hold new prolixin dec. ANC noted to be 3.7 (11/08/2020). Continue Clozaril 237.5 mg at bedtime. Consider increase to 250 mg over the weekend. Continue Depakote 1000 mg by mouth at bedtime for mood stabilization. -Continue to encourage compression stockings and recommended medical management. -When necessary Ativan and Haldol for agitation/aggression. -SW on board for discharge planning. Encouraged the patient to participate in milieu.
[2020-11-10] MEDS: cloZAPine 25 MG TAB PO SCH (20:12)
[2020-11-10] MEDS: cloZAPine 100 MG TAB PO SCH (20:12)
[2020-11-10] MEDS: DIVALPROEX ER 500 MG TAB.ER.24H PO SCH (20:12)
[2020-11-10] MEDS: ATORVASTATIN 10 MG TAB PO SCH (20:13)
[2020-11-11] MEDS: LEVOTHYROXINE 50 MCG TAB PO SCH (06:44)
[2020-11-11] MEDS: hydroCHLOROthiazide 12.5 MG CAP PO SCH (08:18)
[2020-11-11] MEDS: AMMONIUM LACTATE 12% LOTION 225 GM BTL TOPICAL SCH ×2 (08:18→19:56)
--- NOTE | 2020-11-11 14:57 | P.PN ---
Progress Note - Text Progress Note Date: 11/11/20 Clinical Problems: Schizophrenia chronic with her response to treatment Interim history: I reviewed the medical record review the patient. He was pleasant on approach and denied current problems. His speech is disorganized and difficult to follow. He is restless but posed no management problem. He is attending therapeutic groups and activities. The therapist described him as intrusive, disorganized and poorly focused. His WBC from 11/08/2020 was 5.2 and his absolute neutrophil count was 3.7 Mental status exam: He presented as a tall bearded male who was pleasant on approach. He made eye contact and appeared to attend to interview. He was not wearing his compression stockings today. He was restless and occasionally pacing the unit. His speech was spontaneous with increase rhythm and rate. His affect was stable and appropriate. He did not express suicidal ideation, wishes or homicidal ideation. He was not hopeless, helpless or worthless. He did note ruminate about physical problems. He did not express clear paranoid ideation or delusions. His thinking was grossly disorganized, incoherent and illogical. He did not appear to be responding to internal stimuli. Assessment: He is severely and persistently mentally ill and moderately improve from admission. Plan: Continue inpatient treatment. Safety precautions. Continue psychotropic medications including Cogentin 1 mg by mouth 3 times a day, clozapine 237.5 mg at bedtime and Depakote ER 1000 mg at bedtime. Gradual titration of clozapine. Repeat CBC with differential weekly. Continue other medications including Lipitor, Rocaltrol, vitamin D3, Colace, HydroDIURIL, Synthroid, Claritin, Protonix and Kenalog. Encourage patient to use his compression stockings. Encouraged continued participation in therapeutic groups and activities. Evaluate clinical status response to treatment daily basis.
[2020-11-11] MEDS: DIVALPROEX ER 500 MG TAB.ER.24H PO SCH (19:55)
[2020-11-11] MEDS: cloZAPine 100 MG TAB PO SCH (19:56)
[2020-11-11] MEDS: cloZAPine 25 MG TAB PO SCH (19:56)
[2020-11-11] MEDS: ATORVASTATIN 10 MG TAB PO SCH (19:56)
[2020-11-12] MEDS: LEVOTHYROXINE 50 MCG TAB PO SCH (06:30)
[2020-11-12] MEDS: CHOLECALCIFEROL 25 MCG (1000 IU) TABLET PO SCH (07:38)
[2020-11-12] MEDS: PANTOPRAZOLE 40 MG TABLET PO SCH (07:38)
[2020-11-12] MEDS: hydroCHLOROthiazide 12.5 MG CAP PO SCH (07:39)
[2020-11-12] MEDS: AMMONIUM LACTATE 12% LOTION 225 GM BTL TOPICAL SCH ×2 (07:39→21:01)
--- NOTE | 2020-11-12 14:25 | P.PN ---
Progress Note - Text Progress Note Date: 11/12/20 Clinical Problems: Schizophrenia with multiple episodes currently in an acute episode with disorganized speech, abnormal psychomotor behavior, impaired cognition and manic symptoms. Interim history: I reviewed the medical record review the patient. He was pleasant on approach and denied current problems. His speech tends disorganized and difficult to follow. He is restless but posed no management problem. He is attending therapeutic groups and activities. The therapist described him as intrusive, disorganized and poorly focused. He slept only 1 hour last night. Mental status exam: He presented as a tall bearded male who was pleasant on approach. He made eye contact and appeared to attend to interview. He was not wearing his compression stockings today. He was restless and occasionally pacing the unit. His speech was rapid, spontaneous with increase rhythm and rate. His affect was stable and appropriate. He did not express suicidal ideation, wishes or homicidal ideation. He was not hopeless, helpless or worthless. He did not express clear paranoid ideation or delusions. His thinking was grossly disorganized, incoherent and illogical. He did not appear to be responding to internal stimuli. Assessment: He is severely and persistently mentally ill and moderately improve from admission. Plan: Continue inpatient treatment. Safety precautions. Continue psychotropic medications including Cogentin 1 mg by mouth 3 times a day, clozapine 237.5 mg at bedtime and Depakote ER 1000 mg at bedtime. Gradual titration of clozapine. Repeat CBC with differential weekly. Continue other medications including Lipitor, Rocaltrol, vitamin D3, Colace, HydroDIURIL, Synthroid, Claritin, Protonix and Kenalog. Encourage patient to use his compression stockings. Encouraged continued participation in therapeutic groups and activities. Evaluate clinical status response to treatment daily basis.
[2020-11-12] MEDS: cloZAPine 100 MG TAB PO SCH (20:59)
[2020-11-12] MEDS: ATORVASTATIN 10 MG TAB PO SCH (20:59)
[2020-11-12] MEDS: DIVALPROEX ER 500 MG TAB.ER.24H PO SCH (21:00)
[2020-11-12] MEDS: cloZAPine 25 MG TAB PO SCH (21:00)
[2020-11-13] MEDS: LEVOTHYROXINE 50 MCG TAB PO SCH (06:57)
[2020-11-13] MEDS: AMMONIUM LACTATE 12% LOTION 225 GM BTL TOPICAL SCH ×2 (08:33→20:56)
[2020-11-13] MEDS: hydroCHLOROthiazide 12.5 MG CAP PO SCH (08:33)
--- NOTE | 2020-11-13 15:34 | PN ---
PROGRESS NOTE DATE OF SERVICE: 11/13/2020. CHIEF COMPLAINT: The patient has significant symptoms of psychosis that had been worsening over the past 6 weeks. INTERVAL HISTORY: Patient has been doing fair. He continues pretty much in the same pattern. He had a quiet day yesterday, comes on the unit. He wanders about. He tends to make conversations sometimes to himself, sometimes when others are around. He will make various disconnected comments. He will attend groups. Staff have noted in groups that he does seem to be a little more focused and a little more appropriate in how he manages things in the group. He has expressed some distress about discharge planning issues and the possibility of going to [facility]. Apparently when he first found out about that, he became very distressed where he was screaming, cursing and threatening. He was upset over the weekend regarding this. He slept fairly well last night. Today he has been up. He comes out in the day area. He continues to attend groups. I have not heard him make any specific comments relating to placement. He seems to be in a little quieter mood today as compared to previous days. Staff feel he may still be a little bothered by the idea of the [facility] placement. He did not voice any specific complaints or concerns. He tolerates his psychotropic medications. MENTAL STATUS: Patient gave fair eye contact. He tends to be somewhat restless. He will answer questions though he makes responses that were disconnected from the questions asked. His affect was blunted. His mood reserved. He did not appear to be significantly distressed. He continues to show indications of responding to internal stimuli. He voiced no thoughts of harm. He is oriented to circumstances and surroundings. ASSESSMENT: I will continue the current diagnosis and treatment plan. I will continue psychotropic medications the same. At this point, the primary focus is on coordinating for discharge planning and referral to an an [facility] placement. We will focus on stabilization and discharge planning. MMODL / IJN: [id number] /
[2020-11-13] MEDS: ATORVASTATIN 10 MG TAB PO SCH (20:54)
[2020-11-13] MEDS: DIVALPROEX ER 500 MG TAB.ER.24H PO SCH (20:54)
[2020-11-13] MEDS: cloZAPine 100 MG TAB PO SCH (20:54)
[2020-11-13] MEDS: cloZAPine 25 MG TAB PO SCH (20:54)
[2020-11-14] MEDS: LEVOTHYROXINE 50 MCG TAB PO SCH (06:25)
[2020-11-14] MEDS: PANTOPRAZOLE 40 MG TABLET PO SCH (08:46)
[2020-11-14] MEDS: hydroCHLOROthiazide 12.5 MG CAP PO SCH (08:46)
[2020-11-14] MEDS: AMMONIUM LACTATE 12% LOTION 225 GM BTL TOPICAL SCH ×2 (08:47→20:54)
[2020-11-14] MEDS ORDERED: cloZAPine 25 MG TAB PO ONE (11:00)
[2020-11-14] MEDS: haloperidoL 5 MG TAB PO SCH ×2 (12:52→20:56)
--- NOTE | 2020-11-14 13:49 | PN ---
PROGRESS NOTE DATE OF SERVICE: 11/14/2020. CHIEF COMPLAINT: The patient has significant symptoms of psychosis that had been worsening over the past 6 weeks. INTERVAL HISTORY: Patient continues to do the same. He wanders the unit. His thoughts generally are disorganized. Typically, he makes random comments about one thing or another. He will often make a comment about something and then the next statement he makes is completely disconnected from that one. He does not have any interactive conversations that generally are appropriate. For the most part, his behavior has been in a reasonable range. He will attend groups and has been compliant in groups. He tends to be quiet though apparently will offer some thoughts in group as well. His mood can fluctuate from blunted to bright to inappropriate. He appears to tolerate his psychotropic medications. Patient was in the day area. He gave fair eye contact. He was restless and tended to move about. He did not respond directly to questions. When I would ask a question, he would make random comments that was disconnected from the question asked. He seemed to be in a reasonable mood. He appeared to be comfortable in the milieu. He appears to tolerate his psychotropic medications. MENTAL STATUS: Patient was quite restless. He would move about as we talked. He would respond to questions though his answers were brief and disconnected. As an example: When I first saw him in the morning, I said good morning he made some random comment. I said good morning again, he made another random comments that was different from the first. He did that a total of 5 times. Finally on the 6th time that I said good morning, he responded back to me "good morning." His affect was a little constricted. His mood was quiet. He did not appear to be distressed. He continues to have disorganized and psychotic thinking. He is oriented to his circumstances and surroundings. ASSESSMENT: I will continue the current diagnosis and general treatment plan. I will increase Clozaril. I will increase to 50 mg in the morning and 300 mg at bedtime. In addition, I will start the patient on Haldol 10 mg twice a day. I have a Depakote level pending. His last level on October 30 was 79. There might be consideration for taking him off Depakote since he appears to be on a fairly therapeutic dose of Depakote but has shown no response in terms of any improvement in thought process. In regards to Clozaril dosing it is noted through all of 2019 he was on Clozaril 1000mg plus [place] 600mg daily. I would consider the primary issue impacting his function and thought process would be psychosis. We will focus on stabilization and discharge planning. STANLEY / RATNAN: [id number] / MTDD
[2020-11-14] MEDS: ATORVASTATIN 10 MG TAB PO SCH (20:54)
[2020-11-14] MEDS: DIVALPROEX ER 500 MG TAB.ER.24H PO SCH (20:56)
[2020-11-14] MEDS ORDERED: cloZAPine 100 MG TAB PO SCH (21:00)
[2020-11-14] MEDS ORDERED: cloZAPine 25 MG TAB PO SCH (21:00)
[2020-11-15] MEDS: LEVOTHYROXINE 50 MCG TAB PO SCH (06:11)
[2020-11-15 07:00] LABS: Basophils % (A) 1 %; Eosinophils % (A) 0 %; HCT 38.4 % (39.0-53.0); HGB 12.7 gm/dL (13.0-17.5); Lymphocytes # (A) 1.1 k/uL (1.0-4.8); Lymphocytes % (A) 23 %; MCH 29.4 pg (25.0-35.0); MCHC 33.1 g/dL (31.0-37.0); MCV 88.9 fL (80.0-100.0); Mean Platelet Volume 7.6; Monocytes # (A) 0.3 k/uL (0-1.0); Monocytes % (A) 6 %; Neutrophils # (A) 3.3 k/uL (1.3-7.7); Neutrophils % (A) 70 %; Platelet Count 126 k/uL (150-450); RBC 4.32 m/uL (4.30-5.90); RDW 14.6 % (11.5-15.5); WBC 4.7 k/uL (3.8-10.6)
[2020-11-15] MEDS: AMMONIUM LACTATE 12% LOTION 225 GM BTL TOPICAL SCH ×2 (08:50→23:07)
[2020-11-15] MEDS: CHOLECALCIFEROL 25 MCG (1000 IU) TABLET PO SCH (08:52)
[2020-11-15] MEDS: haloperidoL 5 MG TAB PO SCH ×2 (08:52→20:53)
[2020-11-15] MEDS: hydroCHLOROthiazide 12.5 MG CAP PO SCH (08:53)
[2020-11-15] MEDS: cloZAPine 25 MG TAB PO SCH (13:39)
--- NOTE | 2020-11-15 15:28 | PN ---
PROGRESS NOTE DATE OF SERVICE: 11/15/2020. CHIEF COMPLAINT: The patient has significant symptoms of psychosis that had been worsening over the past 6 weeks. INTERVAL HISTORY: Patient has been doing fair. He continues about the same. He wanders the unit. He will attend groups. He does not really interact with anyone in particular, though he will approach people and make various comments. It is noted today he seemed just a little more organized in his thinking where he could communicate some ideas in a little more rational way. He tolerates his psychotropic medications. MENTAL STATUS: Patient stood through the interview. He would tend to rock back and forth. He gave fair eye contact at best. He would make some disconnected statements. It was noted that he tended to talk in phrases, though he seemed to put a few more phrases together in a more coherent manner. His affect was a little constricted though not significantly so. He had a quiet mood. He did not appear to be distressed. He continues to show response to internal stimuli. He was oriented to his circumstances and surroundings. ASSESSMENT: I will continue the current diagnosis and treatment plan. I will continue psychotropic medications, though we will titrate up on Clozaril. I will increase his dose to 50 mg in the morning and 350 mg at bedtime. He will continue Haldol 10 mg twice a day. A Depakote level is pending. We will focus on stabilization and discharge planning. STANLEY / LEWIS: [id number] /
[2020-11-15] MEDS: ATORVASTATIN 10 MG TAB PO SCH (20:52)
[2020-11-15] MEDS: cloZAPine 100 MG TAB PO SCH (21:18)
[2020-11-15] MEDS: DIVALPROEX ER 500 MG TAB.ER.24H PO SCH (21:53)
[2020-11-16] MEDS: LEVOTHYROXINE 50 MCG TAB PO SCH (06:14)
[2020-11-16] MEDS: cloZAPine 25 MG TAB PO SCH (08:41)
[2020-11-16] MEDS: hydroCHLOROthiazide 12.5 MG CAP PO SCH (08:42)
[2020-11-16] MEDS: PANTOPRAZOLE 40 MG TABLET PO SCH (08:42)
[2020-11-16] MEDS: haloperidoL 5 MG TAB PO SCH ×2 (08:42→20:23)
[2020-11-16] MEDS: AMMONIUM LACTATE 12% LOTION 225 GM BTL TOPICAL SCH ×2 (08:43→21:18)
--- NOTE | 2020-11-16 09:53 | PN ---
PROGRESS NOTE DATE OF SERVICE: 11/16/2020 CHIEF COMPLAINT: The patient has significant symptoms of psychosis that had been worsening over the past 6 weeks. INTERVAL HISTORY: The patient has been doing fairly well. He had a quiet day yesterday. He comes out in the day area. He continues with his usual range of activities for the most part. He wanders the unit. He will initiate some conversation. Typically he makes some random comments and it is not always clear what he may be communicating. He attended all the groups yesterday. Sometimes he may be a little intrusive in the groups. He seemed to be comfortable through the evening time. He slept fairly well last night. Today he has been up. He comes out in the day area. It is noted that today he seems to be communicating a little more clearly. He had no complaints or concerns. He tolerates his psychotropic medications. MENTAL STATUS: Patient gave fair eye contact. He was a little restless and tended to rock back and forth on his legs in his usual manner. He answered questions with direct responses. He was able to answer in complete sentences. It was noteworthy that his responses were appropriate for the questions asked and also he did not make any random disconnected comments. He had a quiet calm manner. His affect was a little constricted. He was friendly. His mood was reserved, though not clearly down or depressed. He did not appear to be distressed. He continues to show a response to internal stimuli. He voiced no thoughts of harm. Cognition was clear. ASSESSMENT: I will continue the current diagnosis and treatment plan. I will continue psychotropic medications the same. We continue to wait on a Depakote level where the blood was drawn 2 days ago. I will have staff check with lab on this issue. He has been tolerating the increase in his Clozaril. His white cell count has been stable. We continue to work on discharge planning issues and an appropriate and setting up an appropriate living setting. We will focus on stabilization and discharge planning. MMMORENOL / RATNAN: [id number] /
[2020-11-16] MEDS: cloZAPine 100 MG TAB PO SCH (20:22)
[2020-11-16] MEDS: ATORVASTATIN 10 MG TAB PO SCH (20:23)
[2020-11-16] MEDS: DIVALPROEX ER 500 MG TAB.ER.24H PO SCH (20:23)
[2020-11-17 07:08] VITALS: RESP 18
[2020-11-17] MEDS: LEVOTHYROXINE 50 MCG TAB PO SCH (09:00)
[2020-11-17] MEDS: hydroCHLOROthiazide 12.5 MG CAP PO SCH (09:00)
[2020-11-17] MEDS: cloZAPine 25 MG TAB PO SCH ×2 (09:00→20:47)
[2020-11-17] MEDS: haloperidoL 5 MG TAB PO SCH ×2 (09:00→20:06)
[2020-11-17] MEDS: CHOLECALCIFEROL 25 MCG (1000 IU) TABLET PO SCH (09:01)
[2020-11-17] MEDS: AMMONIUM LACTATE 12% LOTION 225 GM BTL TOPICAL SCH ×2 (09:05→21:35)
--- NOTE | 2020-11-17 18:53 | PN ---
PROGRESS NOTE DATE OF SERVICE: 11/17/2020. CHIEF COMPLAINT: The patient had significant symptoms of psychosis that had been worsening over the past 6 weeks. INTERVAL HISTORY: Patient has been doing fair. He pretty much maintains at about the same level. He comes out in the day area. He wanders about the unit. He will attend groups. He tends to be restless in groups. Overall he seems to be a little more contained in his manner where he is needing less in the way of any redirection for getting off track. He slept fairly well last night. Today he has been up and continues in the same vein. He attended groups today. He seems to be in reasonable mood. He tends to make various random comments. Some of the time he actually has some limited though coherent interaction. He tolerates his psychotropic medications. MENTAL STATUS EXAM: Patient was a somewhat restless. He stood in his usual manner, he rocks some. He made some random comments. He also responded to a few direct questions appropriately. He tended to have a blunted affect. His mood was quiet though not down or depressed. He had a relaxed manner. He did not appear to be distressed. He continues to show response to internal stimuli. ASSESSMENT: I will continue the current diagnosis and treatment plan. I will increase Clozaril to 50 mg in the morning and 425 mg in the evening, which is a total 75 mg, increase from his previous dose. WBC counts have been stable. He did have a Depakote level sent out so that should be back in the next day or so. It is uncertain whether he benefits at all from Depakote and the question would be whether it would be reasonable to look at tapering him off altogether. We continue to work towards setting him up for a stable housing situation in the community. We will focus on stabilization and discharge planning. MMODL / IJN: [id number] /
[2020-11-17] MEDS: cloZAPine 100 MG TAB PO SCH (20:06)
[2020-11-17] MEDS: ATORVASTATIN 10 MG TAB PO SCH (20:07)
[2020-11-17] MEDS: DIVALPROEX ER 500 MG TAB.ER.24H PO SCH (20:07)
[2020-11-18] MEDS: LEVOTHYROXINE 50 MCG TAB PO SCH (06:12)
[2020-11-18] MEDS: cloZAPine 25 MG TAB PO SCH ×2 (08:34→19:58)
[2020-11-18] MEDS: PANTOPRAZOLE 40 MG TABLET PO SCH (08:34)
[2020-11-18] MEDS: haloperidoL 5 MG TAB PO SCH ×2 (08:35→19:57)
[2020-11-18] MEDS: CHOLECALCIFEROL 25 MCG (1000 IU) TABLET PO SCH (08:35)
[2020-11-18] MEDS: hydroCHLOROthiazide 12.5 MG CAP PO SCH (08:35)
[2020-11-18] MEDS: AMMONIUM LACTATE 12% LOTION 225 GM BTL TOPICAL SCH ×2 (08:36→19:58)
--- NOTE | 2020-11-18 14:24 | P.PN ---
Progress Note - Text Progress Note Date: 11/18/20 Interval History: Patient was seen in the room and was directable and agreeable to speak with chart writer . Patient presented to the hospital on 10/17/2020 presenting with significant symptoms of psychosis that have been gradually worsening over the past 6 weeks. Patient denies any side effects from the medications and has been compliant with meds. Mental Status Exam: General Appearance: Patient appears to be stated age is alert, directable, and cooperative. Behavior: Patient is calmly seated without any agitated behavior. Speech: Patient's speech is fluent and nonpressured. Mood/Affect: Mood is improving mildly, affect is congruent and constricted. Suicidality/Homicidality: Patient denies having any suicidal or homicidal ideation intent or plan. Perceptions: Patient denies any visual hallucinations and denies any auditory hallucinations Though content/process: There is no evidence of any delusional thought content and thought process is linear and goal-directed. Memory and concentration: AOX3, grossly intact for the purposes of this session Judgment and insight: Improving mildly Assessment Patient continues to maintain the status quo Plan: -Patient continues to meet criteria for inpatient psychiatric admission for symptom stabilization and safety. -Medications: Continue medication as before -When necessary Ativan and Haldol for agitation/aggression. -SW on board for discharge planning. Encouraged the patient to participate in milieu.
[2020-11-18] MEDS: DIVALPROEX ER 500 MG TAB.ER.24H PO SCH (19:57)
[2020-11-18] MEDS: ATORVASTATIN 10 MG TAB PO SCH (19:57)
[2020-11-18] MEDS: cloZAPine 100 MG TAB PO SCH (19:58)
[2020-11-19] MEDS: LEVOTHYROXINE 50 MCG TAB PO SCH (06:24)
[2020-11-19] MEDS: AMMONIUM LACTATE 12% LOTION 225 GM BTL TOPICAL SCH ×2 (08:22→20:40)
[2020-11-19] MEDS: haloperidoL 5 MG TAB PO SCH ×2 (08:23→20:37)
[2020-11-19] MEDS: hydroCHLOROthiazide 12.5 MG CAP PO SCH (08:23)
[2020-11-19] MEDS: cloZAPine 25 MG TAB PO SCH ×2 (08:23→20:38)
--- NOTE | 2020-11-19 10:51 | P.PN ---
Progress Note - Text Progress Note Date: 11/19/20 Interval History: Patient was seen in the room and was directable and agreeable to speak with teletypewriter operator . Patient was expressing that he felt fine but did have tangential thought. He would go in and out of periods making sense . At this time patient denies any suicidal or homical ideations, intent or plan. Patient denies any auditory, visual hallucinations and denies any paranoia or delusions. Patient denies any side effects from the medications and has been compliant with meds. Mental Status Exam: General Appearance: Patient appears to be stated age is alert, directable, and cooperative. Behavior: Patient is calmly seated without any agitated behavior. Speech: Patient's speech is fluent and nonpressured. Mood/Affect: Mood is improving mildly, affect is congruent and constricted. Suicidality/Homicidality: Patient denies having any suicidal or homicidal ideation intent or plan. Perceptions: Patient denies any visual hallucinations and denies any auditory hallucinations Though content/process: There is evidence of delusional thought content . Memory and concentration: AOX3, grossly intact for the purposes of this session Judgment and insight: Improving mildly Assessment: Schizophrenia Plan: -Patient continues to meet criteria for inpatient psychiatric admission for symptom stabilization and safety. -Medications: Continue medication as before -When necessary Ativan and Haldol for agitation/aggression. -SW on board for discharge planning. Encouraged the patient to participate in milieu.
[2020-11-19] MEDS: cloZAPine 100 MG TAB PO SCH (20:37)
[2020-11-19] MEDS: ATORVASTATIN 10 MG TAB PO SCH (20:37)
[2020-11-19] MEDS: DIVALPROEX ER 500 MG TAB.ER.24H PO SCH (20:38)
[2020-11-20] MEDS: LEVOTHYROXINE 50 MCG TAB PO SCH (06:37)
[2020-11-20] MEDS: haloperidoL 5 MG TAB PO SCH ×2 (08:39→19:58)
[2020-11-20] MEDS: hydroCHLOROthiazide 12.5 MG CAP PO SCH (08:40)
[2020-11-20] MEDS: CHOLECALCIFEROL 25 MCG (1000 IU) TABLET PO SCH (08:40)
[2020-11-20] MEDS: PANTOPRAZOLE 40 MG TABLET PO SCH (08:40)
[2020-11-20] MEDS: cloZAPine 25 MG TAB PO SCH ×2 (08:40→19:58)
[2020-11-20] MEDS: AMMONIUM LACTATE 12% LOTION 225 GM BTL TOPICAL SCH ×2 (08:45→19:56)
--- NOTE | 2020-11-20 14:09 | P.PN ---
Progress Note - Text Progress Note Date: 11/20/20 Interval History: Patient was seen wandering the hallways and was directable and agreeable to speak with information writer in the office. Patient reports that he is feeling "well." He is currently not reporting any suicidal or homicidal ideation, intention, and/or plan. He is not reporting any auditory or visual hallucinations at this time. He is denying any paranoia or other delusions. He continues to go on tangents regarding any subject that is brought up with him but he is much more linear today. He has been tolerating his medications well and has been adherent. He denies any issues with chest pain, shortness of breath, constipation, or diarrhea. Patient expresses a strong desire to return back to his apartment and is hesitant and resistant to be transferred to any snf. Mental Status Exam: General Appearance: Patient appears to be stated age is alert, directable, and cooperative. Behavior: Patient is calmly seated without any agitated behavior. Speech: Patient's speech is fluent and nonpressured. Continues to be hyperverbal and tangential but less than before. Mood/Affect: Mood is improving mildly, affect is congruent and expansive. Suicidality/Homicidality: Patient denies having any suicidal or homicidal ideation intent or plan. Perceptions: Patient denies any visual hallucinations and denies any auditory hallucinations Though content/process: There is no evidence of any delusional thought content and thought process is linear and goal-directed. Memory and concentration: AOX3, grossly intact for the purposes of this session Judgment and insight: Improving mildly Vital Signs Temp 96.8 F L 11/20/20 06:16 Pulse 111 H 11/20/20 06:16 Resp 18 11/20/20 06:16 BP 118/69 11/20/20 06:16 Pulse Ox 100 11/14/20 12:11 Intake & Output 11/19/20 11/20/20 11/20/20 18:59 06:59 18:59 Weight 86.2 kg Assessment Schizophrenia Plan: -Patient continues to meet criteria for inpatient psychiatric admission for symptom stabilization and safety. Patient has signed adult voluntary form. Patient has a guardian. -Discharge planning ongoing. Consider Skilled Nursing placement due to severity of mental illness. -Medications: Continue Clozaril 425 mg by mouth at bedtime, 50 mg by mouth daily for psychosis Continue Haldol 10 mg by mouth twice a day for psychosis Continue Depakote 1000 mg by mouth at bedtime for mood stabilization. Continue Cogentin 1 mg by mouth 3 times a day when necessary for EPS -Continue to encourage compression stockings and recommended medical management. -When necessary Ativan and Haldol for agitation/aggression. -SW on board for discharge planning. Encouraged the patient to participate in milieu. -Anticipate discharge for tomorrow
[2020-11-20] MEDS: ATORVASTATIN 10 MG TAB PO SCH (19:58)
[2020-11-20] MEDS: DIVALPROEX ER 500 MG TAB.ER.24H PO SCH (19:59)
[2020-11-20] MEDS: cloZAPine 100 MG TAB PO SCH (19:59)
[2020-11-21] MEDS: LORazepam 1 MG TAB PO PRN (02:03)
[2020-11-21] MEDS: LEVOTHYROXINE 50 MCG TAB PO SCH (06:11)
[2020-11-21 07:26] VITALS: BP 134/80; PULSE 96; TEMP 96.5
[2020-11-21] MEDS: hydroCHLOROthiazide 12.5 MG CAP PO SCH (08:49)
[2020-11-21] MEDS: AMMONIUM LACTATE 12% LOTION 225 GM BTL TOPICAL SCH (08:49)
[2020-11-21] MEDS: haloperidoL 5 MG TAB PO SCH (08:49)
[2020-11-21] MEDS: cloZAPine 25 MG TAB PO SCH (08:49)
--- NOTE | 2020-11-21 14:10 | P.DS ---
Providers Date of admission: 10/17/20 19:03 Expected date of discharge: 11/21/20 Attending physician: Jay Jay Pitts MD Consults: 10/17/20 20:54 Consult Physician Routine Consulting Provider: Brent Physician Consult Reason/Comments: H&P and medical Do you want consulting provider notified?: Yes Primary care physician: [facility] - Discharge Diagnosis(es) (1) Schizophrenia Status: Acute Priority: High Hospital Course: Admission HPI: Patient is a single, unemployed, 60-year-old male with a significant history of treatment-resistant schizophrenia who is admitted for psychosis Patient presented to the hospital on 10/17/2020 presenting with significant symptoms of psychosis that have been gradually worsening over the past 6 weeks. The patient wa sick 6 weeks ago with a pleural effusion and and was found to have significant issues regarding his medications including a clozaril level being in the 3000s prompting his clozaril to be decreased. Furthermore, the patient more recently has had his lithium decreased due to worsening kidney function. The patient has also had a recent bowel obstruction. The patient also received prolixin decanoate 50 mg IM prior to admission onto this mental health unit. The patient is currently very disorganized and is a poor historian. He is nonsensical in his speach and tells this provider, "I am glad to meet you! How do you like this time zone? You should try the rhubarb here." Patient has a very significant history of treatment-resistant schizophrenia. He has been on multiple psychiatric medications in the past including Prolixin, Prolixin decanoate, Cogentin, lithium and clozairl. He was last admitted on to this psychiatric unit in November 2015. He has had multiple inpatient psychiatric admissions including previous state hospitalization in [place]. He currently follows with Dr. Olson at [facility]. Hospital course: Upon admission to the unit patient was initially very disorganized, hyperverbal, pressured, and nonsensical. Patient was however directable and agreeable to commence treatment. Patient got along well with other patients on the unit and followed unit protocol. The patient was started on his home medication of clozapine at 200 mg as well as Depakote for mood stabilization. He was initially on lithium which was discontinued as the patient had a history of worsening kidney function. Prior to this admission, the patient also recently Prolixin Decanoate 50 mg IM on 10/17/2020. As the patient's Clozaril was gradually titrated to target his psychotic symptoms, the patient have an episode of agranulocytosis with absolute neutrophil count of 0.9 on 10/27/20. The medication was held at its dose of 200 mg. Eventually, the patient displayed gradual improvement of his neutrophil count and Clozaril was can to need to titrate to an increased dose to address his ongoing psychotic symptoms. Furthermore, Haldol was added to his regimen. The patient gradually displayed significant improvement in regards to his psychotic symptoms became more organized and linear conversation. He continued to display some hyperverbal tendencies as well as tangentiality but overall did not endorse any grossly disorganized behavior or speech. The patient was also evaluated by his guardian and [facility] to coordinate placement. The patient did express strong desire to return back to his normal apartment but it was deemed necessary that the patient receive a more closely monitored situation. On the day of discharge, the patient is not reporting any significant side effects of his medications. He is not reporting any suicidal or homicidal ideation, intention, and/or plan. He is not reporting any auditory or visual hallucinations. He is denying any paranoia or other delusions. He is agreeable to taking medications and following up with his outpatient appointments for both mental health and for primary care. Mental status exam: General Appearance: Patient appears to be stated age is alert, pleasant, and cooperative. Patient is in no acute distress and has fair hygiene and grooming Behavior: Patient is calmly seated without any agitated behavior. Speech: Patient's speech is fluent and nonpressured. Mood/Affect: Patient reports their mood is ""kind of nervous." congruent and but euthymic Suicidality/Homicidality: Patient denies having any suicidal or homicidal ideation intent or plan. Perceptions: Patient denies any auditory or visual hallucinations. Though content/process: There is no evidence of any delusional thought content and thought process is linear and goal-directed. He is future oriented. Memory and concentration: AOX3, grossly intact for the purposes of this session. Can spell "WORLD" backwards correctly. Judgment and insight: Improved with guarded prognosis Vital Signs Temp 96.5 F L 11/21/20 07:24 Pulse 96 11/21/20 07:24 Resp 18 11/21/20 07:24 BP 134/80 11/21/20 07:24 Pulse Ox 100 11/21/20 07:24 Impression: Schizophrenia Plan: -Continue with discharge today as patient has improved and stabilized psychiatrically and is not currently an imminent threat to himself and/or others. Patient will remain at chronically elevated risk for harm to self and/or others due to his severity of his treatment schizophrenia. -Continue medications: Clozaril 425 mg by mouth at bedtime, 50 mg by mouth daily for psychosis Depakote ER 1000 mg by mouth at bedtime for mood stabilization Cogentin 1 mg by mouth 3 times a day when necessary for EPS -Patient was counseled on the need for medication compliance and appropriate follow-up at mental health and also primary care for medical issues. Patient verbalized understanding and agreed. -Social work to arrange for and conduct family meeting to ensure safety upon discharge and answer any questions/concerns. Social work also to arrange for patients follow up appointments with [facility] for psychiatric care along with follow up with primary care provider. -Patient counseled on abstaining from recreational drugs and marijuana and alcohol. Was informed/educated on the adverse effects on their physical and mental health. Patient verbally agreed and understood. -Patient was instructed to return to the hospital or seek immediate medical care if their psychiatric or medical symptoms do worsen or reoccur. -Psychoeducation and supportive therapy provided to patient. Risks and benefits of pharmacological treatment versus the risks and benefits of nontreatment weight and discussed. Informed consent discussion held. Common side effects of psychotropics discussed such as, but not limited to headache, GI disturbance, sexual dysfunction, movement disorders, sedation, and orthostatic hypotension. Life threatening and blackbox warnings of prescribed medications also discussed. Potential risks of operating a vehicle or heavy machinery discussed with patient at length. Advised on importance of compliance and a reliable and responsible manner. Patient advised to review FDA consumer labeling of all medications prior to taking. Patient verbalized understanding of potential risks, and agrees with current treatment plan. Patient advised to medically contact physician/emergency personnel if any acute changes in condition occur. Allergies Allergy/AdvReac Type Severity Reaction Status Date / Time codeine Allergy Rash/Hives/ Verified 10/17/20 14:03 Cough Penicillins Allergy Rash/Hives Verified 10/17/20 14:03 Laboratory Results WBC 4.7 k/uL (3.8-10.6) 11/15/20 06:19 RBC 4.32 m/uL (4.30-5.90) 11/15/20 06:19 Hgb 12.7 gm/dL (13.0-17.5) L 11/15/20 06:19 Hct 38.4 % (39.0-53.0) L 11/15/20 06:19 MCV 88.9 fL (80.0-100.0) 11/15/20 06:19 MCH 29.4 pg (25.0-35.0) 11/15/20 06:19 MCHC 33.1 g/dL (31.0-37.0) 11/15/20 06:19 RDW 14.6 % (11.5-15.5) 11/15/20 06:19 Plt Count 126 k/uL (150-450) L 11/15/20 06:19 MPV 7.6 11/15/20 06:19 Neutrophils % 70 % 11/15/20 06:19 Lymphocytes % 23 % 11/15/20 06:19 Monocytes % 6 % 11/15/20 06:19 Eosinophils % 0 % 11/15/20 06:19 Basophils % 1 % 11/15/20 06:19 Neutrophils # 3.3 k/uL (1.3-7.7) 11/15/20 06:19 Lymphocytes # 1.1 k/uL (1.0-4.8) 11/15/20 06:19 Monocytes # 0.3 k/uL (0-1.0) 11/15/20 06:19 Eosinophils # 0.0 k/uL (0-0.7) 11/15/20 06:19 Basophils # 0.0 k/uL (0-0.2) 11/15/20 06:19 Sodium 142 mmol/L (137-145) 10/17/20 13:25 Potassium 4.6 mmol/L (3.5-5.1) 10/17/20 13:25 Chloride 106 mmol/L (98-107) 10/17/20 13:25 Carbon Dioxide 28 mmol/L (22-30) 10/17/20 13:25 Anion Gap 8 mmol/L 10/17/20 13:25 BUN 16 mg/dL (9-20) 10/17/20 13:25 Creatinine 1.26 mg/dL (0.66-1.25) H 10/17/20 13:25 Est GFR (CKD-EPI)AfAm 71 (>60 ml/min/1.73 sqM) 10/17/20 13:25 Est GFR (CKD-EPI)NonAf 61 (>60 ml/min/1.73 sqM) 10/17/20 13:25 Glucose 98 mg/dL (74-99) 10/17/20 13:[address] Glu mg/dL 94 10/17/20 13:25 Hemoglobin A1c 4.9 % (4.0-6.0) 10/17/20 13:25 Calcium 9.5 mg/dL (8.4-10.2) 10/17/20 13:25 Triglycerides 64.0 mg/dL (0.0-149.0) 10/17/20 13:25 Cholesterol 104 mg/dL (0-200) 10/17/20 13:25 LDL Cholesterol, Calc 49.2 mg/dL (0.0-131.0) 10/17/20 13:25 VLDL Cholesterol, Calc 12.80 mg/dL (5.00-40.00) 10/17/20 13:25 HDL Cholesterol 42.0 mg/dL (40.0-60.0) 10/17/20 13:25 Cholesterol/HDL Ratio 2.48 10/17/20 13:25 TSH 1.350 mIU/L (0.465-4.680) 10/17/20 13:25 Urine Color Yellow 10/17/20 13:25 Urine Appearance Clear (Clear) 10/17/20 13:25 Urine pH 6.0 (5.0-8.0) 10/17/20 13:25 Ur Specific [place] 1.016 (1.001-1.035) 10/17/20 13:25 Urine Protein Negative (Negative) 10/17/20 13:25 Urine Glucose (UA) Negative (Negative) 10/17/20 13:25 Urine Ketones Negative (Negative) 10/17/20 13:25 Urine Blood Negative (Negative) 10/17/20 13:25 Urine Nitrite Negative (Negative) 10/17/20 13:25 Urine Bilirubin Negative (Negative) 10/17/20 13:25 Urine Urobilinogen <2.0 mg/dL (<2.0) 10/17/20 13:25 Ur Leukocyte Esterase Negative (Negative) 10/17/20 13:25 Urine Opiates Screen Not Detected (NotDetected) 10/17/20 13:25 Ur Oxycodone Screen Not Detected (NotDetected) 10/17/20 13:25 Urine Methadone Screen Not Detected (NotDetected) 10/17/20 13:25 Ur Propoxyphene Screen Not Detected (NotDetected) 10/17/20 13:25 Ur Barbiturates Screen Not Detected (NotDetected) 10/17/20 13:25 Valproic Acid 78.9 ug/mL 10/30/20 10:01 Free Valproic Acid 5.0 mg/L (4.8-17.3) 11/14/20 11:15 U Tricyclic Antidepress Not Detected (NotDetected) 10/17/20 13:25 Ur Phencyclidine Scrn Not Detected (NotDetected) 10/17/20 13:25 Clozapine 159 ng/mL (200-700) L 10/17/20 21:20 Norclozapine 149 ng/mL (200-700) L 10/17/20 21:20 Ur Amphetamines Screen Not Detected (NotDetected) 10/17/20 13:25 U Methamphetamines Scrn Not Detected (NotDetected) 10/17/20 13:25 U Benzodiazepines Scrn Not Detected (NotDetected) 10/17/20 13:25 Schneider 0.3 mmol/L 10/17/20 21:20 Urine Cocaine Screen Not Detected (NotDetected) 10/17/20 13:25 U Marijuana (THC) Screen Not Detected (NotDetected) 10/17/20 13:25 Coronavirus (PCR) Not Detected (Not Detectd) 10/17/20 16:37 Patient Condition at Discharge: Stable Plan - Discharge Summary Discharge Rx Participant: No New Discharge Prescriptions: New cloZAPine [Clozaril] 400 mg PO HS 30 Days tab cloZAPine [Clozaril] 25 mg PO HS 30 Days tab Docusate [Colace] 200 mg PO BID PRN 30 Days cap PRN Reason: Constipation Divalproex ER [Depakote ER] 1,000 mg PO HS 30 Days tab.er.24h Ammonium Lactate Lotion [Lac-Hydrin 12% Lotion] 1 applic TOPICAL BID 30 Days applic Pantoprazole [Protonix] 40 mg PO Q48H 30 Days tablet. calcitrioL [Rocaltrol] 0.25 mcg PO Q7D 30 Days cap Levothyroxine Sodium [Synthroid] 50 mcg PO DAILY@0630 30 Days tab Cholecalciferol [Vitamin D3 (25 Mcg = 1000 Iu)] 125 mcg PO MoWeFr@0900 30 Days tablet cloZAPine [Clozaril] 50 mg PO DAILY 30 Days tab Benztropine Mesylate [Cogentin] 1 mg PO TID PRN 30 Days tab PRN Reason: Extrapyramidal Effects haloperidoL [Haldol] 10 mg PO BID 30 Days tab hydroCHLOROthiazide [Hydrodiuril] 12.5 mg PO DAILY 30 Days cap Triamcinolone 0.1% Ointment [Kenalog] 1 applic TOPICAL BID PRN 30 Days applic PRN Reason: rash on legs Atorvastatin [Lipitor] 10 mg PO HS 30 Days tab Discontinued Atorvastatin [Lipitor] 10 mg PO HS #30 tab Schneider Carbonate 300 mg PO HS Cholecalciferol (Vitamin D3) [Vitamin D3 (5000 Iu)] 125 mcg PO MOWEFR Triamcinolone 0.1% Ointment [Kenalog] 1 applic TOPICAL BID PRN PRN Reason: rash on legs calcitrioL [Rocaltrol] 0.25 mcg PO Q7D Benztropine Mesylate [Cogentin] 1 mg PO TID Levothyroxine Sodium [Synthroid] 50 mcg PO DAILY Pantoprazole [Protonix] 40 mg PO Q48H Cetirizine HCl 10 mg PO DAILY PRN PRN Reason: Allergy Symptoms Col-Rite 250mg 1 cap PO BID PRN PRN Reason: Constipation fluPHENAZine decanoate [Prolixin Decanoate] 50 mg IM TU Hydrochlorothiazide [hydroCHLOROthiazide] 12.5 mg PO DAILY Ammonium Lactate Lotion [Lac-Hydrin 12% Lotion] 1 applic TOPICAL BID cloZAPine [Clozaril] 200 mg PO HS Discharge Medication List Ammonium Lactate Lotion [Lac-Hydrin 12% Lotion] 1 applic TOPICAL BID 30 Days applic 11/20/20 [Rx] Atorvastatin [Lipitor] 10 mg PO HS 30 Days tab 11/20/20 [Rx] Benztropine Mesylate [Cogentin] 1 mg PO TID PRN 30 Days tab 11/20/20 [Rx] Cholecalciferol [Vitamin D3 (25 Mcg = 1000 Iu)] 125 mcg PO MoWeFr@0900 30 Days tablet 11/20/20 [Rx] Divalproex ER [Depakote ER] 1,000 mg PO HS 30 Days tab.er.24h 11/20/20 [Rx] Docusate [Colace] 200 mg PO BID PRN 30 Days cap 11/20/20 [Rx] Levothyroxine Sodium [Synthroid] 50 mcg PO DAILY@0630 30 Days tab 11/20/20 [Rx] Pantoprazole [Protonix] 40 mg PO Q48H 30 Days tablet. 11/20/20 [Rx] Triamcinolone 0.1% Ointment [Kenalog] 1 applic TOPICAL BID PRN 30 Days applic 11/20/20 [Rx] calcitrioL [Rocaltrol] 0.25 mcg PO Q7D 30 Days cap 11/20/20 [Rx] cloZAPine [Clozaril] 25 mg PO HS 30 Days tab 11/20/20 [Rx] cloZAPine [Clozaril] 50 mg PO DAILY 30 Days tab 11/20/20 [Rx] cloZAPine [Clozaril] 400 mg PO HS 30 Days tab 11/20/20 [Rx] haloperidoL [Haldol] 10 mg PO BID 30 Days tab 11/20/20 [Rx] hydroCHLOROthiazide [Hydrodiuril] 12.5 mg PO DAILY 30 Days cap 11/20/20 [Rx] Follow up Appointment(s)/Referral(s): [facility] [Outside] - 11/21/20 9:00 am (11/21@ 9am Meeting on unit with Nga prior to D/C 11/24 @ 12p Nga) Glenys Betts DO [STAFF PHYSICIAN] - 1 Week [facility] [Primary Care Provider] - 1-2 days Patient Instructions/Handouts: Psychotic Disorder (DC) Activity/Diet/Wound Care/Special Instructions: Activity and diet as tolerated. Avoid the use of street drugs and alcohol. Take all medications as prescribed. When you are in need of refills on your medications please contact your medical provider and/or outpatient psychiatrist to have this done. Please go to scheduled outpatient appointment for aftercare treatment. If symptoms return or become worse, call the crisis line at and/or go to the nearest emergency room for evaluation. [place] when up and walking. Discharge Disposition: HOME SELF-CARE
== END 2020-11-21 09:38 | disposition home or self-care (01) | DRG 885 ==
LOC: EC 12:37 → 3MHU 19:03
PROVIDERS: ADMIT Psychiatry & Neurology Psychiatry; ATTEND Psychiatry & Neurology Psychiatry
DX: F20.9 Schizophrenia, unspecified (principal); I13.0 Hypertensive heart and chronic kidney disease with heart failure and stage 1 through stage 4 chronic kidney disease, or unspecified chronic kidney disease; Z79.890 Hormone replacement therapy; Z82.49 Family history of ischemic heart disease and other diseases of the circulatory system; N18.30 Chronic kidney disease, stage 3 unspecified; E78.5 Hyperlipidemia, unspecified; F31.9 Bipolar disorder, unspecified; Z87.891 Personal history of nicotine dependence; Z20.822 Contact with and (suspected) exposure to COVID-19; Z88.5 Allergy status to narcotic agent; Z88.0 Allergy status to penicillin; R14.0 Abdominal distension (gaseous); I50.9 Heart failure, unspecified; K21.9 Gastro-esophageal reflux disease without esophagitis; R45.850 Homicidal ideations; D70.9 Neutropenia, unspecified
CPT/HCPCS: 36415; 74018; 80048; 80061; 80159; 80164; 80165; 80178; 80306; 81003; 82075; 83036; 84443; 85025; 87635; 99285

== ENCOUNTER 2023-05-06 10:29 | Inpatient (IN) | payer MEDICARE, OTHER ==
[2023-05-06] MEDS ORDERED: SODIUM CHLORIDE 0.9% 1,000 ML IV STA (10:36)
--- NOTE | 2023-05-06 10:42 | ED ---
Abdominal Pain HPI - General Chief Complaint: Abdominal Pain Stated Complaint: Abd Pain Time Seen by Provider: 05/06/23 10:30 Source: patient, EMS, RN notes reviewed Mode of arrival: EMS Limitations: no limitations - History of Present Illness Initial Comments: Patient is a 62-year-old male presented ER with chief complaint of abdominal distention. Patient states his abdomen has been distended for the past year. Patient states he has had abdominal surgeries by Dr. York in the past. She states he's last bowel movement was last night and the first part was solid. Patient states he is passing gas. Patient rates his pain a 3 out of 10. Patient reports he did eat cereal this morning and is having a slightly decreased appetite. Patient denies any nausea vomiting. Patient states he has been having fevers but is one sure of the numbers. Patient denies any chills, chest pain, shortness of breath, dysuria, or peripheral edema. According to EMS, patient has schizophrenia and is a resident at a care home. Patient was seen at [facility] for abdominal distention and discharged recently. Patient presents here today for abdominal distention and schizophrenia. They state he hasn't been talking as much as normal. - Related Data Home Medications Medication Instructions Recorded Confirmed Acetaminophen [Tylenol] 650 mg PO Q4H PRN 05/06/23 05/06/23 Cholecalciferol [Vitamin D3 (125 125 mcg PO MOWEFR 05/06/23 05/06/23 Mcg = 5000 Iu)] [place] Carbonate 300 mg PO HS 05/06/23 05/06/23 Pantoprazole [Protonix] 40 mg PO Q2D 05/06/23 05/06/23 Sennosides/Docusate Sodium [Senna 2 tab PO HS 05/06/23 05/06/23 Plus 8.6-50 mg Tablet] Triamcinolone 0.1% Ointment 1 applic TOPICAL BID PRN 05/06/23 05/06/23 [Kenalog 0.1% Ointment] calcitrioL [Rocaltrol] 0.25 mcg PO WE 05/06/23 05/06/23 guaiFENesin [guaiFENesin Oral 200 mg PO Q4H PRN 05/06/23 05/06/23 Solution] polyethylene glycoL 3350 [Miralax] 17 gm PO BID 05/06/23 05/06/23 Previous Rx's Medication Instructions Recorded Atorvastatin [Lipitor] 10 mg PO HS 30 Days tab 11/20/20 Divalproex ER [Depakote ER] 1,000 mg PO HS 30 Days tab.er.24h 11/20/20 Levothyroxine Sodium [Synthroid] 50 mcg PO DAILY@0630 30 Days tab 11/20/20 cloZAPine [Clozaril] 25 mg PO HS 30 Days tab 11/20/20 cloZAPine [Clozaril] 50 mg PO DAILY 30 Days tab 11/20/20 cloZAPine [Clozaril] 400 mg PO HS 30 Days tab 11/20/20 hydroCHLOROthiazide [Hydrodiuril] 12.5 mg PO DAILY 30 Days cap 11/20/20 Allergies Allergy/AdvReac Type Severity Reaction Status Date / Time codeine Allergy Rash/Hives/ Verified 05/06/23 14:11 Cough Penicillins Allergy Rash/Hives Verified 05/06/23 14:35 Review of Systems ROS Statement: Those systems with pertinent positive or pertinent negative responses have been documented in the HPI. ROS Other: All systems not noted in ROS Statement are negative. Past Medical History Past Medical History: Blood Disorder, Heart Failure, Diabetes Mellitus, Hyperlipidemia, Hypertension, Renal Disease, Thyroid Disorder Additional Past Medical History / Comment(s): "Borderline diabetes", ITP, constipation, small bowel obstructions, ulcerative colitis, CKD stage III, hypothyroid History of Any Multi-Drug Resistant Organisms: None Reported Past Surgical History: Appendectomy, Bowel Resection Additional Past Surgical History / Comment(s): 08/10/20 R lung bx, abd surgery r/t adhesions, R hemicolectomy, colonoscopies Past Anesthesia/Blood Transfusion Reactions: No Reported Reaction Past Psychological History: Anxiety, Bipolar, Depression, Schizophrenia Smoking Status: Never smoker Past Alcohol Use History: None Reported Past Drug Use History: None Reported - Past Family History Mother History Unknown: Yes Family Medical History: No Reported History Additional Family Medical History / Comment(s): Mother was healthy. Father Family Medical History: Hypertension General Exam Limitations: no limitations General appearance: alert, in no apparent distress Head exam: Present: atraumatic, normocephalic, normal inspection Neck exam: Present: normal inspection. Absent: tenderness, meningismus, lymphadenopathy Respiratory exam: Present: normal lung sounds bilaterally. Absent: respiratory distress, wheezes, rales, rhonchi, stridor Cardiovascular Exam: Present: regular rate, normal rhythm, normal heart sounds. Absent: systolic murmur, diastolic murmur, rubs, gallop, clicks GI/Abdominal exam: Present: distended, normal bowel sounds Extremities exam: Present: normal inspection, full ROM, normal capillary refill. Absent: tenderness, pedal edema, joint swelling, calf tenderness Neurological exam: Present: alert, oriented X3, CN II-XII intact Psychiatric exam: Present: flat affect Skin exam: Present: warm, dry, intact, normal color. Absent: rash Course Vital Signs 05/06/23 05/06/23 05/06/23 10:33 11:06 12:00 Temperature 98.5 F Pulse Rate 83 79 Respiratory 18 Rate Blood Pressure 126/66 126/66 O2 Sat by Pulse 95 96 Oximetry 05/06/23 05/06/23 13:00 14:00 Temperature Pulse Rate 80 78 Respiratory 18 Rate Blood Pressure 139/80 O2 Sat by Pulse 97 Oximetry Medical Decision Making - Medical Decision Making Was pt. sent in by a medical professional or institution (, PA, MATCHER OPERATOR, urgent care, hospital, or care home...) When possible be specific @ -No Did you speak to anyone other than the patient for history (EMS, parent, family, police, friend...)? What history was obtained from this source @ -No Did you review nursing and triage notes (agree or disagree)? Why? @ -I reviewed and agree with nursing and triage notes Were old charts reviewed (outside hosp., previous admission, EMS record, old EKG, old radiological studies, urgent care reports/EKG's, care home records)? Report findings @ -No old charts were reviewed Differential Diagnosis (chest pain, altered mental status, abdominal pain women, abdominal pain men, vaginal bleeding, weakness, fever, dyspnea, syncope, headache, dizziness, GI bleed, back pain, seizure, CVA, palpatations, mental health, musculoskeletal)? @ -Differential Abdominal Pain Men: Appendicitis, cholecystitis, diverticulosis, ischemic bowel, pancreatitis, hepatitis, UTI, gastroenteritis, AAA, incarcerated hernia, bowel obstruction, constipation, inflammatory bowel, hepatitis, peptic ulcer disease, splenic infarction, perforated viscus, testicular torsion, this is not meant to be an all-inclusive EKG interpreted by me (3pts min.). @ -As above X-rays interpreted by me (1pt min.). @ -None done CT interpreted by me (1pt min.). @ -CT abdomen and pelvis shows partially consolidative densities in bilateral lung bases with bilateral pleural effusions. Correlate to pneumonia. There is also a distal small bowel obstruction with postsurgical changes at the ileocecal junction. U/S interpreted by me (1pt. min.). @ -None done What testing was considered but not performed or refused? (CT, X-rays, U/S, labs)? Why? @ -None What meds were considered but not given or refused? Why? @ -None Did you discuss the management of the patient with other professionals (professionals i.e. DrSowmya, PA, MATCHER OPERATOR, lab, RT, psych nurse, social science instructor, profile trimmer, te acher, chief digital media officer, vocational case manager)? Give summary @ -Yes, I discussed this case with Dr. Pan who advised patient be NPO and have NG tube placed. He also requested patient to be admitted to medicine. I also spoke with Dr. Ford from [facility] who accepted admission. Was smoking cessation discussed for >3mins.? @ -No Was critical care preformed (if so, how long)? @ -No Were there social determinants of health that impacted care today? How? (Homelessness, low income, unemployed, alcoholism, drug addiction, transportation, low edu. Level, literacy, decrease access to med. care, correction, rehab)? @ -No Was there de-escalation of care discussed even if they declined (Discuss DNR or withdrawal of care, Hospice)? DNR status @ -No What co-morbidities impacted this encounter? (DM, HTN, Smoking, COPD, CAD, Cancer, CVA, ARF, Chemo, Hep., AIDS, mental health diagnosis, sleep apnea, morbid obesity)? @ -Ulcerative colitis, chronic kidney disease, hypothyroid, schizophrenia Was patient admitted / discharged? Hospital course, mention meds given and route, prescriptions, significant lab abnormalities, going to OR and other pertinent info. @ -Admitted. Patient is a 62-year-old male presenting to the ER via EMS with chief complaint of abdominal distention. Upon examination, patient's vital signs were stable. Physical exam was significant for a moderately distended soft abdomen with normal bowel sounds. Mild tenderness to palpation. Lung sounds were clear bilaterally. Labs obtained in the ER showed hemoglobin of 12.4, creatinine 1.27, urinalysis negative for signs of UTI, cephid negative. EKG showed normal sinus rhythm with no acute ST segment or T-wave abnormalities present. CT abdomen and pelvis shows partially consolidative densities in bilateral lung bases with bilateral pleural effusions. Correlate to pneumonia. There is also a distal small bowel obstruction with postsurgical changes at the ileocecal junction. I discussed this case with Dr. Pan who advised patient be NPO and have NG tube placed. He also requested patient to be admitted to medicine. I also spoke with Dr. Ford from [facility] who accepted admission. Patient was made nothing by mouth and NG tube was placed. Patient received 1 L of IV fluids, 1 g of Rocephin and 500 mg of azithromycin for pneumonia. Patient will be admitted with surgery and ID on consult. I discussed lab and imaging findings with the patient. Patient will be admitted in stable condition for further treatment. Patient expressed understanding and agreement with care plan. Undiagnosed new problem with uncertain prognosis? @ -No Drug Therapy requiring intensive monitoring for toxicity (Heparin, Nitro, Insulin, Cardizem)? @ -No Were any procedures done? @ -No Diagnosis/symptom? @ -Small bowel obstruction/pneumonia Acute, or Chronic, or Acute on Chronic? @ -Acute Uncomplicated (without systemic symptoms) or Complicated (systemic symptoms)? @ -Complicated Side effects of treatment? @ -No Exacerbation, Progression, or Severe Exacerbation? @ -No Poses a threat to life or bodily function? How? (Chest pain, [place], [place], pneumonia, PE, COPD, DKA, ARF, appy, cholecystitis, CVA, Diverticulitis, Homicidal, Suicidal, threat to staff... and all critical care pts) @ -Yes, small bowel obstruction can lead to bowel perforation which is life threatening. Pneumonia can lead to sepsis which is also life threatening. - Lab Data Result diagrams: 05/06/23 11:16 05/06/23 11:16 Lab Results 05/06/23 05/06/23 05/06/23 Range/Units 11:16 11:16 11:16 WBC 6.2 (3.8-10.6) k/uL RBC 4.10 L (4.30-5.90) m/uL Hgb 12.4 L (13.0-17.5) gm/dL Hct 37.3 L (39.0-53.0) % MCV 91.0 (80.0-100.0) fL MCH 30.2 (25.0-35.0) pg MCHC 33.2 (31.0-37.0) g/dL RDW 13.3 (11.5-15.5) % Plt Count 177 (150-450) k/uL MPV 8.2 Neutrophils % 74 % Lymphocytes % 18 % Monocytes % 6 % Eosinophils % 0 % Basophils % 0 % Neutrophils # 4.6 (1.3-7.7) k/uL Lymphocytes # 1.1 (1.0-4.8) k/uL Monocytes # 0.4 (0-1.0) k/uL Eosinophils # 0.0 (0-0.7) k/uL Basophils # 0.0 (0-0.2) k/uL Sodium 144 (137-145) mmol/L Potassium 3.7 (3.5-5.1) mmol/L Chloride 107 (98-107) mmol/L Carbon Dioxide 25 (22-30) mmol/L Anion Gap 12 mmol/L BUN 11 (9-20) mg/dL Creatinine 1.27 H (0.66-1.25) mg/dL Est GFR (CKD-EPI)AfAm 69 (>60 ml/min/1.73 sqM) Est GFR (CKD-EPI)NonAf 60 (>60 ml/min/1.73 sqM) Glucose 149 H (74-99) mg/dL Plasma Lactic Acid Renato 1.5 (0.7-2.0) mmol/L Calcium 8.5 (8.4-10.2) mg/dL Total Bilirubin 0.5 (0.2-1.3) mg/dL AST 23 (17-59) U/L ALT 18 (4-49) U/L Alkaline Phosphatase 50 (38-126) U/L Total Protein 5.1 L (6.3-8.2) g/dL Albumin 3.0 L (3.5-5.0) g/dL Amylase 57 (30-110) U/L Lipase 118 (23-300) U/L Urine Color Urine Appearance (Clear) Urine pH (5.0-8.0) Ur Specific [place] (1.001-1.035) Urine Protein (Negative) Urine Glucose (UA) (Negative) Urine Ketones (Negative) Urine Blood (Negative) Urine Nitrite (Negative) Urine Bilirubin (Negative) Urine Urobilinogen (<2.0) mg/dL Ur Leukocyte Esterase (Negative) Influenza Type A (PCR) (Not Detectd) Influenza Type B (PCR) (Not Detectd) RSV (PCR) (Not Detectd) SARS-CoV-2 (PCR) (Not Detectd) 05/06/23 05/06/23 Range/Units 11:16 11:46 WBC (3.8-10.6) k/uL RBC (4.30-5.90) m/uL Hgb (13.0-17.5) gm/dL Hct (39.0-53.0) % MCV (80.0-100.0) fL MCH (25.0-35.0) pg MCHC (31.0-37.0) g/dL RDW (11.5-15.5) % Plt Count (150-450) k/uL MPV Neutrophils % % Lymphocytes % % Monocytes % % Eosinophils % % Basophils % % Neutrophils # (1.3-7.7) k/uL Lymphocytes # (1.0-4.8) k/uL Monocytes # (0-1.0) k/uL Eosinophils # (0-0.7) k/uL Basophils # (0-0.2) k/uL Sodium (137-145) mmol/L Potassium (3.5-5.1) mmol/L Chloride (98-107) mmol/L Carbon Dioxide (22-30) mmol/L Anion Gap mmol/L BUN (9-20) mg/dL Creatinine (0.66-1.25) mg/dL Est GFR (CKD-EPI)AfAm (>60 ml/min/1.73 sqM) Est GFR (CKD-EPI)NonAf (>60 ml/min/1.73 sqM) Glucose (74-99) mg/dL Plasma Lactic Acid Renato (0.7-2.0) mmol/L Calcium (8.4-10.2) mg/dL Total Bilirubin (0.2-1.3) mg/dL AST (17-59) U/L ALT (4-49) U/L Alkaline Phosphatase (38-126) U/L Total Protein (6.3-8.2) g/dL Albumin (3.5-5.0) g/dL Amylase (30-110) U/L Lipase (23-300) U/L Urine Color Yellow Urine Appearance Clear (Clear) Urine pH 6.5 (5.0-8.0) Ur Specific [place] 1.012 (1.001-1.035) Urine Protein Negative (Negative) Urine Glucose (UA) Negative (Negative) Urine Ketones Negative (Negative) Urine Blood Negative (Negative) Urine Nitrite Negative (Negative) Urine Bilirubin Negative (Negative) Urine Urobilinogen 2.0 (<2.0) mg/dL Ur Leukocyte Esterase Negative (Negative) Influenza Type A (PCR) Not Detected (Not Detectd) Influenza Type B (PCR) Not Detected (Not Detectd) RSV (PCR) Not Detected (Not Detectd) SARS-CoV-2 (PCR) Not Detected (Not Detectd) - EKG Data -: EKG Interpreted by Ar EKG Comments: EKG taken at 11:12 shows a normal sinus rhythm with no acute ST segment or T- wave abnormalities present. Ventricular rate 81, RI interval 160, QRS duration 101, QT/QTC 369/406. - Radiology Data Radiology results: report reviewed, image reviewed Disposition Clinical Impression: Small bowel obstruction, Pneumonia Disposition: ADMITTED IP TO THIS [facility] Referrals: [facility] [Primary Care Provider] - 1-2 days Time of Disposition: 14:52
[2023-05-06 11:47] LABS: Basophils % (A) 0 %; Eosinophils % (A) 0 %; HCT 37.3 % (39.0-53.0); HGB 12.4 gm/dL (13.0-17.5); Lymphocytes # (A) 1.1 k/uL (1.0-4.8); Lymphocytes % (A) 18 %; MCH 30.2 pg (25.0-35.0); MCHC 33.2 g/dL (31.0-37.0); Mean Platelet Volume 8.2; Monocytes # (A) 0.4 k/uL (0-1.0); Monocytes % (A) 6 %; Neutrophils # (A) 4.6 k/uL (1.3-7.7); Neutrophils % (A) 74 %; Platelet Count 177 k/uL (150-450); RDW 13.3 % (11.5-15.5); WBC 6.2 k/uL (3.8-10.6)
[2023-05-06 12:06] LABS: Appearance,Urine Clear (Clear); Bilirubin,Urine Negative (Negative); Blood,Urine Negative (Negative); Color,Urine Yellow; Glucose,Urine (UA) Negative (Negative); Ketones,Urine Negative (Negative); Leukocyte Esterase,Urine Negative (Negative); Nitrite,Urine Negative (Negative); PH, Urine 6.5 (5.0-8.0); Protein,Urine Negative (Negative); Specific Gravity,Urine 1.012 (1.001-1.035)
[2023-05-06 12:13] LABS: ALT 18 U/L (4-49); AST 23 U/L (17-59); African American GFR (CKD) 69 (>60 ml/min/1.73 sqM); Alkaline Phosphatase 50 U/L (38-126); Amylase 57 U/L (30-110); Anion Gap 12 mmol/L; Blood Urea Nitrogen 11 mg/dL (9-20); Calcium 8.5 mg/dL (8.4-10.2); Carbon Dioxide 25 mmol/L (22-30); Chloride 107 mmol/L (98-107); Glucose 149 mg/dL (74-99); Lipase 118 U/L (23-300); Non-African American GFR(CKD) 60 (>60 ml/min/1.73 sqM); Potassium 3.7 mmol/L (3.5-5.1); Sodium 144 mmol/L (137-145); Total Bilirubin 0.5 mg/dL (0.2-1.3); Total Protein 5.1 g/dL (6.3-8.2)
--- NOTE | 2023-05-06 13:57 | CT ---
EXAMINATION TYPE: CT abdomen pelvis w con DATE OF EXAM: 05/06/2023 COMPARISON: 01/06/2016 HISTORY: Suspect SBO CT DLP: 1413.6 mGycm Automated exposure control for dose reduction was used. TECHNIQUE: Helical acquisition of images was performed from the lung bases through the pelvis. CONTRAST: Performed without Oral Contrast and with IV Contrast, patient injected with 100 ml mL of Isovue 300. FINDINGS: There are partially consolidative densities in the lung bases bilaterally with small bilateral pleura l effusions, right greater than left. The findings are consistent with acute cardiopulmonary disease such as pneumonia.. The gallbladder is normal. There is no focal mass or organomegaly involving the liver, pancreas, spleen or adrenal glands. There is no solid renal mass or hydronephrosis. There is no retroperitoneal adenopathy or hemorrhage in the caliber the abdominal aorta is normal. There are multiple dilated air and fluid-filled loops of small bowel consistent with a distal small b owel obstruction. There are surgical sutures at the ileocecal junction. There is no free intraperitoneal air or fluid. There are postsurgical changes of anterior abdominal h ernia repair. There is no pelvic mass, free fluid, abscess or adenopathy. The osseous structures are intact. IMPRESSION: 1. Distal small bowel obstruction. Postsurgical changes at the ileocecal junction. 2. By basilar pneumonia with small pleural effusions as described
[2023-05-06] MEDS ORDERED: ONDANSETRON 4 MG/2 ML VIAL IVP PRN (14:47)
[2023-05-06] MEDS ORDERED: KETOROLAC 15 MG/ML 1 ML VIAL IVP PRN (14:47)
[2023-05-06] MEDS ORDERED: NALOXONE 0.4 MG/ML 1 ML VIAL IV PRN (14:47)
[2023-05-06] MEDS ORDERED: AZITHROMYCIN 500 MG in SODIUM CHLORIDE 0.9% 250 ML IVPB STA (14:54)
[2023-05-06] MEDS: SODIUM CHLORIDE 0.9% 1,000 ML IV SCH (15:25)
--- NOTE | 2023-05-06 17:53 | XR ---
EXAMINATION TYPE: XR chest 1V confirm line plcmt DATE OF EXAM: 05/06/2023 5:35 PM CLINICAL INDICATION:Male, 62 years old with history of ng TUBE PLACEMENT; [facility] COMPARISON: Chest radiographs from 08/17/2020 TECHNIQUE: XR chest 1V confirm line plcmt Frontal view of the chest. FINDINGS: Lungs/Pleura: Right basilar airspace opacities. There is no evidence of pleural effusion, left focal consolidation, or pneumothorax. Pulmonary vascularity: Unremarkable. Heart/mediastinum: Cardiomediastinal silhouette is unremarkable. Musculoskeletal: No acute osseous pathology. Other findings: None Lines/Tubes: Nasogastric tube with its distal tip and side-port projecting under the diaphragm and projecting over the gastric lumen. IMPRESSION: Right-sided airspace opacities correlate for pneumonia. Nasogastric tube in appropriate position.
[2023-05-06] MEDS: metroNIDAZOLE-NS PMX 500 MG in SALINE 1 100ML.BAG IVPB SCH (23:52)
--- NOTE | 2023-05-07 01:08 | XR ---
EXAM: XR Chest, 1 View CLINICAL HISTORY: ITS.REASON XR Reason: NG placement TECHNIQUE: Frontal view of the chest. COMPARISON: No relevant prior studies available. FINDINGS: Lungs: Unremarkable. No consolidation. Pleural space: Unremarkable. No pneumothorax. Heart: Cardiomegaly. Mediastinum: Unremarkable. Normal mediastinal contour. Bones/joints: Unremarkable. No acute fracture. Tubes, lines and devices: Feeding tube terminates in the stomach. IMPRESSION: No acute findings in the chest.
[2023-05-07] MEDS: SODIUM CHLORIDE 0.9% 1,000 ML IV SCH ×3 (05:27→20:34)
[2023-05-07] MEDS ORDERED: TRIAMCINOLONE ACET 0.1% OINTMENT 15 GM TUBE TOPICAL PRN (08:42)
[2023-05-07] MEDS ORDERED: DEXTROSE 50% SYRINGE 50 ML IVP PRN ×2 (08:46)
[2023-05-07] MEDS: metroNIDAZOLE-NS PMX 500 MG in SALINE 1 100ML.BAG IVPB SCH ×2 (09:07→15:52)
[2023-05-07] MEDS: PANTOPRAZOLE 40 MG/10 ML VIAL IVP SCH ×2 (09:08→20:33)
[2023-05-07 09:54] LABS: Basophils % (A) 0 %; Eosinophils % (A) 0 %; HCT 37.1 % (39.0-53.0); HGB 12.3 gm/dL (13.0-17.5); Lymphocytes # (A) 1.2 k/uL (1.0-4.8); Lymphocytes % (A) 20 %; MCH 30.5 pg (25.0-35.0); MCHC 33.3 g/dL (31.0-37.0); MCV 91.8 fL (80.0-100.0); Mean Platelet Volume 7.3; Monocytes # (A) 0.4 k/uL (0-1.0); Monocytes % (A) 6 %; Neutrophils # (A) 4.4 k/uL (1.3-7.7); Neutrophils % (A) 72 %; Platelet Count 198 k/uL (150-450); RBC 4.04 m/uL (4.30-5.90); RDW 13.6 % (11.5-15.5); WBC 6.1 k/uL (3.8-10.6)
[2023-05-07 10:03] LABS: African American GFR (CKD) 81 (>60 ml/min/1.73 sqM); Anion Gap 10 mmol/L; Blood Urea Nitrogen 10 mg/dL (9-20); Carbon Dioxide 24 mmol/L (22-30); Chloride 112 mmol/L (98-107); Glucose 85 mg/dL (74-99); Lithium <0.2 mmol/L; Magnesium 1.8 mg/dL (1.6-2.3); Non-African American GFR(CKD) 70 (>60 ml/min/1.73 sqM); Potassium 3.8 mmol/L (3.5-5.1); Sodium 146 mmol/L (137-145)
[2023-05-07 10:08] LABS: Valproic Acid (Depakene) 35.5 ug/mL
--- NOTE | 2023-05-07 11:04 | P.GSCN ---
History of Present Illness Consult date: 05/07/23 Reason for Consult: Small bowel obstruction History of present illness: 62-year-old male comes to the hospital complaining of bloating and pain. He states he has been bloated for the last year or so. He is passing gas. He did have some bowel function before admission. He stays at a senior living. Was recently at [facility]. CAT scan was performed showing dilated small bowel loops. He has a abdominal wall hernia that does not appear to be incarcerated or obstructing. He is feeling better today. Nasogastric tube was placed. Review of Systems The patient denies any acute changes in vision or hearing, no dysphagia or odynophagia, no chest pain or shortness of breath, no dysuria or hematuria, no headache, no runny nose, no rectal bleeding or melena, no unexplained weight loss Past Medical History Past Medical History: Blood Disorder, Heart Failure, Diabetes Mellitus, Hyperlipidemia, Hypertension, Renal Disease, Thyroid Disorder Additional Past Medical History / Comment(s): "Borderline diabetes", ITP, consti pation, small bowel obstructions, ulcerative colitis, CKD stage III, hypothyroid History of Any Multi-Drug Resistant Organisms: None Reported Past Surgical History: Appendectomy, Bowel Resection Additional Past Surgical History / Comment(s): 08/10/20 R lung bx, abd surgery r/t adhesions, R hemicolectomy, colonoscopies Past Anesthesia/Blood Transfusion Reactions: No Reported Reaction Past Psychological History: Anxiety, Bipolar, Depression, Schizophrenia Additional Psychological History / Comment(s): Pt resides in an apartment. He goes to [facility] and has a skilled nursing case manager, a nurse and an aide who takes him shopping once a week. Normally, pt takes his own meds, cooks and performs his own ADLs. Pt uses public transportation Smoking Status: Never smoker Past Alcohol Use History: None Reported Additional Past Alcohol Use History / Comment(s): Pt started smoking in 1977 and quit in 2006 Past Drug Use History: None Reported - Past Family History Mother History Unknown: Yes Family Medical History: No Reported History Additional Family Medical History / Comment(s): Mother was healthy. Father Family Medical History: Hypertension Medications and Allergies Home Medications Medication Instructions Recorded Confirmed Type Atorvastatin [Lipitor] 10 mg PO HS 30 Days tab 11/20/20 05/06/23 Rx Divalproex ER [Depakote ER] 1,000 mg PO HS 30 Days tab.er.24h 11/20/20 05/06/23 Rx Levothyroxine Sodium [Synthroid] 50 mcg PO DAILY@0630 30 Days tab 11/20/20 05/06/23 Rx cloZAPine [Clozaril] 25 mg PO HS 30 Days tab 11/20/20 05/06/23 Rx cloZAPine [Clozaril] 50 mg PO DAILY 30 Days tab 11/20/20 05/06/23 Rx cloZAPine [Clozaril] 400 mg PO HS 30 Days tab 11/20/20 05/06/23 Rx hydroCHLOROthiazide [Hydrodiuril] 12.5 mg PO DAILY 30 Days cap 11/20/20 05/06/23 Rx Acetaminophen [Tylenol] 650 mg PO Q4H PRN 05/06/23 05/06/23 History Cholecalciferol [Vitamin D3 (125 125 mcg PO MOWEFR 05/06/23 05/06/23 History Mcg = 5000 Iu)] [place] Carbonate 300 mg PO HS 05/06/23 05/06/23 History Pantoprazole [Protonix] 40 mg PO Q2D 05/06/23 05/06/23 History Sennosides/Docusate Sodium [Senna 2 tab PO HS 05/06/23 05/06/23 History Plus 8.6-50 mg Tablet] Triamcinolone 0.1% Ointment 1 applic TOPICAL BID PRN 05/06/23 05/06/23 History [Kenalog 0.1% Ointment] calcitrioL [Rocaltrol] 0.25 mcg PO WE 05/06/23 05/06/23 History guaiFENesin [guaiFENesin Oral 200 mg PO Q4H PRN 05/06/23 05/06/23 History Solution] polyethylene glycoL 3350 [Miralax] 17 gm PO BID 05/06/23 05/06/23 History Allergies Allergy/AdvReac Type Severity Reaction Status Date / Time codeine Allergy Rash/Hives/ Verified 05/06/23 14:11 Cough Penicillins Allergy Rash/Hives Verified 05/06/23 14:35 Surgical - Exam Vital Signs Temp Pulse Resp BP Pulse Ox 98.5 F 83 18 126/66 95 05/06/23 10:33 05/06/23 10:33 05/06/23 10:33 05/06/23 10:33 05/06/23 10:33 Physical exam: General: Well-developed, well-nourished HEENT: Normocephalic, sclerae nonicteric Abdomen: Mild distention, hernia reducible, nontender Extremities: No edema Neuro: Alert and oriented Results - Labs 05/07/23 09:19 05/07/23 09:19 Abnormal Lab Results - Last 24 Hours (Table) 05/06/23 05/06/23 05/06/23 Range/Units 11:16 11:16 17:11 RBC 4.10 L (4.30-5.90) m/uL Hgb 12.4 L (13.0-17.5) gm/dL Hct 37.3 L (39.0-53.0) % Sodium (137-145) mmol/L Chloride (98-107) mmol/L Creatinine 1.27 H (0.66-1.25) mg/dL Glucose 149 H (74-99) mg/dL Calcium (8.4-10.2) mg/dL C-Reactive Protein 13.6 H (<1.0) mg/dL Total Protein 5.1 L (6.3-8.2) g/dL Albumin 3.0 L (3.5-5.0) g/dL Procalcitonin (0.02-0.09) ng/mL 05/06/23 05/07/23 05/07/23 Range/Units 17:11 09:19 09:19 RBC 4.04 L (4.30-5.90) m/uL Hgb 12.3 L (13.0-17.5) gm/dL Hct 37.1 L (39.0-53.0) % Sodium 146 H (137-145) mmol/L Chloride 112 H (98-107) mmol/L Creatinine (0.66-1.25) mg/dL Glucose (74-99) mg/dL Calcium 8.0 L (8.4-10.2) mg/dL C-Reactive Protein (<1.0) mg/dL Total Protein (6.3-8.2) g/dL Albumin (3.5-5.0) g/dL Procalcitonin 0.30 H (0.02-0.09) ng/mL Diabetes panel 05/06/23 05/07/23 Range/Units 11:16 09:19 Sodium 144 146 H (137-145) mmol/L Potassium 3.7 3.8 (3.5-5.1) mmol/L Chloride 107 112 H (98-107) mmol/L Carbon Dioxide 25 24 (22-30) mmol/L BUN 11 10 (9-20) mg/dL Creatinine 1.27 H 1.12 (0.66-1.25) mg/dL Glucose 149 H 85 (74-99) mg/dL Calcium 8.5 8.0 L (8.4-10.2) mg/dL AST 23 (17-59) U/L ALT 18 (4-49) U/L Alkaline Phosphatase 50 (38-126) U/L Total Protein 5.1 L (6.3-8.2) g/dL Albumin 3.0 L (3.5-5.0) g/dL Calcium panel 05/06/23 05/07/23 Range/Units 11:16 09:19 Calcium 8.5 8.0 L (8.4-10.2) mg/dL Albumin 3.0 L (3.5-5.0) g/dL Pituitary panel 05/06/23 05/07/23 Range/Units 11:16 09:19 Sodium 144 146 H (137-145) mmol/L Potassium 3.7 3.8 (3.5-5.1) mmol/L Chloride 107 112 H (98-107) mmol/L Carbon Dioxide 25 24 (22-30) mmol/L BUN 11 10 (9-20) mg/dL Creatinine 1.27 H 1.12 (0.66-1.25) mg/dL Glucose 149 H 85 (74-99) mg/dL Calcium 8.5 8.0 L (8.4-10.2) mg/dL Adrenal panel 05/06/23 05/07/23 Range/Units 11:16 09:19 Sodium 144 146 H (137-145) mmol/L Potassium 3.7 3.8 (3.5-5.1) mmol/L Chloride 107 112 H (98-107) mmol/L Carbon Dioxide 25 24 (22-30) mmol/L BUN 11 10 (9-20) mg/dL Creatinine 1.27 H 1.12 (0.66-1.25) mg/dL Glucose 149 H 85 (74-99) mg/dL Calcium 8.5 8.0 L (8.4-10.2) mg/dL Total Bilirubin 0.5 (0.2-1.3) mg/dL AST 23 (17-59) U/L ALT 18 (4-49) U/L Alkaline Phosphatase 50 (38-126) U/L Total Protein 5.1 L (6.3-8.2) g/dL Albumin 3.0 L (3.5-5.0) g/dL Assessment and Plan (1) Small bowel obstruction Narrative/Plan: 62-year-old male with small bowel obstruction. We'll order small bowel series for tomorrow. Keep nasogastric tube to suction. Current Visit: Yes Status: Acute Code(s): K56.609 - UNSP INTESTNL OBST, UNSP TO PARTIAL VERSUS COMPLETE OBST SNOMED Code(s): 522619209
[2023-05-07 11:58] LABS: Glucose,Whole Blood 79 mg/dL (70-110)
[2023-05-07] MEDS: INSULIN ASPART (NovoLOG) 100 UNIT/ML VIAL SQ SCH ×3 (12:12→20:37)
--- NOTE | 2023-05-07 13:40 | HP ---
HISTORY AND PHYSICAL CHIEF COMPLAINT: Abdominal distention. HISTORY OF PRESENT ILLNESS: This is a 62-year-old gentleman with a past medical history of CHF, diabetes mellitus type 2, medical issues, is a resident of [facility], the patient progressed to have abdomen distention. The patient came to [facility] with features of small-bowel obstruction and bilateral aspiration pneumonia. NG tube is inserted. Surgical evaluation is in progress. The patient is passing some flatus. There is no history of any fever, rigors, or chills at this time. The patient has past medical history of constipation, small bowel obstruction, and ulcerative colitis also. There is no history of any fever, rigors, or chills. PAST MEDICAL HISTORY: Reviewed include CHF, diabetes mellitus type 2, history and other chart is also reviewed. ALLERGIES: Codeine and penicillin. HOME MEDICATIONS: Reviewed include guaifenesin, rest of the medication and doses are reviewed. REVIEW OF SYSTEMS: A 14-point review is negative except as mentioned earlier. PHYSICAL EXAMINATION: VITAL SIGNS: Pulse 80, blood pressure 130/57, respirations 16. HEENT: Conjunctivae normal. NECK: No jugular venous distention. CARDIOVASCULAR: S1, S2 muffled. RESPIRATIONS: A few scattered rhonchi and crackles. ABDOMEN: Soft, diffuse distention and mild discomfort. No guarding, no rigidity, tense distention of the stomach. Bowel sounds diminished. LEGS: No edema, no swelling. NERVOUS SYSTEM: Diffusely weak. SKIN: No ulcer, rash, bleeding. JOINTS: No active deforming arthropathy. LABORATORY DATA: Reviewed. COVID-19 is negative. Sodium 146, procalcitonin 0.3. ASSESSMENT: 1. Acute distal small bowel obstruction with abdominal distention. 2. Bilateral pneumonia, possibly aspiration. 3. Elevated serum procalcitonin. 4. Congestive heart failure history. 5. Diabetes mellitus type 2. 6. Hypertension. 7. Hyperlipidemia. 8. History of ITP. 9. History of small-bowel obstruction. 10.Multiple complex medical issues. 11.Anxiety, bipolar, depression, schizophrenia. RECOMMENDATIONS AND DISCUSSION: Recommended to continue current medications, continue symptomatic treatment, otherwise at this time I will recommend broad-spectrum IV antibiotics. Monitor closely. Repeat chest x-ray tomorrow. Closely follow with surgery, Infectious Disease. Otherwise, I would also recommend to initiate the psych medications through the NG tube which is necessary per the staff at [facility]. Once again the prognosis is extremely guarded because of multiple complex medical conditions, see orders for details. MMODL / IJN: [id number] /
--- NOTE | 2023-05-07 18:08 | P.CONS ---
History of Present Illness - Reason for Consult Consult date: 05/06/23 - History of Present Illness Patient is a 62-year-old male with a past medical history Significant for diabetes mellitus hypertension hyperlipidemia heart failure ITP history of anxiety depression bipolar disorder patient presenting to the hospital for evaluation of abdominal distention apparent the patient did have multiple surgeries for bowel obstruction in the past and has problems with abdominal distention that has been getting worse over the last few days to weeks patient complaining of abdominal pain most of the leaking mild to moderate intensity without radiation patient did have some nausea but no vomiting has been reported patient is a resident of [facility] and with the same the patient was sent to [facility] to hospital initially patient did have a CT of abdominal pelvis we did shows dilated small bowel loops abdominal wall hernia but not incarcerated or obstructing patient was sent to the [facility] ER for further evaluation on presentation to this facility the patient was afebrile patient was not tachycardic hypotensive or hypoxic patient did have a white count of 6.2 creatin ine is 1.27 liver is observed normal amylase lipase was normal CT also raises the possibility of bibasilar pneumonia and the patient did have a chest x-ray concerning for right-sided airspace opacity correlate for pneumonia prompting this infectious disease consultation Past Medical History Past Medical History: Blood Disorder, Heart Failure, Diabetes Mellitus, Hyperlipidemia, Hypertension, Renal Disease, Thyroid Disorder Additional Past Medical History / Comment(s): "Borderline diabetes", ITP, constipation, small bowel obstructions, ulcerative colitis, CKD stage III, hypothyroid History of Any Multi-Drug Resistant Organisms: None Reported Past Surgical History: Appendectomy, Bowel Resection Additional Past Surgical History / Comment(s): 08/10/20 R lung bx, abd surgery r/t adhesions, R hemicolectomy, colonoscopies Past Anesthesia/Blood Transfusion Reactions: No Reported Reaction Past Psychological History: Anxiety, Bipolar, Depression, Schizophrenia Smoking Status: Never smoker Past Alcohol Use History: None Reported Past Drug Use History: None Reported - Past Family History Mother History Unknown: Yes Family Medical History: No Reported History Additional Family Medical History / Comment(s): Mother was healthy. Father Family Medical History: Hypertension Medications and Allergies Home Medications Medication Instructions Recorded Confirmed Type Atorvastatin [Lipitor] 10 mg PO HS 30 Days tab 11/20/20 05/06/23 Rx Divalproex ER [Depakote ER] 1,000 mg PO HS 30 Days tab.er.24h 11/20/20 05/06/23 Rx Levothyroxine Sodium [Synthroid] 50 mcg PO DAILY@0630 30 Days tab 11/20/20 05/06/23 Rx cloZAPine [Clozaril] 25 mg PO HS 30 Days tab 11/20/20 05/06/23 Rx cloZAPine [Clozaril] 50 mg PO DAILY 30 Days tab 11/20/20 05/06/23 Rx cloZAPine [Clozaril] 400 mg PO HS 30 Days tab 11/20/20 05/06/23 Rx hydroCHLOROthiazide [Hydrodiuril] 12.5 mg PO DAILY 30 Days cap 11/20/20 05/06/23 Rx Acetaminophen [Tylenol] 650 mg PO Q4H PRN 05/06/23 05/06/23 History Cholecalciferol [Vitamin D3 (125 125 mcg PO MOWEFR 05/06/23 05/06/23 History Mcg = 5000 Iu)] [place] Carbonate 300 mg PO HS 05/06/23 05/06/23 History Pantoprazole [Protonix] 40 mg PO Q2D 05/06/23 05/06/23 History Sennosides/Docusate Sodium [Senna 2 tab PO HS 05/06/23 05/06/23 History Plus 8.6-50 mg Tablet] Triamcinolone 0.1% Ointment 1 applic TOPICAL BID PRN 05/06/23 05/06/23 History [Kenalog 0.1% Ointment] calcitrioL [Rocaltrol] 0.25 mcg PO WE 05/06/23 05/06/23 History guaiFENesin [guaiFENesin Oral 200 mg PO Q4H PRN 05/06/23 05/06/23 History Solution] polyethylene glycoL 3350 [Miralax] 17 gm PO BID 05/06/23 05/06/23 History Allergies Allergy/AdvReac Type Severity Reaction Status Date / Time codeine Allergy Rash/Hives/ Verified 05/06/23 14:11 Cough Penicillins Allergy Rash/Hives Verified 05/06/23 14:35 Physical Exam Vitals: Vital Signs Temp Pulse Resp BP Pulse Ox 05/06/23 14:00 78 18 139/80 97 05/06/23 13:00 80 05/06/23 12:00 79 05/06/23 11:06 126/66 96 05/06/23 10:33 98.5 F 83 18 126/66 95 Intake and Output 05/06/23 05/06/23 05/06/23 06:59 14:59 22:59 Other: Weight 104.326 kg Results CBC & Chem 7: 05/08/23 05:32 05/08/23 05:32 Labs: Abnormal Lab Results - Last 24 Hours (Table) 05/06/23 05/06/23 Range/Units 11:16 11:16 RBC 4.10 L (4.30-5.90) m/uL Hgb 12.4 L (13.0-17.5) gm/dL Hct 37.3 L (39.0-53.0) % Creatinine 1.27 H (0.66-1.25) mg/dL Glucose 149 H (74-99) mg/dL Total Protein 5.1 L (6.3-8.2) g/dL Albumin 3.0 L (3.5-5.0) g/dL Assessment and Plan Plan: 1patient presented to hospital with abdominal distention in this patient who did have abnormal CT abdominal pelvis with dilated small bowel concerning for distal small bowel obstruction also with evidence of right lobe pneumonia with a question of possible aspiration etiology. 2patient with a penicillin allergy that will limit the number of antibiotics safe to use 3we will check CRP procalcitonin try to be in a sputum if possible 4will empirically covered with Rocephin and Flagyl while waiting for the workup to be completed We will follow on clinical condition and cultures to further adjust medication if needed Thank you for this consultation we will follow the patient along with you Dictation was produced using [email or web address] dictation software. please excuse any grammatical, word or spelling errors. Time with Patient: Greater than 30
--- NOTE | 2023-05-07 18:11 | P.PN ---
Subjective Progress Note Date: 05/07/23 Principal diagnosis: Reason for follow-up is right lobe pneumonia possible aspiration Patient is a 62-year-old male with multiple comorbidities presented to hospital abdominal distention patient did have abnormal CT suspicious for distal small bowel obstruction and also concerning for right lobe pneumonia possible aspiration etiology. On today's evaluation that is 05/07/2023 patient denies having any fever or any chills patient is breathing comfortably on room air denies any chest pain shortness of breath or cough still having abdominal distention slightly decrea sed did not have a bowel movement did have NG for suction. Patient did have white count of 6.1 creatinine is 1.12 CRP is 13.6 Pro-Gordy 0.30 Objective - Vital Signs Vital signs: Vital Signs Temp 98.7 F 05/07/23 11:59 Pulse 78 05/07/23 11:59 Resp 17 05/07/23 11:59 BP 143/75 05/07/23 11:59 Pulse Ox 95 05/07/23 11:59 FiO2 Intake & Output 05/06/23 05/07/23 05/07/23 18:59 06:59 18:59 Output Total 625 550 Balance -625 -550 Weight 104.326 kg 104.326 kg Output: Urine 625 550 Other: Voiding Method Toilet # Voids 1 # Bowel Movements 1 - Exam GENERAL DESCRIPTION: Middle-age male lying in bed in no distress RESPIRATORY SYSTEM: Unlabored breathing , decreased breath sounds at bases HEART: S1 S2 regular rate and rhythm , ABDOMEN: Soft , mild distention EXTREMITIES: No edema feet - Labs CBC & Chem 7: 05/07/23 09:19 05/07/23 09:19 Labs: Abnormal Lab Results - Last 24 Hours (Table) 05/06/23 05/06/23 05/07/23 Range/Units 17:11 17:11 09:19 RBC (4.30-5.90) m/uL Hgb (13.0-17.5) gm/dL Hct (39.0-53.0) % Sodium 146 H (137-145) mmol/L Chloride 112 H (98-107) mmol/L Calcium 8.0 L (8.4-10.2) mg/dL C-Reactive Protein 13.6 H (<1.0) mg/dL Procalcitonin 0.30 H (0.02-0.09) ng/mL 05/07/23 Range/Units 09:19 RBC 4.04 L (4.30-5.90) m/uL Hgb 12.3 L (13.0-17.5) gm/dL Hct 37.1 L (39.0-53.0) % Sodium (137-145) mmol/L Chloride (98-107) mmol/L Calcium (8.4-10.2) mg/dL C-Reactive Protein (<1.0) mg/dL Procalcitonin (0.02-0.09) ng/mL Assessment and Plan (1) Penicillin allergy Current Visit: Yes Status: Acute Code(s): Z88.0 - ALLERGY STATUS TO PENICILLIN SNOMED Code(s): 31338811 (2) Pneumonia Current Visit: Yes Status: Acute Code(s): J18.9 - PNEUMONIA, UNSPECIFIED ORGANISM SNOMED Code(s): 904037492 (3) Small bowel obstruction Current Visit: Yes Status: Acute Code(s): K56.609 - UNSP INTESTNL OBST, UNSP TO PARTIAL VERSUS COMPLETE OBST SNOMED Code(s): 251606913 Plan: 1patient presented to hospital with abdominal distention in this patient who did have abnormal CT abdominal pelvis with dilated small bowel concerning for di stal small bowel obstruction also with evidence of right lobe pneumonia with a question of possible aspiration etiology. 2patient with a penicillin allergy that will limit the number of antibiotics s afe to use 3patient did have elevated CRP of 13.6 and procalcitonin 0.30 4patient to continue with Rocephin and Flagyl while waiting for the workup to be completed Dictation was produced using [employer] dictation software. please excuse any grammatical, word or spelling errors.
[2023-05-07 19:59] LABS: Glucose,Whole Blood 84 mg/dL (70-110)
[2023-05-07 20:16] LABS: Glucose,Whole Blood 93 mg/dL (70-110)
[2023-05-07] MEDS: LITHIUM CARBONATE 300 MG CAP PO SCH (20:33)
[2023-05-07] MEDS: cloZAPine 25 MG TAB PO SCH (20:33)
[2023-05-07] MEDS: DIVALPROEX ER 500 MG TAB.ER.24H PO SCH (20:33)
[2023-05-07] MEDS: cloZAPine 100 MG TAB PO SCH (20:33)
[2023-05-07] MEDS ORDERED: cloZAPine 100 MG TAB PO SCH (21:00)
[2023-05-08] MEDS: metroNIDAZOLE-NS PMX 500 MG in SALINE 1 100ML.BAG IVPB SCH ×4 (00:46→23:22)
[2023-05-08] MEDS: LEVOTHYROXINE 50 MCG TAB PO SCH (05:26)
[2023-05-08 07:16] LABS: Glucose,Whole Blood 79 mg/dL (70-110)
[2023-05-08] MEDS: INSULIN ASPART (NovoLOG) 100 UNIT/ML VIAL SQ SCH ×4 (07:36→21:19)
[2023-05-08 08:46] LABS: ALT 10 U/L (10-49); AST 15 U/L (14-35); Albumin 3.2 g/dL (3.8-4.9); Albumin/Globulin Ratio 2.29 Ratio (1.60-3.17); Alkaline Phosphatase 39 U/L (41-126); BUN/Creat Ratio 9.75 Ratio (12.00-20.00); Blood Urea Nitrogen 11.7 mg/dL (9.0-27.0); Calcium 8.5 mg/dL (8.7-10.3); Carbon Dioxide 25.4 mmol/L (21.6-31.8); Chloride 115 mmol/L (96-109); Globulin 1.4 g/dL (1.6-3.3); Glucose 80 mg/dL (70-110); Potassium 3.8 mmol/L (3.5-5.5); Sodium 152 mmol/L (135-145); Total Bilirubin 0.4 mg/dL (0.3-1.2); Total Protein 4.6 g/dL (6.2-8.2)
--- NOTE | 2023-05-08 10:06 | XR ---
EXAMINATION TYPE: XR chest 1V portable DATE OF EXAM: 05/08/2023 8:26 AM CLINICAL INDICATION:Male, 62 years old with history of pneumonia; [facility] COMPARISON: Chest radiographs from 05/06/2023. TECHNIQUE: XR chest 1V portable Frontal view of the chest. FINDINGS: Lungs/Pleura: Improved airspace opacities in lung bases. No evidence of pneumothorax or large pleural effusion. Pulmonary vascularity: Unremarkable. Heart/mediastinum: Cardiomediastinal silhouette is unremarkable. Musculoskeletal: No acute osseous pathology. Nasogastric tube projecting region of the diaphragm. IMPRESSION: Nasogastric tube in appropriate position. Bibasilar airspace opacities have improved from 05/06/2023.
[2023-05-08 10:21] LABS: Basophils # (M) 0 X 10*3/uL (0.00-0.10); Eosinophils # (M) 0 X 10*3/uL (0.04-0.35); HCT 38.8 % (39.6-50.0); HGB 12.3 g/dL (13.0-17.0); Lymphocytes # (M) 1.09 X 10*3/uL (0.90-5.00); MCH 29.3 pg (27.0-32.0); MCHC 31.7 g/dL (32.0-37.0); MCV 92.4 FL (80.0-97.0); Mean Platelet Volume 9.9 FL (9.5-12.2); Microcytosis (M) 2+; Monocytes # (M) 0.32 X 10*3/uL (0.20-1.00); Myelocytes % 1 % (0-0); NRBC Per 100 WBC 0 X 10*3/uL (0.00-0.01); Neutrophils # (M) 4.92 X 10*3/uL (1.80-7.70); Neutrophils % (M) 77 %; Platelet Count 209 X 10*3/uL (140-440); RDW 13.3 % (11.5-14.5); WBC 6.39 X 10*3/uL (4.50-10.00)
[2023-05-08] MEDS: PANTOPRAZOLE 40 MG/10 ML VIAL IVP SCH ×2 (11:33→21:19)
[2023-05-08] MEDS: cloZAPine 25 MG TAB PO SCH ×2 (11:33→21:20)
[2023-05-08 12:01] LABS: Glucose,Whole Blood 69 mg/dL (70-110)
--- NOTE | 2023-05-08 12:43 | FL ---
EXAMINATION TYPE: FL small bowel follow through DATE OF EXAM: 05/08/2023 11:44 AM COMPARISON: CT abdomen pelvis most recent from 05/06/2023 INDICATION: Patient age:Male; 62 years old; Reason for study: Evaluate SBO; TECHNIQUE: The procedure was explained and patient history elicited. All patient questions were ans wered prior to start of procedure. A sales and distribution clerk radiograph of the abdomen was also reviewed. The patient was asked to ingest liquid and incremental frontal abdominal radiographs were then taken until contra st was visualized in the cecum. Fluoroscopic time: None Fluoroscopic images: None Radiographs taken: 9 FINDINGS: The sales and distribution clerk abdominal radiograph demonstrates a normal bowel gas pattern without dilated loops of small or large bowel. There is no evidence of organomegaly or pneumoperitoneum. No abnormal calcifications . The visualized osseous structures are intact. Postsurgical anchors noted in the lower abdomen. Naso gastric tube in appropriate position. Contrast is seen extending from the duodenojejunal junction into the cecum after 3 hours, which is mi ldly delayed within the expected time period. The small bowel follows postsurgical distribution and contour without any evidence of extraluminal or intraluminal irregularity. There is no displacement of bowel loops or extraluminal extravasation of contrast material. Small bowel mucosal folds are felt to be within normal limits. IMPRESSION: Mildly dilated transit from the stomach to the large bowel. No evidence for bowel structure.
[2023-05-08 12:49] LABS: Glucose,Whole Blood 115 mg/dL (70-110)
[2023-05-08] MEDS: DEXTROSE 5% IN WATER 1,000 ML IV SCH ×2 (13:20→21:20)
--- NOTE | 2023-05-08 14:43 | P.PN ---
Subjective Progress Note Date: 05/08/23 Principal diagnosis: Small bowel obstruction Patient doing well today. He had a few small bowel movements. Denies pain. Today small bowel series showed slightly delayed transit but no obvious obstruction. Nasogastric tube fell out while showering. Objective - Vital Signs Vital signs: Vital Signs Temp 98 F 05/08/23 12:02 Pulse 89 05/08/23 12:02 Resp 17 05/08/23 12:02 BP 149/76 05/08/23 12:02 Pulse Ox 96 05/08/23 12:02 FiO2 Intake & Output 05/07/23 05/08/23 05/08/23 18:59 06:59 18:59 Output Total 550 650 650 Balance -550 -650 -650 Output: Drainage 650 Face 650 Urine 550 650 Other: Voiding Method Toilet # Voids 1 # Bowel Movements 1 1 - Exam Abdomen: Soft, mild distention, nontender, reducible hernia - Labs CBC & Chem 7: 05/08/23 05:32 05/08/23 05:32 Labs: Abnormal Lab Results - Last 24 Hours (Table) 05/08/23 05/08/23 05/08/23 Range/Units 05:32 05:32 12:00 RBC 4.20 L (4.40-5.60) X 10*6/uL Hgb 12.3 L (13.0-17.0) g/dL Hct 38.8 L (39.6-50.0) % MCHC 31.7 L (32.0-37.0) g/dL Eosinophils # (Manual) 0 L (0.04-0.35) X 10*3/uL Microcytosis (manual) 2+ A Sodium 152 H (135-145) mmol/L Chloride 115 H (96-109) mmol/L BUN/Creatinine Ratio 9.75 L (12.00-20.00) Ratio POC Glucose (mg/dL) 69 L (70-110) mg/dL Calcium 8.5 L (8.7-10.3) mg/dL Alkaline Phosphatase 39 L (41-126) U/L Total Protein 4.6 L (6.2-8.2) g/dL Albumin 3.2 L (3.8-4.9) g/dL Globulin 1.4 L (1.6-3.3) g/dL 05/08/23 Range/Units 12:36 RBC (4.40-5.60) X 10*6/uL Hgb (13.0-17.0) g/dL Hct (39.6-50.0) % MCHC (32.0-37.0) g/dL Eosinophils # (Manual) (0.04-0.35) X 10*3/uL Microcytosis (manual) Sodium (135-145) mmol/L Chloride (96-109) mmol/L BUN/Creatinine Ratio (12.00-20.00) Ratio POC Glucose (mg/dL) 115 H (70-110) mg/dL Calcium (8.7-10.3) mg/dL Alkaline Phosphatase (41-126) U/L Total Protein (6.2-8.2) g/dL Albumin (3.8-4.9) g/dL Globulin (1.6-3.3) g/dL Microbiology - Last 24 Hours (Table) 05/06/23 17:16 Blood Culture - Preliminary Blood Assessment and Plan (1) Small bowel obstruction Narrative/Plan: Patient doing better at this time. The patient's small bowel series shows no definite obstruction. Begin sips of liquids. Current Visit: Yes Status: Acute Code(s): K56.609 - UNSP INTESTNL OBST, UNSP TO PARTIAL VERSUS COMPLETE OBST SNOMED Code(s): 623470332
--- NOTE | 2023-05-08 16:14 | P.PN ---
Subjective Progress Note Date: 05/08/23 Principal diagnosis: Reason for follow-up is right lobe pneumonia possible aspiration Patient is a 62-year-old male with multiple comorbidities presented to hospital abdominal distention patient did have abnormal CT suspicious for distal small bowel obstruction and also concerning for right lobe pneumonia possible aspiration etiology. On today's evaluation that is 05/08/2023 the patient remains to be afebrile patient is a breathing comfortably without need for supplemental oxygen on room air, the patient denies having any chest pain or worsening cough abdominal d istention persist slightly decreased with NG and did have small bowel movement Patient did have white count of 6.39, creatinine is 1.2, Pro-Gordy was 0.30 Objective - Vital Signs Vital signs: Vital Signs Temp 98 F 05/08/23 12:02 Pulse 89 05/08/23 12:02 Resp 17 05/08/23 12:02 BP 149/76 05/08/23 12:02 Pulse Ox 96 05/08/23 12:02 FiO2 Intake & Output 05/07/23 05/08/23 05/08/23 18:59 06:59 18:59 Output Total 550 650 650 Balance -550 -650 -650 Output: Drainage 650 Face 650 Urine 550 650 Other: Voiding Method Toilet # Voids 1 # Bowel Movements 1 1 - Exam GENERAL DESCRIPTION: Middle-age male lying in bed in no distress RESPIRATORY SYSTEM: Unlabored breathing , decreased breath sounds at bases HEART: S1 S2 regular rate and rhythm , ABDOMEN: Soft , mild distention EXTREMITIES: No edema feet - Labs CBC & Chem 7: 05/08/23 05:32 05/08/23 05:32 Labs: Abnormal Lab Results - Last 24 Hours (Table) 05/08/23 05/08/23 05/08/23 Range/Units 05:32 05:32 12:00 RBC 4.20 L (4.40-5.60) X 10*6/uL Hgb 12.3 L (13.0-17.0) g/dL Hct 38.8 L (39.6-50.0) % MCHC 31.7 L (32.0-37.0) g/dL Eosinophils # (Manual) 0 L (0.04-0.35) X 10*3/uL Microcytosis (manual) 2+ A Sodium 152 H (135-145) mmol/L Chloride 115 H (96-109) mmol/L BUN/Creatinine Ratio 9.75 L (12.00-20.00) Ratio POC Glucose (mg/dL) 69 L (70-110) mg/dL Calcium 8.5 L (8.7-10.3) mg/dL Alkaline Phosphatase 39 L (41-126) U/L Total Protein 4.6 L (6.2-8.2) g/dL Albumin 3.2 L (3.8-4.9) g/dL Globulin 1.4 L (1.6-3.3) g/dL 05/08/23 Range/Units 12:36 RBC (4.40-5.60) X 10*6/uL Hgb (13.0-17.0) g/dL Hct (39.6-50.0) % MCHC (32.0-37.0) g/dL Eosinophils # (Manual) (0.04-0.35) X 10*3/uL Microcytosis (manual) Sodium (135-145) mmol/L Chloride (96-109) mmol/L BUN/Creatinine Ratio (12.00-20.00) Ratio POC Glucose (mg/dL) 115 H (70-110) mg/dL Calcium (8.7-10.3) mg/dL Alkaline Phosphatase (41-126) U/L Total Protein (6.2-8.2) g/dL Albumin (3.8-4.9) g/dL Globulin (1.6-3.3) g/dL Microbiology - Last 24 Hours (Table) 05/06/23 17:16 Blood Culture - Preliminary Blood Assessment and Plan (1) Penicillin allergy Current Visit: Yes Status: Acute Code(s): Z88.0 - ALLERGY STATUS TO PENICILLIN SNOMED Code(s): 99771666 (2) Pneumonia Current Visit: Yes Status: Acute Code(s): J18.9 - PNEUMONIA, UNSPECIFIED ORGANISM SNOMED Code(s): 464858783 (3) Small bowel obstruction Current Visit: Yes Status: Acute Code(s): K56.609 - UNSP INTESTNL OBST, UNSP TO PARTIAL VERSUS COMPLETE OBST SNOMED Code(s): 801988621 Plan: 1patient presented to hospital with abdominal distention in this patient who did have abnormal CT abdominal pelvis with dilated small bowel concerning for distal small bowel obstruction also with evidence of right lobe pneumonia with a question of possible aspiration etiology. 2patient with a penicillin allergy that will limit the number of antibiotics safe to use 3patient did have a mildly elevated CRP and procalcitonin sputum not collected. 4patient did have subclinical improvement and we will continue the patient on Rocephin and Flagyl and monitor his clinical course closely Dictation was produced using [employer] dictation software. please excuse any grammatical, word or spelling errors.
[2023-05-08 17:03] LABS: Glucose,Whole Blood 85 mg/dL (70-110)
[2023-05-08 20:11] LABS: Glucose,Whole Blood 172 mg/dL (70-110)
[2023-05-08] MEDS: LITHIUM CARBONATE 300 MG CAP PO SCH (21:19)
[2023-05-08] MEDS: DIVALPROEX ER 500 MG TAB.ER.24H PO SCH (21:19)
[2023-05-08] MEDS: cloZAPine 100 MG TAB PO SCH (21:20)
[2023-05-09] MEDS: LEVOTHYROXINE 50 MCG TAB PO SCH (05:10)
[2023-05-09] MEDS: DEXTROSE 5% IN WATER 1,000 ML IV SCH ×3 (05:10→23:02)
[2023-05-09 07:31] LABS: Glucose,Whole Blood 121 mg/dL (70-110)
[2023-05-09] MEDS: INSULIN ASPART (NovoLOG) 100 UNIT/ML VIAL SQ SCH ×4 (07:39→19:52)
[2023-05-09] MEDS: cloZAPine 25 MG TAB PO SCH ×2 (07:47→19:58)
[2023-05-09] MEDS: metroNIDAZOLE-NS PMX 500 MG in SALINE 1 100ML.BAG IVPB SCH ×3 (07:47→23:01)
[2023-05-09] MEDS: PANTOPRAZOLE 40 MG/10 ML VIAL IVP SCH ×2 (07:47→20:17)
--- NOTE | 2023-05-09 08:27 | P.PN ---
Subjective Progress Note Date: 05/08/23 This is a 62-year-old male who was recently admitted with significant abdominal distention found to have features a small bowel obstruction as well as possible bilateral aspiration pneumonia. Patient continued on NG tube with general surgery following scheduled to undergo small bowel follow-through this morning. Patient not currently requiring oxygen and denies any shortness of breath or chest pain. Patient does report he is passing some gas and reports had a very small somewhat formed bowel movement today. Infectious disease is following as well and patient is maintained on antibiotics. Sodium elevated and was maintained on normal saline and we'll transition to D5 in water with gentle hydr ation and follow-up on repeat labs in a.m. Review of systems: Constitutional: No reports of fatigue, fever, or chills Cardiovascular: No reports of chest pain or palpitations Respiratory: No reports of shortness of breath or cough GI: No reports of nausea, no reports of vomiting, reports less bloating and reports had a small bowel movement with passing gas : No reports of dysuria or retention Neurovascular: No reports of generalized weakness All medications have been reviewed PHYSICAL EXAMINATION: GENERAL: The patient is alert and oriented x2-3 baseline, Well developed, well nourished. HEENT: Pupils are round and equally reacting to light. EOMI. no scleral icterus. No conjunctival pallor. Normocephalic, atraumatic. No pharyngeal erythema. No thyromegaly. CARDIOVASCULAR: S1 and S2 muffled PULMONARY: diminished breath sounds bilaterally with no wheezing or rhonchi noted. ABDOMEN: More soft. Nontender on exam. obese. distended, normoactive bowel sounds. No palpable organomegaly. MUSCULOSKELETAL: No joint swelling or deformity. EXTREMITIES: No cyanosis, clubbing, or pedal edema. NEUROLOGICAL: Gross neurological examination did not reveal any focal deficits. Diffuse weakness SKIN: No rashes. Assessment: Acute distal small bowel obstruction with abdominal distention bilateral pneumonia, possibly aspiration although suspicion is low with pro calcitonin 0.30 Elevated serum pro calcitonin History of congestive heart failure, with preserved EF Diabetes mellitus, type II hypertension hyperlipidemia History of ITP History of small bowel obstruction history of anxiety, bipolar, depression, schizophrenia GI prophylaxis DVT prophylaxis Full code Plan: Recommend to continue with current medications and management with general surgery and infectious disease following Patient scheduled to undergo small bowel follow-through study today which is pending and continues with NG tube Home medications have been reviewed and resumed as appropriate and patient to continue with clamping of the NG tube for medication administration and holding for 1 hour and then resuming the NG tube until cleared by surgery for removal Patient sodium is 152 today and was maintained on normal saline and we'll transition to D5 in water and follow-up on repeat labs Continue monitoring blood sugars with Accu-Cheks before meals and at bedtime and will continue sliding scale Patient is continued on enteric antibiotics for suspicion of possible aspiration pneumonia with infectious disease following and awaiting sputum culture. ProCalcitonin was 0.30 suspicion is low for pneumonia. Patient will be returning to [facility] on discharge with case management/social work following. Will await surgical clearance for discharge planning The impression and plan of care has been dictated by Jessica Joya, nurse practitioner as directed. Dr. Kulwant MD I have performed a history and examination and MDM of this patient, discussed the same with the dictator, and agree with the dictator's assessment and plan as written ,documented as a scribe. Based on total visit time, I have performed more than 50% of the visit. Any additional findings or plans will be noted. Objective - Vital Signs Vital signs: Vital Signs Temp 98.2 F 05/08/23 07:17 Pulse 77 05/08/23 07:17 Resp 17 05/08/23 07:17 BP 147/76 05/08/23 07:17 Pulse Ox 93 L 05/08/23 07:17 FiO2 Intake & Output 05/07/23 05/08/23 05/08/23 18:59 06:59 18:59 Output Total 550 650 650 Balance -550 -650 -650 Output: Drainage 650 Face 650 Urine 550 650 Other: Voiding Method Toilet # Voids 1 # Bowel Movements 1 1 - Labs CBC & Chem 7: 05/08/23 05:32 05/08/23 05:32 Labs: Abnormal Lab Results - Last 24 Hours (Table) 05/07/23 05/07/23 05/08/23 Range/Units 09:19 09:19 05:32 RBC 4.04 L (4.30-5.90) m/uL Hgb 12.3 L (13.0-17.5) gm/dL Hct 37.1 L (39.0-53.0) % Sodium 146 H 152 H (137-145) mmol/L Chloride 112 H 115 H (98-107) mmol/L BUN/Creatinine Ratio 9.75 L (12.00-20.00) Ratio Calcium 8.0 L 8.5 L (8.4-10.2) mg/dL Alkaline Phosphatase 39 L (41-126) U/L Total Protein 4.6 L (6.2-8.2) g/dL Albumin 3.2 L (3.8-4.9) g/dL Globulin 1.4 L (1.6-3.3) g/dL Microbiology - Last 24 Hours (Table) 05/06/23 17:16 Blood Culture - Preliminary Blood
[2023-05-09 09:18] LABS: African American GFR (CKD) 84 (>60 ml/min/1.73 sqM); Anion Gap 11 mmol/L; Blood Urea Nitrogen 10 mg/dL (9-20); Calcium 7.9 mg/dL (8.4-10.2); Carbon Dioxide 26 mmol/L (22-30); Chloride 107 mmol/L (98-107); Glucose 105 mg/dL (74-99); Non-African American GFR(CKD) 73 (>60 ml/min/1.73 sqM); Potassium 3.5 mmol/L (3.5-5.1); Sodium 144 mmol/L (137-145)
[2023-05-09 11:52] LABS: Glucose,Whole Blood 110 mg/dL (70-110)
--- NOTE | 2023-05-09 12:39 | P.PN ---
Subjective Progress Note Date: 05/09/23 Principal diagnosis: Small bowel obstruction Patient doing well today. Nasogastric tube was removed. Tolerating sips of liquids. He is hungry. Feels less bloated although still somewhat more bloated than baseline. At a bowel movement last night and again this morning. No n ausea or vomiting. Objective - Vital Signs Vital signs: Vital Signs Temp 99.1 F 05/09/23 07:11 Pulse 75 05/09/23 07:11 Resp 16 05/09/23 07:11 BP 146/81 05/09/23 07:11 Pulse Ox 95 05/09/23 07:11 FiO2 Intake & Output 05/08/23 05/09/23 05/09/23 18:59 06:59 18:59 Intake Total 590 150 Output Total 650 1425 Balance -650 590 -1275 Intake: Intake, IV Titration 150 Amount cefTRIAXone 2 gm In 50 Sodium Chloride 0.9% 50 ml @ 100 mls/hr IVPB Q24HR [facility] Rx#:[id number] metroNIDAZOLE-NS PMX 500 100 mg In Saline 1 100ml.bag @ 100 mls/hr IVPB Q8HR [facility] Rx#:[id number] Oral 590 Output: Urine 650 1425 Other: Voiding Method Toilet # Voids 2 # Bowel Movements 1 1 - Exam Abdomen: Soft, minimal distention, nontender, hernia reducible - Labs CBC & Chem 7: 05/08/23 05:32 05/09/23 08:36 Labs: Abnormal Lab Results - Last 24 Hours (Table) 05/08/23 05/08/23 05/09/23 Range/Units 12:36 20:03 07:09 Glucose (74-99) mg/dL POC Glucose (mg/dL) 115 H 172 H 121 H (70-110) mg/dL Calcium (8.4-10.2) mg/dL 05/09/23 Range/Units 08:36 Glucose 105 H (74-99) mg/dL POC Glucose (mg/dL) (70-110) mg/dL Calcium 7.9 L (8.4-10.2) mg/dL Microbiology - Last 24 Hours (Table) 05/06/23 17:16 Blood Culture - Preliminary Blood Assessment and Plan (1) Small bowel obstruction Narrative/Plan: 62-year-old male with small bowel obstruction that has resolved/improved spontaneously. Add MiraLAX. Advance to full liquids. If tolerating tomorrow may consider discharge Current Visit: Yes Status: Acute Code(s): K56.609 - UNSP INTESTNL OBST, UNSP TO PARTIAL VERSUS COMPLETE OBST SNOMED Code(s): 712173923
[2023-05-09] MEDS: polyethylene glycoL 3350 17 GM POWD.PACK PO SCH (13:23)
[2023-05-09 14:47] VITALS: BMI 28.0
[2023-05-09 17:38] LABS: Glucose,Whole Blood 121 mg/dL (70-110)
[2023-05-09] MEDS: cloZAPine 100 MG TAB PO SCH (19:42)
[2023-05-09] MEDS: LITHIUM CARBONATE 300 MG CAP PO SCH (19:42)
[2023-05-09] MEDS: DIVALPROEX ER 500 MG TAB.ER.24H PO SCH (19:42)
[2023-05-09 19:53] LABS: Glucose,Whole Blood 124 mg/dL (70-110)
[2023-05-10] MEDS: LEVOTHYROXINE 50 MCG TAB PO SCH (06:04)
[2023-05-10 07:19] LABS: Glucose,Whole Blood 107 mg/dL (70-110)
[2023-05-10] MEDS: cloZAPine 25 MG TAB PO SCH ×2 (07:37→21:51)
[2023-05-10] MEDS: metroNIDAZOLE-NS PMX 500 MG in SALINE 1 100ML.BAG IVPB SCH ×3 (07:37→23:19)
[2023-05-10] MEDS: polyethylene glycoL 3350 17 GM POWD.PACK PO SCH (07:38)
--- NOTE | 2023-05-10 08:10 | P.PN ---
Subjective Progress Note Date: 05/09/23 This is a 62-year-old male who was recently admitted with significant abdominal distention found to have features a small bowel obstruction as well as possible bilateral aspiration pneumonia. Patient continued on NG tube with general surgery following scheduled to undergo small bowel follow-through this morning. Patient not currently requiring oxygen and denies any shortness of breath or chest pain. Patient does report he is passing some gas and reports had a very small somewhat formed bowel movement today. Infectious disease is following as well and patient is maintained on antibiotics. Sodium elevated and was maintained on normal saline and we'll transition to D5 in water with gentle hydr ation and follow-up on repeat labs in a.m. 05/09/2023 Patient is seen in follow-up with NG tube that has been removed and small bowel follow-through showed mildly dilated transit from the stomach to the large bowel with no evidence of bowel obstruction. NG tube was accidentally removed while taking a shower and okay for surgery to continue without it and has been started on occasional clears including popsicles and some ice chips. Monitor with bowel regimen and continued on gentle IV hydration and awaiting surgical reevaluation for possible advancement in diet. Consider discharge planning in the next 24 hours. Review of systems: Constitutional: No reports of fatigue, fever, or chills Cardiovascular: No reports of chest pain or palpitations Respiratory: No reports of shortness of breath or cough GI: No reports of nausea, no reports of vomiting, reports less bloating and reports had a small bowel movement with passing gas, patient reports feeling hungry : No reports of dysuria or retention Neurovascular: No reports of generalized weakness All medications have been reviewed PHYSICAL EXAMINATION: GENERAL: The patient is alert and oriented x2-3 baseline, Well developed, well nourished. HEENT: Pupils are round and equally reacting to light. EOMI. no scleral icterus. No conjunctival pallor. Normocephalic, atraumatic. No pharyngeal erythema. No thyromegaly. CARDIOVASCULAR: S1 and S2 muffled PULMONARY: diminished breath sounds bilaterally with no wheezing or rhonchi noted. ABDOMEN: More soft. Nontender on exam. obese. Less distended, normoactive bowel sounds. No palpable organomegaly. MUSCULOSKELETAL: No joint swelling or deformity. EXTREMITIES: No cyanosis, clubbing, or pedal edema. NEUROLOGICAL: Gross neurological examination did not reveal any focal deficits. Diffuse weakness SKIN: No rashes. Assessment: Acute distal small bowel obstruction with abdominal distention, improving bilateral pneumonia, possibly aspiration although suspicion is low with pro calcitonin 0.30 Elevated serum pro calcitonin History of congestive heart failure, with preserved EF Diabetes mellitus, type II hypertension hyperlipidemia History of ITP History of small bowel obstruction history of anxiety, bipolar, depression, schizophrenia GI prophylaxis DVT prophylaxis Full code Plan: Recommend to continue with current medications and management with general [place] rgery and infectious disease following Patient underwent small bowel follow-through study and was not showing any evidence of obstruction and patient did have NG tube was removed accidentally. Abdomen less distended and reports to having bowel movements and feeling hungry. Diet being advanced slowly and is tolerated may consider discharge planning over the next 24 hours. Patient to continue on bowel regimen on discharge Home medications have been reviewed and resumed as appropriate Patient sodium is improved at 144 today and was maintained on normal saline have transitioned to D5 in water and will now discontinue IV fluids as patient's diet is being advanced Continue monitoring blood sugars with Accu-Cheks before meals and at bedtime and will continue sliding scale Patient is continued on enteric antibiotics for suspicion of possible aspiration pneumonia with infectious disease following and awaiting sputum culture. ProCalcitonin was 0.30 suspicion is low for pneumonia. Patient will be returning to [facility] on discharge with case management/social work following. Surgery recommend monitoring overnight and is tolerating advanced diet with no further abdominal discomfort or distention may consider discharge planning in the next 24 hours. The impression and plan of care has been dictated by Jessica Joya, nurse practitioner as directed. Dr. Kulwant MD I have performed a history and examination and MDM of this patient, discussed the same with the dictator, and agree with the dictator's assessment and plan as written ,documented as a scribe. Based on total visit time, I have performed more than 50% of the visit. Any additional findings or plans will be noted. Objective - Vital Signs Vital signs: Vital Signs Temp 99.1 F 05/09/23 07:11 Pulse 75 05/09/23 07:11 Resp 16 05/09/23 07:11 BP 146/81 05/09/23 07:11 Pulse Ox 95 05/09/23 07:11 FiO2 Intake & Output 12/28/23 12/29/23 12/29/23 18:59 06:59 18:59 Intake Total 590 Output Total 650 Balance -650 590 Intake: Oral 590 Output: Urine 650 Other: Voiding Method Toilet # Voids 2 # Bowel Movements 1 1 - Labs CBC & Chem 7: 05/08/23 05:32 05/09/23 08:36 Labs: Abnormal Lab Results - Last 24 Hours (Table) 05/08/23 05/08/23 05/08/23 Range/Units 05:32 05:32 12:00 RBC 4.20 L (4.40-5.60) X 10*6/uL Hgb 12.3 L (13.0-17.0) g/dL Hct 38.8 L (39.6-50.0) % MCHC 31.7 L (32.0-37.0) g/dL Eosinophils # (Manual) 0 L (0.04-0.35) X 10*3/uL Microcytosis (manual) 2+ A Sodium 152 H (135-145) mmol/L Chloride 115 H (96-109) mmol/L BUN/Creatinine Ratio 9.75 L (12.00-20.00) Ratio POC Glucose (mg/dL) 69 L (70-110) mg/dL Calcium 8.5 L (8.7-10.3) mg/dL Alkaline Phosphatase 39 L (41-126) U/L Total Protein 4.6 L (6.2-8.2) g/dL Albumin 3.2 L (3.8-4.9) g/dL Globulin 1.4 L (1.6-3.3) g/dL 05/08/23 05/08/23 05/09/23 Range/Units 12:36 20:03 07:09 RBC (4.40-5.60) X 10*6/uL Hgb (13.0-17.0) g/dL Hct (39.6-50.0) % MCHC (32.0-37.0) g/dL Eosinophils # (Manual) (0.04-0.35) X 10*3/uL Microcytosis (manual) Sodium (135-145) mmol/L Chloride (96-109) mmol/L BUN/Creatinine Ratio (12.00-20.00) Ratio POC Glucose (mg/dL) 115 H 172 H 121 H (70-110) mg/dL Calcium (8.7-10.3) mg/dL Alkaline Phosphatase (41-126) U/L Total Protein (6.2-8.2) g/dL Albumin (3.8-4.9) g/dL Globulin (1.6-3.3) g/dL Microbiology - Last 24 Hours (Table) 05/06/23 17:16 Blood Culture - Preliminary Blood
[2023-05-10] MEDS: INSULIN ASPART (NovoLOG) 100 UNIT/ML VIAL SQ SCH ×4 (08:51→21:51)
[2023-05-10] MEDS: PANTOPRAZOLE 40 MG/10 ML VIAL IVP SCH ×2 (10:01→21:51)
[2023-05-10 11:10] LABS: African American GFR (CKD) 78 (>60 ml/min/1.73 sqM); Anion Gap 7 mmol/L; Blood Urea Nitrogen 6 mg/dL (9-20); Calcium 8.1 mg/dL (8.4-10.2); Carbon Dioxide 28 mmol/L (22-30); Chloride 108 mmol/L (98-107); Glucose 148 mg/dL (74-99); Non-African American GFR(CKD) 67 (>60 ml/min/1.73 sqM); Potassium 3.9 mmol/L (3.5-5.1); Sodium 143 mmol/L (137-145)
[2023-05-10 11:59] LABS: Glucose,Whole Blood 111 mg/dL (70-110)
--- NOTE | 2023-05-10 12:32 | P.PN ---
Subjective Progress Note Date: 05/09/23 Principal diagnosis: Reason for follow-up is right lobe pneumonia possible aspiration Patient is a 62-year-old male with multiple comorbidities presented to hospital abdominal distention patient did have abnormal CT suspicious for distal small bowel obstruction and also concerning for right lobe pneumonia possible aspiration etiology. On today's evaluation that is 05/09/2023, the patient continues to be afebrile patient is breathing comfortably on room air, the patient NG has been discontinued and denies having any nausea or vomiting still have some abdominal distention and did have bowel vomiting no chest pain shortness of breath or cough. The patient did have white count of 6.39 as of 05/08/2023 creatinine is 1.08 blood cultures pending Objective - Vital Signs Vital signs: Vital Signs Temp 98.4 F 05/09/23 12: Pulse 74 05/09/23 12:23 Resp 16 05/09/23 12:23 BP 138/79 05/09/23 12:23 Pulse Ox 97 05/09/23 12:23 FiO2 Intake & Output 05/08/23 05/09/23 05/09/23 18:59 06:59 18:59 Intake Total 590 150 Output Total 650 1425 Balance -650 590 -1275 Intake: Intake, IV Titration 150 Amount cefTRIAXone 2 gm In 50 Sodium Chloride 0.9% 50 ml @ 100 mls/hr IVPB Q24HR [facility] Rx#:[id number] metroNIDAZOLE-NS PMX 500 100 mg In Saline 1 100ml.bag @ 100 mls/hr IVPB Q8HR [facility] Rx#:[id number] Oral 590 Output: Urine 650 1425 Other: Voiding Method Toilet # Voids 2 # Bowel Movements 1 1 - Exam GENERAL DESCRIPTION: Middle-age male lying in bed in no distress RESPIRATORY SYSTEM: Unlabored breathing , decreased breath sounds at bases HEART: S1 S2 regular rate and rhythm , ABDOMEN: Soft , mild distention EXTREMITIES: No edema feet - Labs CBC & Chem 7: 05/08/23 05:32 05/10/23 10:26 Labs: Abnormal Lab Results - Last 24 Hours (Table) 05/08/23 05/09/23 05/09/23 Range/Units 20:03 07:09 08:36 Glucose 105 H (74-99) mg/dL POC Glucose (mg/dL) 172 H 121 H (70-110) mg/dL Calcium 7.9 L (8.4-10.2) mg/dL Microbiology - Last 24 Hours (Table) 05/06/23 17:16 Blood Culture - Preliminary Blood Assessment and Plan (1) Penicillin allergy Current Visit: Yes Status: Acute Code(s): Z88.0 - ALLERGY STATUS TO PENICILLIN SNOMED Code(s): 40792228 (2) Pneumonia Current Visit: Yes Status: Acute Code(s): J18.9 - PNEUMONIA, UNSPECIFIED ORGANISM SNOMED Code(s): 534217029 (3) Small bowel obstruction Current Visit: Yes Status: Acute Code(s): K56.609 - UNSP INTESTNL OBST, UNSP TO PARTIAL VERSUS COMPLETE OBST SNOMED Code(s): 213740788 Plan: 1patient presented to hospital with abdominal distention in this patient who did have abnormal CT abdominal pelvis with dilated small bowel concerning for distal small bowel obstruction also with evidence of right lobe pneumonia with a question of possible aspiration etiology. 2patient with a penicillin allergy that will limit the number of antibiotics safe to use 3patient did have a mildly elevated CRP and procalcitonin sputum not collected. 4the patient did have some clinical improvement and NG has been discontinued no further vomiting has been reported, we will give the patient Rocephin and Flagyl and monitor his clinical course closely Dictation was produced using [employer] dictation software. please excuse any grammatical, word or spelling errors.
--- NOTE | 2023-05-10 12:33 | P.PN ---
Subjective Progress Note Date: 05/10/23 Principal diagnosis: Reason for follow-up is right lobe pneumonia possible aspiration Patient is a 62-year-old male with multiple comorbidities presented to hospital abdominal distention patient did have abnormal CT suspicious for distal small bowel obstruction and also concerning for right lobe pneumonia possible aspiration etiology. On today's evaluation that is 05/10/2023, the patient remains to be afebrile patient is breathing comfortably on room air mention he did have a small emesis after drinking his coffee this morning denies having abdominal pain no chest pain shortness of breath or cough The patient did have white count of 6.39 as of 05/08/2023 creatinine is 1.16 blood cultures pending Objective - Vital Signs Vital signs: Vital Signs Temp 98.1 F 05/10/23 11:30 Pulse 72 05/10/23 11:30 Resp 16 05/10/23 11:30 BP 133/73 05/10/23 11:30 Pulse Ox 96 05/10/23 11:30 FiO2 Intake & Output 05/09/23 05/10/23 05/10/23 18:59 06:59 18:59 Intake Total 150 Output Total 1425 675 500 Balance -1275 -675 -500 Weight 104.326 kg Intake: Intake, IV Titration 150 Amount cefTRIAXone 2 gm In 50 Sodium Chloride 0.9% 50 ml @ 100 mls/hr IVPB Q24HR [facility] Rx#:[id number] metroNIDAZOLE-NS PMX 500 100 mg In Saline 1 100ml.bag @ 100 mls/hr IVPB Q8HR [facility] Rx#:[id number] Output: Urine 1425 675 500 Other: Voiding Method Toilet # Voids 3 # Bowel Movements 1 1 1 - Exam GENERAL DESCRIPTION: Middle-age male lying in bed in no distress RESPIRATORY SYSTEM: Unlabored breathing , decreased breath sounds at bases HEART: S1 S2 regular rate and rhythm , ABDOMEN: Soft , mild distention EXTREMITIES: No edema feet - Labs CBC & Chem 7: 05/08/23 05:32 05/10/23 10:26 Labs: Abnormal Lab Results - Last 24 Hours (Table) 05/09/23 05/09/23 05/10/23 Range/Units 17:36 19:51 10:26 Chloride 108 H (98-107) mmol/L BUN 6 L (9-20) mg/dL Glucose 148 H (74-99) mg/dL POC Glucose (mg/dL) 121 H 124 H (70-110) mg/dL Calcium 8.1 L (8.4-10.2) mg/dL 05/10/23 Range/Units 11:34 Chloride (98-107) mmol/L BUN (9-20) mg/dL Glucose (74-99) mg/dL POC Glucose (mg/dL) 111 H (70-110) mg/dL Calcium (8.4-10.2) mg/dL Microbiology - Last 24 Hours (Table) 05/06/23 17:16 Blood Culture - Preliminary Blood Assessment and Plan (1) Penicillin allergy Current Visit: Yes Status: Acute Code(s): Z88.0 - ALLERGY STATUS TO PENICILLIN SNOMED Code(s): 82799454 (2) Pneumonia Current Visit: Yes Status: Acute Code(s): J18.9 - PNEUMONIA, UNSPECIFIED ORGANISM SNOMED Code(s): 014954419 (3) Small bowel obstruction Current Visit: Yes Status: Acute Code(s): K56.609 - UNSP INTESTNL OBST, UNSP TO PARTIAL VERSUS COMPLETE OBST SNOMED Code(s): 209268341 Plan: 1patient presented to hospital with abdominal distention in this patient who did have abnormal CT abdominal pelvis with dilated small bowel concerning for distal small bowel obstruction also with evidence of right lobe pneumonia with a question of possible aspiration etiology. 2patient with a penicillin allergy that will limit the number of antibiotics safe to use 3patient did have a mildly elevated CRP and procalcitonin sputum not collected. 4the patient apparently did have small emesis this morning patient need to be monitored closely for any worsening vomiting or abdominal distention he is cu rrently covered with Rocephin and Flagyl to continue and will monitor his clinical course closely Dictation was produced using [employer] dictation software. please excuse any grammatical, word or spelling errors.
--- NOTE | 2023-05-10 13:42 | P.PN ---
Subjective Progress Note Date: 05/10/23 NAEON. No abdominal pain. No N/V. No F/C. No SOB or CP. Admits to flatus and BM. Tolerating diet without issue Objective - Vital Signs Vital signs: Vital Signs Temp 98.1 F 05/10/23 11:30 Pulse 72 05/10/23 11:30 Resp 16 05/10/23 11:30 BP 133/73 05/10/23 11:30 Pulse Ox 96 05/10/23 11:30 FiO2 Intake & Output 05/09/23 05/10/23 05/10/23 18:59 06:59 18:59 Intake Total 150 Output Total 1425 675 500 Balance -1275 -675 -500 Weight 104.326 kg Intake: Intake, IV Titration 150 Amount cefTRIAXone 2 gm In 50 Sodium Chloride 0.9% 50 ml @ 100 mls/hr IVPB Q24HR [facility] Rx#:[id number] metroNIDAZOLE-NS PMX 500 100 mg In Saline 1 100ml.bag @ 100 mls/hr IVPB Q8HR [facility] Rx#:[id number] Output: Urine 1425 675 500 Other: Voiding Method Toilet Toilet # Voids 3 # Bowel Movements 1 1 1 - Exam Gen: AxO, NAD Pulm: non-labored respirations Abd: soft, non-tender, minimally distended, no guarding/rebound/rigidity Extrem: no edema seen - Labs CBC & Chem 7: 05/08/23 05:32 05/10/23 10:26 Labs: Abnormal Lab Results - Last 24 Hours (Table) 05/09/23 05/09/23 05/10/23 Range/Units 17:36 19:51 10:26 Chloride 108 H (98-107) mmol/L BUN 6 L (9-20) mg/dL Glucose 148 H (74-99) mg/dL POC Glucose (mg/dL) 121 H 124 H (70-110) mg/dL Calcium 8.1 L (8.4-10.2) mg/dL 05/10/23 Range/Units 11:34 Chloride (98-107) mmol/L BUN (9-20) mg/dL Glucose (74-99) mg/dL POC Glucose (mg/dL) 111 H (70-110) mg/dL Calcium (8.4-10.2) mg/dL Microbiology - Last 24 Hours (Table) 05/06/23 17:16 Blood Culture - Preliminary Blood Assessment and Plan Assessment: Patient is a 62 year old male who presents with SBO, now resolving Plan: -Diet as tolerated -PRN pain and nausea control -Encourage ambulation -Okay to DC from surgery standpoint Rm Mcmillan MD General Surgery
[2023-05-10 16:59] LABS: Glucose,Whole Blood 80 mg/dL (70-110)
[2023-05-10] MEDS ORDERED: ZINC OXIDE PASTE (Z-GUARD) 1 APPLIC TOPICAL PRN (17:56)
[2023-05-10 20:33] LABS: Glucose,Whole Blood 136 mg/dL (70-110)
[2023-05-10] MEDS: cloZAPine 100 MG TAB PO SCH (21:50)
[2023-05-10] MEDS: LITHIUM CARBONATE 300 MG CAP PO SCH (21:50)
[2023-05-10] MEDS: DIVALPROEX ER 500 MG TAB.ER.24H PO SCH (21:50)
--- NOTE | 2023-05-11 00:35 | P.PN ---
Subjective Progress Note Date: 05/10/23 This is a 62-year-old male who was recently admitted with significant abdominal distention found to have features a small bowel obstruction as well as possible bilateral aspiration pneumonia. Patient continued on NG tube with general surgery following scheduled to undergo small bowel follow-through this morning. Patient not currently requiring oxygen and denies any shortness of breath or chest pain. Patient does report he is passing some gas and reports had a very small somewhat formed bowel movement today. Infectious disease is following as well and patient is maintained on antibiotics. Sodium elevated and was maintained on normal saline and we'll transition to D5 in water with gentle hydration and follow-up on repeat labs in a.m. 05/09/2023 Patient is seen in follow-up with NG tube that has been removed and small bowel follow-through showed mildly dilated transit from the stomach to the large bowel with no evidence of bowel obstruction. NG tube was accidentally removed while taking a shower and okay for surgery to continue without it and has been started on occasional clears including popsicles and some ice chips. Monitor with bowel regimen and continued on gentle IV hydration and awaiting surgical reevaluation for possible advancement in diet. Consider discharge planning in the next 24 hours. 05/10/2023 Patient is lying in the bed. Awake alert and oriented. Patient did have a small bowel movement this morning. Able to pass flatus. Patient feels his abdomen is still distended. Otherwise tolerating oral diet. Patient is also antibiotics at home ceftriaxone for possible pneumonia. General surgery and ID is on board. Laboratory data showed sodium 143 potassium 3.9 chloride 108 bicarb is 28 BUN 16 creatinine 1.16 and blood sugar 148. Review of systems: Constitutional: No reports of fatigue, fever, or chills Cardiovascular: No reports of chest pain or palpitations Respiratory: No reports of shortness of breath or cough GI: No reports of nausea, no reports of vomiting, reports less bloating and reports had a small bowel movement with passing gas, patient reports feeling hungry : No reports of dysuria or retention Neurovascular: No reports of generalized weakness All medications have been reviewed PHYSICAL EXAMINATION: GENERAL: The patient is alert and oriented x2-3 baseline, Well developed, well nourished. HEENT: Pupils are round and equally reacting to light. EOMI. no scleral icterus. No conjunctival pallor. Normocephalic, atraumatic. No pharyngeal erythema. No thyromegaly. CARDIOVASCULAR: S1 and S2 muffled PULMONARY: diminished breath sounds bilaterally with no wheezing or rhonchi noted. ABDOMEN: More soft. Nontender on exam. obese. Less distended, normoactive bowel sounds. No palpable organomegaly. MUSCULOSKELETAL: No joint swelling or deformity. EXTREMITIES: No cyanosis, clubbing, or pedal edema. NEUROLOGICAL: Gross neurological examination did not reveal any focal deficits. Diffuse weakness SKIN: No rashes. Assessment: Acute distal small bowel obstruction with abdominal distention, improving bilateral pneumonia, possibly aspiration although suspicion is low with pro calcitonin 0.30 Elevated serum pro calcitonin History of congestive heart failure, with preserved EF Diabetes mellitus, type II hypertension hyperlipidemia History of ITP History of small bowel obstruction history of anxiety, bipolar, depression, schizophrenia GI prophylaxis DVT prophylaxis Full code Plan: Recommend to continue with current medications and management with general surgery and infectious disease following Patient underwent small bowel follow-through study and was not showing any evidence of obstruction and patient did have NG tube was removed accidentally. Abdomen less distended and reports to having bowel movements and feeling hungry. Diet being advanced slowly and is tolerated may consider discharge planning over the next 24 hours. Patient to continue on bowel regimen on discharge Home medications have been reviewed and resumed as appropriate Patient sodium is improved at 144 and was maintained on normal saline have transitioned to D5 in water and will now discontinue IV fluids as patient's diet is being advanced Continue monitoring blood sugars with Accu-Cheks before meals and at bedtime and will continue sliding scale Patient is continued on enteric antibiotics for suspicion of possible aspiration pneumonia with infectious disease following and awaiting sputum culture. ProCalcitonin was 0.30 suspicion is low for pneumonia. Patient will be returning to [facility] on discharge with case management/social work following. Surgery recommend monitoring overnight and is tolerating advanced diet with no further abdominal discomfort or distention may consider discharge planning in the next 24 hours. Objective - Vital Signs Vital signs: Vital Signs Temp 98.1 F 05/10/23 19:48 Pulse 81 05/10/23 19:48 Resp 16 05/10/23 20:00 BP 150/79 05/10/23 19:48 Pulse Ox 98 05/10/23 19:48 FiO2 Intake & Output 05/10/23 05/10/23 05/11/23 06:59 18:59 06:59 Intake Total 240 Output Total 675 500 Balance -145 -958 Intake: Oral 240 Output: Urine 675 500 Other: Voiding Method Toilet Toilet Toilet # Voids 3 4 # Bowel Movements 1 2 - Labs CBC & Chem 7: 05/08/23 05:32 05/10/23 10:26 Labs: Abnormal Lab Results - Last 24 Hours (Table) 05/10/23 05/10/23 05/10/23 Range/Units 10:26 11:34 20:31 Chloride 108 H (98-107) mmol/L BUN 6 L (9-20) mg/dL Glucose 148 H (74-99) mg/dL POC Glucose (mg/dL) 111 H 136 H (70-110) mg/dL Calcium 8.1 L (8.4-10.2) mg/dL Microbiology - Last 24 Hours (Table) 05/06/23 17:16 Blood Culture - Preliminary Blood
[2023-05-11] MEDS: LEVOTHYROXINE 50 MCG TAB PO SCH (05:45)
[2023-05-11 07:20] LABS: Glucose,Whole Blood 89 mg/dL (70-110)
[2023-05-11] MEDS: metroNIDAZOLE-NS PMX 500 MG in SALINE 1 100ML.BAG IVPB SCH ×3 (07:21→23:32)
[2023-05-11] MEDS: polyethylene glycoL 3350 17 GM POWD.PACK PO SCH (07:21)
[2023-05-11] MEDS: cloZAPine 25 MG TAB PO SCH ×2 (07:22→19:46)
[2023-05-11] MEDS: INSULIN ASPART (NovoLOG) 100 UNIT/ML VIAL SQ SCH ×4 (07:31→20:26)
[2023-05-11] MEDS: PANTOPRAZOLE 40 MG/10 ML VIAL IVP SCH ×2 (07:43→19:47)
[2023-05-11 08:03] LABS: Basophils % (A) 0 %; Eosinophils % (A) 0 %; HCT 36.9 % (39.0-53.0); HGB 12.3 gm/dL (13.0-17.5); Lymphocytes # (A) 1.5 k/uL (1.0-4.8); Lymphocytes % (A) 18 %; MCH 30.3 pg (25.0-35.0); MCHC 33.2 g/dL (31.0-37.0); MCV 91.2 fL (80.0-100.0); Mean Platelet Volume 7.7; Monocytes # (A) 0.5 k/uL (0-1.0); Monocytes % (A) 6 %; Neutrophils # (A) 6.1 k/uL (1.3-7.7); Neutrophils % (A) 74 %; Platelet Count 161 k/uL (150-450); RBC 4.04 m/uL (4.30-5.90); RDW 13.5 % (11.5-15.5); WBC 8.3 k/uL (3.8-10.6)
[2023-05-11 08:10] LABS: African American GFR (CKD) 67 (>60 ml/min/1.73 sqM); Anion Gap 8 mmol/L; Blood Urea Nitrogen 6 mg/dL (9-20); Calcium 8.2 mg/dL (8.4-10.2); Carbon Dioxide 29 mmol/L (22-30); Chloride 108 mmol/L (98-107); Glucose 90 mg/dL (74-99); Non-African American GFR(CKD) 58 (>60 ml/min/1.73 sqM); Sodium 145 mmol/L (137-145)
--- NOTE | 2023-05-11 11:51 | P.PN ---
Subjective Progress Note Date: 05/11/23 Principal diagnosis: Small bowel obstruction Patient doing well today. Denies pain. Still feels somewhat bloated. He says he has had some bowel activity. No nausea or vomiting. Tolerating regular diet. Objective - Vital Signs Vital signs: Vital Signs Temp 98 F 05/11/23 07:15 Pulse 75 05/11/23 07:15 Resp 17 05/11/23 07:15 BP 151/84 05/11/23 07:15 Pulse Ox 96 05/11/23 07:15 FiO2 Intake & Output 05/10/23 05/11/23 05/11/23 18:59 06:59 18:59 Intake Total 240 Output Total 500 750 450 Balance -260 -750 -450 Intake: Oral 240 Output: Urine 500 750 450 Other: Voiding Method Toilet Toilet Toilet # Voids 4 # Bowel Movements 2 - Exam Abdomen: Soft, mild distention, nontender - Labs CBC & Chem 7: 05/11/23 07:08 05/11/23 07:08 Labs: Abnormal Lab Results - Last 24 Hours (Table) 05/10/23 05/10/23 05/11/23 Range/Units 11:34 20:31 07:08 RBC 4.04 L (4.30-5.90) m/uL Hgb 12.3 L (13.0-17.5) gm/dL Hct 36.9 L (39.0-53.0) % Chloride (98-107) mmol/L BUN (9-20) mg/dL Creatinine (0.66-1.25) mg/dL POC Glucose (mg/dL) 111 H 136 H (70-110) mg/dL Calcium (8.4-10.2) mg/dL 05/11/23 Range/Units 07:08 RBC (4.30-5.90) m/uL Hgb (13.0-17.5) gm/dL Hct (39.0-53.0) % Chloride 108 H (98-107) mmol/L BUN 6 L (9-20) mg/dL Creatinine 1.30 H (0.66-1.25) mg/dL POC Glucose (mg/dL) (70-110) mg/dL Calcium 8.2 L (8.4-10.2) mg/dL Assessment and Plan (1) Small bowel obstruction Narrative/Plan: 62-year-old male with resolving small bowel obstruction. Continue regular diet. Ambulate. Current Visit: Yes Status: Acute Code(s): K56.609 - UNSP INTESTNL OBST, UNSP TO PARTIAL VERSUS COMPLETE OBST SNOMED Code(s): 356882566
[2023-05-11 12:08] LABS: Glucose,Whole Blood 120 mg/dL (70-110)
[2023-05-11] MEDS: LACTULOSE 20 GM/30 ML CUP PO SCH (13:10)
--- NOTE | 2023-05-11 16:14 | P.PN ---
Subjective Progress Note Date: 05/11/23 Principal diagnosis: Reason for follow-up is right lobe pneumonia possible aspiration Patient is a 62-year-old male with multiple comorbidities presented to hospital abdominal distention patient did have abnormal CT suspicious for distal small bowel obstruction and also concerning for right lobe pneumonia possible aspiration etiology. On today's evaluation that is 05/11/2023 the patient denies having any fever or any chills, the patient is breathing comfortably on room air patient denies having any chest pain shortness of breath patient mention occasional cough no sputum production, repeat denies having any nausea or vomiting no abdominal pain did not have any bowel movement today Patient white count of 8.3 and creatinine is 1.30 Objective - Vital Signs Vital signs: Vital Signs Temp 98.6 F 05/11/23 12:07 Pulse 75 05/11/23 12:07 Resp 17 05/11/23 12:07 BP 121/76 05/11/23 12:07 Pulse Ox 97 05/11/23 12:07 FiO2 Intake & Output 05/10/23 05/11/23 05/11/23 18:59 06:59 18:59 Intake Total 240 Output Total 479 564 6831 Balance -260 -461 -1022 Intake: Oral 240 Output: Urine 194 696 4306 Other: Voiding Method Toilet Toilet Toilet # Voids 4 # Bowel Movements 2 - Exam GENERAL DESCRIPTION: Middle-age male lying in bed in no distress RESPIRATORY SYSTEM: Unlabored breathing , decreased breath sounds at bases HEART: S1 S2 regular rate and rhythm , ABDOMEN: Soft , mild distention EXTREMITIES: No edema feet - Labs CBC & Chem 7: 05/11/23 07:08 05/11/23 07:08 Labs: Abnormal Lab Results - Last 24 Hours (Table) 05/10/23 05/11/23 05/11/23 Range/Units 20:31 07:08 07:08 RBC 4.04 L (4.30-5.90) m/uL Hgb 12.3 L (13.0-17.5) gm/dL Hct 36.9 L (39.0-53.0) % Chloride 108 H (98-107) mmol/L BUN 6 L (9-20) mg/dL Creatinine 1.30 H (0.66-1.25) mg/dL POC Glucose (mg/dL) 136 H (70-110) mg/dL Calcium 8.2 L (8.4-10.2) mg/dL 05/11/23 Range/Units 12:07 RBC (4.30-5.90) m/uL Hgb (13.0-17.5) gm/dL Hct (39.0-53.0) % Chloride (98-107) mmol/L BUN (9-20) mg/dL Creatinine (0.66-1.25) mg/dL POC Glucose (mg/dL) 120 H (70-110) mg/dL Calcium (8.4-10.2) mg/dL Assessment and Plan (1) Penicillin allergy Current Visit: Yes Status: Acute Code(s): Z88.0 - ALLERGY STATUS TO PENICILLIN SNOMED Code(s): 59264028 (2) Pneumonia Current Visit: Yes Status: Acute Code(s): J18.9 - PNEUMONIA, UNSPECIFIED ORGANISM SNOMED Code(s): 608354981 (3) Small bowel obstruction Current Visit: Yes Status: Acute Code(s): K56.609 - UNSP INTESTNL OBST, UNSP TO PARTIAL VERSUS COMPLETE OBST SNOMED Code(s): 331231581 Plan: 1patient presented to hospital with abdominal distention in this patient who did have abnormal CT abdominal pelvis with dilated small bowel concerning for distal small bowel obstruction also with evidence of right lobe pneumonia with a question of possible aspiration etiology. 2patient with a penicillin allergy that will limit the number of antibiotics safe to use 3patient did have a mildly elevated CRP and procalcitonin sputum not collected. 4patient remains to be afebrile white count has been normal patient is covered with Rocephin and Flagyl to continue and monitor his clinical course closely Dictation was produced using [employer] dictation software. please excuse any grammatical, word or spelling errors.
[2023-05-11 16:57] LABS: Glucose,Whole Blood 130 mg/dL (70-110)
[2023-05-11] MEDS: LITHIUM CARBONATE 300 MG CAP PO SCH (19:46)
[2023-05-11] MEDS: DIVALPROEX ER 500 MG TAB.ER.24H PO SCH (19:46)
[2023-05-11] MEDS: cloZAPine 100 MG TAB PO SCH (19:46)
[2023-05-11] MEDS: SODIUM CHLORIDE 0.45% 1,000 ML IV SCH (19:47)
[2023-05-11 19:59] LABS: Glucose,Whole Blood 122 mg/dL (70-110)
[2023-05-12] MEDS: SODIUM CHLORIDE 0.45% 1,000 ML IV SCH (01:58)
[2023-05-12] MEDS: LEVOTHYROXINE 50 MCG TAB PO SCH (06:03)
[2023-05-12 07:18] LABS: Glucose,Whole Blood 93 mg/dL (70-110)
[2023-05-12] MEDS: INSULIN ASPART (NovoLOG) 100 UNIT/ML VIAL SQ SCH ×4 (08:39→21:07)
[2023-05-12] MEDS: PANTOPRAZOLE 40 MG/10 ML VIAL IVP SCH ×2 (09:01→21:06)
[2023-05-12] MEDS: polyethylene glycoL 3350 17 GM POWD.PACK PO SCH (09:01)
[2023-05-12] MEDS: cloZAPine 25 MG TAB PO SCH ×2 (09:02→21:07)
[2023-05-12] MEDS: LACTULOSE 20 GM/30 ML CUP PO SCH (09:03)
--- NOTE | 2023-05-12 10:09 | P.PN ---
Subjective Progress Note Date: 05/12/23 Principal diagnosis: Small bowel obstruction Patient doing well today. Denies pain. No nausea or vomiting. Tolerating diet. He is still having bowel function. Objective - Vital Signs Vital signs: Vital Signs Temp 98.5 F 05/12/23 07:17 Pulse 75 05/12/23 07:17 Resp 16 05/12/23 07:17 BP 152/83 05/12/23 07:17 Pulse Ox 96 05/12/23 07:17 FiO2 Intake & Output 05/11/23 05/12/23 05/12/23 18:59 06:59 18:59 Output Total 1025 900 Balance -1025 -900 Output: Urine 1025 900 Other: Voiding Method Toilet Toilet # Voids 1 # Bowel Movements 2 - Exam Abdomen: Soft, minimal distention, nontender, hernia reducible - Labs CBC & Chem 7: 05/11/23 07:08 05/11/23 07:08 Labs: Abnormal Lab Results - Last 24 Hours (Table) 05/11/23 05/11/23 05/11/23 Range/Units 12:07 16:55 19:57 POC Glucose (mg/dL) 120 H 130 H 122 H (70-110) mg/dL Microbiology - Last 24 Hours (Table) 05/06/23 17:16 Blood Culture - Final Blood Assessment and Plan (1) Small bowel obstruction Narrative/Plan: Continue regular diet. Stable for transfer. Current Visit: Yes Status: Acute Code(s): K56.609 - UNSP INTESTNL OBST, UNSP TO PARTIAL VERSUS COMPLETE OBST SNOMED Code(s): 506379154
[2023-05-12] MEDS: metroNIDAZOLE-NS PMX 500 MG in SALINE 1 100ML.BAG IVPB SCH ×2 (11:14→17:53)
[2023-05-12 12:11] LABS: BUN/Creat Ratio 6.62 Ratio (12.00-20.00); Blood Urea Nitrogen 8.6 mg/dL (9.0-27.0); Calcium 8.3 mg/dL (8.7-10.3); Carbon Dioxide 27.6 mmol/L (21.6-31.8); Chloride 110 mmol/L (96-109); Glucose 96 mg/dL (70-110); Sodium 145 mmol/L (135-145)
[2023-05-12 12:20] LABS: Glucose,Whole Blood 84 mg/dL (70-110)
--- NOTE | 2023-05-12 15:51 | P.PN ---
Subjective Progress Note Date: 05/12/23 Principal diagnosis: Reason for follow-up is right lobe pneumonia possible aspiration Patient is a 62-year-old male with multiple comorbidities presented to hospital abdominal distention patient did have abnormal CT suspicious for distal small bowel obstruction and also concerning for right lobe pneumonia possible aspiration etiology. On today's evaluation that is 05/12/2023, the patient remains to be afebrile, the patient is breathing comfortably on room air without need for supplemental oxygen patient denies having any chest pain shortness of breath or cough, the patient denies any nausea vomiting tolerating diet no abdominal pain and did have 2 bowel movements Patient did have white count of 8.3 as of yesterday and creatinine is 1.3 Objective - Vital Signs Vital signs: Vital Signs Temp 98.1 F 05/12/23 12:15 Pulse 76 05/12/23 12:15 Resp 16 05/12/23 12:15 BP 132/78 05/12/23 12:15 Pulse Ox 96 05/12/23 12:15 FiO2 Intake & Output 05/11/23 05/12/23 05/12/23 18:59 06:59 18:59 Output Total 1025 900 Balance -1025 -900 Output: Urine 1025 900 Other: Voiding Method Toilet Toilet Toilet # Voids 1 # Bowel Movements 2 - Exam GENERAL DESCRIPTION: Middle-age male lying in bed in no distress RESPIRATORY SYSTEM: Unlabored breathing , decreased breath sounds at bases HEART: S1 S2 regular rate and rhythm , ABDOMEN: Soft , mild distention EXTREMITIES: No edema feet - Labs CBC & Chem 7: 05/11/23 07:08 05/12/23 06:12 Labs: Abnormal Lab Results - Last 24 Hours (Table) 05/11/23 05/11/23 05/12/23 Range/Units 16:55 19:57 06:12 Chloride 110 H (96-109) mmol/L BUN 8.6 L (9.0-27.0) mg/dL BUN/Creatinine Ratio 6.62 L (12.00-20.00) Ratio POC Glucose (mg/dL) 130 H 122 H (70-110) mg/dL Calcium 8.3 L (8.7-10.3) mg/dL Microbiology - Last 24 Hours (Table) 05/06/23 17:16 Blood Culture - Final Blood Assessment and Plan (1) Penicillin allergy Current Visit: Yes Status: Acute Code(s): Z88.0 - ALLERGY STATUS TO PENICILLIN SNOMED Code(s): 95056280 (2) Pneumonia Current Visit: Yes Status: Acute Code(s): J18.9 - PNEUMONIA, UNSPECIFIED ORGANISM SNOMED Code(s): 935560122 (3) Small bowel obstruction Current Visit: Yes Status: Acute Code(s): K56.609 - UNSP INTESTNL OBST, UNSP TO PARTIAL VERSUS COMPLETE OBST SNOMED Code(s): 343603403 Plan: 1patient presented to hospital with abdominal distention in this patient who did have abnormal CT abdominal pelvis with dilated small bowel concerning for distal small bowel obstruction also with evidence of right lobe pneumonia with a question of possible aspiration etiology. 2patient with a penicillin allergy that will limit the number of antibiotics safe to use 3patient did have a mildly elevated CRP and procalcitonin sputum not collected. 4patient remains to be afebrile white count normal continue Rocephin Flagyl short course of oral Ceftin and Flagyl on discharge once stable from surgical standpoint Dictation was produced using [employer] dictation software. please excuse any grammatical, word or spelling errors. Time with Patient: Less than 30
[2023-05-12 17:23] LABS: Glucose,Whole Blood 112 mg/dL (70-110)
[2023-05-12 20:36] LABS: Glucose,Whole Blood 150 mg/dL (70-110)
[2023-05-12] MEDS: DIVALPROEX ER 500 MG TAB.ER.24H PO SCH (21:06)
[2023-05-12] MEDS: cloZAPine 100 MG TAB PO SCH (21:07)
[2023-05-12] MEDS: LITHIUM CARBONATE 300 MG CAP PO SCH (21:07)
[2023-05-13] MEDS: metroNIDAZOLE-NS PMX 500 MG in SALINE 1 100ML.BAG IVPB SCH ×2 (00:27→09:13)
[2023-05-13 07:01] LABS: Glucose,Whole Blood 95 mg/dL (70-110)
[2023-05-13 08:51] LABS: Basophils # (A) 0.04 X 10*3/uL (0.00-0.10); Basophils % (A) 0.4 %; Eosinophils # (A) 0 X 10*3/uL (0.04-0.35); Eosinophils % (A) 0 %; HCT 37.3 % (39.6-50.0); HGB 11.9 g/dL (13.0-17.0); Lymphocytes # (A) 1.82 X 10*3/uL (0.90-5.00); Lymphocytes % (A) 18.2 %; MCH 29.3 pg (27.0-32.0); MCHC 31.9 g/dL (32.0-37.0); MCV 91.9 FL (80.0-97.0); Mean Platelet Volume 10.7 FL (9.5-12.2); Monocytes # (A) 0.49 X 10*3/uL (0.20-1.00); Monocytes % (A) 4.9 %; NRBC Per 100 WBC 0 X 10*3/uL (0.00-0.01); Neutrophils % (A) 74.9 %; Platelet Count 156 X 10*3/uL (140-440); RBC 4.06 X 10*6/uL (4.40-5.60); RDW 13.9 % (11.5-14.5); WBC 10.01 X 10*3/uL (4.50-10.00)
[2023-05-13 09:01] LABS: BUN/Creat Ratio 7.69 Ratio (12.00-20.00); Chloride 111 mmol/L (96-109); Glucose 98 mg/dL (70-110); Potassium 4.2 mmol/L (3.5-5.5); Sodium 147 mmol/L (135-145)
[2023-05-13 09:02] LABS: Calcium 8.2 mg/dL (8.7-10.3); Carbon Dioxide 27.1 mmol/L (21.6-31.8)
[2023-05-13] MEDS: INSULIN ASPART (NovoLOG) 100 UNIT/ML VIAL SQ SCH ×2 (09:12→11:55)
[2023-05-13] MEDS: cloZAPine 25 MG TAB PO SCH (09:16)
[2023-05-13] MEDS: LEVOTHYROXINE 50 MCG TAB PO SCH (09:16)
[2023-05-13] MEDS: PANTOPRAZOLE 40 MG/10 ML VIAL IVP SCH (09:16)
[2023-05-13] MEDS: polyethylene glycoL 3350 17 GM POWD.PACK PO SCH (09:17)
[2023-05-13] MEDS: LACTULOSE 20 GM/30 ML CUP PO SCH (09:17)
[2023-05-13 11:52] LABS: Glucose,Whole Blood 116 mg/dL (70-110)
--- NOTE | 2023-05-13 13:21 | P.PN ---
Subjective Progress Note Date: 05/13/23 Principal diagnosis: Reason for follow-up is right lobe pneumonia possible aspiration Patient is a 62-year-old male with multiple comorbidities presented to hospital abdominal distention patient did have abnormal CT suspicious for distal small bowel obstruction and also concerning for right lobe pneumonia possible aspiration etiology. On today's evaluation that is 05/13/2023 patient remains to be afebrile, the patient is breathing comfortably on room air, the patient denies chest pain shortness of breath or cough., The patient denies nausea or any further vomit ing no abdominal pain and did have a good bowel movement this morning per the patient White count is 10.1, creatinine is 1.3 Objective - Vital Signs Vital signs: Vital Signs Temp 98.4 F 05/13/23 07:02 Pulse 78 05/13/23 07:02 Resp 16 05/13/23 07:02 BP 143/81 05/13/23 07:02 Pulse Ox 97 05/13/23 07:02 FiO2 Intake & Output 05/12/23 05/13/23 05/13/23 18:59 06:59 18:59 Intake Total 2019 590 Output Total 1100 Balance 2019 -510 Intake: Oral 2019 Output: Urine 1100 Other: Voiding Method Toilet Toilet Toilet Urinal Urinal # Voids 5 - Exam GENERAL DESCRIPTION: Middle-age male lying in bed in no distress RESPIRATORY SYSTEM: Unlabored breathing , decreased breath sounds at bases HEART: S1 S2 regular rate and rhythm , ABDOMEN: Soft , mild distention EXTREMITIES: No edema feet - Labs CBC & Chem 7: 05/13/23 05:37 05/13/23 05:37 Labs: Abnormal Lab Results - Last 24 Hours (Table) 05/12/23 05/12/23 05/13/23 Range/Units 17:21 20:35 05:37 WBC 10.01 H (4.50-10.00) X 10*3/uL RBC 4.06 L (4.40-5.60) X 10*6/uL Hgb 11.9 L (13.0-17.0) g/dL Hct 37.3 L (39.6-50.0) % MCHC 31.9 L (32.0-37.0) g/dL Immature Gran # 0.16 H (0.00-0.04) X 10*3/uL Eosinophils # 0 L (0.04-0.35) X 10*3/uL Sodium (135-145) mmol/L Chloride (96-109) mmol/L BUN/Creatinine Ratio (12.00-20.00) Ratio POC Glucose (mg/dL) 112 H 150 H (70-110) mg/dL Calcium (8.7-10.3) mg/dL 05/13/23 05/13/23 Range/Units 05:37 11:50 WBC (4.50-10.00) X 10*3/uL RBC (4.40-5.60) X 10*6/uL Hgb (13.0-17.0) g/dL Hct (39.6-50.0) % MCHC (32.0-37.0) g/dL Immature Gran # (0.00-0.04) X 10*3/uL Eosinophils # (0.04-0.35) X 10*3/uL Sodium 147 H (135-145) mmol/L Chloride 111 H (96-109) mmol/L BUN/Creatinine Ratio 7.69 L (12.00-20.00) Ratio POC Glucose (mg/dL) 116 H (70-110) mg/dL Calcium 8.2 L (8.7-10.3) mg/dL Assessment and Plan (1) Penicillin allergy Current Visit: Yes Status: Acute Code(s): Z88.0 - ALLERGY STATUS TO PENICILLIN SNOMED Code(s): 92098150 (2) Pneumonia Current Visit: Yes Status: Acute Code(s): J18.9 - PNEUMONIA, UNSPECIFIED ORGANISM SNOMED Code(s): 742028383 (3) Small bowel obstruction Current Visit: Yes Status: Acute Code(s): K56.609 - UNSP INTESTNL OBST, UNSP TO PARTIAL VERSUS COMPLETE OBST SNOMED Code(s): 235645513 Plan: 1patient presented to hospital with abdominal distention in this patient who did have abnormal CT abdominal pelvis with dilated small bowel concerning for distal small bowel obstruction also with evidence of right lobe pneumonia with a question of possible aspiration etiology. 2patient with a penicillin allergy that will limit the number of antibiotics safe to use 3patient did have a mildly elevated CRP and procalcitonin sputum not collected. 4patient is afebrile did have a normal white count he will continue with Rocephin and Flagyl while inpatient and short course of oral Ceftin and Flagyl on discharge Dictation was produced using [employer] dictation software. please excuse any grammatical, word or spelling errors. Time with Patient: Less than 30
[2023-05-13 14:25] VITALS: BP 123/74; PULSE 85; RESP 18; TEMP 98.2
--- NOTE | 2023-05-13 15:10 | P.PN ---
Subjective Progress Note Date: 05/13/23 CHIEF COMPLAINT: Small bowel obstruction HISTORY OF PRESENT ILLNESS: Patient reports improvement in his abdominal pain. He is having bowel movements. He is tolerating diet. PHYSICAL EXAM: VITAL SIGNS: Reviewed. GENERAL: Well-developed in no acute distress. ABDOMEN: Soft. Nondistended. Nontender. NEUROLOGIC: Alert and oriented. Cranial nerves II through XII grossly intact. ASSESSMENT: 1. Small bowel obstruction PLAN: -Patient can be discharged from surgical standpoint -Continue good bowel regimen at home Physician Technology Applications Engineer note has been reviewed by physician. Signing provider agrees with the documented findings, assessment, and plan of care. Objective - Vital Signs Vital signs: Vital Signs Temp 98.2 F 05/13/23 13:41 Pulse 85 05/13/23 13:41 Resp 18 05/13/23 13:41 BP 123/74 05/13/23 13:41 Pulse Ox 97 05/13/23 13:41 FiO2 Intake & Output 05/12/23 05/13/23 05/13/23 18:59 06:59 18:59 Intake Total 2019 590 Output Total 1100 Balance 2020 -510 Intake: Oral 2019 590 Output: Urine 1100 Other: Voiding Method Toilet Toilet Toilet Urinal Urinal # Voids 5 - Labs CBC & Chem 7: 05/13/23 05:37 05/13/23 05:37 Labs: Abnormal Lab Results - Last 24 Hours (Table) 05/12/23 05/12/23 05/13/23 Range/Units 17:21 20:35 05:37 WBC 10.01 H (4.50-10.00) X 10*3/uL RBC 4.06 L (4.40-5.60) X 10*6/uL Hgb 11.9 L (13.0-17.0) g/dL Hct 37.3 L (39.6-50.0) % MCHC 31.9 L (32.0-37.0) g/dL Immature Gran # 0.16 H (0.00-0.04) X 10*3/uL Eosinophils # 0 L (0.04-0.35) X 10*3/uL Sodium (135-145) mmol/L Chloride (96-109) mmol/L BUN/Creatinine Ratio (12.00-20.00) Ratio POC Glucose (mg/dL) 112 H 150 H (70-110) mg/dL Calcium (8.7-10.3) mg/dL 05/13/23 05/13/23 Range/Units 05:37 11:50 WBC (4.50-10.00) X 10*3/uL RBC (4.40-5.60) X 10*6/uL Hgb (13.0-17.0) g/dL Hct (39.6-50.0) % MCHC (32.0-37.0) g/dL Immature Gran # (0.00-0.04) X 10*3/uL Eosinophils # (0.04-0.35) X 10*3/uL Sodium 147 H (135-145) mmol/L Chloride 111 H (96-109) mmol/L BUN/Creatinine Ratio 7.69 L (12.00-20.00) Ratio POC Glucose (mg/dL) 116 H (70-110) mg/dL Calcium 8.2 L (8.7-10.3) mg/dL
== END 2023-05-13 17:28 | DRG 388 ==
LOC: EC 10:29 → 5NMEDONC 16:24
PROVIDERS: ADMIT Internal Medicine; ATTEND Internal Medicine
DX: K56.609 Unspecified intestinal obstruction, unspecified as to partial versus complete obstruction (principal); J69.0 Pneumonitis due to inhalation of food and vomit; I50.32 Chronic diastolic (congestive) heart failure; K51.90 Ulcerative colitis, unspecified, without complications; I13.0 Hypertensive heart and chronic kidney disease with heart failure and stage 1 through stage 4 chronic kidney disease, or unspecified chronic kidney disease; E03.9 Hypothyroidism, unspecified; E78.5 Hyperlipidemia, unspecified; N18.30 Chronic kidney disease, stage 3 unspecified; F31.9 Bipolar disorder, unspecified; F41.9 Anxiety disorder, unspecified; F20.9 Schizophrenia, unspecified; K43.9 Ventral hernia without obstruction or gangrene; Z79.890 Hormone replacement therapy; Z79.899 Other long term (current) drug therapy; Z86.2 Personal history of diseases of the blood and blood-forming organs and certain disorders involving the immune mechanism; Z88.0 Allergy status to penicillin; Z82.49 Family history of ischemic heart disease and other diseases of the circulatory system
CPT/HCPCS: 36415; 71045; 74177; 74250; 80048; 80053; 80164; 80178; 81003; 82150; 83036; 83605; 83690; 83735; 83880; 84145; 85025; 86140; 87040; 87636; 93005; 96361; 96374; 99285

== ENCOUNTER 2023-06-04 10:19 | Day surgery (SDC) | payer MEDICARE, OTHER ==
[2023-06-02 10:10] VITALS: BMI 26.9
[~2023-06-04 10:19] MED LIST: LACTATED RINGERS 1,000 ML IV SCH; fentaNYL (PF) 50 MCG/ML 2 ML AMP IV PRN
[2023-06-04 12:01] VITALS: TEMP 97.8
[2023-06-04] MEDS ORDERED: LIDOCAINE 1% (10MG/ML) FOR IV START INTRADERMA ONE (12:01)
[2023-06-04] MEDS ORDERED: LIDOCAINE 1% INJ 10MG/ML (20 ML MDV) ONE (12:25)
[2023-06-04] MEDS ORDERED: PROPOFOL 10 MG/ML 20 ML VIAL IV ONE (12:25)
--- NOTE | 2023-06-04 12:45 | P.PCN ---
Date of Procedure: 06/04/23 Procedure(s) Performed: BRIEF HISTORY: Patient is a []-year-old pleasant [] scheduled for an elective colonoscopy as a part of screening for colon cancer PROCEDURE PERFORMED: Colonoscopy. PREOPERATIVE DIAGNOSIS: Screening for colon cancer. . IV sedation per Anesthesia. PROCEDURE: After informed consent was obtained, the patient, was brought into the endoscopy unit. IV sedation was administered by Anesthesia under continuous monitoring. Digital rectal examination was normal. Initially the Olympus CF-160 flexible video colonoscope was then inserted in the rectum, gradually advanced into the right colon. without any difficulty. Careful examination was performed as the scope was gradually being withdrawn. There was evidence evidence of the ileocolic anastomosis noted in the right colon that appeared normal., Mucosa of the ascending colon, appeared normal. In the transverse colon there were 2 polyps measuring 5 limited in size both of these removed by cold snare polypectomy. In the splenic flexure there was 4 mm and a 5 mm polyp removed by cold snare polypectomy. Rest of the transverse colon, descending colon, sigmoid colon, and rectum appeared normal. In the distal rectum there was an 8 mm polyp removed by cold snare polypectomy. Retroflexion was performed in the rectum and no lesions were seen. The patient tolerated the procedure well. IMPRESSION: 5 mm 2 transverse colon polyp status post polypectomy 4 mm and 5 mm splenic flexure colon polyp status post cold snare polypectomy 8 mm rectal polyp status post cold snare polypectomy RECOMMENDATIONS: Findings of this examination were discussed with the patient as well as his family. He was advised to follow with the biopsy results. If the biopsies revealed adenoma, he can have a repeat colonoscopy in 3 years
[2023-06-04 12:53] VITALS: RESP 16
[2023-06-04 13:17] VITALS: BP 140/85; PULSE 79
== END 2023-06-04 13:28 | disposition home or self-care (01) ==
LOC: ORWHC2ENDO 10:19
PROVIDERS: ATTEND Internal Medicine Gastroenterology
DX: Z12.11 Encounter for screening for malignant neoplasm of colon (principal); D12.3 Benign neoplasm of transverse colon; D12.8 Benign neoplasm of rectum; Z88.0 Allergy status to penicillin; Z88.2 Allergy status to sulfonamides; E11.9 Type 2 diabetes mellitus without complications; E78.5 Hyperlipidemia, unspecified; F31.9 Bipolar disorder, unspecified; Z79.899 Other long term (current) drug therapy; Z79.84 Long term (current) use of oral hypoglycemic drugs
CPT/HCPCS: 88305; 45385; J2001; J2704

== ENCOUNTER 2023-08-22 07:58 | Emergency (ER) | payer MEDICARE, OTHER ==
[2023-08-22 08:21] LABS: Basophils % (A) 0 %; Eosinophils % (A) 1 %; HCT 42.2 % (39.0-53.0); HGB 13.6 gm/dL (13.0-17.5); Lymphocytes # (A) 1.3 k/uL (1.0-4.8); Lymphocytes % (A) 20 %; MCH 29.3 pg (25.0-35.0); MCHC 32.1 g/dL (31.0-37.0); MCV 91.1 fL (80.0-100.0); Mean Platelet Volume 8.2; Monocytes # (A) 0.2 k/uL (0-1.0); Monocytes % (A) 4 %; Neutrophils # (A) 4.7 k/uL (1.3-7.7); Neutrophils % (A) 74 %; Platelet Count 120 k/uL (150-450); RBC 4.63 m/uL (4.30-5.90); RDW 13.7 % (11.5-15.5); WBC 6.3 k/uL (3.8-10.6)
--- NOTE | 2023-08-22 08:26 | ED ---
General Adult HPI - General Stated complaint: dizziness Time Seen by Provider: 08/22/23 08:00 Source: patient, EMS, RN notes reviewed Mode of arrival: EMS Limitations: no limitations - History of Present Illness Initial comments: 63-year-old male presents emergency department via EMS chief complaint of dizziness. Patient notes he woke the moment felt very dizzy and felt the room was spinning he started get up and fell he has no injuries with this fall he had no head injury CT Back in the bed states his dizziness has subsided was sent here for further evaluation by staff. Patient denies any chest pain no palpitations no focal weakness denies nausea no blurred vision denies any fevers chills cough cold-like symptoms. Patient offers no other complaints. - Related Data Home Medications Medication Instructions Recorded Confirmed Acetaminophen [Tylenol] 650 mg PO Q4H PRN 05/06/23 06/02/23 Cholecalciferol [Vitamin D3 (125 125 mcg PO MOWEFR 05/06/23 06/02/23 Mcg = 5000 Iu)] [place] Carbonate 300 mg PO HS 05/06/23 06/02/23 Sennosides/Docusate Sodium [Senna 2 tab PO HS 05/06/23 06/02/23 Plus 8.6-50 mg Tablet] Triamcinolone 0.1% Ointment 1 applic TOPICAL BID PRN 05/06/23 06/02/23 [Kenalog 0.1% Ointment] calcitrioL [Rocaltrol] 0.25 mcg PO WE 05/06/23 06/02/23 Lactulose [Cephulac] 15 ml PO DAILY PRN 06/02/23 06/02/23 Pantoprazole [Protonix] 40 mg PO Q48H 06/02/23 06/02/23 cloZAPine [Clozaril] 50 mg PO DAILY 06/02/23 06/02/23 polyethylene glycoL 3350 [Miralax] 17 gm PO BID 06/02/23 06/02/23 Previous Rx's Medication Instructions Recorded Atorvastatin [Lipitor] 10 mg PO HS 30 Days tab 11/20/20 Divalproex ER [Depakote ER] 1,000 mg PO HS 30 Days tab.er.24h 11/20/20 Levothyroxine Sodium [Synthroid] 50 mcg PO DAILY@0630 30 Days tab 07/12/21 cloZAPine [Clozaril] 25 mg PO HS 30 Days tab 11/20/20 cloZAPine [Clozaril] 400 mg PO HS tab 05/13/23 Meclizine [Antivert] 25 mg PO TID PRN #15 tab 08/22/23 Allergies Allergy/AdvReac Type Severity Reaction Status Date / Time codeine Allergy Rash/Hives/ Verified 08/22/23 08:07 Cough Penicillins Allergy Rash/Hives Verified 08/22/23 08:07 Review of Systems ROS Statement: Those systems with pertinent positive or pertinent negative responses have been documented in the HPI. ROS Other: All systems not noted in ROS Statement are negative. Past Medical History Past Medical History: Blood Disorder, Heart Failure, Diabetes Mellitus, GERD/Reflux, Hyperlipidemia, Hypertension, Renal Disease, Thyroid Disorder Additional Past Medical History / Comment(s): "Borderline diabetes", ITP, constipation, small bowel obstructions, ulcerative colitis, CKD stage III, hypothyroid, hepatitis c carrier History of Any Multi-Drug Resistant Organisms: None Reported Past Surgical History: Appendectomy, Bowel Resection Additional Past Surgical History / Comment(s): 08/10/20 R lung bx, abd surgery r/t adhesions, R hemicolectomy, colonoscopies Past Anesthesia/Blood Transfusion Reactions: No Reported Reaction Additional Past Anesthesia/Blood Transfusion Reaction / Comment(s): no blood transfusion Past Psychological History: Anxiety, Bipolar, Depression, Schizophrenia Smoking Status: Never smoker Past Alcohol Use History: None Reported Past Drug Use History: None Reported - Past Family History Mother History Unknown: Yes Family Medical History: No Reported History Additional Family Medical History / Comment(s): Mother was healthy. Father Family Medical History: Hypertension General Exam Limitations: no limitations General appearance: alert, in no apparent distress Head exam: Present: atraumatic, normocephalic, normal inspection Eye exam: Present: normal appearance, PERRL, EOMI. Absent: scleral icterus, conjunctival injection, periorbital swelling ENT exam: Present: normal exam, normal oropharynx, mucous membranes moist Neck exam: Present: normal inspection, full ROM. Absent: tenderness, meningismus, lymphadenopathy Respiratory exam: Present: normal lung sounds bilaterally. Absent: respiratory distress, wheezes, rales, rhonchi, stridor Cardiovascular Exam: Present: regular rate, normal rhythm, normal heart sounds. Absent: systolic murmur, diastolic murmur, rubs, gallop, clicks GI/Abdominal exam: Present: soft, normal bowel sounds. Absent: distended, tenderness, guarding, rebound, rigid Neurological exam: Present: alert, oriented X3, CN II-XII intact, reflexes normal. Absent: motor sensory deficit Skin exam: Present: warm, dry, intact, normal color. Absent: rash Course Vital Signs 08/22/23 08/22/23 08:04 10:21 Temperature 98.1 F 98.1 F Pulse Rate 85 77 Respiratory 18 18 Rate Blood Pressure 143/89 139/88 O2 Sat by Pulse 100 100 Oximetry EKG Findings - EKG Comments: EKG Findings:: EKG performed at 8: 15 sinus rhythm with a rate of 82, [place] 159 QRS 101 QT/QTc 360/398 - EKG Results: EKG: interpreted by PALLAVI Medical Decision Making - Medical Decision Making Was pt. sent in by a medical professional or institution (, PA, CO FOUNDER [employer] CEO, urgent ca re, hospital, or fci...) When possible be specific @ -[facility] home Did you speak to anyone other than the patient for history (EMS, parent, family, police, friend...)? What history was obtained from this source @ -No Did you review nursing and triage notes (agree or disagree)? Why? @ -I reviewed and agree with nursing and triage notes Were old charts reviewed (outside hosp., previous admission, EMS record, old EKG, old radiological studies, urgent care reports/EKG's, fci records)? Report findings @ -No old charts were reviewed Differential Diagnosis (chest pain, altered mental status, abdominal pain women, abdominal pain men, vaginal bleeding, weakness, fever, dyspnea, syncope, headache, dizziness, GI bleed, back pain, seizure, CVA, palpatations, mental health, musculoskeletal)? @ -[Differential Dizziness: Benign paroxysmal positional Vertigo, Menieres disease, otitis media, acoustic neuroma, vertebrobasilar insufficiency, cerebellar stroke, encephalitis, hypovolemic, arrhythmia, coronary artery syndrome, anemia, this is not meant to be an all-inclusive list EKG interpreted by me (3pts min.). @ -As above X-rays interpreted by me (1pt min.). @ -None done CT interpreted by me (1pt min.). @ -None done U/S interpreted by me (1pt. min.). @ -None done What testing was considered but not performed or refused? (CT, X-rays, U/S, labs)? Why? @ -None What meds were considered but not given or refused? Why? @ -None Did you discuss the management of the patient with other professionals (professionals i.e. , PA, CO FOUNDER [employer] CEO, lab, RT, psych nurse, administrator social welfare, quarter backer, teacher, consumer loan officer, window caser)? Give summary @ -No Was smoking cessation discussed for >3mins.? @ -No Was critical care preformed (if so, how long)? @ -No Were there social determinants of health that impacted care today? How? (Homelessness, low income, unemployed, alcoholism, drug addiction, tr ansportation, low edu. Level, literacy, decrease access to med. care, alf, rehab)? @ -No Was there de-escalation of care discussed even if they declined (Discuss DNR or withdrawal of care, Hospice)? DNR status @ -No What co-morbidities impacted this encounter? (DM, HTN, Smoking, COPD, CAD, Cancer, CVA, ARF, Chemo, Hep., AIDS, mental health diagnosis, sleep apnea, morbid obesity)? @ -None Was patient admitted / discharged? Hospital course, mention meds given and route, prescriptions, significant lab abnormalities, going to OR and other pertinent info. @ -Patient is greatly improved laboratory studies unremarkable patient able to ambulate without dizziness will be discharged in stable condition return parameters mary. Undiagnosed new problem with uncertain prognosis? @ -No Drug Therapy requiring intensive monitoring for toxicity (Heparin, Nitro, Insulin, Cardizem)? @ -No Were any procedures done? @ -No Diagnosis/symptom? @ -Vertigo Acute, or Chronic, or Acute on Chronic? @ -Acute Uncomplicated (without systemic symptoms) or Complicated (systemic symptoms)? @ -Complicated Side effects of treatment? @ -No Exacerbation, Progression, or Severe Exacerbation? @ -No Poses a threat to life or bodily function? How? (Chest pain, [place], [place], pneumonia, PE, COPD, DKA, ARF, appy, cholecystitis, CVA, Diverticulitis, Homicidal, Suicidal, threat to staff... and all critical care pts) @ -No - Lab Data Result diagrams: 08/22/23 08:14 08/22/23 08:14 Lab Results 08/22/23 08/22/23 08/22/23 Range/Units 08:14 08:14 08:14 WBC 6.3 (3.8-10.6) k/uL RBC 4.63 (4.30-5.90) m/uL Hgb 13.6 (13.0-17.5) gm/dL Hct 42.2 (39.0-53.0) % MCV 91.1 (80.0-100.0) fL MCH 29.3 (25.0-35.0) pg MCHC 32.1 (31.0-37.0) g/dL RDW 13.7 (11.5-15.5) % Plt Count 120 L (150-450) k/uL MPV 8.2 Neutrophils % 74 % Lymphocytes % 20 % Monocytes % 4 % Eosinophils % 1 % Basophils % 0 % Neutrophils # 4.7 (1.3-7.7) k/uL Lymphocytes # 1.3 (1.0-4.8) k/uL Monocytes # 0.2 (0-1.0) k/uL Eosinophils # 0.0 (0-0.7) k/uL Basophils # 0.0 (0-0.2) k/uL Sodium 144 (137-145) mmol/L Potassium 4.4 (3.5-5.1) mmol/L Chloride 110 H (98-107) mmol/L Carbon Dioxide 27 (22-30) mmol/L Anion Gap 7 mmol/L BUN 22 H (9-20) mg/dL Creatinine 1.30 H (0.66-1.25) mg/dL Est GFR (CKD-EPI)AfAm 67 (>60 ml/min/1.73 sqM) Est GFR (CKD-EPI)NonAf 58 (>60 ml/min/1.73 sqM) Glucose 88 (74-99) mg/dL Calcium 9.1 (8.4-10.2) mg/dL Magnesium 2.0 (1.6-2.3) mg/dL Total Bilirubin 0.6 (0.2-1.3) mg/dL AST 26 (17-59) U/L ALT 25 (4-49) U/L Alkaline Phosphatase 53 (38-126) U/L Troponin I <0.012 (0.000-0.034) ng/mL Total Protein 5.9 L (6.3-8.2) g/dL Albumin 4.0 (3.5-5.0) g/dL Disposition Clinical Impression: Vertigo Disposition: HOME SELF-CARE Condition: Stable Instructions (If sedation given, give patient instructions): Vertigo (ED) Additional Instructions: Please return to the Emergency Department if symptoms worsen or any other concerns. Prescriptions: Meclizine [Antivert] 25 mg PO TID PRN #15 tab PRN Reason: Vertigo Is patient prescribed a controlled substance at d/c from ED?: No Referrals: [facility] [Primary Care Provider] - 1-2 days Time of Disposition: 09:45
[2023-08-22] MEDS: SODIUM CHLORIDE 0.9% 1,000 ML IV STA (08:37)
[2023-08-22] MEDS: MECLIZINE 12.5 MG TAB PO STA (08:39)
[2023-08-22] MEDS: ONDANSETRON 4 MG/2 ML VIAL IVP STA (08:40)
[2023-08-22 08:47] LABS: ALT 25 U/L (4-49); AST 26 U/L (17-59); African American GFR (CKD) 67 (>60 ml/min/1.73 sqM); Alkaline Phosphatase 53 U/L (38-126); Anion Gap 7 mmol/L; Blood Urea Nitrogen 22 mg/dL (9-20); Calcium 9.1 mg/dL (8.4-10.2); Carbon Dioxide 27 mmol/L (22-30); Chloride 110 mmol/L (98-107); Glucose 88 mg/dL (74-99); Non-African American GFR(CKD) 58 (>60 ml/min/1.73 sqM); Potassium 4.4 mmol/L (3.5-5.1); Sodium 144 mmol/L (137-145); Total Bilirubin 0.6 mg/dL (0.2-1.3); Total Protein 5.9 g/dL (6.3-8.2)
[2023-08-22 09:26] VITALS: RESP 18; TEMP 98.1
[2023-08-22 10:50] VITALS: BP 139/88; PULSE 77
== END 2023-08-22 10:21 | disposition home or self-care (01) ==
LOC: EC 07:58
DX: R42 Dizziness and giddiness (principal); Z88.5 Allergy status to narcotic agent; Z88.0 Allergy status to penicillin
CPT/HCPCS: 36415; 93005; 80053; 83735; 84484; 85025; 99284; 96374; 96361; J2405

== ENCOUNTER 2024-11-20 13:35 | Emergency (ER) | payer MEDICARE, OTHER ==
--- NOTE | 2024-11-20 13:56 | ED ---
General Adult HPI - General Chief complaint: Fever Stated complaint: Fever Time Seen by Provider: 11/20/24 13:40 Source: patient, EMS, RN notes reviewed, old records reviewed Mode of arrival: EMS - History of Present Illness Initial comments: This is a 64-year-old male who presents to the emergency department states that he came in because he has a fever. Patient states he is not coughing does not feel short of breath. Patient denies headache Patient denies numbness weakness. Patient [place] any abdominal pain. Patient has any nausea vomiting or diarrhea. Patient denies any rashes lesions. Patient denies any dysuria hematuria urinary frequency. When asked the patient why he has a fever he stated that he is around quite a few people at his housing facility and that might have been the problem. - Related Data Home Medications Medication Instructions Recorded Confirmed Acetaminophen [Tylenol] 650 mg PO Q4H PRN 05/06/23 06/02/23 Cholecalciferol [Vitamin D3 (125 125 mcg PO MOWEFR 05/06/23 06/02/23 Mcg = 5000 Iu)] [place] Carbonate 300 mg PO HS 05/06/23 06/02/23 Sennosides/Docusate Sodium [Senna 2 tab PO HS 05/06/23 06/02/23 Plus 8.6-50 mg Tablet] Triamcinolone 0.1% Ointment 1 applic TOPICAL BID PRN 05/06/23 06/02/23 [Kenalog 0.1% Ointment] calcitrioL [Rocaltrol] 0.25 mcg PO WE 05/06/23 06/02/23 Lactulose [Cephulac] 15 ml PO DAILY PRN 06/02/23 06/02/23 Pantoprazole [Protonix] 40 mg PO Q48H 06/02/23 06/02/23 cloZAPine [Clozaril] 50 mg PO DAILY 06/02/23 06/02/23 polyethylene glycoL 3350 [Miralax] 17 gm PO BID 06/02/23 06/02/23 Previous Rx's Medication Instructions Recorded Atorvastatin [Lipitor] 10 mg PO HS 30 Days tab 11/20/20 Divalproex ER [Depakote ER] 1,000 mg PO HS 30 Days tab.er.24h 11/20/20 Levothyroxine Sodium [Synthroid] 50 mcg PO DAILY@0630 30 Days tab 11/20/20 cloZAPine [Clozaril] 25 mg PO HS 30 Days tab 11/20/20 cloZAPine [Clozaril] 400 mg PO HS tab 05/13/23 Meclizine [Antivert] 25 mg PO TID PRN #15 tab 08/22/23 Allergies Allergy/AdvReac Type Severity Reaction Status Date / Time codeine Allergy Rash/Hives/ Verified 08/22/23 08:07 Cough milk Allergy Rash/Hives Verified 11/20/24 13:39 Penicillins Allergy Rash/Hives Verified 08/22/23 08:07 tomato Allergy Rash/Hives Verified 11/20/24 13:39 Review of Systems ROS Statement: Those systems with pertinent positive or pertinent negative responses have been documented in the HPI. ROS Other: All systems not noted in ROS Statement are negative. Past Medical History Past Medical History: Blood Disorder, Heart Failure, Diabetes Mellitus, GERD/Reflux, Hyperlipidemia, Hypertension, Renal Disease, Thyroid Disorder Additional Past Medical History / Comment(s): "Borderline diabetes", ITP, con stipation, small bowel obstructions, ulcerative colitis, CKD stage III, hypothyroid, hepatitis c carrier History of Any Multi-Drug Resistant Organisms: None Reported Past Surgical History: Appendectomy, Bowel Resection Additional Past Surgical History / Comment(s): 08/10/20 R lung bx, abd surgery r/t adhesions, R hemicolectomy, colonoscopies Past Anesthesia/Blood Transfusion Reactions: No Reported Reaction Additional Past Anesthesia/Blood Transfusion Reaction / Comment(s): no blood transfusion Past Psychological History: Anxiety, Bipolar, Depression, Schizophrenia Smoking Status: Never smoker Past Alcohol Use History: None Reported Past Drug Use History: None Reported - Past Family History Mother History Unknown: Yes Family Medical History: No Reported History Additional Family Medical History / Comment(s): Mother was healthy. Father Family Medical History: Hypertension General Exam - General Exam Comments Initial Comments: GENERAL: Patient is well-developed and well-nourished. Patient is nontoxic and well- hydrated and is in mild distress. ENT: Neck is soft and supple. No significant lymphadenopathy is noted. Oropharynx is clear. Moist mucous membranes. Neck has full range of motion without eliciting any pain. EYES: The sclera were anicteric and conjunctiva were pink and moist. Extraocular movements were intact and pupils were equal round and reactive to light. Eyelids were unremarkable. PULMONARY: Unlabored respirations. Good breath sounds bilaterally. No audible rales rhonchi or wheezing was noted. CARDIOVASCULAR: There is a regular rate and rhythm without any murmurs gallops or rubs. ABDOMEN: Soft and nontender with normal bowel sounds. Patient has a large ventral hernia that is completely reproducible and is not painful SKIN: Skin is clear with no lesions or rashes and otherwise unremarkable. NEUROLOGIC: Patient is alert and oriented x3. Cranial nerves II through XII are grossly intact. Motor and sensory are also intact. Normal speech, volume and content. Symmetrical smile. MUSCULOSKELETAL: Normal extremities with adequate strength and full range of motion. No lower extremity swelling or edema. No calf tenderness. LYMPHATICS: No significant lymphadenopathy is noted PSYCHIATRIC: Normal psychiatric evaluation. Course Vital Signs 11/20/24 11/20/24 13:39 14:10 Temperature 103.0 F H Pulse Rate 107 H 105 H Respiratory 18 16 Rate Blood Pressure 120/69 137/85 O2 Sat by Pulse 97 100 Oximetry Medical Decision Making - Medical Decision Making EKG is interpreted by myself. EKG shows a sinus tachycardia at 107 bpm [place] interval 144 QRS is 97 QT interval is 311 QTc is 374. Patient's EKG shows no ST segment elevation Was pt. sent in by a medical professional or institution (, PA, SENIOR FUNCTIONAL ANALYST, urgent care, hospital, or chcf...) When possible be specific @ -No Did you speak to anyone other than the patient for history (EMS, parent, family, police, friend...)? What history was obtained from this source @ -No Did you review nursing and triage notes (agree or disagree)? Why? @ -I reviewed and agree with nursing and triage notes Were old charts reviewed (outside hosp., previous admission, EMS record, old EKG, old radiological studies, urgent care reports/EKG's, [facility] records)? Report findings @ -No old charts were reviewed Differential Diagnosis? @ -Differential Fever: Pneumonia, viral URI, endocarditis, myocarditis, pericarditis, otitis, sinusitis, peritonsillar Abscess, retropharyngeal Abscess, epiglottitis, peritonitis, appendicitis, Jina cystitis, diverticulitis, hepatitis, colitis, UTI, PID, TOA, pyelonephritis, prostatitis, epididymitis, meningitis, encephalitis, pulmonary embolism, CVA, thyroid storm, pancreatitis, adrenal crisis, cavernous sinus thrombosis, this is not meant to be an all-inclusive list. EKG interpreted by me (3pts min.). @ -As above X-rays interpreted by me (1pt min.). @ -Chest x-ray shows no acute abnormality CT interpreted by me (1pt min.). @ -None done U/S interpreted by me (1pt. min.). @ -None done What testing was considered but not performed or refused? (CT, X-rays, U/S, labs)? Why? @ -None What meds were considered but not given or refused? Why? @ -None Did you discuss the management of the patient with other professionals (professionals i.e. , PA, SENIOR FUNCTIONAL ANALYST, lab, RT, psych nurse, social work job titles, resource conservationist, teacher, sewage reticulation drafting officer, classification case manager)? Give summary @ -No Was smoking cessation discussed for >3mins.? @ -No Was critical care preformed (if so, how long)? @ -No Were there social determinants of health that impacted care today? How? (Homelessness, low income, unemployed, alcoholism, drug addiction, transpo rtation, low edu. Level, literacy, decrease access to med. care, senior care, rehab)? @ -No Was there de-escalation of care discussed even if they declined (Discuss DNR or withdrawal of care, Hospice)? DNR status @ -No What co-morbidities impacted this encounter? (DM, HTN, Smoking, COPD, CAD, Cancer, CVA, ARF, Chemo, Hep., AIDS, mental health diagnosis, sleep apnea, morbid obesity)? @ -None Was patient admitted / discharged? Hospital course, mention meds given and route, prescriptions, significant lab abnormalities, going to OR and other pertinent info. @ -I went into the room on at least 3 other occasions in addition to my initial interview and spoke with the patient and asked if there was any other problems and he denied any other problems. Patient was concerned about his ventral hernia and stated he would like something to be done about keeping it pushed in. Patient was instructed to go to surgeon but I am not sure how much she understands of that and this will be relayed to the guardian Undiagnosed new problem with uncertain prognosis? @ -No Drug Therapy requiring intensive monitoring for toxicity (Heparin, Nitro, Insulin, Cardizem)? @ -No Were any procedures done? @ -No Diagnosis/symptom? @ -Viral syndrome Acute, or Chronic, or Acute on Chronic? @ -Acute Uncomplicated (without systemic symptoms) or Complicated (systemic symptoms)? @ -Complicated Side effects of treatment? @ -No Exacerbation, Progression, or Severe Exacerbation? @ -No Poses a threat to life or bodily function? How? (Chest pain, [place], [place], pneumonia, PE, COPD, DKA, ARF, appy, cholecystitis, CVA, Diverticulitis, Homicidal, Suicidal, threat to staff... and all critical care pts) @ -No - Lab Data Result diagrams: 11/20/24 13:52 11/20/24 13:52 Lab Results 11/20/24 11/20/24 11/20/24 Range/Units 13:52 13:52 13:52 WBC 6.62 (4.50-10.00) 10*3/uL RBC 4.74 (4.40-5.60) 10*6/uL Hgb 13.9 (13.0-17.0) g/dL Hct 41.9 (39.6-50.0) % MCV 88.4 (80.0-97.0) fL MCH 29.3 (27.0-32.0) pg MCHC 33.2 (32.0-37.0) g/dL MPV 9.8 (9.5-12.2) fL Immature Gran % (Auto) 0.6 % Immature Gran # 0.04 (0.00-0.04) 10*3/uL Immature Plt Fraction 1.1 (1.1-6.1) % Sodium 141 (137-145) mmol/L Potassium 4.1 (3.5-5.1) mmol/L Chloride 106 (98-107) mmol/L Carbon Dioxide 26 (22-30) mmol/L Anion Gap 9 mmol/L BUN 21 H (9-20) mg/dL Creatinine 1.17 (0.66-1.25) mg/dL Est GFR (CKD-EPI)AfAm 75 (>60 ml/min/1.73 sqM) Est GFR (CKD-EPI)NonAf 65 (>60 ml/min/1.73 sqM) Glucose 71 L (74-99) mg/dL Plasma Lactic Acid Renato 1.0 (0.7-2.0) mmol/L Calcium 9.5 (8.4-10.2) mg/dL Total Bilirubin 0.8 (0.2-1.3) mg/dL AST 22 (17-59) U/L ALT 16 (4-49) U/L Alkaline Phosphatase 69 (38-126) U/L Total Protein 6.2 L (6.3-8.2) g/dL Albumin 4.5 (3.5-5.0) g/dL Urine Color Urine Appearance (Clear) Urine pH (5.0-8.0) Ur Specific [place] (1.001-1.035) Urine Protein (Negative) Urine Glucose (UA) (Negative) Urine Ketones (Negative) Urine Blood (Negative) Urine Nitrite (Negative) Urine Bilirubin (Negative) Urine Urobilinogen (<2.0) mg/dL Ur Leukocyte Esterase (Negative) 11/20/24 Range/Units 14:38 WBC (4.50-10.00) 10*3/uL RBC (4.40-5.60) 10*6/uL Hgb (13.0-17.0) g/dL Hct (39.6-50.0) % MCV (80.0-97.0) fL MCH (27.0-32.0) pg MCHC (32.0-37.0) g/dL MPV (9.5-12.2) fL Immature Gran % (Auto) % Immature Gran # (0.00-0.04) 10*3/uL Immature Plt Fraction (1.1-6.1) % Sodium (137-145) mmol/L Potassium (3.5-5.1) mmol/L Chloride (98-107) mmol/L Carbon Dioxide (22-30) mmol/L Anion Gap mmol/L BUN (9-20) mg/dL Creatinine (0.66-1.25) mg/dL Est GFR (CKD-EPI)AfAm (>60 ml/min/1.73 sqM) Est GFR (CKD-EPI)NonAf (>60 ml/min/1.73 sqM) Glucose (74-99) mg/dL Plasma Lactic Acid Renato (0.7-2.0) mmol/L Calcium (8.4-10.2) mg/dL Total Bilirubin (0.2-1.3) mg/dL AST (17-59) U/L ALT (4-49) U/L Alkaline Phosphatase (38-126) U/L Total Protein (6.3-8.2) g/dL Albumin (3.5-5.0) g/dL Urine Color Colorless Urine Appearance Clear (Clear) Urine pH 8.0 (5.0-8.0) Ur Specific [place] 1.011 (1.001-1.035) Urine Protein Negative (Negative) Urine Glucose (UA) Negative (Negative) Urine Ketones Negative (Negative) Urine Blood Negative (Negative) Urine Nitrite Negative (Negative) Urine Bilirubin Negative (Negative) Urine Urobilinogen <2.0 (<2.0) mg/dL Ur Leukocyte Esterase Negative (Negative) Disposition Clinical Impression: Viral syndrome, Ventral hernia Disposition: HOME SELF-CARE Condition: Good Instructions (If sedation given, give patient instructions): Fever in Adults (ED), Viral Syndrome (ED) Additional Instructions: Patient should follow-up with primary medical care doctor. Patient to return if is any new or worsening symptoms. Is patient prescribed a controlled substance at d/c from ED?: No Referrals: Tavares Nixon MD [Primary Care Provider] - 1-2 days Time of Disposition: 14:59
[2024-11-20] MEDS: IBUPROFEN 600 MG TAB PO STA (13:59)
[2024-11-20] MEDS: ACETAMINOPHEN TAB 500 MG TAB PO STA (13:59)
[2024-11-20] MEDS: LACTATED RINGERS 1,000 ML IV SCH (14:01)
[2024-11-20 14:02] LABS: Basophils # (A) 0.01 10*3/uL (0.00-0.10); Basophils % (A) 0.2 %; Eosinophils # (A) 0.00 10*3/uL (0.04-0.35); Eosinophils % (A) 0.0 %; HCT 41.9 % (39.6-50.0); HGB 13.9 g/dL (13.0-17.0); Immature Platelet Fraction 1.1 % (1.1-6.1); Lymphocytes # (A) 0.38 10*3/uL (0.90-5.00); Lymphocytes % (A) 5.7 %; MCH 29.3 pg (27.0-32.0); MCHC 33.2 g/dL (32.0-37.0); MCV 88.4 fL (80.0-97.0); Monocytes # (A) 0.44 10*3/uL (0.20-1.00); Monocytes % (A) 6.6 %; Neutrophils # (A) 5.75 10*3/uL (1.80-7.70); Neutrophils % (A) 86.9 %; RBC 4.74 10*6/uL (4.40-5.60); RDW 13.1 % (11.5-14.5); WBC 6.62 10*3/uL (4.50-10.00)
[2024-11-20] MEDS: cefTRIAXone IN SWFI 1,000 MG/10 ML SYRINGE IVP STA (14:02)
[2024-11-20 14:12] VITALS: RESP 16
[2024-11-20 14:32] LABS: ALT 16 U/L (4-49); AST 22 U/L (17-59); African American GFR (CKD) 75 (>60 ml/min/1.73 sqM); Albumin 4.5 g/dL (3.5-5.0); Alkaline Phosphatase 69 U/L (38-126); Anion Gap 9 mmol/L; Blood Urea Nitrogen 21 mg/dL (9-20); Calcium 9.5 mg/dL (8.4-10.2); Carbon Dioxide 26 mmol/L (22-30); Chloride 106 mmol/L (98-107); Glucose 71 mg/dL (74-99); Non-African American GFR(CKD) 65 (>60 ml/min/1.73 sqM); Potassium 4.1 mmol/L (3.5-5.1); Sodium 141 mmol/L (137-145); Total Protein 6.2 g/dL (6.3-8.2)
[2024-11-20 14:43] LABS: Bilirubin,Urine Negative (Negative); Blood,Urine Negative (Negative); Color,Urine Colorless; Glucose,Urine (UA) Negative (Negative); Ketones,Urine Negative (Negative); Leukocyte Esterase,Urine Negative (Negative); Nitrite,Urine Negative (Negative); PH, Urine 8.0 (5.0-8.0); Protein,Urine Negative (Negative); Specific Gravity,Urine 1.011 (1.001-1.035); Urobilinogen,Urine <2.0 mg/dL (<2.0)
[2024-11-20 15:03] LABS: Platelet Count 86 10*3/uL (140-440)
[2024-11-20 15:11] VITALS: TEMP 99.7
[2024-11-20 16:14] VITALS: BP 133/78; PULSE 101
--- NOTE | 2024-11-23 11:56 | XR ---
EXAMINATION TYPE: XR chest 2V DATE OF EXAM: 11/20/2024 2:30 PM COMPARISON: Chest radiographs from 05/08/2023, CT chest 08/09/2020 TECHNIQUE: XR chest 2V Frontal and lateral views of the chest. CLINICAL INDICATION:Male, 64 years old with history of Fever; FINDINGS: Lungs/Pleura: No pleural effusion or pneumothorax. Right upper lobe subtle small patchy opacity. Pulmonary vascularity: Unremarkable. Heart/mediastinum: Cardiomediastinal silhouette is unremarkable. Musculoskeletal: No acute osseous pathology. DISH of the thoracic spine. IMPRESSION: Right upper lobe subtle small patchy opacity. This may represent pneumonia versus scarring sequelae o f prior cavitary lesion. [facility], , 11/20/2024 2:56 PM
== END 2024-11-20 16:45 | disposition home or self-care (01) ==
LOC: EC 13:35 → SUPCPDRO 13:35 → EC 16:45
DX: K43.9 Ventral hernia without obstruction or gangrene (principal); B34.9 Viral infection, unspecified; Z88.0 Allergy status to penicillin; Z91.011 Allergy to milk products; Z88.5 Allergy status to narcotic agent; Z91.018 Allergy to other foods
CPT/HCPCS: 36415; 93005; 80053; 83605; 85025; 81003; 87040; 71046; 99284; 96374; 96375; 96361; J0696